=== PATIENT | male | born 1950 | race Caucasian/White ===

== ENCOUNTER 2020-08-16 08:40 | Outpatient (REF) | payer MEDICARE, SELFPAY ==
--- NOTE | 2020-08-16 | US_ITS ---
EXAMINATION: US ABDOMEN AORTA CLINICAL INFORMATION: Dilation of thoracic aorta. COMPARISON: None. TECHNIQUE: Routine retroperitoneal ultrasound with attention to the abdominal aorta was performed. FINDINGS: Proximal abdominal aorta measures 3.5 x 3.5 cm in AP and transverse dimension. Mid abdominal aorta measures 2.4 x 2.7 cm in AP and transverse dimension. Distal abdominal aorta measures 2.5 x 2.7 cm and AP and transverse dimension. Right common iliac artery measures 1.3 x 1.6 cm in AP and transverse dimension. Left common iliac artery measures 1.6 cm x 1.3 cm in AP and transverse dimension. US/US abdominal aortic aneurysm IMPRESSION: No evidence of abdominal aortic aneurysm.
== END 2020-08-16 08:41 | disposition home or self-care (01) ==
LOC: HO.HMGCX 08:40
PROVIDERS: PCP Nurse Practitioner Family; Visit Provider Nurse Practitioner Family
DX: I77.810 Thoracic aortic ectasia (principal)
CPT/HCPCS: 76706

== ENCOUNTER → 2020-09-27 08:18 | Outpatient (REF) | payer MEDICARE, SELFPAY ==
--- NOTE | 2020-09-27 08:20 | CA_ITS ---
Transthoracic Echocardiogram Patient (Last, First, Middle): Kobi Villagran W Gender: Male Date of : 1950 Age: 69 Procedure Date: 09/27/2020 Procedure Type: Transthoracic Echocardiogram Location: OP Height: 177.8 cm Weight: 117.94 kg BSA: 2.33 m2 Heart Rate: bpm BP: 140 / 74 mmHg Paralegal Instructor: FLORENCIA Referring MD: Thom Luna [facility] Symptoms: I71.2 - Thoracic aortic aneurysm, without rupture Study Quality: Good ECG Rhythm: Sinus Conclusions: - The left ventricular systolic function is normal. The visually estimated ejection fraction is between 60-65%. - There is suggestion of inferior septal /septal hypokinesis in some views. - No obvious valvular pathology seen on this study. Findings Left Ventricle Normal left ventricular cavity size. There is normal left ventricular wall thickness. The left ventricular systolic function is normal. The visually estimated ejection fraction is between 60-65%. There is evidence of regional wall motion abnormalities. Diastolic function is normal for age. There is suggestion of inferior septal /septal hypokinesis in some views. Right Ventricle Normal right ventricular cavity size and systolic function. Atria Both atria are normal in size. Aortic Valve There is a normal trileaflet aortic valve. There is no aortic valve stenosis. There is no aortic valve regurgitation. Mitral Valve The mitral valve appears normal. There is no mitral valve regurgitation. There is no mitral valve stenosis. Pulmonic Valve The pulmonic valve was not well visualized. Tricuspid Valve Normal tricuspid valve structure. There is trace tricuspid valve regurgitation. The pulmonary artery systolic pressure is normal. Great Vessels Top normal ascending aortic size. Venous The inferior vena cava is normal in size and collapses greater than 50% with inspiration. Pericardium/Pleural There is no evidence of pericardial effusion. Prior Study Comparison Changes noted compared to prior study dated: 10/10/2017. See comments on wall motion. On review of images, possibly present before but difficult to compare due to image quality. Recommendations, Care & Conclusions No obvious valvular pathology seen on this study. Measurements 2D Linear Measurements RVIDd: 3.09 RVIDd Index: 1.33 IVSd: 0.94 0.6-0.9/0.6-1.0 cm LVIDd: 5.00 3.9-5.3/4.2-5.9 cm LVIDd Index: 2.15 2.4-3.2/2.2-3.1 cm/m2 LVIDs: 3.57 2.0-3.6 cm LVPWd: 1.23 0.7-1.1 cm Ao Root: 3.20 2.1-3.5 cm LA Diam: 3.60 2.7-3.8/3.0-4.0 cm LAIDs Index: 1.55 1.5-2.3 cm/m2 LV Mass: 253.19 67-162/88-224 g LV Mass Index: 108.66 43-95/49-115 g/m2 LVOT Diam: 2.30 3.0+(-)1.3 cm 2D Systolic Function EF 4C: 42.30 >55% EF 2C: 65.60 >55% EF BiP: 54.50 >55% Mitral Valve MV Pk E: 0.59 MV PK A: 0.81 MV Decel Time: 249.00 E/A: 0.70 E'Lateral: 6.96 E'Medial: 5.66 E/E' Med: 10.50 E/E' Lat: 8.50 Aortic Valve AoV Pk Chago: 1.39 AoV Mn Chago: 1.10 AoV VTI: 0.26 AoV Pk Grad: 8.00 Aov Mn Grad: 5.00 RUSH Cont.VTI: 2.96 LVOT LVOT Pk Chago: 1.17 LVOT Mn Chago: 0.73 LVOT VTI: 0.19 LVOT Pk Grad: 5.00 LVOT Mn Grad: 2.00 LVOT Diam: 2.30 LVOT Area: 4.15 Diastolic Function MV Pk E: 0.59 MV Pk A: 0.81 E/A: 0.70 E'Medial: 5.66 E/E' Med: 10.50 E' Laterial: 6.96 E/E' Lat: 8.50 Tricuspid Valve RA Press: 3.00 Great Vessels Aorta Ao Root-2D: 3.20 2.0-3.7 cm Ao Asc: 3.70 2.1-3.4 cm Ao Arch: 3.50 Updated in Other Vendor System with Status of Final Sixto Gaines MD electronically signed on 09/27/2020 12:44:18 PM with status of Final
== END ==
LOC: HO.CARD 08:18
PROVIDERS: PCP Nurse Practitioner Family; Visit Provider Internal Medicine Cardiovascular Disease
DX: I71.2 Thoracic aortic aneurysm, without rupture (principal); I10 Essential (primary) hypertension
CPT/HCPCS: 93306

== ENCOUNTER → 2020-10-18 08:51 | Outpatient (BNVA) | payer MEDICARE, SELFPAY | PROVIDERS: PCP Nurse Practitioner Family; Visit Provider Internal Medicine Cardiovascular Disease | DX: I71.2 Thoracic aortic aneurysm, without rupture (principal); I10 Essential (primary) hypertension | CPT/HCPCS: 99212 ==

== ENCOUNTER → 2020-11-15 09:03 | Outpatient (BNVA) | payer MEDICARE, SELFPAY | PROVIDERS: PCP Nurse Practitioner Family; Visit Provider Internal Medicine Cardiovascular Disease ==

== ENCOUNTER → 2020-11-18 09:24 | Outpatient (BNVA) | payer MEDICARE, SELFPAY | PROVIDERS: PCP Nurse Practitioner Family; Visit Provider Urology | DX: N52.9 Male erectile dysfunction, unspecified (principal); R35.1 Nocturia; N40.1 Benign prostatic hyperplasia with lower urinary tract symptoms; N13.8 Other obstructive and reflux uropathy | CPT/HCPCS: 81002; 99212 ==

== ENCOUNTER 2021-10-11 10:24 | Outpatient (REF) | payer MEDICARE, SELFPAY ==
--- NOTE | ~2021-10-11 | XR_ITS ---
EXAMINATION: XR LUMBOSACRAL SPINE CLINICAL INFORMATION: Low back pain COMPARISON: None TECHNIQUE: Three views of the lumbosacral spine. FINDINGS: No acute fracture, spondylolisthesis, or spondylolysis is identified. There appears be osteopenia of visualized bones. There is degenerative disc disease seen at the L5-S1 level with facet arthropathy bilaterally. There is mild spurring anterior aspects of the third, fourth, and fifth vertebral bodies. There is a calcified nonaneurysmal abdominal aorta present. There appears to be partial lumbarization right side of S1. XR/XR lumbar spine 2-3V IMPRESSION: Lumbar spondylosis without evidence of acute fracture, spondylolisthesis, or spondylolysis.
== END 2021-10-11 10:25 | disposition home or self-care (01) ==
LOC: HO.HMGCX 10:24
PROVIDERS: PCP Nurse Practitioner Family; Visit Provider Nurse Practitioner Family
DX: M54.50 Low back pain, unspecified (principal)
CPT/HCPCS: 72100

== ENCOUNTER → 2021-10-16 07:49 | Outpatient (REF) | payer MEDICARE, SELFPAY ==
--- NOTE | 2021-10-16 07:51 | CA_ITS ---
Transthoracic Echocardiogram Patient (Last, First, Middle): Kobi Villagran W Gender: Male Date of : 1950 Age: 70 Procedure Date: 10/16/2021 Procedure Type: Transthoracic Echocardiogram Location: OP Height: 177.8 cm Weight: 117.94 kg BSA: 2.33 m2 Heart Rate: bpm BP: 136 / 84 mmHg Packaging Inspector: DANII Referring MD: Facundo Martinez MD Spool Sander: Facundo Martinez MD Symptoms: I71.2 - Thoracic aortic aneurysm, without rupture Study Quality: Fair ECG Rhythm: Sinus Conclusions: - 1. Normal LV systolic function with grade 1 diastolic dysfunction 2. Normal cardiac valvular Doppler 3. Mildly dilated ascending aorta at 4.2 cm 4. Normal RV systolic pressure 5. No pericardial effusion Findings Left Ventricle Normal left ventricular size, thickness, and systolic function. The visually estimated ejection fraction is between 60-65%. Spectral Doppler is indicative of an impaired relaxation filling pattern. E/E prime ratio is <8, consistent with normal filling pressures. Evidence suggests grade I (mild) diastolic dysfunction. Right Ventricle Normal right ventricular cavity size and systolic function. Atria The left atrium is normal in size. Interatrial shunt cannot be excluded. The right atrium is normal in size. Aortic Valve The aortic valve structure and function is likely normal. There is no aortic valve stenosis. There is no aortic valve regurgitation. Mitral Valve Normal mitral valve structure and function. There is trace mitral valve regurgitation. There is no mitral valve stenosis. Pulmonic Valve The pulmonic valve was not well visualized. Tricuspid Valve Likely normal tricuspid valve structure and function. There is mild tricuspid valve regurgitation. The right ventricular systolic pressure is normal. The right ventricular systolic pressure is 28 mmHg. Normal right atrial pressure. There is no evidence of pulmonary hypertension. Great Vessels The pulmonary artery was not well visualized. There is mild dilatation of the ascending aorta measuring 4.20 cm. Venous The inferior vena cava is normal in size and collapses greater than 50% with inspiration. Pericardium/Pleural There is no evidence of pericardial effusion. Prior Study Comparison Changes noted compared to prior study dated: 09/27/2020. ascending aorta is measured to be mildly enlarged at 4.2 cm. Measurements 2D Linear Measurements IVSd: 1.06 0.6-0.9/0.6-1.0 cm LVIDd: 4.79 3.9-5.3/4.2-5.9 cm LVIDd Index: 2.06 2.4-3.2/2.2-3.1 cm/m2 LVIDs: 3.55 2.0-3.6 cm LVPWd: 1.10 0.7-1.1 cm Ao Root: 3.30 2.1-3.5 cm LA Diam: 3.50 2.7-3.8/3.0-4.0 cm LAIDs Index: 1.50 1.5-2.3 cm/m2 LV Mass: 275.50 67-162/88-224 g LV Mass Index: 118.24 43-95/49-115 g/m2 LVOT Diam: 2.20 3.0+(-)1.3 cm 2D Systolic Function EF 4C: 59.80 >55% EF 2C: 59.50 >55% EF BiP: 61.70 >55% Mitral Valve MV Pk E: 0.61 MV PK A: 0.78 MV Decel Time: 289.00 E/A: 0.80 E'Lateral: 6.96 E'Medial: 6.31 E/E' Med: 9.60 E/E' Lat: 8.70 PHT: 85.00 MVA PHT: 2.59 Decel [place]: 2.09 Aortic Valve AoV Pk Chago: 1.22 AoV Mn Chago: 0.97 AoV VTI: 0.28 AoV Pk Grad: 6.00 Aov Mn Grad: 4.00 RUSH Cont.VTI: 2.83 LVOT LVOT Pk Chago: 1.06 LVOT Mn Chago: 0.68 LVOT VTI: 0.21 LVOT Pk Grad: 4.00 LVOT Mn Grad: 2.00 LVOT Diam: 2.20 LVOT Area: 3.80 Diastolic Function MV Pk E: 0.61 MV Pk A: 0.78 E/A: 0.80 E'Medial: 6.31 E/E' Med: 9.60 E' Laterial: 6.96 E/E' Lat: 8.70 Right Ventricle TAPSE (mm): 22.10 TVS' Chago: 12.00 Tricuspid Valve TR Pk Chago: 2.48 TR Pk Grad: 25.00 RA Press: 3.00 RVSP: 28.00 Great Vessels Aorta Ao Root-2D: 3.30 2.0-3.7 cm Ao Asc: 4.20 2.1-3.4 cm Ao Arch: 3.10 Updated in Other Vendor System with Status of Final Facundo Martinez MD electronically signed on 10/17/2021 11:45:07 AM with status of Final
== END ==
LOC: HO.CARD 07:49
PROVIDERS: PCP Nurse Practitioner Family; Visit Provider Internal Medicine Cardiovascular Disease
DX: I71.2 Thoracic aortic aneurysm, without rupture (principal); I10 Essential (primary) hypertension
CPT/HCPCS: 93306

== ENCOUNTER → 2021-10-30 10:30 | Outpatient (BNVA) | payer MEDICARE, SELFPAY | PROVIDERS: PCP Nurse Practitioner Family; Referring Provider Nurse Practitioner Family; Visit Provider Internal Medicine Cardiovascular Disease | DX: I71.2 Thoracic aortic aneurysm, without rupture (principal); I49.1 Atrial premature depolarization; I10 Essential (primary) hypertension | CPT/HCPCS: 93005; 99212 ==

== ENCOUNTER 2021-11-22 06:58 | Outpatient (REF) | payer MEDICARE, SELFPAY ==
[2021-11-22 11:15] LABS: Hemoglobin 14.3 g/dl (14.0-18.0); Mean Corpuscular HGB Conc 33.3 g/dl (31.0-36.0); Mean Corpuscular Hemoglobin 28.8 pg (27.0-33.0); Mean Corpuscular Volume 86.5 fL (80.0-98.0); Mean Platelet Volume 10.1 fL (9.4-12.4); Platelet Count 215 X10*3/uL (160-400); Red Blood Count 4.97 X10*6/uL (4.60-5.80); Red Cell Distribution Width 13.1 % (11.0-16.0); White Blood Count 5.8 X10*3/uL (4.8-10.8)
[2021-11-22 11:47] LABS: Anion Gap 11 (12-20); Blood Urea Nitrogen 17 mg/dL (9-16); Calcium 9.4 mg/dL (8.4-10.2); Carbon Dioxide 28 mmol/L (22-29); Chloride 104 mmol/L (96-108); Cholesterol 164 mg/dL; Estimated Glomerular Filt Rate > 60; Glucose Random 275 mg/dL (60-115); HDL Cholesterol 48 mg/dL; LDL Cholesterol Calculated 101 mg/dl; Potassium 4.2 mmol/L (3.3-5.1); Sodium 139 mmol/L (135-145); Triglycerides 75 mg/dL
== END 2021-11-22 06:59 | disposition home or self-care (01) ==
LOC: HO.HMGCLDS 06:58
PROVIDERS: Visit Provider Internal Medicine Cardiovascular Disease
DX: I25.10 Atherosclerotic heart disease of native coronary artery without angina pectoris (principal); I10 Essential (primary) hypertension
CPT/HCPCS: 36415; 80048; 80061; 85027

== ENCOUNTER → 2022-10-03 08:12 | Outpatient (REF) | payer MEDICARE, SELFPAY ==
--- NOTE | 2022-10-03 08:17 | CA_ITS ---
Transthoracic Echocardiogram Patient (Last, First, Middle): Kobi Villagran W Gender: Male Date of : 1950 Age: 71 Procedure Date: 10/03/2022 Procedure Type: Transthoracic Echocardiogram Location: OP Height: 177.8 cm Weight: 106.6 kg BSA: 2.24 m2 Heart Rate: 67 bpm BP: 130 / 80 mmHg Stage Technician: PASCUAL Referring MD: Facundo Martinez MD Wood Type Finisher: Facundo Martinez MD Symptoms: I71.2 - Thoracic aortic aneurysm, without rupture Study Quality: Apical views are limited ECG Rhythm: Sinus Conclusions: - 1. Technically limited study 2. Normal LV systolic function with grade 1 diastolic dysfunction 3. Normal cardiac valvular Doppler 4. Normal RV systolic pressure 5. No gross pericardial effusion Findings Left Ventricle Normal left ventricular size, thickness, and systolic function. The visually estimated ejection fraction is between 60-65%. Regional wall motion abnormalities can not be excluded due to suboptimal endocardial definition. Spectral Doppler is indicative of an impaired relaxation filling pattern. E/E prime ratio is <8, consistent with normal filling pressures. Evidence suggests grade I (mild) diastolic dysfunction. Right Ventricle The right ventricle was not well visualized. Atria The left atrium is normal in size. Interatrial shunt cannot be excluded. The right atrium is likely dilated. Aortic Valve Normal aortic valve structure and function. There is no aortic valve stenosis. There is no aortic valve regurgitation. Mitral Valve Normal mitral valve structure and function. There is trace mitral valve regurgitation. There is no mitral valve stenosis. Pulmonic Valve The pulmonic valve was not well visualized. Tricuspid Valve Likely normal tricuspid valve structure and function. There is trace tricuspid valve regurgitation. The right ventricular systolic pressure is normal. The right ventricular systolic pressure is 21 mmHg. Normal right atrial pressure. There is no evidence of pulmonary hypertension. Great Vessels The aorta was not well visualized. The pulmonary artery was not well visualized. Venous The inferior vena cava is normal in size and collapses greater than 50% with inspiration. Pericardium/Pleural There is no evidence of pericardial effusion. Prior Study Comparison ascending aorta was not well visualized on this study Recommendations, Care & Conclusions Recommend contrast in the future to improve endocardial definition. Measurements 2D Linear Measurements IVSd: 0.98 0.6-0.9/0.6-1.0 cm LVIDd: 4.33 3.9-5.3/4.2-5.9 cm LVIDd Index: 1.93 2.4-3.2/2.2-3.1 cm/m2 LVIDs: 2.46 2.0-3.6 cm LVPWd: 0.99 0.7-1.1 cm LA Diam: 3.00 2.7-3.8/3.0-4.0 cm LAIDs Index: 1.34 1.5-2.3 cm/m2 LV Mass: 175.25 67-162/88-224 g LV Mass Index: 78.24 43-95/49-115 g/m2 LVOT Diam: 2.00 3.0+(-)1.3 cm 2D Systolic Function EF 4C: 62.20 >55% EF 2C: 56.20 >55% Mitral Valve MV Pk E: 0.71 MV PK A: 0.86 MV Decel Time: 231.00 E/A: 0.80 E'Lateral: 7.94 E'Medial: 6.74 E/E' Med: 10.50 E/E' Lat: 8.90 PHT: 68.00 MVA PHT: 3.24 Decel [place]: 3.07 Aortic Valve AoV Pk Chago: 1.42 AoV Mn Chago: 0.96 AoV VTI: 0.29 AoV Pk Grad: 8.00 Aov Mn Grad: 4.00 RUSH Cont.VTI: 2.68 LVOT LVOT Pk Chago: 1.26 LVOT Mn Chago: 0.82 LVOT VTI: 0.24 LVOT Pk Grad: 6.00 LVOT Mn Grad: 3.00 LVOT Diam: 2.00 LVOT Area: 3.14 Diastolic Function MV Pk E: 0.71 MV Pk A: 0.86 E/A: 0.80 E'Medial: 6.74 E/E' Med: 10.50 E' Laterial: 7.94 E/E' Lat: 8.90 Right Ventricle TAPSE (mm): 21.40 TVS' Chago: 8.70 Tricuspid Valve TR Pk Chago: 2.10 TR Pk Grad: 18.00 RA Press: 3.00 RVSP: 21.00 Great Vessels Aorta Sinus of Valsalva: 3.60 2.0-3.5 cm Ao Asc: 3.60 2.1-3.4 cm Pulmonary Valve PV Pk Chago: 0.91 Peak PV Grad: 3.00 Updated in Other Vendor System with Status of Final Facundo Martinez MD electronically signed on 10/03/2022 2:54:17 PM with status of Final
== END ==
LOC: HO.CARD 08:12
PROVIDERS: Visit Provider Internal Medicine Cardiovascular Disease
DX: I71.20 Thoracic aortic aneurysm, without rupture, unspecified (principal)
CPT/HCPCS: 93306

== ENCOUNTER → 2022-10-25 08:05 | Outpatient (BNVA) | payer MEDICARE, SELFPAY | PROVIDERS: PCP Nurse Practitioner Family; Referring Provider Nurse Practitioner Family; Visit Provider Internal Medicine Cardiovascular Disease | DX: I71.20 Thoracic aortic aneurysm, without rupture, unspecified (principal); I45.10 Unspecified right bundle-branch block; I10 Essential (primary) hypertension | CPT/HCPCS: 93005; 99212 ==

== ENCOUNTER 2022-11-06 07:27 | Outpatient (REF) | payer MEDICARE, SELFPAY ==
--- NOTE | ~2022-11-06 | CT_ITS ---
EXAMINATION: CT ANGIOGRAM ABDOMEN CLINICAL INFORMATION: Aneurysm of ascending aorta without rupture. COMPARISON: None TECHNIQUE: Multiple axial images were obtained through the abdomen following the administration of 80 mL Omnipaque 350 intravenous contrast. Images were reviewed on a dedicated 3-D workstation. This CT examination was performed using dose optimization techniques as appropriate, variously including the following: *Automated exposure control *Adjustment of mA and/or kV according to patient size (this includes techniques or standardized protocols for targeted exams where dose is matched to indication/reason for exam; i.e. extremities or head) *Use of iterative reconstruction technique DLP: 236 mGy-cm FINDINGS: Distal thoracic aorta is normal in caliber. No evidence of dissection or other acute aortic syndrome. The abdominal aorta is normal in course and caliber. No aneurysm identified. No evidence of dissection or other acute aortic syndrome. There is moderate eccentric calcific disease without significant luminal narrowing. Iliac bifurcation is patent. While there is eccentric calcification of the common iliac arteries, there is no luminal narrowing. The celiac axis, superior mesenteric artery, inferior mesenteric arteries are patent and without significant stenosis. There are single renal artery to each kidney. There is no stenosis of the renal arteries. There is an unremarkable appearance of the venous structures for an arterial phase of contrast. There is a 5 x 4 mm right lower lobe opacity (image 60, series 10) There is a 6 x 4 mm lateral left lower lobe nodule (image 68, series 10) There is no pleural effusion. The liver is normal in size and overall attenuation. No hepatic lesions are seen. There is no intra or extrahepatic duct dilation. The gallbladder is unremarkable and there are no pericholecystic inflammatory changes. Spleen is unremarkable. Pancreas is unremarkable. Adrenal glands are unremarkable. Kidneys are normal in size and overall attenuation. At the anterior midpole of the left kidney there is a 6 mm nonobstructing calculus at the posterior aspect of the midpole the right kidney there is a 4 mm nonobstructing calculus. There are no ureteral calculi. There is no hydronephrosis or hydroureter. No free intra-abdominal fluid. The distal esophagus and stomach are unremarkable. The small and large bowel are normal in caliber. There is colonic diverticulosis. No bowel wall inflammatory changes. There is no abdominal adenopathy. There is no significant hernia of the abdominal wall. There is mild multilevel degenerative change of the thoracolumbar spine. Within the left posterior ilium there is a densely sclerotic 6 mm structure most likely a bone island. CT/CT angio abdomen IMPRESSION: 1. No evidence of abdominal aortic aneurysm. 2. There are bilateral lower lobe pulmonary nodules, the largest measures 6 x 4 mm on the left. According to the UPDATED 2017 Fleischner Society recommendations, the advised follow-up imaging for solid nodules < 6 mm is: LOW RISK PATIENT: No routine follow-up. HIGH RISK PATIENT: Optional CT at 12 months. 3. Nonobstructing bilateral renal calculi. Fleischner guidelines were followed.
[2022-11-06 10:22] LABS: Creatinine POC 0.8 mg/dL (0.5-1.4); GFR POC 60
== END 2022-11-06 07:28 | disposition home or self-care (01) ==
LOC: HO.CT 07:27
PROVIDERS: Visit Provider Internal Medicine Cardiovascular Disease
DX: I71.21 Aneurysm of the ascending aorta, without rupture (principal)
CPT/HCPCS: 74175; 82565

== ENCOUNTER 2023-03-12 10:22 | Outpatient (AMB) | payer OTHER, SELFPAY ==
--- NOTE | 2023-03-12 10:47 | A.OFFVIS_ITS ---
Intake Intake Visit Reasons: bph Intake Note: Patient presents today for a follow-up on BPH ? Meds: Finasteride ? Allergies to Antibiotic: None ? Blood Thinner: None ? PVR: 73ml Pressure Supervisor Required: No Accompanied by: Self / Same As Patient Allergies No Known Allergies Allergy (Verified 03/12/23 10:48) HPI HPI Comments History of Present Illness Details Kobi FIELDS is a very pleasant male. He is a patient of Dr. Chow. He is seen for the following urologic conditions. - lower urinary tract symptoms - erectile dysfunction - low testosterone Urination stable Finasteride Saturday, Saturday, Saturday Prior low testosterone Trial tadalafil 3 months Lab work 3 months Lower Urinary Tract Symptoms: PSA low Discussed changing finasteride to Saturday He brought up in interest in the UroLift procedure. My recommendation would be for a laser procedure. First step is bladder ultrasound measures prostate followed by cystoscopy to check for median lobe. Based on this assessment can determine suitability for procedure. - Abnormal imaging result. PET/CT performed for head and neck cancer April 2017. Result includes 9 mm focus of increased FDG uptake and posterior lateral right aspect of prostate. Prostate measures 4.5 x 6.5 x 5.5 cm. Enlarged.. Current treatment includes medication, alpha kamille, 5-AR. Prostate Symptom Score 08/09 Moderate (9-19), Bother 2. Symptoms include 08/09 , incomplete emptying, weak stream, nocturia (>2), and are progressing 05/11 , incomplete emptying, weak stream, nocturia (>2), and are improving. Prior Prostate Score moderate. PSA 05/09 2.6 per patient 02/07 PVR 50, PSA 1.1 05/10 T 358, Bioavailable 120 low 02/08 PSA 1.1 T 121 2 PSA 1.1 Total T 225 - 06/12 0.9 Prostate volume 30-50gm. Testing at next visit will include bladder scan. Treatment plan continue with current medications [facility] Medical History Ectopic atrial rhythm HTN (hypertension) Medial meniscus tear Osteoarthritis Surgical History History of elbow surgery History of hip surgery History of throat surgery Family History Father No problems noted. Mother Cancer Review of Systems Const Denies chills and Denies fever(s) Card Reports no additional complaints and Denies syncope Resp Denies cough GI Denies abdominal pain and Denies heartburn Reports as per HPI and Denies change in libido Neuro Denies syncope Psych Denies change in libido Endo Denies change in libido Physical Exam Const General: cooperative, healthy appearing, comfortable and no acute distress Orientation/consciousness: patient oriented x3 HEENT Face and sinus: Yes normal facial exam Mouth: moist mucous membranes Neck Neck: Yes normal visual inspection, Yes full ROM and Yes trachea midline Chest Chest palpation & inspection: normal inspection of the chest Resp Effort & Inspection: normal respiratory effort, able to speak in complete sentences and no respiratory distress GI Inspection: Yes normal to inspection Back/Spine/Pelvis Cervical Spine: normal cervical lordosis Thoracic/Lumbar Spine: thoracic and lumbar spine normal to inspection Skin General skin exam: no rashes or lesions noted Neuro General: patient oriented x3, gait normal, tone normal and moves all extremities Extrem General: Yes normal to inspection and Yes capillary refill normal Office Procedures Post Void Residual Post Residual Void Post Void Residual (PVR): 73 [id number] Void Residual by ultrasound Results AMB Urinalysis, Automated UA Leukoctes 0 Roxana/uL Last Edit by ANA Gray on 03/12/23 10:54 UA Nitrite Negative Last Edit by ANA Gray on 03/12/23 10:54 UA Urobilinogen 0.2 mg/dL Last Edit by ANA Gray on 03/12/23 10:5 4 UA Protein 0 mg/dL Last Edit by ANA Gray on 03/12/23 10:54 UA pH 6.0 Last Edit by ANA Gray on 03/12/23 10:54 UA Blood 0 Gaurav/uL Last Edit by ANA Gray on 03/12/23 10:54 UA Specific [place] 1.020 Last Edit by ANA Gray on 03/12/23 10: 54 UA Ketone Negative Last Edit by ANA Gray on 03/12/23 10:54 UA Bilirubin 0 mg/dL Last Edit by YUE GrayA on 03/12/23 10:54 UA Glucose 1000 mg/dL Last Edit by YUE GrayA on 03/12/23 10:54 3+ Cat Bentley 03/12/23 10:54 Results Reviewed Results Reviewed: Laboratory Last Values Urine pH (Auto) 6.0 03/12/23 10:41 Specific [place] (Auto) 1.020 03/12/23 10:41 Urine Protein (Auto) 0 mg/dL 03/12/23 10:41 Glucose (UA)(Auto) 1000 mg/dL 03/12/23 10:41 Urine Ketones (Auto) Negative 03/12/23 10:41 Urine Blood (Auto) 0 Gaurav/uL 03/12/23 10:41 Urine Nitrite (Auto) Negative 03/12/23 10:41 Urine Bilirubin (Auto) 0 mg/dL 03/12/23 10:41 Urine Urobilinogen (Auto) 0.2 mg/dL 03/12/23 10:41 Leukocyte Esterase (Auto) 0 Roxana/uL 03/12/23 10:41 Assessment & Plan Assessment & Plan (1) Low testosterone: Code(s): R79.89 - Other specified abnormal findings of blood chemistry Plan Trial tadalafil 5 mg daily Check testosterone in 3 months Orders: Orders AMB Urinalysis Automated 03/12/23 Z13.9 - Encounter for screening, unspecified Testosterone, Free/Total 3 Months R79.89 - Other specified abnormal findings of blood chemistry AMB Post Void Residual by ultrasound 03/12/23 N39.8 - Other specified disorders of urinary system Medications: New tadalafil 5 mg PO DAILY 90 tabs 0RF sexual activity 90 days R79.89 - Other specified abnormal findings of blood chemistry, N52.01 - Erectile dysfunction due to arterial insufficiency Patient Instructions: Imaging studies, laboratory and physical exam results were discussed and review ed in detail. No major barriers to patient understanding were identified. An opportunity to ask questions regarding the treatment plan was provided. All questions were answered. The patient expressed understanding and agreement with the above treatment plan. The patient is aware they should contact our office by phone for worsening of their current condition or the appearance of new urologic symptoms. Compliance is encouraged with any medications and followup testing that is ordered. It is a privilege to participate in the urologic care of your patient. If you have any questions or concerns regarding treatment for the above conditions, or other urologic issues, please do not hesitate to contact me. The office telephone contact is [phone]. This note is constructed using voice recognition software. While every effort has been made to ensure accuracy guest service aide errors may have been included. Yours sincerely, Dr Mayco Roper MD, [facility] - Urology Providers of Expert, Compassionate Care for the Genitourinary System Coding Level of Care Code Est Pt Level 4 (89937) Diagnoses Low testosterone R79.89 CPT Codes Post Residual Void - PVR CPT Code: 31620-Ofzs Void Residual by ultrasound ([id number])
== END 2023-03-12 11:50 | disposition home or self-care (01) ==
LOC: HO.HUSH 10:22
PROVIDERS: PCP Nurse Practitioner Family; Visit Provider Urology
DX: R79.89 Other specified abnormal findings of blood chemistry (principal); N52.9 Male erectile dysfunction, unspecified
CPT/HCPCS: 99214

== ENCOUNTER → 2023-03-12 10:22 | Outpatient (BNVA) | payer OTHER, SELFPAY | PROVIDERS: PCP Nurse Practitioner Family; Visit Provider Urology | DX: R79.89 Other specified abnormal findings of blood chemistry (principal) | CPT/HCPCS: 51798; 99212 ==

== ENCOUNTER 2023-08-06 07:21 | Outpatient (REF) | payer OTHER, SELFPAY ==
[2023-08-11 14:53] LABS: Testosterone, Total 265 ng/dL (250-1100)
== END 2023-08-06 07:22 | disposition home or self-care (01) ==
LOC: HO.HMGCLDS 07:21
PROVIDERS: PCP Nurse Practitioner Family; Visit Provider Urology
DX: R79.89 Other specified abnormal findings of blood chemistry (principal)
CPT/HCPCS: 36415; 84402; 84403

== ENCOUNTER 2023-10-22 14:57 | Outpatient (AMB) | payer OTHER, SELFPAY ==
--- NOTE | 2023-10-22 15:25 | MHC.OFFVIS ---
Intake Intake Visit Reasons: Testosterone/Med Review(set) Intake Note: Patient presents today for a follow-up on: Testo/ Medication Review Meds- Finasteride Allergies to Antibiotic- No Known Allergies Blood Thinner- None Patient Symptoms: Patient stated he is not taking Tadalafil. Prep Person Required: No Accompanied by: Self / Same As Patient Allergies No Known Allergies Allergy (Verified 10/22/23 15:31) HPI HPI Comments History of Present Illness Details Kobi FIELDS is a very pleasant male. He is a patient of Dr. Chow. He is seen for the following urologic conditions. - lower urinary tract symptoms - erectile dysfunction - low testosterone Urination stable Finasteride Saturday, Saturday, Saturday Trial of tadalafil for low T Unable to tolerate secondary to muscular pain Repeat testosterone showed free T 53 with low normal total 265 12 month follow-up labs Lower Urinary Tract Symptoms: PSA low Discussed changing finasteride to Saturday First step is bladder ultrasound measures prostate followed by cystoscopy to check for median lobe. Based on this assessment can determine suitability for procedure. - Abnormal imaging result. PET/CT performed for head and neck cancer April 2017. Result includes 9 mm focus of increased FDG uptake and posterior lateral right aspect of prostate. Prostate measures 4.5 x 6.5 x 5.5 cm. Enlarged.. Current treatment includes medication, alpha kamille, 5-AR. Prostate Symptom Score 08/09 Moderate (9-19), Bother 2. Symptoms include 08/09 , incomplete emptying, weak stream, nocturia (>2), and are progressing 05/11 , incomplete emptying, weak stream, nocturia (>2), and are improving. Prior Prostate Score moderate. PSA 05/09 2.6 per patient 02/07 PVR 50, PSA 1.1 05/10 T 358, Bioavailable 120 low 02/08 PSA 1.1 T 121 11/12 PSA 1.1 Total T 225, 06/12 0.9, 08/15 T 265 F 53 Prostate volume 30-50gm. Testing at next visit will include bladder scan. Treatment plan continue with current medications [facility] Medical History Ectopic atrial rhythm HTN (hypertension) Medial meniscus tear Osteoarthritis Surgical History History of throat surgery History of hip surgery History of elbow surgery Family History Father No problems noted. Mother Cancer Review of Systems Const Denies chills and Denies fever(s) Card Reports no additional complaints and Denies syncope Resp Denies cough GI Denies abdominal pain and Denies heartburn Reports as per HPI and Denies change in libido Neuro Denies syncope Psych Denies change in libido Endo Denies change in libido Physical Exam Const General: cooperative, healthy appearing, comfortable and no acute distress Orientation/consciousness: patient oriented x3 HEENT Face and sinus: Yes normal facial exam Mouth: moist mucous membranes Neck Neck: Yes normal visual inspection, Yes full ROM and Yes trachea midline Chest Chest palpation & inspection: normal inspection of the chest Resp Effort & Inspection: normal respiratory effort, able to speak in complete sentences and no respiratory distress GI Inspection: Yes normal to inspection Back/Spine/Pelvis Cervical Spine: normal cervical lordosis Thoracic/Lumbar Spine: thoracic and lumbar spine normal to inspection Skin General skin exam: no rashes or lesions noted Neuro General: patient oriented x3, gait normal, tone normal and moves all extremities Extrem General: Yes normal to inspection and Yes capillary refill normal Assessment & Plan Assessment & Plan (1) Erectile dysfunction: Code(s): N52.9 - Male erectile dysfunction, unspecified (2) BPH w urinary obs/LUTS: Code(s): N40.1 - Benign prostatic hyperplasia with lower urinary tract symptoms; N13.8 - Other obstructive and reflux uropathy Plan Twelve month follow-up PVR, PSA office Patient Instructions: Imaging studies, laboratory and physical exam results were discussed and reviewed in detail. No major barriers to patient understanding were identified. An opportunity to ask questions regarding the treatment plan was provided. All questions were answered. The patient expressed understanding and agreement with the above treatment plan. The patient is aware they should contact our office by phone for worsening of their current condition or the appearance of new urologic symptoms. Compliance is encouraged with any medications and followup testing that is ordered. It is a privilege to participate in the urologic care of your patient. If you have any questions or concerns regarding treatment for the above conditions, or other urologic issues, please do not hesitate to contact me. The office telephone contact is [phone]. This note is constructed using voice recognition software. While every effort has been made to ensure accuracy tank house operator helper errors may have been included. Yours sincerely, Dr Mayco Roper MD, [facility] - Urology Providers of Expert, Compassionate Care for the Genitourinary System Coding Level of Care Code Est Pt Level 3 (73535) Diagnoses Erectile dysfunction N52.9 BPH w urinary obs/LUTS N40.1; N13.8
== END 2023-10-22 15:41 | disposition home or self-care (01) ==
PROVIDERS: PCP Nurse Practitioner Family; Referring Provider Nurse Practitioner Family; Visit Provider Urology
DX: N52.9 Male erectile dysfunction, unspecified (principal); N40.1 Benign prostatic hyperplasia with lower urinary tract symptoms; N13.8 Other obstructive and reflux uropathy
CPT/HCPCS: 99213

== ENCOUNTER → 2023-10-22 14:57 | Outpatient (BNVA) | payer OTHER, SELFPAY | PROVIDERS: PCP Nurse Practitioner Family; Visit Provider Urology | DX: N52.9 Male erectile dysfunction, unspecified (principal); N40.1 Benign prostatic hyperplasia with lower urinary tract symptoms; N13.8 Other obstructive and reflux uropathy | CPT/HCPCS: 99212 ==

== ENCOUNTER 2023-10-28 08:27 | Outpatient (AMB) | payer MEDICARE, SELFPAY ==
[2023-10-28 08:29] VITALS: BP 130/72; PULSE 80; BMI 36.4
--- NOTE | 2023-10-28 08:29 | MHC.OFFVIS ---
Intake Vital Signs 10/28/23 08:29 Height 5 ft 10 in Weight 253 lb 8.505 oz BMI 36.4 BP 130/72 Blood Pressure Location Lt brachial Position Sitting Pulse 80 Intake Visit Reasons: 1 yr follow up Intake Note: 1 year follow-up with ekg feeling good Cane Weigher Required: No Allergies No Known Allergies Allergy (Verified 10/22/23 15:31) Medication List - Last Reconciled 10/28/23 by Facundo Martinez MD amlodipine (Norvasc) 10 mg PO ONCE atorvastatin 20 mg PO BEDTIME finasteride 5 mg PO DAILY fluticasone propionate 50 mcg/actuation (Children's Flonase Allergy Relief) 1 spray intranasal DAILY hydrochlorothiazide 25 mg PO DAILY lisinopril 10 mg PO DAILY metformin 500 mg PO DAILY metoprolol succinate ER 50 mg PO DAILY tadalafil 5 mg PO DAILY 90 days HPI HPI Comments History of Present Illness Details Kobi comes for follow-up. He has been doing very well from cardiac perspective. He said he continues to play golf and walks 18 holes. He denies any exertional chest pain or shortness of breath. Denies any orthopnea, PND, leg edema. No prolonged palpitation irregular heartbeat. Denies any lightheadedness, syncope. Takes all his medications and currently on once a day regimen. He said his blood pressures are well controlled. [facility] Medical History Ectopic atrial rhythm HTN (hypertension) Medial meniscus tear Osteoarthritis Surgical History History of throat surgery History of hip surgery History of elbow surgery Family History Father No problems noted. Mother Cancer Review of Systems Const Denies chills, Denies fatigue, Denies fever(s), Denies frequent falls, Denies weakness, Denies weight gain and Denies weight loss ENT Denies dizziness Card Denies chest pain, Denies leg edema, Denies lightheadedness, Denies palpitations, Denies dyspnea, Denies dyspnea on exertion, Denies orthopnea and Denies other (loss of consciousness) Resp Denies cough, Denies dyspnea and Denies dyspnea on exertion GI Denies hematochezia and Denies change in stool character Musc Denies abnormal gait, Denies muscle weakness, Denies numbness, Denies radiating pain into limb and Denies tingling Neuro Denies abnormal gait, Denies dizziness, Denies frequent falls, Denies numbness, Denies tingling and Denies weakness Endo Denies fatigue and Denies palpitations Physical Exam Vital Signs: Last Vital Signs Pulse 80 10/28/23 08:29 BP 130/72 10/28/23 08:29 BMI result Body Mass Index 36.4 Const General: cooperative, comfortable, no acute distress and alert Nutritional Appearance: obese Orientation/consciousness: patient oriented x3 Limitations: no limitations Neck Neck: Yes trachea midline, Yes supple and Yes no JVD Chest Chest palpation & inspection: normal inspection of the chest Resp Effort & Inspection: normal respiratory effort Auscultation: clear to auscultation bilaterally Cardio Jugular venous distension: no JVD Palpation: normal PMI Rate: regular rate Rhythm: regular rhythm Heart sounds: S1 normal heart sound present, S2 normal heart sound present and Other heart sounds present (S4 present) GI Inspection: Yes obesity Auscultation: normal bowel sounds Neuro General: patient oriented x3 and no focal motor deficits Extrem General: Yes no clubbing, cyanosis or edema Psych Appearance: grossly normal Office Procedures EKG Details: EKG shows normal sinus rhythm with right bundle-branch block with small Q-waves in inferior leads most likely pseudo infarct pattern [id number], Complete Assessment & Plan Assessment & Plan (1) Ascending aortic aneurysm: Code(s): I71.2 - Thoracic aortic aneurysm, without rupture Plan: Ascending aortic aneurysm which has remained stable. No symptoms related to it. No interventions required for the same. Management of ascending aortic aneurysm was discussed. Will follow with echocardiogram in the near future to assess any increase in size. No surgical intervention required till it is 5.5 cm. Advised to avoid sudden strenuous isometric exercise. (2) HTN (hypertension): Code(s): I10 - Essential (primary) hypertension Plan: Hypertension which is currently well optimized advised to continue current therapy. Well optimized on amlodipine, hydrochlorothiazide, metoprolol as well as lisinopril therapy. Advised to continue monitor blood pressure intermittently at home. Low-salt diet was discussed. Target goal blood pressure less than 130/84. Continue statin therapy with target goal LDL least less than 100 mg/dL. Advised to maintain heart healthy lifestyle. Persistent right bundle-branch block, no interventions required. Follow up in the clinic in 1 year's time, sooner p.r.n.. Thank you for allowing me to partake in his care Coding Level of Care Code Est Pt Level 4 (47481) Diagnoses Ascending aortic aneurysm I71.2 HTN (hypertension) I10 CPT Codes EKG - CPT: 31834-[id number], Complete ([id number])
== END 2023-10-28 09:01 | disposition home or self-care (01) ==
PROVIDERS: Visit Provider Internal Medicine Cardiovascular Disease
DX: I71.20 Thoracic aortic aneurysm, without rupture, unspecified (principal); I10 Essential (primary) hypertension
CPT/HCPCS: 93010; 99214

== ENCOUNTER → 2023-10-28 08:27 | Outpatient (BNVA) | payer MEDICARE, SELFPAY | PROVIDERS: Visit Provider Internal Medicine Cardiovascular Disease | DX: I71.20 Thoracic aortic aneurysm, without rupture, unspecified (principal); I10 Essential (primary) hypertension; Z79.899 Other long term (current) drug therapy | CPT/HCPCS: 93005; 99212 ==

== ENCOUNTER 2024-11-04 08:19 | Outpatient (AMB) | payer OTHER, SELFPAY ==
--- NOTE | 2024-11-04 08:25 | A.OFFVIS_ITS ---
Intake Visit Reasons: 1Y PVR/Labs(Pt will bring in results) Intake Note: Patient presents today for a follow-up on 1 year PVR/labs Meds- Finasteride Allergies to Antibiotic- No Known Allergies Blood Thinner- None PVR:13mL Barber Apprentice Required: No Accompanied by: Self / Same As Patient Allergies No Known Allergies Allergy (Verified 11/04/24 08:27) HPI Comments Details: Kobi FIELDS is a very pleasant male. He is a patient of Dr. Chow. He is seen for the following urologic conditions. - lower urinary tract symptoms - erectile dysfunction - low testosterone Urination stable Finasteride Saturday, Saturday, Saturday PSA 0.83 Has been on Jardiance 10 mg. Did want him that if he has urgency, frequency, nocturia he should switch to a different medication. Prior trial of tadalafil for low T - Unable to tolerate secondary to muscular pain Repeat testosterone 08/15 showed free T 53 with low normal total 265 Lower Urinary Tract Symptoms: PSA low Discussed changing finasteride to Saturday First step is bladder ultrasound measures prostate followed by cystoscopy to check for median lobe. Based on this assessment can determine suitability for procedure. - Abnormal imaging result. PET/CT performed for head and neck cancer April 2017. Result includes 9 mm focus of increased FDG uptake and posterior lateral right aspect of prostate. Prostate measures 4.5 x 6.5 x 5.5 cm. Enlarged.. Current treatment includes medication, alpha kamille, 5-AR. Prostate Symptom Score 08/09 Moderate (9-19), Bother 2. Symptoms include 08/09 , incomplete emptying, weak stream, nocturia (>2), and are progressing 05/11 , incomplete emptying, weak stream, nocturia (>2), and are improving. Prior Prostate Score moderate. PSA 05/09 2.6 per patient 02/07 PVR 50, PSA 1.1 05/10 T 358, Bioavailable 120 low 02/08 PSA 1.1 T 121 11/12 PSA 1.1 Total T 225, 06/12 0.9, 08/15 T 265 F 53, 10/16 0.83 Prostate volume 30-50gm. Testing at next visit will include bladder scan. Treatment plan continue with current medications [facility] Medical History Ectopic atrial rhythm HTN (hypertension) Medial meniscus tear Osteoarthritis Surgical History History of throat surgery History of hip surgery History of elbow surgery Family History Father No problems noted. Mother Cancer Review of Systems Const Denies chills and Denies fever(s) Card Reports no additional complaints and Denies syncope Resp Denies cough GI Denies abdominal pain and Denies heartburn Reports as per HPI and Denies change in libido Neuro Denies syncope Psych Denies change in libido Endo Denies change in libido Physical Exam Const General: cooperative, healthy appearing, comfortable and no acute distress Orientation/consciousness: patient oriented x3 HEENT Face and sinus: Yes normal facial exam Mouth: moist mucous membranes Neck Neck: Yes normal visual inspection, Yes full ROM and Yes trachea midline Chest Chest palpation & inspection: normal inspection of the chest Resp Effort & Inspection: normal respiratory effort, able to speak in complete sentences and no respiratory distress GI Inspection: Yes normal to inspection Back/Spine/Pelvis Cervical Spine: normal cervical lordosis Thoracic/Lumbar Spine: thoracic and lumbar spine normal to inspection Skin General skin exam: no rashes or lesions noted Neuro General: patient oriented x3, gait normal, tone normal and moves all extremities Extrem General: Yes normal to inspection and Yes capillary refill normal Office Procedures Post Void Residual Post Residual Void Post Void Residual (PVR): 13 [id number] Void Residual by ultrasound Assessment & Plan Assessment & Plan (1) BPH w urinary obs/LUTS: Code(s): N40.1 - Benign prostatic hyperplasia with lower urinary tract symptoms; N13.8 - Other obstructive and reflux uropathy Category: Medical (2) Nocturia more than twice per night: Code(s): R35.1 - Nocturia Category: Medical (3) Erectile dysfunction: Code(s): N52.9 - Male erectile dysfunction, unspecified Category: Medical Plan Twelve month follow-up Orders: Orders AMB Post Void Residual by ultrasound Today N13.8 - Other obstructive and reflux uropathy, N40.1 - Benign prostatic hyperplasia with lower urinary tract symptoms Patient Instructions: This note is constructed using voice recognition software. While every effort has been made to ensure accuracy retail special event associate errors may have been included. Imaging studies, laboratory and physical exam results were discussed and reviewed in detail. No major barriers to patient understanding were identified. An opportunity to ask questions regarding the treatment plan was provided. All questions were answered. The patient expressed understanding and agreement with the above treatment plan. The patient is aware they should contact our office by phone for worsening of their current condition or the appearance of new urologic symptoms. Compliance is encouraged with any medications and followup testing that is ordered. It is a privilege to participate in the urologic care of your patient. If you have any questions or concerns regarding treatment for the above conditions, or other urologic issues, please do not hesitate to contact me. The office telephone contact is [phone]. Sincerely, Dr Mayco Roper MD, [facility] - Urology Compassionate Specialist Care for the Genitourinary System Coding Level of Care Code Est Pt Level 4 (17919) Diagnoses BPH w urinary obs/LUTS N40.1; N13.8 Nocturia more than twice per night R35.1 Erectile dysfunction N52.9 CPT Codes Post Residual Void - PVR CPT Code: [id number] Void Residual by ultrasound ([id number])
--- OUTSIDE RECORDS SUMMARY | 2024-11-04 08:51 | XMS_ITS | Encounter Summary ---
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 This section includes the names of all active insurance providers for the patient. Insurance Provider Type of Coverage Plan Name Start of Policy Coverage End of Policy Coverage Group Number Member ID Insurance Provider's Telephone Number Policy Bright's Name Patient's Relationship to Policy Bright [employer] PLAN MEDICARE SUPPLEMEN SEN Jun 23, 2017 PLAN [id number] [phone] YOUSUF FIELDS PATIENT AARP MED SUPP MEDICARE SUPPLEMEN SEN Jun 23, 2017 PLAN [id number] YOUSUF FIELDS PATIENT AARP MED SUPP MEDICARE SUPPLEMEN SEN PLANM Y Jun 23, 2017 PLAN [id number] YOUSUF FIELDS PATIENT MEDICARE (WNR) MEDICARE (M) PART B Feb 22, 2016 PART B [id number] YOUSUF FIELDS PATIENT MEDICARE (WNR) MEDICARE (M) PART B Feb 22, 2016 PART B [id number] YOUSUF FIELDS PATIENT MEDICARE (WNR) MEDICARE (M) PART A Dec 22, 2013 PART A [id number] [phone] [id number] YOUSUF FIELDS PATIENT MEDICARE (WNR) MEDICARE (M) PART A Dec 22, 2013 PART A [id number] YOUSUF FIELDS PATIENT Selected Encounter This section includes the information on record at [place] for the Encounter. Date/Time Encounter Type Encounter Description Reason Provider Source Nov 27, 2023 07:30 AM COMPRE OPH EXAM EST PT 1/> OPTOMETRY ICD-10-CM E11.9 Type 2 diabetes mellitus without complications MERCHLOE,CHAYO B E Encounter Template Text not used by [place] Assessments - Encounter Diagnoses This section includes the primary and secondary diagnoses documented for the Encounter. Date/Time Primary/Secondary Diagnosis Diagnosis Name Provider Source Nov 27, 2023 08:11 AM PRIMARY Type 2 diabetes mellitus without complications MONICA,CHAYO B [facility] [place] [facility] Nov 27, 2023 08:11 AM SECONDARY Age-related nuclear cataract, bilateral MERHAR,CHAYO B [facility] [place] [facility] Nov 27, 2023 08:11 AM SECONDARY Benign neoplasm of right choroid [facility] [place] [facility] Nov 27, 2023 08:11 AM SECONDARY Hypermetropia, bilateral MERHAR,CHAYO B [facility] [place] [facility] Plan of Treatment: Future Appointments (+ 6 months) and Future Tests (+/- 45 days) The Plan of Treatment section includes future care activities for the patient from all [place] treatmentfacilities. This section includes future appointments and future orders which are active, pending or scheduled. Future Appointments This section includes appointments that were scheduled to occur 6 months from the date of the Encounter, up to a maximum of 20 appointments. The data comes from all [place] treatment facilities. Appointment Date/Time Appointment Type Appointme nt Facility Name Dec 10, 2023 03:00 PM AMBULATORY - NONE [facility] [place] [facility] Dec 18, 2023 01:30 PM AMBULATORY - MEDICINE [place] [facility] [place] [facility] Jan 01, 2024 03:00 PM AMBULATORY - MEDICINE [place] [facility] [place] [facility] Mar 31, 2024 08:30 AM AMBULATORY - MEDICINE [place] [facility] [place] [facility] Mar 31, 2024 09:30 AM AMBULATORY - MEDICINE [place] [facility] [place] [facility] May 28, 2024 09:00 AM [facility] Lab Results: +/- 30 days of the encounter This section includes the Chemistry and Hematology Lab Results on record with [place] for the patient. Radiology Reports and Pathology Reports are provided separately, in subsequent sections. Lab Results This section contains the Chemistry/Hematology Results that were resulted 30 days before or 30 daysafter the date of the Encounter. Date/Time Source Result Type Result - Unit Interpretation Reference Range Comment Nov 22, 2023 08:[address] [facility] LIPID PANEL FASTING Specimen Type: SERUM No comment entered. Ordering Provider: TIFFANY MADISON Report Released Date/Time: Nov 08, 2023 11:20 AM Reporting [facility] [address] [facility] [address] Performing Lab: [facility] [address] [facility] [address] CHOLESTEROL 150 mg/dL TRIGLYCERIDE 64 mg/dL 0-150 LDL calculated 92 mg/dL 0-129 CHOL/HDL 3.3 HDL CHOLESTEROL 45 mg/dL 40-60 Nov 22, 2023 08:[address] [facility] BASIC METABOLIC PANEL (fasting) Specimen Type: SERUM No comment entered. Ordering Provider: TIFFANY MADISON Report Released Date/Time: Nov 08, 2023 11:20 AM Reporting Lab[facility] [address] [facility] [address] Performing Lab: [facility] [address] [address] UREA NITROGEN 15 mg/dL 7-25 GLUCOSE 317 mg/dL H 65-100 SODIUM 139 mmol/L 135-145 POTASSIUM 3.9 mmol/L 3.5-5.0 CHLORIDE 106 mmol/L 100-110 CO2 23 meq/L 20-30 CREATININE, Serum 1.09 mg/dL 0.50-1.40 eGFR(CKD-EPI 2020) 71 mL/min >60 Nov 22, 2023 08:53 AM [facility] LIVER FUNCTION Specimen Type: SERUM No comment entered. Ordering Provider: TIFFANY MADISON Report Released Date/Time: Nov 08, 2023 11:20 AM Reporting Lab: [facility] [address] [facility] [address] Performing Lab: [address] [address] PROTEIN,TOTAL 7.1 g/dL 6.0-8.3 ALBUMIN 4.2 g/dL 3.5-5.0 ALKALINE PHOSPHATASE 86 U/L 40-150 AST 15 U/L 5-34 ALT 24 U/L BILIRUBIN, TOTAL 0.6 mg/dL 0.2-1.2 Nov 22, 2023 08:53 AM [facility] HEMOGLOBIN A1C PANEL Specimen Type: BLOOD Comment: Values obtained from A1C measurements can vary. For atypical A1C assays, a reported value of 7.0 could actually be between 6.72 and 7.28 if measured by a reference method. A reported value of 9.0 could actually be between 8.73 and 9.27. Ref: http://www.ng sp.org/CAPdat a.asp Ordering Provider: TIFFANY MADISON Report Released Date/Time: Nov 08, 2023 11:20 AM Reporting Lab: [address] [address] Performing Lab: [address] [address] HEMOGLOBIN A1C 10.4 H 4.0-5.6 Nov 22, 2023 08:53 AM [facility] HIV 1&2 Ag/Ab SCREEN Specimen Type: SERUM No comment entered. Ordering Provider: TIFFANY MADISON Report Released Date/Time: Nov 08, 2023 11:20 AM Reporting Lab: [address] [address] Performing Lab: [address] [address] HIV 1&2 Ag/Ab SCREEN NON-REACTIVE Nonreactive Vital Signs: All taken on the encounter date This section contains inpatient and outpatient Vital Signs collected on the date of the Encounter. Date/Time Temperature Pulse Blood Pressure Respiratory Rate SP02 Pain Height Weight Body Mass Index Source Nov 27, 2023 09:10 AM 98.8 84 133/74 16 94 [facility] [place] [facility] Nov 27, 2023 09:06 AM 0 70 250 36 [facility] [place] [facility] Social History: Smoking Status (Most current) and Tobacco Use (All prior to encounter date) This section includes the most current, and the historical, smoking and tobacco- related health factors from the [place] facility where the Encounter took place. Current Smoking Status This section includes the most current smoking, or tobacco-related health factor, from the [place] facility where the Encounter took place. Date/Time Current Smoking Status Comment Facil ity May 23, 2023 03:00 PM VA-TOBACCO NEVER USED [place] [facility] [place] [facility] Tobacco Use History This section includes a history of the smoking, or tobacco-related health factors, that were collected on or before the date of the Encounter. The data comes from the [place] facility where the Encounter took place. Date/Time Smoking Status/Tobacco Use Comment F acility Jun 14, 2022 09:00 AM VA-TOBACCO FORMER USER [facility] [place] [facility] Jun 14, 2022 09:00 AM VA-TOBACCO QUIT 15 YRS OR MORE [facility] [place] [facility] Jun 01, 2021 08:00 AM VA-TOBACCO NEVER USED [facility] [place] [facility] Jun 28, 2020 10:00 AM VA-TOBACCO NEVER USED [facility] [place] [facility] May 21, 2019 02:59 PM VA-TOBACCO NEVER USED [facility] [place] [facility] Mar 31, 2018 03:24 PM LIFETIME NON-TOBACCO USER [facility] [place] [facility] Apr 19, 2017 08:30 AM LIFETIME NON-TOBACCO USER [facility] [place] [facility] Apr 19, 2016 10:17 AM LIFETIME NON-TOBACCO USER . [facility] [place] [facility] February 12, 2013 02:40 PM LIFETIME NON-TOBACCO USER [facility] [place] [facility] Encounter Notes: All associated encounter notes This section contains the clinical notes associated to the Encounter. Date/Time Encounter Note(s) Provider Source Nov 27, 2023 07:17 AM OPTOMETRY NOTE: LOCAL TITLE: OPTOMETRY NOTE STANDARD TITLE: OPTOMETRY NOTE DATE OF NOTE: NOV 27, 2023@07:17 ENTRY DATE: NOV 27, 2023@07:17:12 AUTHOR: CHAYO ANDERSON EXP COSIGNER: URGENCY: STATUS: COMPLETED 72 WHITE MALE NOT OR Last eye exam: 11/26/22 Reason for Visit/CC: patient here for a comprehensive eye exam. Eyes feel more tired. 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 Benign essential hypertension ([facility] [id number]) N52.9 Erectile dysfunction ([facility] [id number]) R69. Bilateral hearing loss ([facility] [id number]) E66.8 Obesity ([facility] [id number]) Other: SYSTEMIC MEDICATIONS/OCULAR MEDICATIONS: Active and Recently Outpatient Medications (excluding Supplies): Active Outpatient Medications Status 1) AMLODIPINE BESYLATE 10MG TAB TAKE ONE TABLET BY MOUTH ACTIVE EVERY DAY FOR BLOOD PRESSURE/HEART, DO NOT TAKE WITH GRAPEFRUIT JUICE 2) FINASTERIDE 5MG TAB TAKE ONE TABLET BY MOUTH EVERY ACTIVE DAY FOR PROSTATE 3) HYDROCHLOROTHIAZIDE 25MG TAB TAKE ONE-HALF TABLET BY ACTIVE MOUTH EVERY DAY TO PREVENT FLUID/CONTROL BLOOD PRESSURE 4) LISINOPRIL 20MG TAB TAKE ONE TABLET BY MOUTH EVERY ACTIVE DAY TO CONTROL BLOOD PRESSURE 5) METFORMIN HCL 500MG 24HR SA TAB TAKE ONE TABLET BY ACTIVE MOUTH ONCE DAILY FOR TYPE 2 DIABETES MELLITUS 6) METOPROLOL SUCCINATE 50MG SA TAB TAKE ONE TABLET BY ACTIVE MOUTH EVERY DAY FOR BLOOD PRESSURE/HEART 7) PEG-3350/ELECTROLYTES PWDR W/FLAVOR PKT TAKE 1 BOTTLE ACTIVE BY MOUTH ONE TIME ACCORDING TO INSTRUCTIONS FROM PRESCRIBER - DISSOLVE CONTENTS BEFORE DRINKING 8) ROSUVASTATIN CA 20MG TAB TAKE ONE TABLET BY MOUTH ACTIVE ONCE DAILY FOR CHOLESTEROL ALLERGIES: Patient has answered NKA LAST BP: 125/84 (05/23/2023 15:14) PERTINENT LABS: HEMOGLOBIN A1C; BLOOD Xin. Date: 11/22/23 08:53 04/30/23 07:56 Test Name Result Units Range HEMOGLOBIN A1C 10.4 H 7.3 H % 4.0 - 5.6 Current Rx with last BCVA: OD +1.00 -0.50 X105 OS +1.50 -0.75 X90 Add:+2.50 DVA ( x )sc ( )cc OD 20/40 OS 20/20 Pupils: PERRL (-)APD EOM: Full all meridia OU, (-) pain/diplopia Confrontation Visual Crawford: Full all meridia OU Subjective: OD +0.75 -0.50 x 105 20/30 OS +1.25 -1.25 x 095 20/20 Add: +2.50 SLE: Lids/Lashes: mild dermatochalasis OU Conjunctiva: white and quiet OU Corneas: faint scarring OD, clear OS Iris: flat and clear OU (-)NVI OU Anterior Chamber: deep and quiet OU Angles: open OU Lens: 1+ NS OU TAP @ 7:34am Styles OD 13 mm Hg OS 12 mm Hg Dilating Drops: 1 gtt 1% Tropicamide OU, 2.5% phenylephrine OU (Pt. ed. on side effects) Vitreous: Syneresis OU C/D (Size and Rim Description) OD 0.35 pink & healthy OS 0.40 pink & healthy, corkscrew vessels nasal rim (-)NVD OU Macula OD flat and clear OS flat and clear (-)CSME OU A/V: normal caliber OU Posterior Pole: small choroidal nevus nasal to disc OD, clear OS Periphery: Flat and intact (-)NVE, holes, tears, detachments 360 OU 1DD choroidal nevus superior nasal OD mid-periphery Assessment/Plan: 1. Type II diabetes without retinopathy or macular edema OU. Last A1c 10.4. Pt ed on findings and importance of good blood glucose control. Monitor annually 2. Nuclear sclerosis cataracts OU, not visually significant. Monitor 3. choroidal nevi OD - stable to previous descriptions without concerning characteristics. Monitor 4. h/o herpes keratitis OD with faint scarring - stable. 5. hyperopia OU, regular astigmatism OU, presbyopia OU - order new bifocals and DVO sun RTC 1 year or earlier PRN Patient Education: Diabetes: Patient was educated regarding diabetes and related ocular complications including retinopathy and cataract formation as well as other related systemic complications. The importance of good blood sugar control, blood sugar testing as recommended by their PCP and the importance of timely follow up were all emphasized. patient offered and declined printed medication list Medication Reconciliation: Outpatient: Has the patient been taking medications as documented in the EMLR? YES: The patient has been taking medications as documented in the EMLR. Essential Medication List for Review used to complete this medication reconciliation. INCLUDED IN THIS LIST: Alphabetical list of active outpatient prescriptions dispensed from this [facility] (local) and dispensed from another VA or DoD facility (remote) as well as inpatient orders (local, pending and active), local clinic medications, locally documented non-VA medications, and local prescriptions that have or been discontinued in the past 90 days. - All changes in medications, including all non-VA/Herbal/OTC medications were entered into CPRS. - If there were any medications the patient should no longer take, they were discontinued. - The patient/caregiver was instructed to update this list, discard old lists, and take this list to the next appointment, whether with a VA or non-VA provider. Medication List: JLV Link Data on this list may not be complete. Please check JLV. Allergies/ADRs (Tool #5) FACILITY ALLERGY/ADR -------- No Remote Allergy/ADR Data available for this patient [facility] [place] [facility] No Known Allergies Med. Reconciliation (Tool #1) INCLUDED IN THIS LIST: Alphabetical list of active outpatient prescriptions dispensed from this [place] (local) and dispensed from another [place] or [facility] facility (remote) as well as inpatient orders (local pending and active), local clinic medications, locally documented non-VA medications, and local prescriptions that have or been discontinued in the past 90 days. Non-VA Meds Last Documented On: May 01, 2018 NOTE The display of VA prescriptions dispensed from another [place] or [facility]D facility (remote) is limited to active outpatient prescription entries matched to National Drug File at the originating site and may not include some items such as investigational drugs, compounds, etc. NOT INCLUDED IN THIS LIST: Medications self-entered by the patient into personal health records (i.e. [place]) are NOT included in this list. Non-VA medications documented outside this [place], remote inpatient orders (regardless of status) and remote clinic medications are NOT included in this list. The patient and provider must always discuss medications the patient is taking, regardless of where the medication was dispensed or obtained. OUTPT AMLODIPINE BESYLATE 10MG TAB (Status = Active) TAKE ONE TABLET BY MOUTH EVERY DAY FOR BLOOD PRESSURE/HEART, DO NOT TAKE WITH GRAPEFRUIT JUICE Rx# [id number] Last Released: 11/23/23 Qty/Days Supply: Rx Expiration Date: 08/05/24 Refills Remainin OUTPT FINASTERIDE 5MG TAB (Status = Active) TAKE ONE TABLET BY MOUTH EVERY DAY FOR PROSTATE Rx# [id number] Last Released: 08/08/23 Qty/Days Supply: Rx Expiration Date: 08/05/24 Refills Remainin OUTPT HYDROCHLOROTHIAZIDE 25MG TAB (Status = Active) TAKE ONE-HALF TABLET BY MOUTH EVERY DAY TO PREVENT FLUID/CONTROL BLOOD PRESSURE Rx# [id number] Last Released: 08/08/23 Qty/Days Supply: Rx Expiration Date: 08/05/24 Refills Remainin OUTPT LISINOPRIL 20MG TAB (Status = Active) TAKE ONE TABLET BY MOUTH EVERY DAY TO CONTROL BLOOD PRESSURE Rx# [id number] Last Released: 11/23/23 Qty/Days Supply: Rx Expiration Date: 08/05/24 Refills Remainin OUTPT METFORMIN HCL 500MG 24HR SA TAB (Status = Active) TAKE ONE TABLET BY MOUTH ONCE DAILY FOR TYPE 2 DIABETES MELLITUS Rx# [id number] Last Released: 08/01/23 Qty/Days Supply: Rx Expiration Date: 04/02/24 Refills Remainin Indication: FOR TYPE 2 DIABETES MELLITUS OUTPT METOPROLOL SUCCINATE 50MG SA TAB (Status = Active) TAKE ONE TABLET BY MOUTH EVERY DAY FOR BLOOD PRESSURE/HEART Rx# [id number] Last Released: 11/23/23 Qty/Days Supply: Rx Expiration Date: 08/05/24 Refills Remainin OUTPT PEG-3350/ELECTROLYTES PWDR W/FLAVOR PKT (Status = Active) TAKE 1 BOTTLE BY MOUTH ONE TIME ACCORDING TO INSTRUCTIONS FROM PRESCRIBER - DISSOLVE CONTENTS BEFORE DRINKING Rx# [id number] Last Released: 11/06/23 Qty/Days Supply: Rx Expiration Date: 02/02/24 Refills Remainin Indication: FOR EMPTYING OF THE BOWEL OUTPT ROSUVASTATIN CA 20MG TAB (Status = Active) TAKE ONE TABLET BY MOUTH ONCE DAILY FOR CHOLESTEROL Rx# [id number] Last Released: 11/23/23 Qty/Days Supply: Rx Expiration Date: 08/05/24 Refills Remainin SUPPLIES PHARMACY TERMS AND POSSIBLE PATIENT ACTIONS INPT = [place] inpatient order IV = NM intravenous medication OUTPT = [place] outpatient prescription PHARMACY POSSIBLE PATIENT TERMS EXPLANATION ACTIONS -------- -- ACTIVE A prescription that can be If you have refills, filled at the local [place] pharmacy. you may request a refill of this prescription from your [place] pharmacy. CLINIC A medication you received during If you have questions a visit to a [place] clinic or about this medication emergency department. contact your [place] healthcare team. DISCONTINUED A prescription your provider has Contact your VA stopped. It is no longer healthcare team if you available to be sent to you or need more of this picked up at the [place] pharmacy medication. window. A prescription which is too old Contact your VA to fill. This does not refer to healthcare team if you the expiration date of the need more of this medication in the container. medication. NON-VA A medication that came from If this medication someplace other than a VA information is pharmacy. This may be a incorrect or out of prescription from either the VA date, please tell your or non VA providers that was VA healthcare team. filled outside the VA. Or, it may be an dczq-scp-ycardge (OTC), herbal, dietary supplements or sample medication. ON HOLD An active prescription that will Contact your VA not be filled until pharmacy pharmacy when you need resolves the issue. more of this medication. PARKED An active prescription that will Contact your VA not be filled until the patient pharmacy when you need requests it. this medication. PENDING This prescription order has been If you have been sent to the pharmacy for review instructed to start and is not ready yet. this medication now, contact your VA pharmacy. SUSPENDED An active prescription that is Contact your VA not scheduled to be filled yet. pharmacy if you need You should receive it before this medication now. you run out. ====== /nasrin/ CHAYO ANDERSON OD Blood Bank Technologist Signed: 11/27/2023 08:11 CHAYO ANDERSON [facility]
--- OUTSIDE RECORDS SUMMARY | 2024-11-04 08:51 | XMS_ITS | Encounter Summary ---
Author Name [facility] [place] [facility] [place] Address [address] [place] [address] Care Team Providers Care Cleaner And Preparer Name Role Phone SHALOM ABRAMS Primary [...] MEDICARE SUPPLEMEN SEN Jun 23, 2017 PLAN [id number] [phone] YOUSUF FIELDS PATIENT AARP MED SUPP MEDICARE SUPPLEMEN SEN Jun 23, 2017 PLAN [id number] YOUSUF FIELDS PATIENT AARP MED SUPP MEDICARE SUPPLEMEN SEN PLANM Y Jun 23, 2017 PLAN [id number] [phone] YOUSUF FIELDS PATIENT MEDICARE (WNR) MEDICARE (M) PART B Feb 22, 2016 PART B [id number] YOUSUF FIELDS PATIENT MEDICARE (WNR) MEDICARE (M) PART B Feb 22, 2016 PART B [id number] YOUSUF FIELDS PATIENT MEDICARE (WNR) MEDICARE (M) PART A Dec 22, 2013 PART A [id number] YOUSUF FIELDS PATIENT MEDICARE (WNR) MEDICARE (M) PART A Dec 22, 2013 PART A [id number] [phone] YOUSUF FIELDS PATIENT Selected Encounter This section includes the information on record at [place] for the Encounter. Date/Time Encounter Type Encounter Description Reason Provider Source Dec 18, 2023 01:30 PM MTMS BY PHARM JAZLYN 15 MIN CLINICAL PHARMACY ICD-10-CM E11.9 Type 2 diabetes mellitus without complications MARK ANTHONY DALAL Patricio Encounter Template Text not used by [place] Assessments - Encounter Diagnoses This section includes the primary and secondary diagnoses documented for the Encounter. Date/Time Primary/Secondary Diagnosis Diagnosis Name Provider Source Dec 19, 2023 08:07 AM PRIMARY Type 2 diabetes mellitus without complications MARK ANTHONY DALAL [facility] Plan of Treatment: Future Appointments (+ 6 months) and Future Tests (+/- 45 days) The Plan of Treatment section includes future care activities for the patient from all [place] treatmentfacilities. This section includes future appointments and future orders which are active, pending or scheduled. Future Appointments This section includes appointments that were scheduled to occur 6 months from the date of the Encounter, up to a maximum of 20 appointments. The data comes from all [place] treatment facilities. Appointment Date/Time Appointment Type Appointme nt Facility Name Jan 01, 2024 03:00 PM [facility] Mar 31, 2024 08:30 AM [facility] [place] [facility] Mar 31, 2024 09:30 AM [facility] [place] [facility] May 28, 2024 09:00 AM [facility] Lab Results: +/- 30 days of the encounter This section includes the Chemistry and Hematology Lab Results on record with [place] for the patient. Radiology Reports and Pathology Reports are provided separately, in subsequent sections. Lab Results This section contains the Chemistry/Hematology Results that were resulted 30 days before or 30 daysafter the date of the Encounter. Date/Time Source Result Type Result - Unit Interpretation Reference Range Comment Nov 22, 2023 08:53 AM [facility] HEMOGLOBIN A1C PANEL Specimen Type: BLOOD Comment: [...] Nov 08, 2023 11:20 AM Reporting Lab: [address] [address] Performing Lab: [address] [address] HEMOGLOBIN A1C 10.4 H 4.0-5.6 Nov 22, 2023 08:53 AM [facility] LIPID PANEL FASTING Specimen Type: SERUM No comment entered. Ordering Provider: TIFFANY MADISON Report Released Date/Time: Nov 08, 2023 11:20 AM Reporting Lab: [address] [address] Performing Lab: [address] [address] CHOLESTEROL 150 mg/dL TRIGLYCERIDE 64 mg/dL 0-150 LDL calculated 92 mg/dL 0-129 CHOL/HDL 3.3 HDL CHOLESTEROL 45 mg/dL 40-60 Nov 22, 2023 08:53 AM [facility] BASIC METABOLIC PANEL (fasting) Specimen Type: SERUM No comment entered. Ordering Provider: TIFFANY MADISON Report Released Date/Time: Nov 08, 2023 11:20 AM Reporting Lab: [address] [address] Performing Lab: [address] [address] UREA NITROGEN 15 mg/dL 7-25 GLUCOSE 317 mg/dL H 65-100 SODIUM 139 mmol/L 135-145 POTASSIUM 3.9 mmol/L 3.5-5.0 CHLORIDE 106 mmol/L 100-110 CO2 23 meq/L 20-30 CREATININE, Serum 1.09 mg/dL 0.50-1.40 eGFR(CKD-EPI 2020) 71 mL/min >60 Nov 22, 2023 08:53 AM [facility] LIVER FUNCTION Specimen Type: SERUM No comment entered. Ordering Provider: TIFFANY MADISON Report Released Date/Time: Nov 08, 2023 11:20 AM Reporting Lab: [address] [address] Performing Lab: [address] [address] PROTEIN,TOTAL 7.1 g/dL 6.0-8.3 ALBUMIN 4.2 g/dL 3.5-5.0 ALKALINE PHOSPHATASE 86 U/L 40-150 AST 15 U/L 5-34 ALT 24 U/L BILIRUBIN, TOTAL 0.6 mg/dL 0.2-1.2 Nov 22, 2023 08:53 AM [facility] HIV 1&2 Ag/Ab SCREEN Specimen Type: SERUM No comment entered. Ordering Provider: TIFFANY MADISON Report Released Date/Time: Nov 08, 2023 11:20 AM Reporting Lab: [address] [address] Performing Lab: [address] [address] HIV 1&2 Ag/Ab SCREEN NON-REACTIVE Nonreactive Social History: Smoking Status (Most current) and Tobacco Use (All prior to encounter date) This section includes the most current, and the historical, smoking and tobacco- related health factors from the [place] facility where the Encounter took place. Current Smoking Status This section includes the most current smoking, or tobacco-related health factor, from the [place] facility where the Encounter took place. Date/Time Current Smoking Status Comment Facil [facility] May 23, 2023 03:00 PM VA-TOBACCO NEVER USED [facility] Tobacco Use History This section includes a history of the smoking, or tobacco-related health factors, that were collected on or before the date of the Encounter. The data comes from the [place] facility where the Encounter took place. Date/Time Smoking Status/Tobacco Use Comment F acility Jun 14, 2022 09:00 AM VA-TOBACCO FORMER USER [facility] [place] [facility] Jun 14, 2022 09:00 AM VA-TOBACCO QUIT 15 YRS OR MORE [facility] [place] [facility] Jun 01, 2021 08:00 AM VA-TOBACCO NEVER USED [facility] [place] [facility] Jun 28, 2020 10:00 AM VA-TOBACCO NEVER USED [facility] [place] [facility] May 21, 2019 02:59 PM VA-TOBACCO NEVER USED [facility] [place] [facility] Mar 31, 2018 03:24 PM LIFETIME NON-TOBACCO USER [facility] [place] [facility] Apr 19, 2017 08:30 AM LIFETIME NON-TOBACCO USER [facility] [place] [facility] Apr 19, 2016 10:17 AM LIFETIME NON-TOBACCO USER . [facility] [place] [facility] February 12, 2013 02:40 PM LIFETIME NON-TOBACCO USER [facility] [place] [facility] Encounter Notes: All associated encounter notes This section contains the clinical notes associated to the Encounter. Date/Time Encounter Note(s) Provider Source Dec 19, 2023 08:21 AM ADDENDUM: LOCAL TITLE: Addendum STANDARD TITLE: ADDENDUM DATE OF NOTE: DEC 19, 2023@08:21:58 ENTRY DATE: DEC 19, 2023@08:21:59 AUTHOR: MARK ANTHONY DALAL EXP COSIGNER: URGENCY: STATUS: COMPLETED Will ask AMSA to please schedule patient for: [X] CWM/NO/PHARM/PACT 3 RTC order placed. Appointment Length: _30__ minutes. :01/01/24 @1500 Thank you! /elvin DALAL PHARMD,[facility] PRACTITIONER Signed: 12/19/2023 08:22 Receipt Acknowledged By: 12/19/2023 08:48 /nasrin/ ELEAZAR MAS AMSA --- Original Document --- 12/18/23 CONSULT REPORT/PHARMACY: LIMA FIELDS, 72 yo WHITE MALE, presents for [id number] initial visit diabetes management. Today, pt reports prior to his A1c drawn earlier this month he was eating cakes, pies, and ice cream daily, sometimes more than once/ day. He notes he was also going to meeting that had cookies. He notes he had prediabetes for awhile, then diabetes. 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 He notes he had throat cancer so he is thirsty a lot anyway. He has never had hypoglycemia. He was taking metformin at some point? Recently stopped around the time he had a colonoscopy. He is trying to work on diet and exercise. Awhile ago he [facility] and was able to lose a good amount of weight he is trying to follow the same plan now. Pt does not currently check bg at home. Pt notes aprehension to taking metformin. He states everything he has read about metformin is bad and that it can cause harm to kidneys. Current diabetes medications: - prescribed metformin but hasnt taken in a few weeks Medication Adherence: - see above Diet Patterns: patient eats on avg. 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 Personal Goals:low- zero, not have dm SMBG: N/A SMBG assessment: HYPOGLYCEMIC Events: 0 in last 2 weeks - Hypoglycemia recognition & treatment reviewed: Yes Allergies/ADR: Patient has answered NKA Active and Recently Outpatient Medications (including Supplies): Active Outpatient Medications Status 1) AMLODIPINE BESYLATE 10MG TAB TAKE ONE TABLET BY MOUTH ACTIVE EVERY DAY FOR BLOOD PRESSURE/HEART, DO NOT TAKE WITH GRAPEFRUIT JUICE 2) FINASTERIDE 5MG TAB TAKE ONE TABLET BY MOUTH EVERY ACTIVE DAY FOR PROSTATE 3) HYDROCHLOROTHIAZIDE 25MG TAB TAKE ONE-HALF TABLET BY ACTIVE (S) MOUTH EVERY DAY TO PREVENT FLUID/CONTROL BLOOD PRESSURE 4) LISINOPRIL 20MG TAB TAKE ONE TABLET BY MOUTH EVERY ACTIVE DAY TO CONTROL BLOOD PRESSURE 5) METFORMIN HCL 500MG 24HR SA TAB TAKE TWO TABLETS BY ACTIVE MOUTH ONCE DAILY 6) METOPROLOL SUCCINATE 50MG SA TAB TAKE ONE TABLET BY ACTIVE MOUTH EVERY DAY FOR BLOOD PRESSURE/HEART 7) PEG-3350/ELECTROLYTES PWDR W/FLAVOR PKT TAKE 1 BOTTLE ACTIVE BY MOUTH ONE TIME ACCORDING TO INSTRUCTIONS FROM PRESCRIBER - DISSOLVE CONTENTS BEFORE DRINKING 8) ROSUVASTATIN CA 20MG TAB TAKE ONE TABLET BY MOUTH ACTIVE ONCE DAILY FOR CHOLESTEROL Inactive Outpatient Medications Status 1) METFORMIN HCL 500MG 24HR SA TAB TAKE ONE TABLET BY DISCONTINUED MOUTH ONCE DAILY FOR TYPE 2 DIABETES MELLITUS (EDIT) 9 Total Medications Labs: CHEM 7 TREND LAB CUMULATIVE SELECTED Collection DT Spec GLUCOSE BUN CREATIN Sodium K+/Pot CL CO2 11/22/2023 08:53 SERUM 317 H 15 1.09 139 3.9 106 23 04/30/2023 07:56 SERUM 187 H 15 1.13 141 4.4 102 29 10/11/2022 08:46 SERUM 161 H 18 1.03 142 4.7 106 29 05/22/2022 07:32 SERUM 194 H 15 1.00 139 4.5 104 26 06/05/2021 09:01 SERUM 155 H 15 0.96 140 4.0 103 26 LAB CUMULATIVE SELECTED 2 No selection items chosen for this component. CHEM 7 Results Collection DT Spec Sodium K+/Pot CL CO2 GLUCOSE BUN 11/22/2023 08:53 SERUM 139 3.9 106 23 317 H 15 04/30/2023 07:56 SERUM 141 4.4 102 29 187 H 15 10/11/2022 08:46 SERUM 142 4.7 106 29 161 H 18 05/22/2022 07:32 SERUM 139 4.5 104 26 194 H 15 06/05/2021 09:01 SERUM 140 4.0 103 26 155 H 15 10/30/2019 09:11 SERUM 142 4.3 104 32 H 139 H 21 04/15/2019 13:11 SERUM 141 4.3 103 31 H 89 18 04/11/2017 08:17 SERUM 142 4.2 105 30 119 H 17 03/11/2017 09:04 SERUM 139 4.2 104 29 168 H 21 04/19/2016 11:00 SERUM 140 4.1 106 27 97 20 07/14/2015 13:23 SERUM 143 4.2 105 31 H 97 13 04/29/2014 10:09 SERUM 141 4.2 104 30 115 H 17 eGFR CKD-EPI 202011/22/23 08:53 71 [facility] LIVER PANEL TREND Collection DT Spec AST ALT T BILI ALK ALBERTA T. PROT ALBUMIN 11/22/2023 08:53 SERUM 15 24 0.6 86 7.1 4.2 04/30/2023 07:56 SERUM 16 17 0.6 79 6.7 4.1 10/11/2022 08:46 SERUM 19 20 0.7 65 7.0 4.3 05/22/2022 07:32 SERUM 19 21 0.6 63 6.9 4.1 06/05/2021 09:01 SERUM 19 21 0.6 74 7.1 4.3 HEMOGLOBIN A1C TREND Collection DT Spec HGBA1c 11/22/2023 08:53 BLOOD 10.4 H 04/30/2023 07:56 BLOOD 7.3 H 10/11/2022 08:46 BLOOD 6.6 H 05/22/2022 07:32 BLOOD 7.9 H 06/05/2021 09:01 BLOOD 6.8 H LIPID PANEL TREND Collection DT Spec CHOL HDL CHO/HDL LDL-c TRIG 11/22/2023 08:53 SERUM 150 45 3.3 92 64 04/30/2023 07:56 SERUM 160 43 3.7 106 56 05/22/2022 07:32 SERUM 147 43 3.4 95 46 06/05/2021 09:01 SERUM 157 48 3.3 97 60 10/30/2019 09:11 SERUM 137 46 3.0 80 53 == Vitals: Ht: 70 in [177.8 cm] (11/27/2023 09:06) Wt: 250 lb [113.40 kg] (11/27/2023 09:06) BMI: BMI: 35.9 BP: 133/74 (11/27/2023 09:10) HR: 84 (11/27/2023 09:10) Assessment: DIABETES: Goal: A1c goal is <7% with a goal fasting BG average of 90-130mg/dL and a goal post-prandial BG average of <180mg/dL per ADA guideline. -A1c is above goal of <7% (10.4% 11/22/23) CARDIOVASCULAR: Goal BP = <130/80 mmHg -Current BP is133/74 (11/27/2023 09:10) -Lipids:ldl above goal 92 11/22/23 PREVENTIVE CARE: - Most recent visit to Podiatry: nurse primary care - Most recent visit to Optometry: Type II diabetes without retinopathy or macular edema OU 11/27/23 Plan: - Medication management - CONTINUE- Metformin 500 mg SA once daily - CPP explained the importance of good bg control and negative impact having high bg for long period of time could be. Pt agreed to restart 500 mg. - Jorge pro applied to further direct therapy - Reviewed how to use glucometer and when to test - Continue to SMBG x/day - Monitor for s/sx hypoglycemia and contact clinic if BG consistently <70mg/dL - Healthy dietary and lifestyle modifications encouraged - Repeat A1c:tbd based on therapy changes SENSOR APPLICATION: *area on back of patient's upper arm Area to be selected and cleansed with alcohol wipe/area allowed time to dry *sensor codes on sensor pack and sensor applicator match *sensor applicator prepared per manufacturing directions *sensor applied to skin per manufacturing directions START NEW SENSOR: *start sensor with reader and when prompted after two minutes reverify sensor is working by again holding the reader within 1.5 inces of the sensor WEAR TIME: *sensor is to be worn for 14 days/sensor will automatically stop collecting glucose readings after 14 days INSTRUCTIONS: *Patient to not inject insulin closer than 1 inch proximation to sensor *Patient may shower or swim for up to 30 minutes and up to a 3ft depth *sensor to be removed prior to exposure to any x-ray machine, including MRI and CT scan *taking ascorbic acid(vitamin C) may falsely raise sensor readings and salicylic acid(used in some pain relievers)may slighterly lower sensor readings *INSTRUCTED TO COMPLETE 14 DAY DAILY LOG SHEET log includes: day/date information for breakfast/lunch/dinner/bedtime before and or after meal blood sugars insulin doses injected food & activity EDUCATION -A shared decision-making approach was used in the development of this plan, involving the [place], clinician, and any caregivers present. The was provided the opportunity express questions or concerns, and the plan was adjusted as needed to address these concerns. -Reviewed with any new medications, changes to the medication list, education, and plan from today's visit. Patient (and/or caregiver) verbalized understanding of the plan, including possible known risks and benefits, and had no additional questions. RTC:01/01/24 @1500 Time Spent:45 mins PBM PharmD Pharmacotherapy Rem V12: PHARMACIST INTERVENTIONS: TYPE 2 DIABETES MELLITUS Medication monitoring, no dosage change required, continue to monitor and assess Medication reconciliation (changes to active VA and non-VA medication lists to reconcile differences) Changes to medication lists made Add or renew medication /nasrin/ MARK ANTHONY DALAL PHARMD,[facility] PRACTITIONER Signed: 12/19/2023 08:21 MARK ANTHONY DALAL [place] [facility] [place] [facility] Dec 18, 2023 01:09 PM PHARMACY CONSULT: LOCAL TITLE: CONSULT REPORT/PHARMACY STANDARD TITLE: PHARMACY CONSULT DATE OF NOTE: DEC 18, 2023@13:09 ENTRY DATE: DEC 18, 2023@13:09:43 AUTHOR: MARK ANTHONY DALAL EXP COSIGNER: URGENCY: STATUS: COMPLETED CONSULT REPORT/PHARMACY Has ADDENDA LIMA FIELDS, 72 yo WHITE MALE, presents for [id number] initial visit diabetes management. Today, pt reports prior to his A1c drawn earlier this month he was eating cakes, pies, and ice cream daily, sometimes more than once/ day. He notes he was also going to meeting that had cookies. He notes he had prediabetes for awhile, then diabetes. 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 He notes he had throat cancer so he is thirsty a lot anyway. He has never had hypoglycemia. He was taking metformin at some point? Recently stopped around the time he had a colonoscopy. He is trying to work on diet and exercise. Awhile ago he was given a diet plan from a previous and was able to lose a good amount of weight he is trying to follow the same plan now. Pt does not currently check bg at home. Pt notes aprehension to taking metformin. He states everything he has read about metformin is bad and that it can cause harm to kidneys. Current diabetes medications: - prescribed metformin but hasnt taken in a few weeks Medication Adherence: - see above Diet Patterns: patient eats on avg. 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 Personal Goals:low- zero, not have dm SMBG: N/A SMBG assessment: HYPOGLYCEMIC Events: 0 in last 2 weeks - Hypoglycemia recognition & treatment reviewed: Yes Allergies/ADR: Patient has answered NKA Active and Recently Outpatient Medications (including Supplies): Active Outpatient Medications Status 1) AMLODIPINE BESYLATE 10MG TAB TAKE ONE TABLET BY MOUTH ACTIVE EVERY DAY FOR BLOOD PRESSURE/HEART, DO NOT TAKE WITH GRAPEFRUIT JUICE 2) FINASTERIDE 5MG TAB TAKE ONE TABLET BY MOUTH EVERY ACTIVE DAY FOR PROSTATE 3) HYDROCHLOROTHIAZIDE 25MG TAB TAKE ONE-HALF TABLET BY ACTIVE (S) MOUTH EVERY DAY TO PREVENT FLUID/CONTROL BLOOD PRESSURE 4) LISINOPRIL 20MG TAB TAKE ONE TABLET BY MOUTH EVERY ACTIVE DAY TO CONTROL BLOOD PRESSURE 5) METFORMIN HCL 500MG 24HR SA TAB TAKE TWO TABLETS BY ACTIVE MOUTH ONCE DAILY 6) METOPROLOL SUCCINATE 50MG SA TAB TAKE ONE TABLET BY ACTIVE MOUTH EVERY DAY FOR BLOOD PRESSURE/HEART 7) PEG-3350/ELECTROLYTES PWDR W/FLAVOR PKT TAKE 1 BOTTLE ACTIVE BY MOUTH ONE TIME ACCORDING TO INSTRUCTIONS FROM PRESCRIBER - DISSOLVE CONTENTS BEFORE DRINKING 8) ROSUVASTATIN CA 20MG TAB TAKE ONE TABLET BY MOUTH ACTIVE ONCE DAILY FOR CHOLESTEROL Inactive Outpatient Medications Status 1) METFORMIN HCL 500MG 24HR SA TAB TAKE ONE TABLET BY DISCONTINUED MOUTH ONCE DAILY FOR TYPE 2 DIABETES MELLITUS (EDIT) 9 Total Medications Labs: CHEM 7 TREND LAB CUMULATIVE SELECTED Collection DT Spec GLUCOSE BUN CREATIN Sodium K+/Pot CL CO2 11/22/2023 08:53 SERUM 317 H 15 1.09 139 3.9 106 23 04/30/2023 07:56 SERUM 187 H 15 1.13 141 4.4 102 29 10/11/2022 08:46 SERUM 161 H 18 1.03 142 4.7 106 29 05/22/2022 07:32 SERUM 194 H 15 1.00 139 4.5 104 26 06/05/2021 09:01 SERUM 155 H 15 0.96 140 4.0 103 26 LAB CUMULATIVE SELECTED 2 No selection items chosen for this component. CHEM 7 Results Collection DT Spec Sodium K+/Pot CL CO2 GLUCOSE BUN 11/22/2023 08:53 SERUM 139 3.9 106 23 317 H 15 04/30/2023 07:56 SERUM 141 4.4 102 29 187 H 15 10/11/2022 08:46 SERUM 142 4.7 106 29 161 H 18 05/22/2022 07:32 SERUM 139 4.5 104 26 194 H 15 06/05/2021 09:01 SERUM 140 4.0 103 26 155 H 15 10/30/2019 09:11 SERUM 142 4.3 104 32 H 139 H 21 04/15/2019 13:11 SERUM 141 4.3 103 31 H 89 18 04/11/2017 08:17 SERUM 142 4.2 105 30 119 H 17 03/11/2017 09:04 SERUM 139 4.2 104 29 168 H 21 04/19/2016 11:00 SERUM 140 4.1 106 27 97 20 07/14/2015 13:23 SERUM 143 4.2 105 31 H 97 13 04/29/2014 10:09 SERUM 141 4.2 104 30 115 H 17 eGFR CKD-EPI 202011/22/23 08:53 71 [facility] LIVER PANEL TREND Collection DT Spec AST ALT T BILI ALK ALBERTA T. PROT ALBUMIN 11/22/2023 08:53 SERUM 15 24 0.6 86 7.1 4.2 04/30/2023 07:56 SERUM 16 17 0.6 79 6.7 4.1 10/11/2022 08:46 SERUM 19 20 0.7 65 7.0 4.3 05/22/2022 07:32 SERUM 19 21 0.6 63 6.9 4.1 06/05/2021 09:01 SERUM 19 21 0.6 74 7.1 4.3 HEMOGLOBIN A1C TREND Collection DT Spec HGBA1c 11/22/2023 08:53 BLOOD 10.4 H 04/30/2023 07:56 BLOOD 7.3 H 10/11/2022 08:46 BLOOD 6.6 H 05/22/2022 07:32 BLOOD 7.9 H 06/05/2021 09:01 BLOOD 6.8 H LIPID PANEL TREND Collection DT Spec CHOL HDL CHO/HDL LDL-c TRIG 11/22/2023 08:53 SERUM 150 45 3.3 92 64 04/30/2023 07:56 SERUM 160 43 3.7 106 56 05/22/2022 07:32 SERUM 147 43 3.4 95 46 06/05/2021 09:01 SERUM 157 48 3.3 97 60 10/30/2019 09:11 SERUM 137 46 3.0 80 53 == Vitals: Ht: 70 in [177.8 cm] (11/27/2023 09:06) Wt: 250 lb [113.40 kg] (11/27/2023 09:06) BMI: BMI: 35.9 BP: 133/74 (11/27/2023 09:10) HR: 84 (11/27/2023 09:10) Assessment: DIABETES: Goal: A1c goal is <7% with a goal fasting BG average of 90-130mg/dL and a goal post-prandial BG average of <180mg/dL per ADA guideline. -A1c is above goal of <7% (10.4% 11/22/23) CARDIOVASCULAR: Goal BP = <130/80 mmHg -Current BP is133/74 (11/27/2023 09:10) -Lipids:ldl above goal 92 11/22/23 PREVENTIVE CARE: - Most recent visit to Podiatry: nurse primary care - Most recent visit to Optometry: Type II diabetes without retinopathy or macular edema OU 11/27/23 Plan: - Medication management - CONTINUE- Metformin 500 mg SA once daily - CPP explained the importance of good bg control and negative impact having high bg for long period of time could be. Pt agreed to restart 500 mg. - Jorge pro applied to further direct therapy - Reviewed how to use glucometer and when to test - Continue to SMBG x/day - Monitor for s/sx hypoglycemia and contact clinic if BG consistently <70mg/dL - Healthy dietary and lifestyle modifications encouraged - Repeat A1c:tbd based on therapy changes SENSOR APPLICATION: *area on back of patient's upper arm Area to be selected and cleansed with alcohol wipe/area allowed time to dry *sensor codes on sensor pack and sensor applicator match *sensor applicator prepared per manufacturing directions *sensor applied to skin per manufacturing directions START NEW SENSOR: *start sensor with reader and when prompted after two minutes reverify sensor is working by again holding the reader within 1.5 inces of the sensor WEAR TIME: *sensor is to be worn for 14 days/sensor will automatically stop collecting glucose readings after 14 days INSTRUCTIONS: *Patient to not inject insulin closer than 1 inch proximation to sensor *Patient may shower or swim for up to 30 minutes and up to a 3ft depth *sensor to be removed prior to exposure to any x-ray machine, including MRI and CT scan *taking ascorbic acid(vitamin C) may falsely raise sensor readings and salicylic acid(used in some pain relievers)may slighterly lower sensor readings *INSTRUCTED TO COMPLETE 14 DAY DAILY LOG SHEET log includes: day/date information for breakfast/lunch/dinner/bedtime before and or after meal blood sugars insulin doses injected food & activity EDUCATION -A shared decision-making approach was used in the development of this plan, involving the [place], clinician, and any caregivers present. The was provided the opportunity express questions or concerns, and the plan was adjusted as needed to address these concerns. -Reviewed with any new medications, changes to the medication list, education, and plan from today's visit. Patient (and/or caregiver) verbalized understanding of the plan, including possible known risks and benefits, and had no additional questions. RTC:01/01/24 @1500 Time Spent:45 mins PBM PharmD Pharmacotherapy Rem V12: PHARMACIST INTERVENTIONS: TYPE 2 DIABETES MELLITUS Medication monitoring, no dosage change required, continue to monitor and assess Medication reconciliation (changes to active [facility] and non-VA medication lists to reconcile differences) Changes to medication lists made Add or renew medication /nasrin/ MARK ANTHONY DALAL PHARMD[facility] Signed: 12/19/2023 08:21 12/19/2023 ADDENDUM STATUS: COMPLETED Will ask [facility] to please schedule patient for: [X] CWM/NO/PHARM/PACT 3 RTC order placed. Appointment Length: _30__ minutes. :01/01/24 @1500 Thank you! /elvin DALAL PHARMD,[facility] PRACTITIONER Signed: 12/19/2023 08:22 Receipt Acknowledged By: * AWAITING SIGNATURE * ELEAZAR MAS JODI [facility]
--- OUTSIDE RECORDS SUMMARY | 2024-11-04 08:52 | XMS_ITS | Clinical Summary ---
Author Organization [facility] ity Address [address] [place] [address] Care Team Providers Care Coat Fitter Name Role Phone Unavailable Primary Care Provider Unavailabl e Social History Tobacco Use Types Packs/Day Years Used Date Smoking Tobacco: Never Assessed Sex and Gender Information Value Date Recorded Sex Assigned at Not on file Legal Sex Male 2:06 PM EST Gender Identity Not on file Sexual Orientation Not on file Plan of Treatment Health Maintenance Due Date Last Done Comments DTaP,Tdap,and Td Vaccines (1 - Tdap) 12/29/1967 Zoster Vaccines (1 of 2) 1998 Pneumococcal Vaccine: 50+ Ye ars (1 of 1 - PCV) 2013 Abdominal Aortic Aneurysm (A AA) Screen 08/22/2022 Cholesterol Screening (Lipid Panel) 08/22/2022 Colorectal Cancer Screening: Colonoscopy 08/22/2022 Depression Screening 08/22/2022 Falls Risk Assessment 08/22/2022 Hepatitis C Screening 08/22/2022 Social Influencers of Health Screening 08/22/2022 RSV Immunization Patients 60 + Years Old (1 - 1-dose 75+ series) 12/29/2023 COVID-19 Vaccine ( - 2023-2 5 season) 2024 Influenza Vaccine (#1) 2024 HIB Vaccines Aged Out No longer eligi ble based on patient's age to complete this topic HPV Vaccines Aged Out No longer eligi ble based on patient's age to complete this topic Hepatitis A Vaccines Aged Out No long er eligible based on patient's age to complete this topic Hepatitis B Vaccines Aged Out No long er eligible based on patient's age to complete this topic IPV Vaccines Aged Out No longer eligi ble based on patient's age to complete this topic MMR Vaccines Aged Out No longer eligi ble based on patient's age to complete this topic Meningococcal ACWY Vaccine Aged Out N o longer eligible based on patient's age to complete this topic RSV Immunization Patients Un jacque 20 months Aged Out No longer eligible b ased on patient's age to complete this topic Varicella Vaccines Aged Out No longer eligible based on patient's age to complete this topic
--- OUTSIDE RECORDS SUMMARY | 2024-11-04 08:52 | XMS_ITS | Encounter Summary ---
Author Name [facility] [place] Organization [facility] [place] Address [address] [place] [address] Care Team Providers Care Advanced Seal Delivery System Name Role Phone SHALOM ABRAMS Primary Care [...] MEDICARE SUPPLEMEN SEN Jun 23, 2017 PLAN [id number] [phone] YOUSUF VILLAGRAN PATIENT AARP MED SUPP MEDICARE SUPPLEMEN SEN Jun 23, 2017 PLAN [id number] YOUSUF VILLAGRAN PATIENT AARP MED SUPP MEDICARE SUPPLEMEN SEN PLANM Y Jun 23, 2017 PLAN [id number] YOUSUF VILLAGRAN PATIENT MEDICARE (WNR) MEDICARE (M) PART B Feb 22, 2016 PART B [id number] YOUSUF VILLAGRAN PATIENT MEDICARE (WNR) MEDICARE (M) PART B Feb 22, 2016 PART B [id number] YOUSUF VILLAGRAN PATIENT MEDICARE (WNR) MEDICARE (M) PART A Dec 22, 2013 PART A [id number] [phone] YOUSUF VILLAGRAN PATIENT MEDICARE (WNR) MEDICARE (M) PART A Dec 22, 2013 PART A [id number] [phone] YOUSUF VILLAGRAN PATIENT Selected Encounter This section includes the information on record at [place] for the Encounter. Date/Time Encounter Type Encounter Description Reason Provider Source Mar 31, 2024 08:30 AM MTMS BY PHARM EST 15 MIN CLINICAL PHARMACY ICD-10-CM E11.9 Type 2 diabetes mellitus without complications KANDICE BURGESS Patricio Encounter Template Text not used by [place] Assessments - Encounter Diagnoses This section includes the primary and secondary diagnoses documented for the Encounter. Date/Time Primary/Secondary Diagnosis Diagnosis Name Provider Source Mar 31, 2024 12:23 PM PRIMARY Type 2 diabetes mellitus without complications KANDICE BURGESS [facility] Plan of Treatment: Future Appointments (+ 6 months) and Future Tests (+/- 45 days) The Plan of Treatment section includes future care activities for the patient from all [place] treatmentfacilities. This section includes future appointments and future orders which are active, pending or scheduled. Future Appointments This section includes appointments that were scheduled to occur 6 months from the date of the Encounter, up to a maximum of 20 appointments. The data comes from all [place] treatment facilities. Appointment Date/Time Appointment Type Appointme nt Facility Name May 28, 2024 09:00 AM AMBULATORY - MEDICINE [facility] Aug 12, 2024 01:00 PM AMBULATORY MEDICINE [facility] Lab Results: +/- 30 days of the encounter This section includes the Chemistry and Hematology Lab Results on record with [place] for the patient. Radiology Reports and Pathology Reports are provided separately, in subsequent sections. Lab Results This section contains the Chemistry/Hematology Results that were resulted 30 days before or 30 daysafter the date of the Encounter. Date/Time Source Result Type Result - Unit Interpretation Reference Range Comment Mar 27, 2024 09:54 AM [facility] HEMOGLOBIN A1C PANEL Specimen Type: BLOOD Comment: Values obtained from A1C measurements can vary. For atypical A1C assays, a reported value of 7.0 could actually be between 6.72 and 7.28 if measured by a reference method. A reported value of 9.0 could actually be between 8.73 and 9.27. Ref: http://www.ngs p.org/CAPdata. asp Ordering Provider: SHALOM ABRAMS Report Released Date/Time: Mar 18, 2024 08:44 AM Reporting Lab: [address] [address] Performing Lab: [address] [address] HEMOGLOBIN A1C 6.4 H 4.0-5.6 Mar 27, 2024 09:54 AM [facility] BASIC METABOLIC PANEL (non-fasting) Specimen Type: SERUM No comment entered. Ordering Provider: SHALOM ABRAMS Report Released Date/Time: Mar 18, 2024 08:44 AM Reporting Lab: [address] [address] Performing Lab: [address] [address] UREA NITROGEN 13 mg/dL 7-25 GLUCOSE 148 mg/dL H 65-100 SODIUM 139 mmol/L 135-145 POTASSIUM 4.2 mmol/L 3.5-5.0 CHLORIDE 106 mmol/L 100-110 CO2 25 meq/L 20-30 CREATININE, Serum 0.96 mg/dL 0.50-1.40 eGFR(CKD-EPI 2020) 82 mL/min >60 Mar 27, 2024 09:54 AM [facility] LIPID PANEL, NON FASTING Specimen Type: SERUM No comment entered. Ordering Provider: SHALOM ABRAMS Report Released Date/Time: Mar 18, 2024 08:44 AM Reporting Lab: [address] [address] Performing Lab: [address] [address] CHOLESTEROL 133 mg/dL TRIGLYCERIDE 60 mg/dL 0-150 LDL calculated 75 mg/dL 0-129 CHOL/HDL 2.9 HDL CHOLESTEROL 46 mg/dL 40-60 Mar 27, 2024 09:54 AM [facility] [place] [facility] PSA Specimen Type: SERUM No comment entered. Ordering Provider: SHALOM ABRAMS Report Released Date/Time: Mar 20, 2024 11:35 AM Reporting Lab: [facility] [place] [facility] [address] [facility] [facility] [address] Performing Lab: [facility] [place] [facility] [address] [facility] [facility] [phone] PSA 1.47 ng/mL 0.00-4.00 Vital Signs: All taken on the encounter date This section contains inpatient and outpatient Vital Signs collected on the date of the Encounter. Date/Time Temperature Pulse Blood Pressure Respiratory Rate SP02 Pain Height Weight Body Mass Index Source Mar 31, 2024 09:30 AM 98 62 138/80 16 95 0 238 34 [place] [facility] [place] [facility] Social History: Smoking Status (Most current) and Tobacco Use (All prior to encounter date) This section includes the most current, and the historical, smoking and tobacco- related health factors from the [place] facility where the Encounter took place. Current Smoking Status This section includes the most current smoking, or tobacco-related health factor, from the [place] facility where the Encounter took place. Date/Time Current Smoking Status Comment Steven itgucci May 23, 2023 03:00 PM VA-TOBACCO NEVER USED [place] [facility] [place] [facility] Tobacco Use History This section includes a history of the smoking, or tobacco-related health factors, that were collected on or before the date of the Encounter. The data comes from the [place] facility where the Encounter took place. Date/Time Smoking Status/Tobacco Use Comment F acility Jun 14, 2022 09:00 AM VA-TOBACCO FORMER USER [facility] [place] [facility] Jun 14, 2022 09:00 AM VA-TOBACCO QUIT 15 YRS OR MORE [facility] [place] [facility] Jun 01, 2021 08:00 AM VA-TOBACCO NEVER USED [facility] [place] [facility] Jun 28, 2020 10:00 AM VA-TOBACCO NEVER USED [facility] [place] [facility] May 21, 2019 02:59 PM VA-TOBACCO NEVER USED [facility] [place] [facility] Mar 31, 2018 03:24 PM LIFETIME NON-TOBACCO USER [facility] [place] [facility] Apr 19, 2017 08:30 AM LIFETIME NON-TOBACCO USER [facility] [place] [facility] Apr 19, 2016 10:17 AM LIFETIME NON-TOBACCO USER . [facility] [place] [facility] February 12, 2013 02:40 PM LIFETIME NON-TOBACCO USER [facility] [place] [facility] Encounter Notes: All associated encounter notes This section contains the clinical notes associated to the Encounter. Date/Time Encounter Note(s) Provider Source Mar 31, 2024 12:23 PM ADDENDUM: LOCAL TITLE: Addendum STANDARD TITLE: ADDENDUM DATE OF NOTE: MAR 31, 2024@12:23:56 ENTRY DATE: MAR 31, 2024@12:23:57 AUTHOR: KANDICE BURGESS EXP COSIGNER: URGENCY: STATUS: COMPLETED AMSA, please schedule appointment for: - Cwm/No/Tele/Pharm/Pact 2 Please schedule for 05/28/24 @0900 (tele) Thank you! /nasrin/ KANDICE BURGESS PHARMD, BCPS CLINICAL PHARMACIST PRACTITIONER Signed: 03/31/2024 12:24 Receipt Acknowledged By: 03/31/2024 12:57 /es/ CONSTANTINE REDDY ADVANCED SEAFOOD MANAGER --- Original Document --- 03/31/24 PHARMACY CLINIC NOTE: LIMA VILLAGRAN, 73 yo WHITE MALE, presents for kacr-rw-roob follow-up for diabetes management. MAR 31, 2024 Known Allergies: Patient has answered NKA Subjective: Pt presents to clinic for T2DM follow-up. At time of last visit, metformin was continued. Today Pt reports he is doing well. Discussed latest A1C. Pt happy with progress. States he has made adjustments to his diet and limits cakes, cookies, and ice-cream. Pt was testing almost daily, but is out of test strips now. Declines s/sx of low blood sugar. Blood sugars range from 124- 164 in log book. Pt denies s/sx of hypoglycemia. States that sometimes when he is out in the sun playing golf, he sees floaters . Pt has followed up with optometry. Reports occasional dizziness when bending over. Has blood pressure machine at home but uses sparingly. Pt maintains adequate hydration and knows that HCTZ makes pt more sensitive in the sun. Target Goals: A1c% <7; FB-130 mg/dl Personal Goals: - Not have diabetes - Low A1c%) Objective: Current diabetes medications: - Metformin SA 500 mg once daily Adherence: Denies adherence issues Diet Patterns: patient eats on avg. 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 Other: - Denies personal or fhx thyroid cancer or MENS - Denies hx pancreatitis - Denies hx MH/depression/denies SI - Denies hx of UTI SMBG: FBG 02/03/24 161 02/05/24 140 02/06/24 153 02/07/24 149 02/08/24 153 02/09/24 149 02/10/24 139 02/11/24 151 02/13/24 152 02/15/24 131 02/17/24 156 02/18/24 153 02/21/24 155 02/25/24 124 02/27/24 149 03/12/24 124 AV Name: Lima Villagran Date of : 1950 Report Period: 12/18/2023 - 01/01/2024 (15 days) Generated: 01/01/2024 % Time CGM Active: 100% Glucose Statistics and Targets Average Glucose: 174 mg/dL Glucose Management Indicator (GMI): 7.5% Glucose Variability (%CV): 26.8% Target Range: 70 - 180 mg/dL Time in Ranges Very High: >250 mg/dL --- 7% High: 181 - 250 mg/dL --- 29% Target Range: 70 - 180 mg/dL --- 64% Low: 54 - 69 mg/dL --- 0% Very Low: <54 mg/dL --- 0% SMBG assessment: FPBG above goal; (>130 on days having grapes, potato salad, kielbasa, ice cream) HYPOGLYCEMIC Events: 0 in last 2 weeks - Hypoglycemia recognition & treatment reviewed: Yes Allergies/ADR: Patient has answered NKA Active and Recently Outpatient Medications (including Supplies): Active Outpatient Medications Status 1) ACCU-CHEK GUIDE (GLUCOSE) TEST STRIP USE 1 STRIP TO ACTIVE TEST BLOOD SUGARS TWICE A WEEK NEEDED 2) AMLODIPINE BESYLATE 10MG TAB TAKE ONE TABLET BY MOUTH ACTIVE EVERY DAY FOR BLOOD PRESSURE/HEART, DO NOT TAKE WITH GRAPEFRUIT JUICE 3) FINASTERIDE 5MG TAB TAKE ONE TABLET BY MOUTH EVERY ACTIVE DAY FOR PROSTATE 4) HYDROCHLOROTHIAZIDE 25MG TAB TAKE ONE-HALF TABLET BY ACTIVE MOUTH EVERY DAY TO PREVENT FLUID/CONTROL BLOOD PRESSURE 5) LISINOPRIL 20MG TAB TAKE ONE TABLET BY MOUTH EVERY ACTIVE DAY TO CONTROL BLOOD PRESSURE 6) METFORMIN HCL 500MG 24HR SA TAB TAKE ONE TABLET BY HOLD MOUTH ONCE DAILY FOR TYPE 2 DIABETES MELLITUS 7) METOPROLOL SUCCINATE 50MG SA TAB TAKE ONE TABLET BY ACTIVE MOUTH EVERY DAY FOR BLOOD PRESSURE/HEART 8) ROSUVASTATIN CA 20MG TAB TAKE ONE TABLET BY MOUTH ACTIVE ONCE DAILY FOR CHOLESTEROL Active Non-VA Medications Status 1) Non-VA FLUTICASONE PROP 50MCG 120D NASAL INHL 1 SPRAY ACTIVE INTO EACH NOSTRIL ONCE DAILY NEEDED Labs: CHEM 7 TREND LAB CUMULATIVE SELECTED Collection DT Spec GLUCOSE BUN CREATIN Sodium K+/Pot CL CO2 03/27/2024 09:54 SERUM 148 H 13 0.96 139 4.2 106 25 11/22/2023 08:53 SERUM 317 H 15 1.09 139 3.9 106 23 04/30/2023 07:56 SERUM 187 H 15 1.13 141 4.4 102 29 10/11/2022 08:46 SERUM 161 H 18 1.03 142 4.7 106 29 05/22/2022 07:32 SERUM 194 H 15 1.00 139 4.5 104 26 CHEM 7 Results Collection DT Spec Sodium K+/Pot CL CO2 GLUCOSE BUN 03/27/2024 09:54 SERUM 139 4.2 106 25 148 H 13 11/22/2023 08:53 SERUM 139 3.9 106 23 317 H 15 04/30/2023 07:56 SERUM 141 4.4 102 29 187 H 15 10/11/2022 08:46 SERUM 142 4.7 106 29 161 H 18 05/22/2022 07:32 SERUM 139 4.5 104 26 194 H 15 eGFR CKD-EPI 202003/27/24 09:54 82 SERUM LIVER PANEL TREND Collection DT Spec [...] HEMOGLOBIN A1C TREND Collection DT Spec HGBA1c 03/27/2024 09:54 BLOOD 6.4 H 11/22/2023 08:53 BLOOD 10.4 H 04/30/2023 07:56 BLOOD 7.3 H 10/11/2022 08:46 BLOOD 6.6 H 05/22/2022 07:32 BLOOD 7.9 H LIPID PANEL TREND Collection DT Spec CHOL HDL CHO/HDL LDL-c TRIG 03/27/2024 09:54 SERUM 133 46 2.9 75 60 11/22/2023 08:53 SERUM 150 45 3.3 92 64 04/30/2023 07:56 SERUM 160 43 3.7 106 56 05/22/2022 07:32 SERUM 147 43 3.4 95 46 06/05/2021 09:01 SERUM 157 48 3.3 97 60 Vitals: Ht: 70 in [177.8 cm] (11/27/2023 09:06) Wt: 250 lb [113.40 kg] (11/27/2023 09:06) BMI: BMI: 35.9 BP: 133/74 (11/27/2023 09:10) HR: 84 (11/27/2023 09:10) Assessment: DIABETES: Goal: A1c goal is <7% with a goal fasting BG average of 80-130mg/dL and a goal post-prandial BG average of <180mg/dL per ADA guideline. A1c% currently at goal (6.4% on 03/27/24). Pt congratulated on significant A1C% reduction. Discussed pharmacologic options with pt including increasing metformin or switching to another agent. Since A1C at goal, would consider change to SGLT-2 inhibitor for added renal/cardioprotection. Discussed MOA, potential ADRs (increased urinary frequency, risk of UTI/fungal infection, jock itch, dizziness) and to maintain proper hygiene. Will repeat renal indices in 6- 8 weeks after initiation. Will discontinue metformin at this time. Will consider decreasing dose of diuretic (HCTZ) during empagliflozin titration if necessary (pt close to goal bp). CARDIOVASCULAR: For patients 60 years and over with Diabetes, recommend a goal of <140/90, with added benefit of reducing SBP closer to 130. Goals, per [facility] clinical practice guidelines: For patients 60 years and over, recommend a goal of <150/90, with added benefit of reducing SBP closer to 130 HTN: Current BP is 138/80 (11/27/2023 09:10) ASCVD: On rosuvastatin; LDL reduced from previous. 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 Plan: Medication management: - DISCONTINUE metformin SA 500 mg once daily - INITIATE empagliflozin 10 mg once daily - Medications reconciled - Otherwise continue current medications Lifestyle modicfications: - Continue to SMBG 2x/week - Monitor for s/sx hypoglycemia and contact clinic if BG consistently <70mg/dL - Healthy dietary and lifestyle modifications encouraged - Repeat A1c: 07/2024 MISC: - Will schedule BMP for 05/18-05/22 - Will submit PA-F for additional test strips EDUCATION -A shared decision-making approach was used in the development of this plan, involving the [place], clinician, and any caregivers present. The [place] was provided the opportunity express questions or concerns, and the plan was adjusted as needed to address these concerns. -Reviewed with any new medications, changes to the medication list, education, and plan from today's visit. Patient (and/or caregiver) verbalized understanding of the plan, including possible known risks and benefits, and had no additional questions. RTC: 05/28/24 @0900 (tele) Time Spent: 20 minutes PBM PharmD Pharmacotherapy Rem V12: PHARMACIST INTERVENTIONS: TYPE 2 DIABETES MELLITUS Medication Intervention(s) Discontinue and/or change to different medication Discontinue and/or change to different medication due to other reason Initiate new medication Medication reconciliation (changes to active VA and non-VA medication lists to reconcile differences) No changes to medication lists made (medication review completed, no discrepancies identified) /nasrin/ KANDICE BURGESS PHARMD, BCPS CLINICAL PHARMACIST PRACTITIONER Signed: 03/31/2024 12:23 KANDICE BURGESS [facility] [place] [facility] Mar 31, 2024 07:58 AM PHARMACY OUTPATIENT NOTE: LOCAL TITLE: PHARMACY CLINIC NOTE STANDARD TITLE: PHARMACY OUTPATIENT NOTE DATE OF NOTE: MAR 31, 2024@07:58 ENTRY DATE: MAR 31, 2024@07:58:08 AUTHOR: KANDICE BURGESS EXP COSIGNER: URGENCY: STATUS: COMPLETED PHARMACY CLINIC NOTE Has ADDENDA LIMA VILLAGRAN, 73 yo WHITE MALE, presents for [id number]-sg-szdd follow-up for diabetes management. MAR 31, 2024 Known Allergies: Patient has answered NKA Subjective: Pt presents to clinic for T2DM follow-up. At time of last visit, metformin was continued. Today Pt reports he is doing well. Discussed latest A1C. Pt happy with progress. States he has made adjustments to his diet and limits cakes, cookies, and ice-cream. Pt was testing almost daily, but is out of test strips now. Declines s/sx of low blood sugar. Blood sugars range from 124- 164 in log book. Pt denies s/sx of hypoglycemia. States that sometimes when he is out in the sun playing golf, he sees floaters . Pt has followed up with optometry. Reports occasional dizziness when bending over. Has blood pressure machine at home but uses sparingly. Pt maintains adequate hydration and knows that HCTZ makes pt more sensitive in the sun. Target Goals: A1c% <7; FB-130 mg/dl Personal Goals: - Not have diabetes - Low A1c%) Objective: Current diabetes medications: - Metformin SA 500 mg once daily Adherence: Denies adherence issues Diet Patterns: patient eats on avg. 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 Other: - Denies personal or fhx thyroid cancer or MENS - Denies hx pancreatitis - Denies hx MH/depression/denies SI - Denies hx of UTI SMBG: FBG 02/03/24 161 02/05/24 140 02/06/24 153 02/07/24 149 02/08/24 153 02/09/24 149 02/10/24 139 02/11/24 151 02/13/24 152 02/15/24 131 02/17/24 156 02/18/24 153 02/21/24 155 02/25/24 124 02/27/24 149 03/12/24 124 AV Name: Lima Villagran Date of : 1950 Report Period: 12/18/2023 - 01/01/2024 (15 days) Generated: 01/01/2024 % Time CGM Active: 100% Glucose Statistics and Targets Average Glucose: 174 mg/dL Glucose Management Indicator (GMI): 7.5% Glucose Variability (%CV): 26.8% Target Range: 70 - 180 mg/dL Time in Ranges Very High: >250 mg/dL --- 7% High: 181 - 250 mg/dL --- 29% Target Range: 70 - 180 mg/dL --- 64% Low: 54 - 69 mg/dL --- 0% Very Low: <54 mg/dL --- 0% SMBG assessment: FPBG above goal; (>130 on days having grapes, potato salad, kielbasa, ice cream) HYPOGLYCEMIC Events: 0 in last 2 weeks - Hypoglycemia recognition & treatment reviewed: Yes Allergies/ADR: Patient has answered NKA Active and Recently Outpatient Medications (including Supplies): Active Outpatient Medications Status 1) ACCU-CHEK GUIDE (GLUCOSE) TEST STRIP USE 1 STRIP TO ACTIVE TEST BLOOD SUGARS TWICE A WEEK NEEDED 2) AMLODIPINE BESYLATE 10MG TAB TAKE ONE TABLET BY MOUTH ACTIVE EVERY DAY FOR BLOOD PRESSURE/HEART, DO NOT TAKE WITH GRAPEFRUIT JUICE 3) FINASTERIDE 5MG TAB TAKE ONE TABLET BY MOUTH EVERY ACTIVE DAY FOR PROSTATE 4) HYDROCHLOROTHIAZIDE 25MG TAB TAKE ONE-HALF TABLET BY ACTIVE MOUTH EVERY DAY TO PREVENT FLUID/CONTROL BLOOD PRESSURE 5) LISINOPRIL 20MG TAB TAKE ONE TABLET BY MOUTH EVERY ACTIVE DAY TO CONTROL BLOOD PRESSURE 6) METFORMIN HCL 500MG 24HR SA TAB TAKE ONE TABLET BY HOLD MOUTH ONCE DAILY FOR TYPE 2 DIABETES MELLITUS 7) METOPROLOL SUCCINATE 50MG SA TAB TAKE ONE TABLET BY ACTIVE MOUTH EVERY DAY FOR BLOOD PRESSURE/HEART 8) ROSUVASTATIN CA 20MG TAB TAKE ONE TABLET BY MOUTH ACTIVE ONCE DAILY FOR CHOLESTEROL Active Non-VA Medications Status 1) Non-VA FLUTICASONE PROP 50MCG 120D NASAL INHL 1 SPRAY ACTIVE INTO EACH NOSTRIL ONCE DAILY NEEDED Labs: CHEM 7 TREND LAB CUMULATIVE SELECTED Collection DT Spec GLUCOSE BUN CREATIN Sodium K+/Pot CL CO2 03/27/2024 09:54 SERUM 148 H 13 0.96 139 4.2 106 25 11/22/2023 08:53 SERUM 317 H 15 1.09 139 3.9 106 23 04/30/2023 07:56 SERUM 187 H 15 1.13 141 4.4 102 29 10/11/2022 08:46 SERUM 161 H 18 1.03 142 4.7 106 29 05/22/2022 07:32 SERUM 194 H 15 1.00 139 4.5 104 26 CHEM 7 Results Collection DT Spec Sodium K+/Pot CL CO2 GLUCOSE BUN 03/27/2024 09:54 SERUM 139 4.2 106 25 148 H 13 11/22/2023 08:53 SERUM 139 3.9 106 23 317 H 15 04/30/2023 07:56 SERUM 141 4.4 102 29 187 H 15 10/11/2022 08:46 SERUM 142 4.7 106 29 161 H 18 05/22/2022 07:32 SERUM 139 4.5 104 26 194 H 15 eGFR CKD-EPI 202003/27/24 09:54 82 SERUM LIVER PANEL TREND Collection DT Spec [...] HEMOGLOBIN A1C TREND Collection DT Spec HGBA1c 03/27/2024 09:54 BLOOD 6.4 H 11/22/2023 08:53 BLOOD 10.4 H 04/30/2023 07:56 BLOOD 7.3 H 10/11/2022 08:46 BLOOD 6.6 H 05/22/2022 07:32 BLOOD 7.9 H LIPID PANEL TREND Collection DT Spec CHOL HDL CHO/HDL LDL-c TRIG 03/27/2024 09:54 SERUM 133 46 2.9 75 60 11/22/2023 08:53 SERUM 150 45 3.3 92 64 04/30/2023 07:56 SERUM 160 43 3.7 106 56 05/22/2022 07:32 SERUM 147 43 3.4 95 46 06/05/2021 09:01 SERUM 157 48 3.3 97 60 Vitals: Ht: 70 in [177.8 cm] (11/27/2023 09:06) Wt: 250 lb [113.40 kg] (11/27/2023 09:06) BMI: BMI: 35.9 BP: 133/74 (11/27/2023 09:10) HR: 84 (11/27/2023 09:10) Assessment: DIABETES: Goal: A1c goal is <7% with a goal fasting BG average of 80-130mg/dL and a goal post-prandial BG average of <180mg/dL per ADA guideline. A1c% currently at goal (6.4% on 03/27/24). Pt congratulated on significant A1C% reduction. Discussed pharmacologic options with pt including increasing metformin or switching to another agent. Since A1C at goal, would consider change to SGLT-2 inhibitor for added renal/cardioprotection. Discussed MOA, potential ADRs (increased urinary frequency, risk of UTI/fungal infection, jock itch, dizziness) and to maintain proper hygiene. Will repeat renal indices in 6- 8 weeks after initiation. Will discontinue metformin at this time. Will consider decreasing dose of diuretic (HCTZ) during empagliflozin titration if necessary (pt close to goal bp). CARDIOVASCULAR: For patients 60 years and over with Diabetes, recommend a goal of <140/90, with added benefit of reducing SBP closer to 130. Goals, per [facility] clinical practice guidelines: For patients 60 years and over, recommend a goal of <150/90, with added benefit of reducing SBP closer to 130 HTN: Current BP is 138/80 (11/27/2023 09:10) ASCVD: On rosuvastatin; LDL reduced from previous. 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 Plan: Medication management: - DISCONTINUE metformin SA 500 mg once daily - INITIATE empagliflozin 10 mg once daily - Medications reconciled - Otherwise continue current medications Lifestyle modicfications: - Continue to SMBG 2x/week - Monitor for s/sx hypoglycemia and contact clinic if BG consistently <70mg/dL - Healthy dietary and lifestyle modifications encouraged - Repeat A1c: 07/2024 MISC: - Will schedule BMP for 05/18-05/22 - Will submit PA-F for additional test strips EDUCATION -A shared decision-making approach was used in the development of this plan, involving the , clinician, and any caregivers present. The was provided the opportunity express questions or concerns, and the plan was adjusted as needed to address these concerns. -Reviewed with any new medications, changes to the medication list, education, and plan from today's visit. Patient (and/or caregiver) verbalized understanding of the plan, including possible known risks and benefits, and had no additional questions. RTC: 05/28/24 @0900 (tele) Time Spent: 20 minutes PBM PharmD Pharmacotherapy Rem V12: PHARMACIST INTERVENTIONS: TYPE 2 DIABETES MELLITUS Medication Intervention(s) Discontinue and/or change to different medication Discontinue and/or change to different medication due to other reason Initiate new medication Medication reconciliation (changes to active VA and non-VA medication lists to reconcile differences) No changes to medication lists made (medication review completed, no discrepancies identified) /nasrin/ KANDICE BURGESS PHARMD, MIRELLA CLINICAL PHARMACIST PRACTITIONER Signed: 03/31/2024 12:23 03/31/2024 ADDENDUM STATUS: COMPLETED AMSA, please schedule appointment for: - Cwm/No/Tele/Pharm/Pact 2 Please schedule for 05/28/24 @0900 (tele) Thank you! /elvin BURGESS PHARMD, L[facility]LEES CLINICAL PHARMACIST PRACTITIONER Signed: 03/31/2024 12:24 Receipt Acknowledged By: * AWAITING SIGNATURE * [facility]STANT[facility] REDDY [facility]
--- OUTSIDE RECORDS SUMMARY | 2024-11-04 08:52 | XMS_ITS ---
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 Name Role Phone SHALOM ABRAMS Primary Care [...] MEDICARE SUPPLEMEN SEN Jun 23, 2017 PLAN [id number] YOUSUF FIELDS PATIENT AARP MED SUPP MEDICARE SUPPLEMEN SEN Jun 23, 2017 PLAN [id number] YOUSUF FIELDS PATIENT AARP MED SUPP MEDICARE SUPPLEMEN SEN PLANM Y Jun 23, 2017 PLAN [id number] [phone] YOUSUF FIELDS PATIENT MEDICARE (WNR) MEDICARE (M) PART B Feb 22, 2016 PART B [id number] [phone] YOUSUF FIELDS PATIENT MEDICARE (WNR) MEDICARE (M) PART B Feb 22, 2016 PART B [id number] YOUSUF FIELDS PATIENT MEDICARE (WNR) MEDICARE (M) PART A Dec 22, 2013 PART A [id number] YOUSUF FIELDS PATIENT MEDICARE (WNR) MEDICARE (M) PART A Dec 22, 2013 PART A [id number] YOUSUF FIELDS PATIENT Selected Encounter This section includes the information on record at [place] for the Encounter. Date/Time Encounter Type Encounter Description Reason Pro vider Source Oct 05, 2024 09:48 AM Outpatient Encounter OTOLARYNGOLOGY/ENT IHE Encounter Template Text not used by [place] Plan of Treatment: Future Appointments (+ 6 months) and Future Tests (+/- 45 days) The Plan of Treatment section includes future care activities for the patient from [facility] [place] [facility] This section includes future appointments and future orders which are active, pending or scheduled. Future Appointments This section includes appointments that were scheduled to occur 6 months from the date of the Encounter, up to a maximum of 20 appointments. The data comes from all [facility]. Appointment Date/Time Appointment Type Appointme nt Facility Name Oct 07, 2024 01:00 PM [place] [facility] Oct 21, 2024 08:30 AM [place] [facility] Nov 18, 2024 01:00 PM [place] [facility] Nov 24, 2024 11:00 AM [place] [facility] Dec 02, 2024 01:30 PM AMBULATORY MEDICINE [facility] Active, Pending, and Scheduled Orders This section includes a listing of several types of active, pending, and scheduled orders, including clinic medications orders, diagnostic test orders, procedure orders and consult orders; where the start date of the order is 45 days before the date of the Encounter or 45 days after the date of theEncounter. The data comes from all [facility]. Test Date/Time Test Type Test Details Facility Name Oct 02, 2024 08:28 AM Consult Order OTOLARYNGO LOGY/ENT ONE Cons Manager [employer] [place] [facility] Oct 02, 2024 08:30 AM Consult [facility] [employer] [facility] Lab Results: +/- 30 days of the encounter This section includes the Chemistry and Hematology Lab Results on record with [place] for the patient. Radiology Reports and Pathology Reports are provided separately, in subsequent sections. Lab Results This section contains the Chemistry/Hematology Results that were resulted 30 days before or 30 daysafter the date of the Encounter. Date/Time Source Result Type Result - Unit Interpretation Reference Range Comment Sep 25, 2024 09:17 AM [facility] HEMOGLOBIN A1C PANEL Specimen Type: BLOOD Comment: Values obtained from A1C measurements can vary. For atypical A1C assays, a reported value of 7.0 could actually be between 6.72 and 7.28 if measured by a reference method. A reported value of 9.0 could actually be between 8.73 and 9.27. Ref: http://www.ngs p.org/CAPdata. asp Ordering Provider: SHALOM ABRAMS Report Released Date/Time: Mar 31, 2024 10:10 AM Reporting [facility]: [facility] [address] [address] Performing Lab: [facility] [address] [address] HEMOGLOBIN A1C 6.4 H 4.0-5.6 Sep 25, 2024 09:17 AM [facility] MICROALBUMIN CREATININE RATIO PANEL Specimen Type: URINE No comment entered. Ordering Provider: SHALOM ABRAMS Report Released Date/Time: Mar 31, 2024 10:10 AM Reporting Lab: [facility] [address] [address] Performing Lab: [facility] [address] [address] MICROALBUMIN/C REATININE RATIO 18.2 mg/g 0-29.9 MICROALBUMIN,Q UANTITATIVE 1.6 mg/dL RR UNAVAIL CREATININE URINE 87.91 mg/dL Sep 25, 2024 09:17 AM [facility] LIPID PANEL FASTING Specimen Type: SERUM No comment entered. Ordering Provider: SHALOM ABRAMS Report Released Date/Time: Mar 31, 2024 10:10 AM Reporting Lab: [facility] [address] [address] Performing Lab: [facility] [address] [address] CHOLESTEROL 169 mg/dL TRIGLYCERIDE 55 mg/dL 0-150 LDL calculated 106 mg/dL 0-129 CHOL/HDL 3.3 HDL CHOLESTEROL 52 mg/dL 40-60 Sep 25, 2024 09:17 AM [facility] BASIC METABOLIC PANEL (fasting) Specimen Type: SERUM No comment entered. Ordering Provider: SHALOM ABRAMS Report Released Date/Time: Mar 31, 2024 10:10 AM Reporting Lab: [facility] [address] [address] Performing Lab: [address] [address] UREA NITROGEN 19 mg/dL 7-25 GLUCOSE 142 mg/dL H 65-100 SODIUM 141 mmol/L 135-145 POTASSIUM 4.5 mmol/L 3.5-5.0 CHLORIDE 106 mmol/L 100-110 CO2 27 meq/L 20-30 CREATININE, Serum 0.96 mg/dL 0.50-1.40 eGFR(CKD-EPI 2020) 82 mL/min >60 Sep 25, 2024 09:17 AM [facility] PSA Specimen Type: SERUM No comment entered. Ordering Provider: SHALOM ABRAMS Report Released Date/Time: Mar 31, 2024 10:10 AM Reporting Lab: [facility] [address] [address] Performing Lab: [address] [address] PSA 0.83 ng/mL 0.00-4.00 Social History: Smoking Status (Most current) and Tobacco Use (All prior to encounter date) This section includes the most current, and the historical, smoking and tobacco- related health factors from the [place] facility where the Encounter took place. Current Smoking Status This section includes the most current smoking, or tobacco-related health factor, from the [place] facility where the Encounter took place. Date/Time Current Smoking Status Comment Steven slaughter Oct 02, 2024 08:00 AM VA-TOBACCO NEVER U SED CIGARETTES [place] [facility] Tobacco Use History This section includes a history of the smoking, or tobacco-related health factors, that were collected on or before the date of the Encounter. The data comes from the [place] facility where the Encounter took place. Date/Time Smoking Status/Tobacco Use Comment Josiah snyder Oct 02, 2024 08:00 AM VA-TOBACCO NEVER U SED OTHER TYPE [facility] May 23, 2023 03:00 PM VA-TOBACCO NEVER USED [facility] Jun 14, 2022 09:00 AM VA-TOBACCO FORMER USER [facility] Jun 14, 2022 09:00 AM VA-TOBACCO QUIT 15 YRS OR MORE [facility] Jun 01, 2021 08:00 AM VA-TOBACCO NEVER USED [facility] Jun 28, 2020 10:00 AM VA-TOBACCO NEVER USED [facility] May 21, 2019 02:59 PM VA-TOBACCO NEVER USED [facility] Mar 31, 2018 03:24 PM LIFETIME NON-TOBACCO USER [facility] Apr 19, 2017 08:30 AM LIFETIME NON-TOBACCO USER [facility] Apr 19, 2016 10:17 AM LIFETIME NON-TOBACCO USER . [facility] February 12, 2013 02:40 PM LIFETIME NON-TOBACCO USER [facility] Encounter Notes: All associated encounter notes This section contains the clinical notes associated to the Encounter. Date/Time Encounter Note(s) Provider Source Oct 05, 2024 09:48 AM LETTERS: LOCAL TITLE: PATIENT LETTER (B) STANDARD TITLE: LETTERS DATE OF NOTE: OCT 05, 2024@09:48 ENTRY DATE: OCT 05, 2024@09:48:40 AUTHOR: NEDA JIMÉNEZ EXP COSIGNER: URGENCY: STATUS: COMPLETED OCT 05, 2024 LIMA FIELDS [address] [place] [phone] Dear LIMA FIELDS We would like to assist you in scheduling a OTOLARYNGOLOGY appointment at the [place]. We have been unable to reach you by phone. To schedule this appointment please call toll free Ext [phone]. Our booking appointment hours are Saturday through Saturday from 8:00 am to 4:00 pm. Please leave a message if you receive voicemail and let us know a good time and telephone number where we can reach you. If we dont hear back from you within 14 days from the date of this letter we will discontinue the request. If you have already scheduled this appointment, please disregard this letter. Your health is important to us. Sincerely, [facility] [address] [facility] [address] [place] [address] [place] [address] ext. [phone] [facility] [address] [facility] [address] [place] [address] [place] [address] [phone] [facility] [address] [address] [place] [address] ext. [phone] [facility] [address] [place] [address] ext. [phone] NEDA JIMÉNEZ [place] [facility]
--- OUTSIDE RECORDS SUMMARY | 2024-11-04 08:52 | XMS_ITS | Encounter Summary ---
Author Name [facility] [place] [facility] [place] [facility] [place] Address [address] [place] [address] Care Team Providers Care Percher Name Role Phone SHALOM ABRAMS Primary Care [...] MEDICARE SUPPLEMEN SEN Jun 23, 2017 PLAN [id number] [phone] YOUSUF FIELDS PATIENT AARP MED SUPP MEDICARE SUPPLEMEN SEN Jun 23, 2017 PLAN [id number] [phone] YOUSUF FIELDS PATIENT AARP MED SUPP MEDICARE SUPPLEMEN SEN PLANM Y Jun 23, 2017 PLAN [id number] [phone] YOUSUF FIELDS PATIENT MEDICARE (WNR) MEDICARE (M) PART B Feb 22, 2016 PART B [id number] YOUSUF FIELDS PATIENT MEDICARE (WNR) MEDICARE (M) PART B Feb 22, 2016 PART B [id number] YOUSUF FIELDS PATIENT MEDICARE (WNR) MEDICARE (M) PART A Dec 22, 2013 PART A [id number] [phone] YOUSUF FIELDS PATIENT MEDICARE (WNR) MEDICARE (M) PART A Dec 22, 2013 PART A [id number] YOUSUF FIELDS PATIENT Selected Encounter This section includes the information on record at [place] for the Encounter. Date/Time Encounter Type Encounter Description Reason Provider Source Mar 31, 2024 11:04 AM QNHP OL DIG ASSMT&MGMT 5-10 CLINICAL PHARMACY ICD-10-CM E11.9 Type 2 diabetes mellitus without complications KATIE DUNN Patricio Encounter Template Text not used by [place] Assessments - Encounter Diagnoses This section includes the primary and secondary diagnoses documented for the Encounter. Date/Time Primary/Secondary Diagnosis Diagnosis Name Provider Source Mar 31, 2024 11:12 AM PRIMARY Type 2 diabetes mellitus without complications KATIE DUNN LENGBY Plan of Treatment: Future Appointments (+ 6 months) and Future Tests (+/- 45 days) The Plan of Treatment section includes future care activities for the patient from all [place] treatmentfacilities. This section includes future appointments and future orders which are active, pending or scheduled. Future Appointments This section includes appointments that were scheduled to occur 6 months from the date of the Encounter, up to a maximum of 20 appointments. The data comes from all [place] treatment facilities. Appointment Date/Time Appointment Type Appointme nt Facility Name May 28, 2024 09:00 AM AMBULATORY - MEDICINE [facility] Aug 12, 2024 01:00 PM AMBULATORY MEDICINE [facility] Lab Results: +/- 30 days of the encounter This section includes the Chemistry and Hematology Lab Results on record with [place] for the patient. Radiology Reports and Pathology Reports are provided separately, in subsequent sections. Lab Results This section contains the Chemistry/Hematology Results that were resulted 30 days before or 30 daysafter the date of the Encounter. Date/Time Source Result Type Result - Unit Interpretation Reference Range Comment Mar 27, 2024 09:54 AM [facility] HEMOGLOBIN A1C PANEL Specimen Type: BLOOD Comment: Values obtained from A1C measurements can vary. For atypical A1C assays, a reported value of 7.0 could actually be between 6.72 and 7.28 if measured by a reference method. A reported value of 9.0 could actually be between 8.73 and 9.27. Ref: http://www.ngs p.org/CAPdata. asp Ordering Provider: HSALOM ABRAMS Report Released Date/Time: Mar 18, 2024 08:44 AM Reporting Lab: [address] [address] Performing Lab: [address] [address] HEMOGLOBIN A1C 6.4 H 4.0-5.6 Mar 27, 2024 09:54 AM [facility] BASIC METABOLIC PANEL (non-fasting) Specimen Type: SERUM No comment entered. Ordering Provider: SHALOM ABRAMS Report Released Date/Time: Mar 18, 2024 08:44 AM Reporting Lab: [address] [address] Performing Lab: [address] [address] UREA NITROGEN 13 mg/dL 7-25 GLUCOSE 148 mg/dL H 65-100 SODIUM 139 mmol/L 135-145 POTASSIUM 4.2 mmol/L 3.5-5.0 CHLORIDE 106 mmol/L 100-110 CO2 25 meq/L 20-30 CREATININE, Serum 0.96 mg/dL 0.50-1.40 eGFR(CKD-EPI 2020) 82 mL/min >60 Mar 27, 2024 09:54 AM [facility] LIPID PANEL, NON FASTING Specimen Type: SERUM No comment entered. Ordering Provider: SHALOM ABRAMS Report Released Date/Time: Mar 18, 2024 08:44 AM Reporting Lab: [address] [address] Performing Lab: [address] [address] CHOLESTEROL 133 mg/dL TRIGLYCERIDE 60 mg/dL 0-150 LDL calculated 75 mg/dL 0-129 CHOL/HDL 2.9 HDL CHOLESTEROL 46 mg/dL 40-60 Mar 27, 2024 09:54 AM [facility] PSA Specimen Type: SERUM No comment entered. Ordering Provider: SHALOM ABRAMS Report Released Date/Time: Mar 20, 2024 11:35 AM Reporting Lab: [facility] [address] [address] Performing Lab: [facility] [address] [facility] [address] PSA 1.47 ng/mL 0.00-4.00 Encounter Notes: All associated encounter notes This section contains the clinical notes associated to the Encounter. Date/Time Encounter Note(s) Provider Source Mar 31, 2024 11:05 AM PHARMACY CONSULT: LOCAL TITLE: CONSULT REPORT/PRIOR AUTH FACILITY PADR STANDARD TITLE: PHARMACY CONSULT DATE OF NOTE: MAR 31, 2024@11:05 ENTRY DATE: MAR 31, 2024@11:05:26 AUTHOR: KATIE DUNN EXP COSIGNER: URGENCY: STATUS: COMPLETED The medical record has been reviewed with regard to this restricted drug request. Medication requested: ACCU-CHEK GUIDE (GLUCOSE) TEST STRIP Medication indication: DM Medical history relevant to this request: Odin is a 73 yo male with T2DM who was started on metformin and has made lifestyle modifications resulting in significant drop in A1c. PACT CPP requesting a one-time supply of test strips as is out of test strips with plan for additional lifestyle modifications and initiation of SGLT2 inhibitor. The request is approved - No formulary-preferred alternative Time spent: 5 min /nasrin/ KATIE DUNN [facility] Clinical Pharmacist Practitioner Signed: 03/31/2024 11:12 KATIE DUNN LENGBY
--- OUTSIDE RECORDS SUMMARY | 2024-11-04 08:52 | XMS_ITS | Encounter Summary ---
Author Name [facility] [place] [facility] [place] [facility] [place] Address [address] [place] [address] Care Team Providers Care Credit Card Specialist Name Role Phone SHALOM ABRAMS Primary Care [...] MEDICARE SUPPLEMEN SEN Jun 23, 2017 PLAN [id number] [phone] YOUSUF VILLAGRAN PATIENT AARP MED SUPP MEDICARE SUPPLEMEN SEN Jun 23, 2017 PLAN [id number] YOUSUF VILLAGRAN PATIENT AARP MED SUPP MEDICARE SUPPLEMEN SEN PLANM Y Jun 23, 2017 PLAN [id number] [phone] YOUSUF VILLAGRAN PATIENT MEDICARE (WNR) MEDICARE (M) PART B Feb 22, 2016 PART B [id number] YOUSUF VILLAGRAN PATIENT MEDICARE (WNR) MEDICARE (M) PART B Feb 22, 2016 PART B [id number] YOUSUF VILLAGRAN PATIENT MEDICARE (WNR) MEDICARE (M) PART A Dec 22, 2013 PART A [id number] [phone] YOUSUF VILLAGRAN PATIENT MEDICARE (WNR) MEDICARE (M) PART A Dec 22, 2013 PART A [id number] [phone] YOUSUF VILLAGRAN PATIENT Selected Encounter This section includes the information on record at [place] for the Encounter. Date/Time Encounter Type Encounter Description Reason Provider Source Jan 01, 2024 03:00 PM [facility] ICD-10-CM E11.9 Type 2 diabetes mellitus without complications MARK ANTHONY DALAL E Encounter Template Text not used by [place] Assessments - Encounter Diagnoses This section includes the primary and secondary diagnoses documented for the Encounter. Date/Time Primary/Secondary Diagnosis Diagnosis Name Provider Source Jan 01, 2024 04:00 PM PRIMARY Type 2 diabetes mellitus without complications MARK ANTH[facility] Plan of Treatment: Future Appointments (+ 6 months) and Future Tests (+/- 45 days) The Plan of Treatment section includes future care activities for the patient from all [place] treatmentfacilities. This section includes future appointments and future orders which are active, pending or scheduled. Future Appointments This section includes appointments that were scheduled to occur 6 months from the date of the Encounter, up to a maximum of 20 appointments. The data comes from all [place] treatment facilities. Appointment Date/Time Appointment Type Appointme nt Facility Name Mar 31, 2024 08:30 AM AMBULATORY - MEDICINE [facility] Mar 31, 2024 09:30 AM [facility] May 28, 2024 09:00 AM [facility] [place] [facility] Social History: Smoking Status (Most current) and Tobacco Use (All prior to encounter date) This section includes the most current, and the historical, smoking and tobacco- related health factors from the [facility] facility where the Encounter took place. Current Smoking Status This section includes the most current smoking, or tobacco-related health factor, from the [place] facility where the Encounter took place. Date/Time Current Smoking Status Comment Steven slaughter May 23, 2023 03:00 PM VA-TOBACCO [facility] USED [facility] [place] [facility] Tobacco Use History This section includes a history of the smoking, or tobacco-related health factors, that were collected on or before the date of the Encounter. The data comes from the [place] facility where the Encounter took place. Date/Time Smoking Status/Tobacco Use Comment F acility Jun 14, 2022 09:00 AM VA-TOBACCO FORMER USER [place] [facility] [place] [facility] Jun 14, 2022 09:00 AM VA-TOBACCO QUIT 15 YRS OR MORE [place] [facility] [place] [facility] Jun 01, 2021 08:00 AM VA-TOBACCO NEVER USED [place] [facility] [place] [facility] Jun 28, 2020 10:00 AM VA-TOBACCO NEVER USED [place] [facility] [place] [facility] May 21, 2019 02:59 PM VA-TOBACCO NEVER USED [place] [facility] [place] [facility] Mar 31, 2018 03:24 PM LIFETIME NON-TOBACCO USER [place] [facility] [place] [facility] Apr 19, 2017 08:30 AM LIFETIME NON-TOBACCO USER [place] [facility] [place] [facility] Apr 19, 2016 10:17 AM LIFETIME NON-TOBACCO USER . [place] [facility] [place] [facility] February 12, 2013 02:40 PM LIFETIME NON-TOBACCO USER [place] [facility] [place] [facility] Encounter Notes: All associated encounter notes This section contains the clinical notes associated to the Encounter. Date/Time Encounter Note(s) Provider Source Jan 03, 2024 09:57 AM ADDENDUM: LOCAL TITLE: Addendum STANDARD TITLE: ADDENDUM DATE OF NOTE: JAN 03, 2024@09:57:08 ENTRY DATE: JAN 03, 2024@09:57:09 AUTHOR: KANDICE BURGESS EXP COSIGNER: URGENCY: STATUS: COMPLETED AMSA, please schedule appointment for: - Cwm/No/Pharm/Pact 2 Please schedule for 03/31/24 @ 0830 AM RTC order placed. Pt to get labwork prior to appointment Thank you! /elvin BURGESS PHARMD, BCPS CLINICAL PHARMACIST PRACTITIONER Signed: 01/03/2024 09:57 Receipt Acknowledged By: 01/03/2024 10:24 /nasrin/ ELEAZAR MAS AMSA --- Original Document --- 01/01/24 PHARMACY CLINIC NOTE: LIMA VILLAGRAN, 73 yo WHITE MALE, presents for rqmy-gt-wziq follow up visit diabetes management. Today, pt reports he is doing well. He just had his birthday- did not eat cake! But he had some kielbasa that had a sweet sauce on it- thinks it increased his fbg one day. He has been taking metformin daily, denies adrs. He notes his fbg to be in 170s range mostly. Has been playing golf MWF and has been very active doing yardwork etc. Current diabetes medications: - metformin 500 mg SA once daily Medication Adherence: - see above Diet Patterns: patient eats on avg. 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 HYPOGLYCEMIC Events: 0 in last 2 weeks [...] Metformin 500 mg SA once daily - Congratulated pt on his efforts in reducing his bg with diet, exercise - Recommended to reduce amount of cereal for bf and pair with protein. - Encouraged balanced meals of carbs and protein - Declines nutrition consult for now - Declines additional medication as he is confident he can continue working on LSMs to futher reduce a1c - Continue to SMBG 2x week - Monitor for s/sx hypoglycemia and contact clinic if BG consistently <70mg/dL - Healthy dietary and lifestyle modifications encouraged - Repeat A1c:tbd based on therapy changes EDUCATION -A shared decision-making approach was used in the development of this plan, involving the , clinician, and any caregivers present. The [place] was provided the opportunity express questions or concerns, and the plan was adjusted as needed to address these concerns. -Reviewed with [place] any new medications, changes to the medication list, education, and plan from today's visit. Patient (and/or caregiver) verbalized understanding of the plan, including possible known risks and benefits, and had no additional questions. RTC:03/2024 - with PCP visit if possible, please order labs (lipids and a1c) Time Spent:30 mins PBM PharmD Pharmacotherapy Rem V12: PHARMACIST INTERVENTIONS: TYPE 2 DIABETES MELLITUS Medication monitoring, no dosage change required, continue to monitor and assess /elvin DALAL PHARMD,BCPLeslie CLINICAL PHARMACY PRACTITIONER Signed: 01/01/2024 16:00 01/01/2024 ADDENDUM STATUS: COMPLETED CPP please make f/u in March if possible with PCP visit. Please order labs. /elvin DALAL PHARMD,BCPLeslie CLINICAL PHARMACY PRACTITIONER Signed: 01/01/2024 16:01 Receipt Acknowledged By: 01/03/2024 09:56 /elvin BURGESS PHARMD, BCPS CLINICAL PHARMACIST PRACTITIONER KANDICE BURGESS [place] [facility] [place] [facility] Jan 01, 2024 04:00 PM ADDENDUM: LOCAL TITLE: Addendum STANDARD TITLE: ADDENDUM DATE OF NOTE: JAN 01, 2024@16:00:31 ENTRY DATE: JAN 01, 2024@16:00:32 AUTHOR: MARK ANTHONY DALAL EXP COSIGNER: URGENCY: STATUS: COMPLETED CPP please make f/u in March if possible with PCP visit. Please order labs. /elvin DALAL PHARMD,BCPS CLINICAL PHARMACY PRACTITIONER Signed: 01/01/2024 16:01 Receipt Acknowledged By: 01/03/2024 09:56 /es/ KANDICE BURGESS PHARMD, BCPS CLINICAL PHARMACIST PRACTITIONER --- Original Document --- 01/01/24 PHARMACY CLINIC NOTE: LIMA VILLAGRAN, 73 yo WHITE MALE, presents for rzvk-mp-ogdu follow up visit diabetes management. Today, pt reports he is doing well. He just had his birthday- did not eat cake! But he had some kielbasa that had a sweet sauce on it- thinks it increased his fbg one day. He has been taking metformin daily, denies adrs. He notes his fbg to be in 170s range mostly. Has been playing golf MWF and has been very active doing yardwork etc. Current diabetes medications: - metformin 500 mg SA once daily Medication Adherence: - see above Diet Patterns: patient eats on avg. 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 HYPOGLYCEMIC Events: 0 in last 2 weeks [...] Metformin 500 mg SA once daily - Congratulated pt on his efforts in reducing his bg with diet, exercise - Recommended to reduce amount of cereal for bf and pair with protein. - Encouraged balanced meals of carbs and protein - Declines nutrition consult for now - Declines additional medication as he is confident he can continue working on LSMs to futher reduce a1c - Continue to SMBG 2x week - Monitor for s/sx hypoglycemia and contact clinic if BG consistently <70mg/dL - Healthy dietary and lifestyle modifications encouraged - Repeat A1c:tbd based on therapy changes EDUCATION -A shared decision-making approach was used in the development of this plan, involving the [place], clinician, and any caregivers present. The [place] was provided the opportunity express questions or concerns, and the plan was adjusted as needed to address these concerns. -Reviewed with any new medications, changes to the medication list, education, and plan from today's visit. Patient (and/or caregiver) verbalized understanding of the plan, including possible known risks and benefits, and had no additional questions. RTC:03/2024 - with PCP visit if possible, please order labs (lipids and a1c) Time Spent:30 mins PBM PharmD Pharmacotherapy Rem V12: PHARMACIST INTERVENTIONS: TYPE 2 DIABETES MELLITUS Medication monitoring, no dosage change required, continue to monitor and assess /nasrin/ MARK ANTHONY DALAL PHARMD,BCPS CLINICAL PHARMACY PRACTITIONER Signed: 01/01/2024 16:00 MARK ANTHONY DALAL [place] [facility] [place] [facility] Jan 01, 2024 02:45 PM PHARMACY OUTPATIENT NOTE: LOCAL TITLE: PHARMACY CLINIC NOTE STANDARD TITLE: PHARMACY OUTPATIENT NOTE DATE OF NOTE: JAN 01, 2024@14:45 ENTRY DATE: JAN 01, 2024@14:45:36 AUTHOR: MARK ANTHONY DALAL EXP COSIGNER: URGENCY: STATUS: COMPLETED PHARMACY CLINIC NOTE Has ADDENDA LIMA VILLAGRAN, 73 yo WHITE MALE, presents for xlli-qv-shsk follow up visit diabetes management. Today, pt reports he is doing well. He just had his birthday- did not eat cake! But he had some kielbasa that had a sweet sauce on it- thinks it increased his fbg one day. He has been taking metformin daily, denies adrs. He notes his fbg to be in 170s range mostly. Has been playing golf MWF and has been very active doing yardwork etc. Current diabetes medications: - metformin 500 mg SA once daily Medication Adherence: - see above Diet Patterns: patient eats on avg. 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 HYPOGLYCEMIC Events: 0 in last 2 weeks [...] Metformin 500 mg SA once daily - Congratulated pt on his efforts in reducing his bg with diet, exercise - Recommended to reduce amount of cereal for bf and pair with protein. - Encouraged balanced meals of carbs and protein - Declines nutrition consult for now - Declines additional medication as he is confident he can continue working on LSMs to futher reduce a1c - Continue to SMBG 2x week - Monitor for s/sx hypoglycemia and contact clinic if BG consistently <70mg/dL - Healthy dietary and lifestyle modifications encouraged - Repeat A1c:tbd based on therapy changes EDUCATION -A shared decision-making approach was used in the development of this plan, involving the , clinician, and any caregivers present. The was provided the opportunity express questions or concerns, and the plan was adjusted as needed to address these concerns. -Reviewed with [place] any new medications, changes to the medication list, education, and plan from today's visit. Patient (and/or caregiver) verbalized understanding of the plan, including possible known risks and benefits, and had no additional questions. RTC:03/2024 - with PCP visit if possible, please order labs (lipids and a1c) Time Spent:30 mins PBM PharmD Pharmacotherapy Rem V12: PHARMACIST INTERVENTIONS: TYPE 2 DIABETES MELLITUS Medication monitoring, no dosage change required, continue to monitor and assess /elvin DALAL PHARMD,MIRELLA CLINICAL PHARMACY PRACTITIONER Signed: 01/01/2024 16:00 01/01/2024 ADDENDUM STATUS: COMPLETED CPP please make f/u in March if possible with PCP visit. Please order labs. /elvin DALAL PHARMD,MIRELLA CLINICAL PHARMACY PRACTITIONER Signed: 01/01/2024 16:01 Receipt Acknowledged By: 01/03/2024 09:56 /elvin BURGESS PHARMD, MIRELLA CLINICAL PHARMACIST PRACTITIONER 01/03/2024 ADDENDUM STATUS: COMPLETED AMSA, please schedule appointment for: - Cwm/No/Pharm/Pact 2 Please schedule for 03/31/24 @ 0830 AM RTC order placed. Pt to get labwork prior to appointment Thank you! /elvin BURGESS PHARMD, BCPLeslie CLINICAL PHARMACIST PRACTITIONER Signed: 01/03/2024 09:57 Receipt Acknowledged By: 01/03/2024 10:24 /elvin NEGRETE 01/03/2024 ADDENDUM STATUS: COMPLETED Done. /elvin MAS AMSA Signed: 01/03/2024 10:25 MARK ANTHONY DALAL [facility]
--- OUTSIDE RECORDS SUMMARY | 2024-11-04 08:52 | XMS_ITS ---
Author Name [facility] [place] [place] [facility] [place] [facility] [place] Address [address] [place] [address] Care Team Providers Care Superintendent Car Construction Name Role Phone SHALOM ABRAMS Primary Care [...] MEDICARE SUPPLEMEN SEN Jun 23, 2017 PLAN [id number] [phone] YOUSUF FIELDS PATIENT AARP MED SUPP MEDICARE SUPPLEMEN SEN Jun 23, 2017 PLAN [id number] YOUSUF FIELDS PATIENT AARP MED SUPP MEDICARE SUPPLEMEN SEN PLANM Y Jun 23, 2017 PLAN [id number] YOUSUF FIELDS PATIENT MEDICARE (WNR) MEDICARE (M) PART B Feb 22, 2016 PART B [id number] YOUSUF FIELDS PATIENT MEDICARE (WNR) MEDICARE (M) PART B Feb 22, 2016 PART B [id number] YOUSUF FIELDS PATIENT MEDICARE (WNR) MEDICARE (M) PART A Dec 22, 2013 PART A [id number] YOUSUF FIELDS PATIENT MEDICARE (WNR) MEDICARE (M) PART A Dec 22, 2013 PART A [id number] YOUSUF FIELDS PATIENT Selected Encounter This section includes the information on record at [place] for the Encounter. Date/Time Encounter Type Encounter Description Reason Pro vider Source Dec 10, 2023 03:00 PM Outpatient Encounter CLINICAL PHARMACY IHE Encounter Template Text not used by [place] Plan of Treatment: Future Appointments (+ 6 months) and Future Tests (+/- 45 days) The Plan of Treatment section includes [facility] care [facility] [place] [facility] This section includes future appointments and future orders which are active, pending or scheduled. Future Appointments This section includes appointments that were scheduled to occur 6 months from the date of the Encounter, up to a maximum of 20 appointments. The data comes from all [place] treatment facilities. Appointment Date/Time Appointment Type Appointme nt Facility Name Dec 18, 2023 01:30 PM AM[place]ULATORY [place]ICINE [place] [facility] [place] [facility] Jan 01, 2024 03:00 PM AMBULATORY - MEDICINE [facility] [place] [facility] Mar 31, 2024 08:30 AM AMBULATORY - MEDICINE [facility] [place] [facility] Mar 31, 2024 09:30 AM AMBULATORY MEDICINE [facility] [place] [facility] May 28, 2024 09:00 AM [facility] - [facility] Lab Results: +/- 30 days of the encounter This section includes the Chemistry and Hematology Lab Results on record with [place] for the patient. Radiology Reports and Pathology Reports are provided separately, in subsequent sections. Lab Results This section contains the Chemistry/Hematology Results that were resulted 30 days before or 30 daysafter the date of the Encounter. Date/Time Source Result Type Result - Unit Interpretation Reference Range Comment Nov 22, 2023 08:53 [facility] HEMOGLOBIN A1C PANEL Specimen Type: BLOOD [...] Nov 08, 2023 11:20 AM Reporting Lab: [address] [id number] Performing Lab: [address] [address] HEMOGLOBIN A1C 10.4 H 4.0-5.6 Nov 22, 2023 08:53 AM [facility] LIPID PANEL FASTING Specimen Type: SERUM No comment entered. Ordering Provider: TIFFANY MADISON Report Released Date/Time: Nov 08, 2023 11:20 AM Reporting Lab: [address] [address] Performing Lab: [address] [address] CHOLESTEROL 150 mg/dL TRIGLYCERIDE 64 mg/dL 0-150 LDL calculated 92 mg/dL 0-129 CHOL/HDL 3.3 HDL CHOLESTEROL 45 mg/dL 40-60 Nov 22, 2023 08:53 AM [facility] BASIC METABOLIC PANEL (fasting) Specimen Type: SERUM No comment entered. Ordering Provider: TIFFANY MADISON Report Released Date/Time: Nov 08, 2023 11:20 AM Reporting Lab: [address] [address] Performing Lab: [address] [address] UREA NITROGEN 15 mg/dL 7-25 GLUCOSE 317 mg/dL H 65-100 SODIUM 139 mmol/L 135-145 POTASSIUM 3.9 mmol/L 3.5-5.0 CHLORIDE 106 mmol/L 100-110 CO2 23 meq/L 20-30 CREATININE, Serum 1.09 mg/dL 0.50-1.40 eGFR(CKD-EPI 2020) 71 mL/min >60 Nov 22, 2023 08:53 AM [facility] LIVER FUNCTION Specimen Type: SERUM No comment entered. Ordering Provider: TIFFANY MADISON Report Released Date/Time: Nov 08, 2023 11:20 AM Reporting Lab: [facility] [address] [facility] [address] Performing Lab: [address] [address] PROTEIN,TOTAL 7.1 g/dL 6.0-8.3 ALBUMIN 4.2 g/dL 3.5-5.0 ALKALINE PHOSPHATASE 86 U/L 40-150 AST 15 U/L 5-34 ALT 24 U/L BILIRUBIN, TOTAL 0.6 mg/dL 0.2-1.2 Nov 22, 2023 08:53 AM [facility] HIV 1&2 Ag/Ab SCREEN Specimen Type: SERUM No comment entered. Ordering Provider: TIFFANY MADISON Report Released Date/Time: Nov 08, 2023 11:20 AM Reporting Lab: [facility] [address] [facility] [address] Performing Lab: [address] [address] HIV 1&2 Ag/Ab SCREEN NON-REACTIVE Nonreactive Social History: Smoking Status (Most current) and Tobacco Use (All prior to encounter date) This section includes the most current, and the historical, smoking and tobacco- related health factors from the [place] facility where the Encounter took place. Current Smoking Status This section includes the most current smoking, or tobacco-related health factor, from the [place] facility where the Encounter took place. Date/Time Current Smoking Status Comment Steven slaughter May 23, 2023 03:00 PM VA-TOBACCO NEVER USED [facility] Tobacco Use History This section includes a history of the smoking, or tobacco-related health factors, that were collected on or before the date of the Encounter. The data comes from the [place] facility where the Encounter took place. Date/Time Smoking Status/Tobacco Use Comment F acility Jun 14, 2022 09:00 AM VA-TOBACCO FORMER USER [facility] Jun 14, 2022 09:00 AM VA-TOBACCO QUIT 15 YRS OR MORE [facility] [place] [facility] Jun 01, 2021 08:00 AM VA-TOBACCO NEVER USED [facility] [place] [facility] Jun 28, 2020 10:00 AM VA-TOBACCO NEVER USED [facility] [place] [facility] May 21, 2019 02:59 PM VA-TOBACCO NEVER USED [facility] [place] [facility] Mar 31, 2018 03:24 PM LIFETIME NON-TOBACCO USER [facility] [place] [facility] Apr 19, 2017 08:30 AM LIFETIME NON-TOBACCO USER [facility] [place] [facility] Apr 19, 2016 10:17 AM LIFETIME NON-TOBACCO USER . [facility] [place] [facility] February 12, 2013 02:40 PM LIFETIME NON-TOBACCO USER [place] [facility] [place] [facility] Encounter Notes: All associated encounter notes This section contains the clinical notes associated to the Encounter. Date/Time Encounter Note(s) Provider Source Dec 10, 2023 03:13 PM CLERICAL NOTE: LOCAL TITLE: APPOINTMENT NO SHOW STANDARD TITLE: CLERICAL NOTE DATE OF NOTE: DEC 10, 2023@15:13 ENTRY DATE: DEC 10, 2023@15:13:42 AUTHOR: MARK ANTHONY DALAL COSIGNER: URGENCY: STATUS: COMPLETED APPOINTMENT NO SHOW Has ADDENDA Patient Name: LIMA FIELDS Patient SSN: [id number] Date and time of Appointment No show : 12/10/23 15:00 PATIENT PHONE - [phone] PHONE NUMBER [CELLULAR] - Patient's medical record was reviewed. Follow-up actions were determined and initiated: Please check/complete as applies: [X]Telephoned Directly [ ]Re-scheduled for next available appt [ ]Sent a N0-show letter ( must call for appointment) [ ]Other (Emergent/Overbook, etc.): Additional Comments: Please no show visit CWM/NO/VVC/PHARM PACT 3 12/10/23 @1500 Please reschedule for CWM/NO/PHARM PACT 3 12/18/23 @1430 X 30 MINS Future Clinic Visits 03/31/2024 09:30 CWM/NO/PACT EIGHT 12/01/2024 08:00 CWM/NO/OPTOMETRY/MERHAR /nasrin/ MARK ANTHONY DALAL, PHARMD,BCPS CLINICAL PHARMACY PRACTITIONER Signed: 12/10/2023 15:14 Receipt Acknowledged By: 12/11/2023 11:38 /nasrin/ CONSTANTINE REDDY ADVANCED ALL AROUND GEAR MACHINE OPERATOR 12/11/2023 ADDENDUM STATUS: COMPLETED Patient Services Manager can not reschedule this appt, on the day requested, already booked. Please advise. /nasrin/ CONSTANTINE REDDY ADVANCED ALL AROUND GEAR MACHINE OPERATOR Signed: 12/11/2023 11:41 MARK ANTHONY DALAL [facility]
--- OUTSIDE RECORDS SUMMARY | 2024-11-04 08:52 | XMS_ITS ---
Author Name [facility] [place] [facility] [place] Address [address] [place] [address] Care Team Providers Care Entry Level Accountant Name Role Phone SHALOM ABRAMS Primary Care [...] MEDICARE SUPPLEMEN SEN Jun 23, 2017 PLAN [id number] [phone] YOUSUF VILLAGRAN PATIENT AARP MED SUPP MEDICARE SUPPLEMEN SEN Jun 23, 2017 PLAN [id number] YOUSUF VILLAGRAN PATIENT AARP MED SUPP MEDICARE SUPPLEMEN SEN PLANM Y Jun 23, 2017 PLAN [id number] [phone] YOUSUF VILLAGRAN PATIENT MEDICARE (WNR) MEDICARE (M) PART B Feb 22, 2016 PART B [id number] YOUSUF VILLAGRAN PATIENT MEDICARE (WNR) MEDICARE (M) PART B Feb 22, 2016 PART B [id number] YOUSUF VILLAGRAN PATIENT MEDICARE (WNR) MEDICARE (M) PART A Dec 22, 2013 PART A [id number] [phone] YOUSUF VILLAGRAN PATIENT MEDICARE (WNR) MEDICARE (M) PART A Dec 22, 2013 PART A [id number] YOUSUF VILLAGRAN PATIENT Selected Encounter This section includes the information on record at [place] for the Encounter. Date/Time Encounter Type Encounter Description Reason Provider Source Oct 07, 2024 01:00 PM MTMS BY PHARM EST 15 MIN TELEPHONE PRIMARY CARE ICD-10-CM E11.9 Type 2 diabetes mellitus without complications KANDICE BURGESS Patricio Encounter Template Text not used by [place] Assessments - Encounter Diagnoses This section includes the primary and secondary diagnoses documented for the Encounter. Date/Time Primary/Secondary Diagnosis Diagnosis Name Provider Source Oct 07, 2024 01:00 PM PRIMARY Type 2 diabetes mellitus without complications KANDICE BURGESS [facility] Plan of Treatment: Future Appointments (+ 6 months) and Future Tests (+/- 45 days) The Plan of Treatment section includes future care activities for the patient from [facility] [place] [facility] This section includes future appointments and future orders which are active, pending or scheduled. Future Appointments This section includes appointments that were scheduled to occur 6 months from the date of the Encounter, up to a maximum of 20 appointments. The data comes from all [facility]. Appointment Date/Time Appointment Type Appointme nt Facility Name Oct 21, 2024 08:30 AM [facility]BULATORY - MED[facility] Nov 18, 2024 01:00 PM AMBULATORY - MEDICINE [facility] Nov 24, 2024 11:00 AM AMBULATORY - MEDICINE [facility] N[facility]L TRN [facility] Dec 02, 2024 01:30 PM [facility] Active, Pending, and Scheduled Orders This section includes a listing of several types of active, pending, and scheduled orders, including clinic medications orders, diagnostic test orders, procedure orders and consult orders; where the start date of the order is 45 days before the date of the Encounter or 45 days after the date of theEncounter. The data comes from all [place] treatment facilities. Test Date/Time Test Type Test Details Facility Name Oct 02, 2024 08:28 AM Consult Order OTOLARYNGO LOGY/ENT ONE Cons Stave [facility] Oct 02, 2024 08:30 AM Consult Order [facility] Cons [facility]ave [facility] Lab Results: +/- 30 days of the encounter This section includes the Chemistry and Hematology Lab Results on record with [place] for the patient. Radiology Reports and Pathology Reports are provided separately, in subsequent sections. Lab Results This section contains the Chemistry/Hematology Results that were resulted 30 days before or 30 daysafter the date of the Encounter. Date/Time Source Result Type Result - Unit Interpretation Reference Range Comment Sep 25, 2024 09:17 AM [facility] HEMOGLOBIN A1C PANEL Specimen Type: BLOOD [...] Mar 31, 2024 10:10 AM Reporting Lab: [facility] [address] [facility] [address] Performing Lab: [facility] [address] [facility] [address] HEMOGLOBIN A1C 6.4 H 4.0-5.6 Sep 25, 2024 09:17 AM [facility] MICROALBUMIN CREATININE RATIO PANEL Specimen Type: URINE No comment entered. Ordering Provider: SHALOM ABRAMS Report Released Date/Time: Mar 31, 2024 10:10 AM Reporting Lab: [facility] [address] [facility] [address] Performing Lab: [facility] [address] [facility] [address] MICROALBUMIN/C REATININE RATIO 18.2 mg/g 0-29.9 MICROALBUMIN,Q UANTITATIVE 1.6 mg/dL RR UNAVAIL CREATININE URINE 87.91 mg/dL Sep 25, 2024 09:17 AM [facility] LIPID PANEL FASTING Specimen Type: SERUM No comment entered. Ordering Provider: SHALOM ABRAMS Report Released Date/Time: Mar 31, 2024 10:10 AM Reporting Lab: [facility] [address] [facility] [address] Performing Lab: [facility] [address] [facility] [address] CHOLESTEROL 169 mg/dL TRIGLYCERIDE 55 mg/dL 0-150 LDL calculated 106 mg/dL 0-129 CHOL/HDL 3.3 HDL CHOLESTEROL 52 mg/dL 40-60 Sep 25, 2024 09:17 AM [facility] BASIC METABOLIC PANEL (fasting) Specimen Type: SERUM No comment entered. Ordering Provider: SHALOM ABRAMS Report Released Date/Time: Mar 31, 2024 10:10 AM Reporting Lab: [facility] [address] [facility] [address] Performing Lab: [facility] [address] [facility] [address] UREA NITROGEN 19 mg/dL 7-25 GLUCOSE 142 mg/dL H 65-100 SODIUM 141 mmol/L 135-145 POTASSIUM 4.5 mmol/L 3.5-5.0 CHLORIDE 106 mmol/L 100-110 CO2 27 meq/L 20-30 CREATININE, Serum 0.96 mg/dL 0.50-1.40 eGFR(CKD-EPI 2020) 82 mL/min >60 Sep 25, 2024 09:17 AM [facility] PSA Specimen Type: SERUM No comment entered. Ordering Provider: SHALOM ABRAMS Report Released Date/Time: Mar 31, 2024 10:10 AM Reporting Lab: [facility] [address] [facility] [address] Performing Lab: [address] [address] PSA 0.83 ng/mL 0.00-4.00 Social History: Smoking Status (Most current) and Tobacco Use (All prior to encounter date) This section includes the most current, and the historical, smoking and tobacco- related health factors from the [place] facility where the Encounter took place. Current Smoking Status This section includes the most current smoking, or tobacco-related health factor, from the [place] facility where the Encounter took place. Date/Time Current Smoking Status Comment Steven slaughter Oct 02, 2024 08:00 AM VA-TOBACCO NEVER U SED OTHER TYPE [place] [facility] [place] [facility] Tobacco Use History This section includes a history of the smoking, or tobacco-related health factors, that were collected on or before the date of the Encounter. The data comes from the [place] facility where the Encounter took place. Date/Time Smoking Status/Tobacco Use Comment F acglendy Oct 02, 2024 08:00 AM VA-TOBACCO NEVER U SED OTHER TYPE [facility] [place] [facility] May 23, 2023 03:00 PM VA-TOBACCO NEVER USED [facility] [place] [facility] Jun 14, 2022 09:00 AM VA-TOBACCO FORMER USER [facility] [place] [facility] Jun 14, 2022 09:00 AM VA-TOBACCO QUIT 15 YRS OR MORE [facility] [place] [facility] Jun 01, 2021 08:00 AM VA-TOBACCO NEVER USED [facility] [place] [facility] Jun 28, 2020 10:00 AM VA-TOBACCO NEVER USED [facility] [place] [facility] May 21, 2019 02:59 PM VA-TOBACCO NEVER USED [facility] [place] [facility] Mar 31, 2018 03:24 PM LIFETIME NON-TOBACCO USER [facility] [place] [facility] Apr 19, 2017 08:30 AM LIFETIME NON-TOBACCO USER [facility] [place] [facility] Apr 19, 2016 10:17 AM LIFETIME NON-TOBACCO USER . [facility] [place] [facility] February 12, 2013 02:40 PM LIFETIME NON-TOBACCO USER [facility] [place] [facility] Encounter Notes: All associated encounter notes This section contains the clinical notes associated to the Encounter. Date/Time Encounter Note(s) Provider Source Oct 07, 2024 01:35 PM ADDENDUM: LOCAL TITLE: Addendum STANDARD TITLE: ADDENDUM DATE OF NOTE: OCT 07, 2024@13:35:46 ENTRY DATE: OCT 07, 2024@13:35:47 AUTHOR: KANDICE BURGESS EXP COSIGNER: URGENCY: STATUS: COMPLETED AMSA, please schedule appointment for: - [facility] PHONE PHARM PACT 2 Please schedule for 11/18/24 @1300 Thank you! /nasrin/ KANDICE BURGESS PHARMD, BCPS CLINICAL PHARMACIST PRACTITIONER Signed: 10/07/2024 13:36 Receipt Acknowledged By: 10/07/2024 14:23 /es/ ELEAZAR MAS AMSA --- Original Document --- 10/07/24 TELEPHONE NOTE/PHARMACY: LIMA VILLAGRAN, 73 yo WHITE MALE, presents for telephone follow-up for diabetes management. OCT 07, 2024 Known Allergies: Patient has answered NKA Subjective: Pt presents to clinic for T2DM follow-up. At time of last visit, empagliflozin was continued. Today pt reports he is doing well. Had bloodwork repeated recently and f/u with PCP last week. Pt offers no complaints. Denies dysuria, polyuria, jock itch, dizziness or dehydration symptoms for empagliflozin. Continues to be physically active playing golf. Pt endorses adequate hydration. SMBG ~twice weekly; reports blood glucose average is 122 mg/dl to 130 mg/dl. Target Goals: A1c% <7; FB-130 mg/dl Personal Goals: - Not have diabetes - Low A1c%) Objective: Current diabetes medications: - empagliflozin 10 mg once daily Previous diabetes medications: - Metformin SA 500 mg once daily Adherence: Denies adherence issues Diet Patterns: patient eats on avg. 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: - Denies personal or fhx thyroid cancer or MENS - Denies hx pancreatitis - Denies hx MH/depression/denies SI - Denies hx of UTI SMB10/07/24: 122-130 mg/dl fasting 08/12/24: NO NEW DATA 05/28/24: No new data FBG 02/03/24 161 02/05/24 140 02/06/24 153 [...] Low: <54 mg/dL --- 0% SMBG assessment: N/A; no new data; Per pt reports, blood glucose in range HYPOGLYCEMIC Events: 0 in last 2 weeks [...] GLUCOSE BUN CREATIN Sodium K+/Pot CL CO2 09/25/2024 09:17 SERUM 142 H 19 0.96 141 4.5 106 27 06/02/2024 08:06 SERUM 143 H 16 0.88 140 3.9 108 23 03/27/2024 09:54 SERUM 148 H 13 0.96 139 4.2 106 25 11/22/2023 08:53 SERUM 317 H 15 1.09 139 3.9 106 23 04/30/2023 07:56 SERUM 187 H 15 1.13 141 4.4 102 29 CHEM 7 Results Collection DT Spec Sodium K+/Pot CL CO2 GLUCOSE BUN 09/25/2024 09:17 SERUM 141 4.5 106 27 142 H 19 06/02/2024 08:06 SERUM 140 3.9 108 23 143 H 16 03/27/2024 09:54 SERUM 139 4.2 106 25 [...] 4.3 104 32 H 139 H 21 eGFR CKD-EPI 202009/25/24 09:17 82 SERUM LIVER PANEL TREND Collection DT [...] HEMOGLOBIN A1C TREND Collection DT Spec HGBA1c 09/25/2024 09:17 BLOOD 6.4 H 03/27/2024 09:54 BLOOD 6.4 H 11/22/2023 08:53 BLOOD 10.4 H 04/30/2023 07:56 BLOOD 7.3 H 10/11/2022 08:46 BLOOD 6.6 H LIPID PANEL TREND Collection DT Spec CHOL HDL CHO/HDL LDL-c TRIG 09/25/2024 09:17 SERUM 169 52 3.3 106 55 03/27/2024 09:54 SERUM 133 46 2.9 75 60 11/22/2023 08:53 SERUM 150 45 3.3 92 64 04/30/2023 07:56 SERUM 160 43 3.7 106 56 05/22/2022 07:32 SERUM 147 43 3.4 95 46 Vitals: Ht: 70 in [177.8 cm] (11/27/2023 09:06) Wt: 240 lb [108.86 kg] (10/02/2024 08:05) BMI: BMI: 34.5 BP: 134/74 (10/02/2024 08:05) HR: 71 (10/02/2024 08:05) Assessment: DIABETES: Goal: A1c goal is <7% with a goal fasting BG average of 80-130mg/dL and a goal post-prandial BG average of <180mg/dL per ADA guideline. A1c% currently at goal (6.4% on 09/25/24). Pt congratulated on results of repeat labs. Will continue with current therapy. Pt requesting refills on test strips and empagliflozin. CARDIOVASCULAR: For patients 60 years and over with Diabetes, recommend a goal of <140/90, with added benefit of reducing SBP closer to 130. Current BP is 134/74 ASCVD: On rosuvastatin; LDL reduced from previous. 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 -12/02/24 f/u Plan: Medication management: - CONTINUE empagliflozin 10 mg once daily - Medications reconciled - Otherwise continue current medications Lifestyle modicfications: - Continue to SMBG 2x/week - Monitor for s/sx hypoglycemia and contact clinic if BG consistently <70mg/dL - Healthy dietary and lifestyle modifications encouraged - Repeat A1c: 02/2025 MISC: EDUCATION -A shared decision-making approach was used in the development of this plan, involving the [facility], clinician, and any caregivers present. The was provided the opportunity express questions or concerns, and the plan was adjusted as needed to address these concerns. -Reviewed with any new medications, changes to the medication list, education, and plan from today's visit. Patient (and/or caregiver) verbalized understanding of the plan, including possible known risks and benefits, and had no additional questions. RTC: 11/18/24 @1300 Time Spent: 15 minutes PBM PharmD Pharmacotherapy Rem V12: PHARMACIST INTERVENTIONS: TYPE 2 DIABETES MELLITUS Medication monitoring, no dosage change required, continue to monitor and assess Medication reconciliation (changes to active [place] and non-[place] medication lists to reconcile differences) No changes to medication lists made (medication review completed, no discrepancies identified) /nasrin/ KANDICE BURGESS PHARMD, BCPS CLINICAL PHARMACIST PRACTITIONER Signed: 10/07/2024 13:35 KANDICE BURGESS [place] [facility] [place] [facility] Oct 07, 2024 01:23 PM PHARMACY TELEPHONE ENCOUNTER NOTE: LOCAL TITLE: TELEPHONE NOTE/PHARMACY STANDARD TITLE: PHARMACY TELEPHONE ENCOUNTER NOTE DATE OF NOTE: OCT 07, 2024@13:23 ENTRY DATE: OCT 07, 2024@13:23:34 AUTHOR: KANDICE BURGESS EXP COSIGNER: URGENCY: STATUS: COMPLETED TELEPHONE NOTE/PHARMACY Has ADDENDA LIMA VILLAGRAN, 73 yo WHITE MALE, presents for telephone follow-up for diabetes management. OCT 07, 2024 Known Allergies: Patient has answered NKA Subjective: Pt presents to clinic for T2DM follow-up. At time of last visit, empagliflozin was continued. Today pt reports he is doing well. Had bloodwork repeated recently and f/u with PCP last week. Pt offers no complaints. Denies dysuria, polyuria, jock itch, dizziness or dehydration symptoms for empagliflozin. Continues to be physically active playing golf. Pt endorses adequate hydration. SMBG ~twice weekly; reports blood glucose average is 122 mg/dl to 130 mg/dl. Target Goals: A1c% <7; FB-130 mg/dl Personal Goals: - Not have diabetes - Low A1c%) Objective: Current diabetes medications: - empagliflozin 10 mg once daily Previous diabetes medications: - Metformin SA 500 mg once daily Adherence: Denies adherence issues Diet Patterns: patient eats on avg. 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: - Denies personal or fhx thyroid cancer or MENS - Denies hx pancreatitis - Denies hx MH/depression/denies SI - Denies hx of UTI SMB10/07/24: 122-130 mg/dl fasting 08/12/24: NO NEW DATA 05/28/24: No new data FBG 02/03/24 161 02/05/24 140 02/06/24 153 [...] Low: <54 mg/dL --- 0% SMBG assessment: N/A; no new data; Per pt reports, blood glucose in range HYPOGLYCEMIC Events: 0 in last 2 weeks [...] GLUCOSE BUN CREATIN Sodium K+/Pot CL CO2 09/25/2024 09:17 SERUM 142 H 19 0.96 141 4.5 106 27 06/02/2024 08:06 SERUM 143 H 16 0.88 140 3.9 108 23 03/27/2024 09:54 SERUM 148 H 13 0.96 139 4.2 106 25 11/22/2023 08:53 SERUM 317 H 15 1.09 139 3.9 106 23 04/30/2023 07:56 SERUM 187 H 15 1.13 141 4.4 102 29 CHEM 7 Results Collection DT Spec Sodium K+/Pot CL CO2 GLUCOSE BUN 09/25/2024 09:17 SERUM 141 4.5 106 27 142 H 19 06/02/2024 08:06 SERUM 140 3.9 108 23 143 H 16 03/27/2024 09:54 SERUM 139 4.2 106 25 [...] 4.3 104 32 H 139 H 21 eGFR CKD-EPI 202009/25/24 09:17 82 SERUM LIVER PANEL TREND Collection DT [...] HEMOGLOBIN A1C TREND Collection DT Spec HGBA1c 09/25/2024 09:17 BLOOD 6.4 H 03/27/2024 09:54 BLOOD 6.4 H 11/22/2023 08:53 BLOOD 10.4 H 04/30/2023 07:56 BLOOD 7.3 H 10/11/2022 08:46 BLOOD 6.6 H LIPID PANEL TREND Collection DT Spec CHOL HDL CHO/HDL LDL-c TRIG 09/25/2024 09:17 SERUM 169 52 3.3 106 55 03/27/2024 09:54 SERUM 133 46 2.9 75 60 11/22/2023 08:53 SERUM 150 45 3.3 92 64 04/30/2023 07:56 SERUM 160 43 3.7 106 56 05/22/2022 07:32 SERUM 147 43 3.4 95 46 Vitals: Ht: 70 in [177.8 cm] (11/27/2023 09:06) Wt: 240 lb [108.86 kg] (10/02/2024 08:05) BMI: BMI: 34.5 BP: 134/74 (10/02/2024 08:05) HR: 71 (10/02/2024 08:05) Assessment: DIABETES: Goal: A1c goal is <7% with a goal fasting BG average of 80-130mg/dL and a goal post-prandial BG average of <180mg/dL per ADA guideline. A1c% currently at goal (6.4% on 09/25/24). Pt congratulated on results of repeat labs. Will continue with current therapy. Pt requesting refills on test strips and empagliflozin. CARDIOVASCULAR: For patients 60 years and over with Diabetes, recommend a goal of <140/90, with added benefit of reducing SBP closer to 130. Current BP is 134/74 ASCVD: On rosuvastatin; LDL reduced from previous. 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 -12/02/24 f/u Plan: Medication management: - CONTINUE empagliflozin 10 mg once daily - Medications reconciled - Otherwise continue current medications Lifestyle modicfications: - Continue to SMBG 2x/week - Monitor for s/sx hypoglycemia and contact clinic if BG consistently <70mg/dL - Healthy dietary and lifestyle modifications encouraged - Repeat A1c: 02/2025 MISC: EDUCATION -A shared decision-making approach was used in the development of this plan, involving the [facility], clinician, and any caregivers present. The was provided the opportunity express questions or concerns, and the plan was adjusted as needed to address these concerns. -Reviewed with [facility] any new medications, changes to the medication list, education, and plan from today's visit. Patient (and/or caregiver) verbalized understanding of the plan, including possible known risks and benefits, and had no additional questions. RTC: 11/18/24 @1300 Time Spent: 15 minutes PBM PharmD Pharmacotherapy Rem V12: PHARMACIST INTERVENTIONS: TYPE 2 DIABETES MELLITUS Medication monitoring, no dosage change required, continue to monitor and assess Medication reconciliation (changes to active VA and non-VA medication lists to reconcile differences) No changes to medication lists made (medication review completed, no discrepancies identified) /elvin BURGESS PHARMD, MIRELLA CLINICAL PHARMACIST PRACTITIONER Signed: 10/07/2024 13:35 10/07/2024 ADDENDUM STATUS: COMPLETED AMSA, please schedule appointment for: - [facility] PHONE PHARM PACT 2 Please schedule for 11/18/24 @1300 Thank you! /elvin BURGESS PHARMD, LESLEES CLINICAL PHARMACIST PRACTITIONER Signed: 10/07/2024 13:36 Receipt Acknowledged By: * AWAITING SIGNATURE * ELEAZAR MAS ADITIYA [facility]
--- OUTSIDE RECORDS SUMMARY | 2024-11-04 08:52 | XMS_ITS | Encounter Summary ---
Author Name [facility] [place] [facility] [place] [facility] [place] Address [address] [place] [address] Care Team Providers Care Dry Janitor Name Role Phone SHALOM ABRAMS Primary Care [...] MEDICARE SUPPLEMEN SEN Jun 23, 2017 PLAN [id number] YOUSUF FIELDS PATIENT AARP MED SUPP MEDICARE SUPPLEMEN SEN Jun 23, 2017 PLAN [id number] YOUSUF FIELDS PATIENT AARP MED SUPP MEDICARE SUPPLEMEN SEN PLANM Y Jun 23, 2017 PLAN [id number] YOUSUF FIELDS PATIENT MEDICARE (WNR) MEDICARE (M) PART B Feb 22, 2016 PART B [id number] [phone] YOUSUF FIELDS PATIENT MEDICARE (WNR) MEDICARE (M) PART B Feb 22, 2016 PART B [id number] YOUSUF FIELDS PATIENT MEDICARE (WNR) MEDICARE (M) PART A Dec 22, 2013 PART A [id number] YOUSUF FIELDS PATIENT MEDICARE (WNR) MEDICARE (M) PART A Dec 22, 2013 PART A [id number] YOUSUF FIELDS PATIENT Selected Encounter This section includes the information on record at [place] for the Encounter. Date/Time Encounter Type Encounter Description Reason Provider Source Oct 02, 2024 08:00 AM OFFICE O/P EST MOD 30 MIN PRIMARY CARE/MEDICINE ICD-10-CM N40.1 Benign prostatic hyperplasia with lower urinary tract symp FURCOLO,SHALOM IHE Encounter Template Text not used by [place] Assessments - Encounter Diagnoses This section includes the primary and secondary diagnoses documented for the Encounter. Date/Time Primary/Secondary Diagnosis Diagnosis Name Provider Source Oct 25, 2024 05:50 AM PRIMARY Benign prostatic hyperplasia with lower urinary tract symp FURCOLO,SHALOM [facility] [place] [facility] Oct 25, 2024 05:50 AM SECONDARY Basal cell carcinoma of skin of nose FURCOLO,SHALOM [facility] [place] [facility] Oct 25, 2024 05:50 AM SECONDARY Contact with and exposure to other hazardous substances FURCOLO,SHALOM [facility] [place] [facility] Oct 25, 2024 05:50 AM SECONDARY Essential (primary) hypertension FURCOLO,SHALOM [facility] [place] [facility] Oct 25, 2024 05:50 AM SECONDARY Malignant neoplasm of tonsil, unspecified FURCOLO,SHALOM [facility] [place] [facility] Oct 25, 2024 05:50 AM SECONDARY Other obstructive and reflux uropathy FURCOLO,SHALOM [facility] [place] [facility] Oct 25, 2024 05:50 AM SECONDARY Pure hypercholesterolem ia, unspecified FURCOLO,SHALOM [facility] [place] [facility] Oct 25, 2024 05:50 AM SECONDARY Sensorineural hearing loss, bilateral FURCOLO,SHALOM [facility] [place] [facility] Oct 25, 2024 05:50 AM SECONDARY Thoracic aortic aneurysm, without rupture, unspecified FURCOLO,SHALOM [facility] [place] [facility] Oct 25, 2024 05:50 AM SECONDARY Type 2 diabetes mellitus without complications SHALOM ABRAMS [facility] [place] [facility] Plan of Treatment: Future Appointments (+ 6 months) and Future Tests (+/- 45 days) The Plan of Treatment section includes future care activities for the patient from all [place] [facility]. This section includes future appointments and future orders which are active, pending or scheduled. Future Appointments This section includes appointments that were scheduled to occur 6 months from the date of the Encounter, up to a maximum of 20 appointments. The data comes from all [facility] facilities. Appointment Date/Time Appointment Type Appointme nt Facility Name Oct 07, 2024 01:00 PM AMBULATORY MEDICINE [place] [facility] [place] [facility] Oct 21, 2024 08:30 AM [facility] Nov 18, 2024 01:00 PM AMBULATORY MEDICINE [place] [facility] [place] [facility] Nov 24, 2024 11:00 AM AMBULATORY MEDICINE [place] [facility] [place] [facility] Dec 02, 2024 01:30 PM [facility]ORY MEDICINE [facility] Active, Pending, and Scheduled Orders This section includes a listing of several types of active, pending, and scheduled orders, including clinic medications orders, diagnostic test orders, procedure orders and consult orders; where the start date of the order is 45 days before the date of the Encounter or 45 days after the date of theEncounter. The data comes from all [facility]. Test Date/Time Test Type Test Details Facility Name Oct 02, 2024 08:28 AM Consult Order OTOLARYNGO LOGY/[facility] Oct 02, 2024 08:30 AM Consult Order COMM[facility]-UROLOGY [facility] Lab Results: +/- 30 days of the encounter This section includes the Chemistry and Hematology Lab Results on record with [place] for the patient. Radiology Reports and Pathology Reports are provided separately, in subsequent sections. Lab Results This section contains the Chemistry/Hematology Results that were resulted 30 days before or 30 daysafter the date of the Encounter. Date/Time Source Result Type Result - Unit Interpretation Reference Range Comment Sep 25, 2024 09:17 AM [facility] HEMOGLOBIN A1C PANEL Specimen Type: [...] Mar 31, 2024 10:10 AM Reporting Lab: [address] [address] Performing Lab: [address] [address] HEMOGLOBIN A1C 6.4 H 4.0-5.6 Sep 25, 2024 09:17 AM [facility] MICROALBUMIN CREATININE RATIO PANEL Specimen Type: URINE No comment entered. Ordering Provider: SHALOM ABRAMS Report Released Date/Time: Mar 31, 2024 10:10 AM Reporting Lab: [facility] [address] [facility] [address] Performing Lab: [address] [address] MICROALBUMIN/C REATININE RATIO 18.2 mg/g 0-29.9 MICROALBUMIN,Q UANTITATIVE 1.6 mg/dL RR UNAVAIL CREATININE URINE 87.91 mg/dL Sep 25, 2024 09:17 AM [facility] LIPID PANEL FASTING Specimen Type: SERUM No comment entered. Ordering Provider: SHALOM ABRAMS Report Released Date/Time: Mar 31, 2024 10:10 AM Reporting Lab: [facility] [address] [facility] [address] Performing Lab: [address] [address] CHOLESTEROL 169 mg/dL TRIGLYCERIDE 55 mg/dL 0-150 LDL calculated 106 mg/dL 0-129 CHOL/HDL 3.3 HDL CHOLESTEROL 52 mg/dL 40-60 Sep 25, 2024 09:17 AM [facility] PSA Specimen Type: SERUM No comment entered. Ordering Provider: SHALOM ABRAMS Report Released Date/Time: Mar 31, 2024 10:10 AM Reporting Lab: [address] [address] Performing Lab: [address] [address] PSA 0.83 ng/mL 0.00-4.00 Sep 25, 2024 09:17 AM [facility] BASIC METABOLIC PANEL (fasting) Specimen Type: SERUM No comment entered. Ordering Provider: SHALOM ABRAMS Report Released Date/Time: Mar 31, 2024 10:10 AM Reporting Lab: [address] [address] Performing Lab: [address] [address] UREA NITROGEN 19 mg/dL 7-25 GLUCOSE 142 mg/dL H 65-100 SODIUM 141 mmol/L 135-145 POTASSIUM 4.5 mmol/L 3.5-5.0 CHLORIDE 106 mmol/L 100-110 CO2 27 meq/L 20-30 CREATININE, Serum 0.96 mg/dL 0.50-1.40 eGFR(CKD-EPI 2020) 82 mL/min >60 Vital Signs: All taken on the encounter date This section contains inpatient and outpatient Vital Signs collected on the date of the Encounter. Date/Time Temperature Pulse Blood Pressure Respiratory Rate SP02 Pain Height Weight Body Mass Index Source Oct 02, 2024 08:05 AM 98.3 71 134/74 16 98 0 240 35 [facility] Social History: Smoking Status (Most current) and Tobacco Use (All prior to encounter date) This section includes the most current, and the historical, smoking and tobacco- related health factors from the [place] facility where the Encounter took place. Current Smoking Status This section includes the most current smoking, or tobacco-related health factor, from the [place] facility where the Encounter took place. Date/Time Current Smoking Status Comment Steven slaughter Oct 02, 2024 08:00 AM VA-TOBACCO NEVER U SED CIGARETTES [facility] [place] [facility] Tobacco Use History This section includes a history of the smoking, or tobacco-related health factors, that were collected on or before the date of the Encounter. The data comes from the [place] facility where the Encounter took place. Date/Time Smoking Status/Tobacco Use Comment F acglendy Oct 02, 2024 08:00 AM VA-TOBACCO NEVER U SED OTHER TYPE [facility] [place] [facility] May 23, 2023 03:00 PM VA-TOBACCO NEVER USED [facility] [place] [facility] Jun 14, 2022 09:00 AM VA-TOBACCO FORMER USER [facility] [place] [facility] Jun 14, 2022 09:00 AM VA-TOBACCO QUIT 15 YRS OR MORE [facility] [place] [facility] Jun 01, 2021 08:00 AM VA-TOBACCO NEVER USED [facility] [place] [facility] Jun 28, 2020 10:00 AM VA-TOBACCO NEVER USED [facility] [place] [facility] May 21, 2019 02:59 PM VA-TOBACCO NEVER USED [facility] [place] [facility] Mar 31, 2018 03:24 PM LIFETIME NON-TOBACCO USER [facility] [place] [facility] Apr 19, 2017 08:30 AM LIFETIME NON-TOBACCO USER [facility] [place] [facility] Apr 19, 2016 10:17 AM LIFETIME NON-TOBACCO USER . [facility] [place] [facility] February 12, 2013 02:40 PM LIFETIME NON-TOBACCO USER [facility] [place] [facility] Encounter Notes: All associated encounter notes This section contains the clinical notes associated to the Encounter. Date/Time Encounter Note(s) Provider Source Oct 02, 2024 08:01 AM PREVENTIVE MEDICINE NURSING NOTE: LOCAL TITLE: CLINICAL REMINDERS/NURSING STANDARD TITLE: PREVENTIVE MEDICINE NURSING NOTE DATE OF NOTE: OCT 02, 2024@08:01 ENTRY DATE: OCT 02, 2024@08:01:33 AUTHOR: TENZIN SERRANO EXP COSIGNER: URGENCY: STATUS: COMPLETED Advance Directive Screen MH AD: Patient has an up-to-date Advance Directive at an outside, non-va facility and was asked to forward a copy to his/her clinician. PTSD Screening: PC-PTSD-5 A PTSD screening test (PC-PTSD-5) was negative (score=0). IN THE PAST MONTH, have you ever had any experience that was so frightening, horrible or traumatic. For example: A serious accident or fire a physical or sexual assault or abuse An earthquake or flood A war Seeing someone be killed or seriously injured Having a loved one through homicide or suicide 1. Have you ever experienced this kind of event? NO 2. Had nightmares about the event(s) or thought about the event(s) when you did not want to? Response not required due to responses to other questions. 3. Tried hard not to think about the event(s) or went out of your way to avoid situations that reminded you of the event(s)? Response not required due to responses to other questions. 4. Been constantly on guard, watchful, or easily startled? Response not required due to responses to other questions. 5. [place] numb or detached from people, activities, or your surroundings? Response not required due to responses to other questions. 6. [place] guilty or unable to stop blaming yourself or others for the event(s) or any problems the event(s) may have caused? Response not required due to responses to other questions. Tobacco Use Screening: The patient has never smoked cigarettes. The patient has never used other types of tobacco. Influenza Immunization: Deferral / Refusal The patient declines to receive the recommended dose of seasonal influenza vaccine. Immunization: INFLUENZA, UNSPECIFIED FORMULATION Refusal Reason: PATIENT DECISION Patient refuses all immunization(s) in the FLU group Date Documented: 10/02/24 08:02 Alcohol Use Screen (AUDIT-C): Alcohol Screen: SCREEN FOR ALCOHOL (AUDIT-C) An alcohol screening test (AUDIT-C) was negative (score=0). 1. How often did you have a drink containing alcohol in the past year? Consider a drink to be a 12 ounce can or bottle of regular beer, 8 ounces of malt liquor, a 5 ounce glass of table wine, or a 1.5 ounce shot of liquor (like scotch, gin, or vodka). Never 2. How many drinks containing alcohol did you have on a typical day when you were drinking in the past year? Response not required due to responses to other questions. 3. How often did you have six or more drinks on one occasion in the past year? Response not required due to responses to other questions. COVID-19 Immunization: Refused Moderna Monovalent COVID-19 vaccine Immunization: COVID-19 (MODERNA), MRNA, LNP-S, PF, 50 MCG/0.5 ML (AGES 12+ YEARS) Refusal Reason: PATIENT DECISION Patient refuses all immunization(s) in the COVID-19 group Date Documented: 10/02/24 08:04 PAVE Foot Check: Patient declined limb care exam. The patient was advised the [place] mandates all patients with diabetes mellitus, end stage renal disease, peripheral vascular disease, or sensory neuropathy should have a complete foot check completed annually. This includes a visual exam of the skin, pedal pulses and a sensory exam. Patients with any abnormality noted during the foot check should be referred to a specialist. /nasrin/ TENZIN SERRANO LPN License Practical Nurse Signed: 10/02/2024 08:05 TENZIN SERRANO [facility] [place] [facility] Oct 02, 2024 08:01 AM PHYSICIAN NOTE: LOCAL TITLE: MD NOTE STANDARD TITLE: PHYSICIAN NOTE DATE OF NOTE: OCT 02, 2024@08:01 ENTRY DATE: OCT 02, 2024@08:01:52 AUTHOR: SHALOM ABRAMS COSIGNER: URGENCY: STATUS: COMPLETED LIMA IFELDS is a 73 year old WHITE MALE who is being seen today in primary care for routine follow up. CARE TEAM Community Primary Care Provider: DR. Thom Lee, part of [facility]: clinical pharmacist Community Specialists: [place] [facility] [place] surveillance urology- Dr. 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 had tonsillar ca back in 2016 RELEVANT PAST MEDICAL HISTORY Active problems - Computerized Problem List is the source for the followin. Benign Prostatic Hyperplasia with Outflow Obstruction (SCT [id number]) sees urology- Dr. Roper- on finasteride every other day 2. Basal cell carcinoma of nose 3. Basal cell carcinoma of arm 4. Exposure to potentially hazardous substance LEONIE Screening Snomed Code connected 05/23/23 5. Diabetes mellitus 6. 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 Thoracic aortic aneurysm without rupture being followed by Dr. Moore 8. Hypercholesterolemia 9. Benign essential hypertension 10. Erectile dysfunction (SNOMED CT 580175450) 11. Bilateral hearing loss 12. 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 Alcohol Use: sober for 37 years Tobacco Use: never smoked Exercise: golfs all year long ALLERGIES Patient has answered NKA MEDICATIONS Active and Recently Outpatient Medications (excluding Supplies): Active Outpatient Medications Status 1) AMLODIPINE BESYLATE 10MG TAB TAKE ONE TABLET BY MOUTH EVERY ACTIVE DAY FOR BLOOD PRESSURE/HEART, DO NOT TAKE WITH GRAPEFRUIT JUICE 2) EMPAGLIFLOZIN 10MG TAB TAKE ONE TABLET BY MOUTH ONCE DAILY HOLD Indication: FOR TYPE 2 DIABETES MELLITUS 3) FINASTERIDE 5MG TAB TAKE ONE TABLET BY MOUTH EVERY DAY FOR ACTIVE PROSTATE 4) LISINOPRIL 20MG TAB TAKE ONE TABLET BY MOUTH EVERY DAY TO ACTIVE CONTROL BLOOD PRESSURE 5) METFORMIN HCL 500MG 24HR SA TAB TAKE ONE TABLET BY MOUTH HOLD ONCE DAILY Indication: FOR TYPE 2 DIABETES MELLITUS 6) METOPROLOL SUCCINATE 50MG SA TAB TAKE ONE TABLET BY MOUTH ACTIVE (S) EVERY DAY FOR BLOOD PRESSURE/HEART 7) ROSUVASTATIN CA 20MG TAB TAKE ONE TABLET BY MOUTH ONCE DAILY ACTIVE FOR CHOLESTEROL Inactive Outpatient Medications Status 1) ACCU-CHEK GUIDE (GLUCOSE) TEST STRIP USE 1 STRIP TO TEST BLOOD SUGARS TWO TIMES A WEEK Indication: TYPE 2 DIABETES Active Non-VA Medications Status 1) Non-VA FLUTICASONE PROP 50MCG 120D NASAL INHL 1 SPRAY INTO ACTIVE EACH NOSTRIL ONCE DAILY NEEDED Indication: FOR NASAL IRRITATION/INFLAMMATION 9 Total Medications REVIEW OF SYMPTOMS NEGATIVE FOR: CONSTITUTION: no weight loss/gain, fatigue, fevers, night sweats HEENT: no vision problems, hearing loss,swallowing difficulties, sinus pain CV: no chest pain, palpitations, dyspnea on exertion, orthopnea RESP: no cough, shortness of breath, wheezing GI: no abdominal pain, N/V/D, constipation, blood in stool, normal appetite : no urinary frequency, nocturia, hematuria MUSC: no joint pain, joint swelling, muscle aches NEURO: no headaches, dizziness, memory loss, tremor, weakness PSYCH: no depression, anxiety, suicidal or homicidal thoughts SKIN: no rash, new skin lesions PHYSICAL EXAM Vitals: - - - - - - - B/P: 134/74 (10/02/2024 08:05) pulse: 71 (10/02/2024 08:05) resp: 16 (10/02/2024 08:05) temp: 98.3 F [36.8 C] (10/02/2024 08:05) Ht: 70 in [177.8 cm] (11/27/2023 09:06) Wgt: 240 lb [108.86 kg] (10/02/2024 08:05) BMI: BMI: 34.5 Exam: - - - - - - - RRR S1 S2, no murmur LCTA bilat no LE edema RECENT LABS Collection DT Specimen Test Name Result Units Ref Range 09/25/2024 09:17 SERUM PSA 0.83 ng/mL 0.00 - 4.00 09/25/2024 09:17 SERUM CREATININE, Serum 0.96 mg/dL 0.50 - 1.40 eGFR(CKD-EPI 2020 82 mL/min Ref: >=60 SODIUM 141 mmol/L 135 - 145 POTASSIUM 4.5 mmol/L 3.5 - 5.0 CHLORIDE 106 mmol/L 100 - 110 CO2 27 mEq/L 20 - 30 UREA NITROGEN 19 mg/dL 7 - 25 GLUCOSE 142 H mg/dL 65 - 100 CHOLESTEROL 169 mg/dL <7 - 199 TRIGLYCERIDE 55 mg/dL 0 - 150 LDL calculated 106 mg/dL 0 - 129 CHOL/HDL 3.3 HDL CHOLESTEROL 52 mg/dL 40 - 60 09/25/2024 09:17 URINE mALB/Cr 18.2 mg/G 0 - 29.9 MicroAl 1.6 mg/dL Ref: RR UNAVAIL CREATININE URINE 87.91 mg/dL 09/25/2024 09:17 BLOOD !! HEMOGLOBIN A1C 6.4 H % 4.0 - 5.6 ASSESSMENT AND PLAN Active problems - Computerized Problem List is the source for the followin. Benign Prostatic Hyperplasia with Outflow Obstruction (SCT [id number]) sees urology- Dr. Roper- on finasteride every other day 2. Basal cell carcinoma of nose 3. Basal cell carcinoma of arm 4. Exposure to potentially hazardous substance LEONIE Screening Snomed Code connected 05/23/23 5. Diabetes mellitus- no longer on metformin,. good control. on empagliflozin. seeing pharmacy 6. 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 Thoracic aortic aneurysm without rupture being followed by Dr. Moore 8. Hypercholesterolemia- good control 9. Benign essential hypertension- at goal as <140/90 10. Erectile dysfunction (SNOMED CT [id number]) 11. Bilateral hearing loss 12. Obesity (SNOMED CT [id number]) HEALTH MAINTENANCE Colonoscopy - had one in january- dr. abernathy- no need for any further Abdominal Aortic Aneurysm Screening (due at age 65 if smoker/prev smoker) - Prostate screening - Tetanus: due every 10 years Pneumonia Vacccine: Flu Vaccine: due yearly Covid Vaccine: due yearly FOLLOW UP f/u in 6 mo VISIT TYPE:a MODERATE complexity visit where 30 minutes was spent in direct patient care, review of records and documentation. /nasrin/ SHALOM ABRAMS D.O. PHYSICIAN Signed: 10/02/2024 08:32 SHALOM ABRAMS [facility]
--- OUTSIDE RECORDS SUMMARY | 2024-11-04 08:52 | XMS_ITS | Encounter Summary ---
Author Name [facility] [place] Organization [facility] [place] Address [address] [place] [address] Care Team Providers Care Radio Television Technical Director Name Role Phone SHALOM ABRAMS Primary Care [...] MEDICARE SUPPLEMEN SEN Jun 23, 2017 PLAN [id number] YOUSUF FIELDS PATIENT AARP MED SUPP MEDICARE SUPPLEMEN SNE Jun 23, 2017 PLAN [id number] [phone] YOUSUF FIELDS PATIENT AARP MED SUPP MEDICARE SUPPLEMEN SEN PLANM Y Jun 23, 2017 PLAN [id number] [phone] YOUSUF FIELDS PATIENT MEDICARE (WNR) MEDICARE (M) PART B Feb 22, 2016 PART B [id number] YOUSUF FIELDS PATIENT MEDICARE (WNR) MEDICARE (M) PART B Feb 22, 2016 PART B [id number] YOUSUF FIELDS PATIENT MEDICARE (WNR) MEDICARE (M) PART A Dec 22, 2013 PART A [id number] [phone] YOUSUF FIELDS PATIENT MEDICARE (WNR) MEDICARE (M) PART A Dec 22, 2013 PART A [id number] [phone] YOUSUF FIELDS PATIENT Selected Encounter This section includes the information on record at [place] for the Encounter. Date/Time Encounter Type Encounter Description Reason Provider Source Nov 27, 2023 09:30 AM OFFICE O/P EST MOD 30 MIN PRIMARY CARE/MEDICINE ICD-10-CM E11.9 Type 2 diabetes mellitus without complications TIFFANY MADISON [facility] Encounter Template Text not used by [place] Assessments - Encounter Diagnoses This section includes the primary and secondary diagnoses documented for the Encounter. Date/Time Primary/Secondary Diagnosis Diagnosis Name Provider Source Nov 27, 2023 09:52 AM PRIMARY Type 2 diabetes mellitus without complications TIFFANY MADISON [facility] [place] Nov 27, 2023 09:52 AM SECONDARY Elevated prostate specific antigen [PSA] [facility]ADISON [facility] [place] [facility] Nov 27, 2023 09:52 AM SECONDARY Essential (primary) hypertension TIFFANY MADISON [facility] [place] [facility] Nov 27, 2023 09:52 AM SECONDARY Other obesity TIFFANY MADISON [facility] [place] Nov 27, 2023 09:52 AM SECONDARY Pure hypercholesterolem ia, unspecified TIFFANY MADISON [facility] [place] [facility] Nov 27, 2023 09:52 AM SECONDARY Sensorineural hearing loss, bilateral TIFFANY MADISON [facility] [place] [facility] Plan of Treatment: Future Appointments (+ 6 months) and Future Tests (+/- 45 days) The Plan of Treatment section includes future care activities for the patient from all [place] treatmentfacilities. This section includes future appointments and future orders which are active, pending or scheduled. Future Appointments This section includes appointments that were scheduled to occur 6 months from the date of the Encounter, up to a maximum of 20 appointments. The data comes from all [place] treatment facilities. Appointment Date/Time Appointment Type Appointme nt Facility Name Dec 10, 2023 03:00 PM AMBULATORY - NONE [facility] [place] [facility] Dec 18, 2023 01:30 PM AMBULATORY - MEDICINE [facility] [place] [facility] Jan 01, 2024 03:00 PM AMBULATORY - MEDICINE [facility] [place] [facility] Mar 31, 2024 08:30 AM AMBULATORY - MEDICINE [facility] [place] Mar 31, 2024 09:30 AM AMBULATORY - MEDICINE [facility] [place] [facility] May 28, 2024 09:00 AM AMBULATORY - MEDICINE [facility] [place] [facility] Lab Results: +/- 30 days of the encounter This section includes the Chemistry and Hematology Lab Results on record with [place] for the patient. Radiology Reports and Pathology Reports are provided separately, in subsequent sections. Lab Results This section contains the Chemistry/Hematology Results that were resulted 30 days before or 30 daysafter the date of the Encounter. Date/Time Source Result Type Result - Unit Interpretation Reference Range Comment Nov 22, 2023 08:53 AM [facility] HEMOGLOBIN A1C PANEL Specimen Type: BLOOD Comment: [...] Nov 08, 2023 11:20 AM Reporting [facility] [place] [facility] [address] [address] Performing Lab: [facility] [address] [facility] [address] HEMOGLOBIN A1C 10.4 H 4.0-5.6 Nov 22, 2023 08:53 AM [facility] LIPID PANEL FASTING Specimen Type: SERUM No comment entered. Ordering Provider: TIFFANY MADISON Report Released Date/Time: Nov 08, 2023 11:20 AM Reporting Lab: [facility] [address] [address] Performing Lab: [address] [address] CHOLESTEROL 150 mg/dL TRIGLYCERIDE 64 mg/dL 0-150 LDL calculated 92 mg/dL 0-129 CHOL/HDL 3.3 HDL CHOLESTEROL 45 mg/dL 40-60 Nov 22, 2023 08:53 AM [facility] LIVER FUNCTION Specimen Type: SERUM No comment entered. Ordering Provider: TIFFANY MADISON Report Released Date/Time: Nov 08, 2023 11:20 AM Reporting Lab: [facility] [address] [address] Performing Lab: [address] [address] PROTEIN,TOTAL 7.1 g/dL 6.0-8.3 ALBUMIN 4.2 g/dL 3.5-5.0 ALKALINE PHOSPHATASE 86 U/L 40-150 AST 15 U/L 5-34 ALT 24 U/L BILIRUBIN, TOTAL 0.6 mg/dL 0.2-1.2 Nov 22, 2023 08:53 AM [facility] BASIC METABOLIC PANEL (fasting) Specimen Type: SERUM No comment entered. Ordering Provider: TIFFANY MADISON Report Released Date/Time: Nov 08, 2023 11:20 AM Reporting Lab: [facility] [address] [address] Performing Lab: [address] [address] UREA NITROGEN 15 mg/dL 7-25 GLUCOSE 317 mg/dL H 65-100 SODIUM 139 mmol/L 135-145 POTASSIUM 3.9 mmol/L 3.5-5.0 CHLORIDE 106 mmol/L 100-110 CO2 23 meq/L 20-30 CREATININE, Serum 1.09 mg/dL 0.50-1.40 eGFR(CKD-EPI 2020) 71 mL/min >60 Nov 22, 2023 08:53 AM [facility] HIV 1&2 Ag/Ab SCREEN Specimen Type: SERUM No comment entered. Ordering Provider: TIFFANY MADISON Report Released Date/Time: Nov 08, 2023 11:20 AM Reporting Lab: [facility] [place] [address] [address] Performing Lab: [facility] [address] [address] HIV 1&2 Ag/Ab SCREEN NON-REACTIVE Nonreactive Vital Signs: All taken on the encounter date This section contains inpatient and outpatient Vital Signs collected on the date of the Encounter. Date/Time Temperature Pulse Blood Pressure Respiratory Rate SP02 Pain Height Weight Body Mass Index Source Nov 27, 2023 09:10 AM 98.8 84 133/74 16 94 [facility] [place] [facility] Nov 27, 2023 09:06 AM 0 70 250 36 [facility] [place] [facility] Social History: Smoking Status (Most current) and Tobacco Use (All prior to encounter date) This section includes the most current, and the historical, smoking and tobacco- related health factors from the [place] facility where the Encounter took place. Current Smoking Status This section includes the most current smoking, or tobacco-related health factor, from the [place] facility where the Encounter took place. Date/Time Current Smoking Status Comment Steven slaughter May 23, 2023 03:00 PM VA-TOBACCO NEVER USED DE [facility] [place] [facility] Tobacco Use History This section includes a history of the smoking, or tobacco-related health factors, that were collected on or before the date of the Encounter. The data comes from the [place] facility where the Encounter took place. Date/Time Smoking Status/Tobacco Use Comment F acility Jun 14, 2022 09:00 AM VA-TOBACCO FORMER USER [facility] Jun 14, 2022 09:00 AM VA-TOBACCO QUIT 15 YRS OR MORE [facility] [place] Jun 01, 2021 08:00 AM VA-TOBACCO NEVER USED [facility] [place] Jun 28, 2020 10:00 AM VA-TOBACCO NEVER USED [facility] [place] [facility] May 21, 2019 02:59 PM VA-TOBACCO NEVER USED [facility] [place] [facility] Mar 31, 2018 03:24 PM LIFETIME NON-TOBACCO USER [facility] [place] Apr 19, 2017 08:30 AM LIFETIME NON-TOBACCO USER [facility] [place] Apr 19, 2016 10:17 AM LIFETIME NON-TOBACCO USER . [facility] [place] [facility] February 12, 2013 02:40 PM LIFETIME [facility]-TOBACCO [facility] Encounter Notes: All associated encounter notes This section contains the clinical notes associated to the Encounter. Date/Time Encounter Note(s) Provider Source Nov 27, 2023 09:47 AM PHYSICIAN NOTE: LOCAL TITLE: MD NOTE STANDARD TITLE: PHYSICIAN NOTE DATE OF NOTE: NOV 27, 2023@09:47 ENTRY DATE: NOV 27, 2023@09:47:46 AUTHOR: MIKAELA MADISON EXP COSIGNER: URGENCY: STATUS: COMPLETED Patient Name: LIMA FIELDS VITALS: Patient temperature: 98.8 F [37.1 C] (11/27/2023 09:10) Blood pressure: 133/74 (11/27/2023 09:10) Patient height: 70 in [177.8 cm] (11/27/2023 09:06) Patient weight: 250 lb [113.40 kg] (11/27/2023 09:06) Patient BMI: BMI: 35.9 Patient pulse: 84 (11/27/2023 09:10) Patient respiration: 16 (11/27/2023 09:10) Patient Pulse Oximetry: 94% (11/27/2023 09:10) Pain Ratin (11/27/2023 09:06) Active [facility] Medications: Active Outpatient Medications (including Supplies): Active Outpatient Medications [...] ACTIVE DAY TO CONTROL BLOOD PRESSURE 5) METOPROLOL SUCCINATE 50MG SA TAB TAKE ONE TABLET BY ACTIVE MOUTH EVERY DAY FOR BLOOD PRESSURE/HEART 6) PEG-3350/ELECTROLYTES PWDR W/FLAVOR PKT TAKE 1 BOTTLE ACTIVE BY MOUTH ONE TIME ACCORDING TO INSTRUCTIONS FROM PRESCRIBER - DISSOLVE CONTENTS BEFORE DRINKING 7) ROSUVASTATIN CA 20MG TAB TAKE ONE TABLET BY MOUTH ACTIVE ONCE DAILY FOR CHOLESTEROL Pending Outpatient Medications Status 1) METFORMIN HCL 500MG 24HR SA TAB TAKE TWO TABLETS BY PENDING MOUTH ONCE DAILY 8 Total Medications Remote Medications: No Active Remote Medications for this patient HPI: Poorly controlled type 2 diabetes patient admits that he was eating a lot of cakes and pastries and he is going to fix that. 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 BPH and elevated PSA has history of elevated PSA his urinary symptoms still bothersome Screening colonoscopy patient is a scheduled for colonoscopy on 05 December Thoracic aortic aneurysm without rupture being followed by Dr. Moore recently saw him Bilateral hearing loss patient has hearing aid On examination: patient is alert and oriented X3 vitals are stable, He is in no apparent distress. CVS: regular rate and rhythm Lungs: clear to auscultation ABD: Benign EXT: no edema. Reviewed lab work with the patient Lab work November 21 hemoglobin A1c 10.4 HIV negative Normal renal function Electrolytes within normal range Blood glucose 317 Normal LFTs Total cholesterol 150 LDL 92 HDL 45 A/P: Service-connected PTSD stable Invasive tonsillar cancer in remission Essential hypertension blood pressure under control Hypercholesterolemia cholesterol under control Type 2 diabetes--uncontrolled diabetes requested consultation with clinical pharmacist for close follow-up of diabetes was offered insulin patient is not interested BPH and elevated PSA we will repeat his PSA next visit Screening colonoscopy colonoscopy scheduled on Thoracic aortic aneurysm without rupture being followed by Dr. Moore recently saw him Bilateral hearing loss using hearing aid Follow-up in 4 months. Medication Reconciliation: Outpatient: Has the patient been [...] whether with a VA or non-VA provider. /nasrin/ MIKAELA MADISON MD STAFF PHYSICIAN Signed: 11/27/2023 09:52 MIKAELA MADISON [facility] Nov 27, 2023 09:12 AM PREVENTIVE MEDICINE NURSING NOTE: LOCAL TITLE: CLINICAL REMINDERS/NURSING STANDARD TITLE: PREVENTIVE MEDICINE NURSING NOTE DATE OF NOTE: NOV 27, 2023@09:12 ENTRY DATE: NOV 27, 2023@09:12:27 AUTHOR: TENZIN SERRANO EXP COSIGNER: URGENCY: STATUS: COMPLETED Advance Directive Screen MH AD: Patient has an up-to-date Advance Directive at an outside, non-va facility and was asked to forward a copy to his/her clinician. Suicide Screen: C-SSRS Screening [place] Suicide Severity Rating Scale (C-SSRS) screener 1. Over the past month, have you wished you were or wished you could go to sleep and not wake up? No 2. Over the past month, have you had any actual thoughts of killing yourself? No 3. Over the past month, have you been thinking about how you might do this? Response not required due to responses to other questions. 4. Over the past month, have you had these thoughts and had some intention of acting on them? Response not required due to responses to other questions. 5. Over the past month, have you started to work out or worked out the details of how to kill yourself? Response not required due to responses to other questions. 6. If yes, at any time in the past month did you intend to carry out this plan? Response not required due to responses to other questions. 7. In your lifetime, have you ever done anything, started to do anything, or prepared to do anything to end your life (for example, collected pills, obtained a gun, gave away valuables, went to the roof but didn't jump)? No 8. If YES, was this within the past 3 months? Response not required due to responses to other questions. Homelessness/Food Insecurity Screen: In the past 2 months, have you been living in stable housing that you own, rent, or stay in as part of a household? Yes - Living in stable housing. Are you worried or concerned that in the next 2 months you may NOT have stable housing that you own, rent, or stay in as part of a household? No - Not worried about housing near future [facility] reports the following: Within the past 12 months, you worried whether your food would run out before you got money to buy more. Never true Within the past 12 months, the food you bought just didn't last and you didn't have money to get more. Never true Depression Screening: Perform PHQ-2 A PHQ-2 screen was performed. The score was 0 which is a negative screen for depression. Over the past two weeks, how often have you been bothered by the following problems? 1. Little interest or pleasure in doing things Not at all 2. Feeling down, depressed, or hopeless Not at all Influenza Immunization: The patient declines to receive the recommended dose of seasonal influenza vaccine. Immunization: INFLUENZA, UNSPECIFIED FORMULATION Refusal Reason: PATIENT DECISION Patient refuses all immunization(s) in the FLU group Date Documented: 11/27/23 09:13 COVID-19 Immunization: Refused Moderna Monovalent COVID-19 vaccine Immunization: COVID-19 (MODERNA), MRNA, LNP-S, PF, 50 MCG/0.5 ML (AGES 12+ YEARS) Refusal Reason: PATIENT DECISION Patient refuses all immunization(s) in the COVID-19 group Date Documented: 11/27/23 09:13 Sexual Orientation: The patient thinks of their sexual orientation as: Straight or Heterosexual /es/ TENZIN SERRANO LPN License Practical Nurse Signed: 11/27/2023 09:14 TENZIN SERRANO [facility]
--- OUTSIDE RECORDS SUMMARY | 2024-11-04 08:52 | XMS_ITS | Encounter Summary ---
Author Name [facility] [place] [facility] [place] Address [address] [place] [address] Care Team Providers Care Animal Care Attendant Name Role Phone SHALOM ABRAMS Primary Care [...] MEDICARE SUPPLEMEN SEN Jun 23, 2017 PLAN [id number] YOUSUF FIELDS PATIENT AARP MED SUPP MEDICARE SUPPLEMEN SEN Jun 23, 2017 PLAN [id number] [phone] YOUSUF FIELDS PATIENT AARP MED SUPP MEDICARE SUPPLEMEN SEN PLANM Y Jun 23, 2017 PLAN [id number] YOUSUF FIELDS PATIENT MEDICARE (WNR) MEDICARE (M) PART B Feb 22, 2016 PART B [id number] [phone] YOUSUF FIELDS PATIENT MEDICARE (WNR) MEDICARE (M) PART B Feb 22, 2016 PART B [id number] YOUSUF FIELDS PATIENT MEDICARE (WNR) MEDICARE (M) PART A Dec 22, 2013 PART A [id number] YOUSUF FIELDS PATIENT MEDICARE (WNR) MEDICARE (M) PART A Dec 22, 2013 PART A [id number] YOUSUF FIELDS PATIENT Selected Encounter This section includes the information on record at [place] for the Encounter. Date/Time Encounter Type Encounter Description Reason Pro vider Source Oct 07, 2024 02:09 PM Outpatient Encounter ADMIN PAT ACTIVTIES (MASNONCT) IHE Encounter Template Text not used by [place] Plan of Treatment: Future Appointments (+ 6 months) and Future Tests (+/- 45 days) The Plan of Treatment section includes future care activities for the patient from all [place] [facility]. This section includes future appointments and future orders which are active, pending or scheduled. Future Appointments This section includes appointments that were scheduled to occur 6 months from the date of the Encounter, up to a maximum of 20 appointments. The data comes from all [place] treatment facilities. Appointment Date/Time Appointment Type Appointme nt Facility Name Oct 21, 2024 08:30 AM [place]ULATORY [place]ICINE [place] [facility] [place] [facility] Nov 18, 2024 01:00 PM [place] [facility] [place] [facility] Nov 24, 2024 11:00 AM [place] [facility] [place] [facility] Dec 02, 2024 01:30 PM AMBULATORY - MEDICINE [facility] [place] [facility] Active, Pending, and Scheduled Orders This section includes a listing of several types of active, pending, and scheduled orders, including clinic medications orders, diagnostic test orders, procedure orders and consult orders; where the start date of the order is 45 days before the date of the Encounter or 45 days after the date of theEncounter. The data comes from all [facility]. Test Date/Time Test Type Test Details Facility Name Oct 02, 2024 08:28 AM Consult Order OTOLARYNGO LOGY/ENT ONE Cons Speech Clinician's Choice [place] [facility] [place] [facility] Oct 02, 2024 08:30 AM Consult Order [facility] Lab Results: +/- 30 days of the encounter This section includes the Chemistry and Hematology Lab Results on record with [place] for the patient. Radiology Reports and Pathology Reports are provided separately, in subsequent sections. Lab Results This section contains the Chemistry/Hematology Results that were resulted 30 days before or 30 daysafter the date of the Encounter. Date/Time Source Result Type Result - Unit Interpretation Reference Range Comment Sep 25, 2024 09:17 AM [facility] HEMOGLOBIN A1C PANEL Specimen Type: BLOOD [...] Mar 31, 2024 10:10 AM Reporting Lab: [address] [address] Performing Lab: [address] [address] HEMOGLOBIN A1C 6.4 H 4.0-5.6 Sep 25, 2024 09:17 AM [facility] MICROALBUMIN CREATININE RATIO PANEL Specimen Type: URINE No comment entered. Ordering Provider: SHALOM ABRAMS Report Released Date/Time: Mar 31, 2024 10:10 AM Reporting Lab: [facility] [address] [address] Performing Lab: [address] [address] MICROALBUMIN/C REATININE RATIO 18.2 mg/g 0-29.9 MICROALBUMIN,Q UANTITATIVE 1.6 mg/dL RR UNAVAIL CREATININE URINE 87.91 mg/dL Sep 25, 2024 09:17 AM [facility] LIPID PANEL FASTING Specimen Type: SERUM No comment entered. Ordering Provider: SHALOM ABRAMS Report Released Date/Time: Mar 31, 2024 10:10 AM Reporting Lab: [facility] [address] [facility] [address] Performing Lab: [facility] [address] [facility] [address] CHOLESTEROL 169 mg/dL TRIGLYCERIDE 55 mg/dL 0-150 LDL calculated 106 mg/dL 0-129 CHOL/HDL 3.3 HDL CHOLESTEROL 52 mg/dL 40-60 Sep 25, 2024 09:17 AM [facility] BASIC METABOLIC PANEL (fasting) Specimen Type: SERUM No comment entered. Ordering Provider: SHALOM ABRAMS Report Released Date/Time: Mar 31, 2024 10:10 AM Reporting Lab: [facility] [address] [facility] [facility] [address] Performing Lab: [address] [address] UREA NITROGEN 19 mg/dL 7-25 GLUCOSE 142 mg/dL H 65-100 SODIUM 141 mmol/L 135-145 POTASSIUM 4.5 mmol/L 3.5-5.0 CHLORIDE 106 mmol/L 100-110 CO2 27 meq/L 20-30 CREATININE, Serum 0.96 mg/dL 0.50-1.40 eGFR(CKD-EPI 2020) 82 mL/min >60 Sep 25, 2024 09:17 AM [facility] PSA Specimen Type: SERUM No comment entered. Ordering Provider: SHALOM ABRAMS Report Released Date/Time: Mar 31, 2024 10:10 AM Reporting Lab: [address] [address] Performing Lab: [address] [address] PSA 0.83 ng/mL 0.00-4.00 Social History: Smoking Status (Most current) and Tobacco Use (All prior to encounter date) This section includes the most current, and the historical, smoking and tobacco- related health factors from the [place] facility where the Encounter took place. Current Smoking Status This section includes the most current smoking, or tobacco-related health factor, from the [place] facility where the Encounter took place. Date/Time Current Smoking Status Comment Steven slaughter Oct 02, 2024 08:00 AM VA-TOBACCO NEVER U SED CIGARETTES [place] [facility] [place] [facility] Tobacco Use History This section includes a history of the smoking, or tobacco-related health factors, that were collected on or before the date of the Encounter. The data comes from the [place] facility where the Encounter took place. Date/Time Smoking Status/Tobacco Use Comment Josiah snyder Oct 02, 2024 08:00 AM VA-TOBACCO NEVER U SED OTHER TYPE [facility] [place] [facility] May 23, 2023 03:00 PM VA-TOBACCO NEVER USED [facility] [place] [facility] Jun 14, 2022 09:00 AM VA-TOBACCO FORMER USER [facility] [place] [facility] Jun 14, 2022 09:00 AM VA-TOBACCO QUIT 15 YRS OR MORE [place] [facility] [place] [facility] Jun 01, 2021 08:00 AM VA-TOBACCO NEVER USED [place] [facility] [place] [facility] Jun 28, 2020 10:00 AM VA-TOBACCO NEVER USED [facility] [place] [facility] May 21, 2019 02:59 PM VA-TOBACCO NEVER USED [facility] [place] [facility] Mar 31, 2018 03:24 PM LIFETIME NON-TOBACCO USER [facility] [place] [facility] Apr 19, 2017 08:30 AM LIFETIME NON-TOBACCO USER [facility] [place] [facility] Apr 19, 2016 10:17 AM LIFETIME NON-TOBACCO USER . [place] [facility] [place] [facility] February 12, 2013 02:40 PM LIFETIME NON-TOBACCO USER [facility] [place] [facility] Encounter Notes: All associated encounter notes This section contains the clinical notes associated to the Encounter. Date/Time Encounter Note(s) Provider Source Oct 07, 2024 02:09 PM ADMINISTRATIVE NOT E: LOCAL TITLE: CCC: SCHEDULING ADMINISTRATION STANDARD TITLE: ADMINISTRATIVE NOTE DATE OF NOTE: OCT 07, 2024@14:09:47 ENTRY DATE: OCT 07, 2024@14:09:47 AUTHOR: KRISTIN RUFFIN COSIGNER: URGENCY: STATUS: COMPLETED CCC: SCHEDULING ADMINISTRATION Has ADDENDA Patient Demographics Patient Name: LIMA FIELDS Patient Primary Phone: [phone] Patient Primary Address[address] [address] [place] [id number] Patient : 1950 Patient Age: 73 Current Location: [facility] Call Back Number: [phone] Caller/Recipient Relation to Patient: Other If Other Describe Relation to Patient: Command And Control Officer Caller Name: Shirlene Administrative Administrative Note Reason: Other Administrative Note Comments: Shirlene, from [facility], called. Pt needs a consult to see a Urologist, Dr. Mayco Roper, at the [facility], for a diagnosis N52.9 (consult). Requesting 10 visits for elevated PSA and erectile dysfunction. He has an appointment scheduled for October 21. FAX referral to [phone]. Call Shirlene with any questions. Thank you. IMPORTANT: This note was created by [facility] Clinical Contact Center staff. Please do not alert the staff member by adding them as a signer for future communications. Alerts are not monitored by this user. /nasrin/ [facility] RUFFIN [facility] AMSA Signed: 10/07/2024 14:09 Receipt Acknowledged By: 10/08/2024 11:59 /es/ TENZIN SERRANO LPN License Practical Nurse 10/07/2024 14:20 /nasrin/ ALEXANDRE GARCIA MSN, RN, CNL PRIMARY CARE TEAM NURSE 10/07/2024 ADDENDUM STATUS: COMPLETED [employer]er [employer]sembler sent an email to [facility] Clinical Coordination for assistance. CC Urology consult was placed on 10/02/24. /nasrin/ ALEXANDRE GARCIA, MSN, RN, CNL PRIMARY CARE TEAM NURSE Signed: 10/07/2024 14:20 KRISTIN RUFFIN [facility]
--- OUTSIDE RECORDS SUMMARY | 2024-11-04 08:52 | XMS_ITS | Continuity of Care Document ---
Author Name [facility] Organization [facility] Care Team Providers Care Soap Grinder Name Role Phone [facility] Unavailable Unavailable Problems Combined list of problems from Department of Defense and Veterans Affairs facilities. It does not include entries that were removed or entered in error. Problem Status Onset Date Problem Type Date of Resolution Comments Source Basal cell carcinoma of arm Active Condition [facility] Basal cell carcinoma of nose Active Condition [facility] Benign essential hypertension Active Condition [facility] Benign Prostatic Hyperplasia with Outflow Obstruction (SCT [id number]) Active Condition Oct 02, 2024 Entered By: SHALOM ABRAMS Comment: sees urology- Dr. 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 Moore [facility] Hypogonadism Inactive Condition 11/30/2021Aug Entered By: TIFFANY MADISON Comment: urologist Mayco Roper prescribed testosterone [facility] Lymphadenopathy * (ICD-9-CM 785.6) Inactive Condition 05/01/2018 [facility] Diagnosis: ICD-10-CM E11.9 Type 2 diabetes mellitus without complications Active Diagnosis [facility] Diagnosis: ICD-10-CM N40.1 Benign prostatic hyperplasia with lower urinary tract symp Active Diagnosis [facility] Diagnosis: ICD-10-CM Z77.29 Contact with and exposure to other hazardous substances Active Diagnosis [facility] Diagnosis: ICD-10-CM Z46.0 Encounter for fit/adjst of spectacles and contact lenses Active Diagnosis [facility] Diagnosis: ICD-10-CM I10 Essential (primary) hypertension Active Diagnosis [facility] Medications Combined list of outpatient medications from Department of Defense and Veterans Affairs facilities.Medications provided include 1) outpatient medications from the last 15 months, and 2) patient-reported medications. Medication Details Route Status Patient Instructions Prescription Expires Prescription Number Last Dispense Date Ordering Provider Order Date Order Qty Source AMLODIPINE BESYLATE 10MG TAB TAKE ONE TABLET BY MOUTH EVERY DAY FOR BLOOD PRESSURE /HEART, DO NOT TAKE WITH GRAPEFRU IT JUICE ORAL ACTIVE 07/30/2025 [id number] Aleshia ABRAMS 2023 90 [facility] AMLODIPINE BESYLATE 10MG TAB TAKE ONE TABLET BY MOUTH EVERY DAY FOR BLOOD PRESSURE /HEART, DO NOT TAKE WITH GRAPEFRU IT JUICE ORAL DISCONT INUED 08/05/2024 [id number] LAUREN MADISON 2022 90 [facility] EMPAGLIFLOZ IN 10MG TAB TAKE ONE TABLET BY MOUTH ONCE DAILY ORAL ACTIVE 10/08/2025 [id number] FORTINO BURGESS 2024 90 [facility] EMPAGLIFLOZ IN 10MG TAB TAKE ONE TABLET BY MOUTH ONCE DAILY ORAL DISCONT INUED BY PROVIDE R 08/13/2025 [id number] FORTINO BURGESS 2023 90 [facility] EMPAGLIFLOZ IN 10MG TAB TAKE ONE TABLET BY MOUTH ONCE DAILY ORAL DISCONT INUED 04/01/2025 [id number] FORTINO BURGESS KOJO 2023 90 [facility] FINASTERIDE 5MG TAB TAKE ONE TABLET BY MOUTH EVERY OTHER DAY FOR PROSTATE ORAL SUSPEND ED 10/03/2025 [id number] FURCOLO,T SHANE 2024 45 [facility] FINASTERIDE 5MG TAB TAKE ONE TABLET BY MOUTH EVERY DAY FOR PROSTATE ORAL DISCONT INUED (EDIT) 07/30/2025 [id number] FURCOLO,T SHANE 2023 90 [facility] FINASTERIDE 5MG TAB TAKE ONE TABLET BY MOUTH EVERY DAY FOR PROSTATE ORAL DISCONT INUED 08/05/2024 [id number] LAUREN MADISON JAWED 2022 90 [facility] FLUTICASONE PROPIONATE 50MCG/SPRAY SOLN,NASAL, 16GM INSTILL 1 SPRAY INTO EACH NOSTRIL ONCE DAILY NEEDED NASAL ACTIVE JENELLE DALAL 2023 [facility] HYDROCHLORO THIAZIDE 25MG TAB TAKE ONE-HALF TABLET BY MOUTH EVERY DAY TO PREVENT FLUID/CO NTROL BLOOD PRESSURE ORAL DISCONT INUED BY PROVIDE R 08/05/2024 [id number] LAUREN MADISON JAWED 2022 45 [facility] LISINOPRIL 20MG TAB TAKE ONE TABLET BY MOUTH EVERY DAY TO CONTROL BLOOD PRESSURE ORAL ACTIVE 07/30/2025 [id number] FURCOLO,T SHANE 2023 90 [facility] [place] LISINOPRIL 20MG TAB TAKE ONE TABLET BY MOUTH EVERY DAY TO CONTROL BLOOD PRESSURE ORAL DISCONT INUED 08/05/[id number] [facility] JAWED 2022 90 [facility] METFORMIN HCL 500MG 24HR TAB,SA TAKE ONE TABLET BY MOUTH ONCE DAILY FOR TYPE 2 DIABETES MELLITUS ORAL DISCONT INUED BY EDEN R 12/19/2024 [id number] JENELLE DALAL 2023 90 [facility] METFORMIN HCL 500MG 24HR TAB,SA TAKE TWO TABLETS BY MOUTH ONCE DAILY ORAL DISCONT INUED (EDIT) 11/27/[id number] [facility] JAWED 2023 180 [facility] METOPROLOL SUCCINATE 50MG TAB,SA TAKE ONE TABLET BY MOUTH ONCE DAILY FOR BLOOD PRESSURE /HEART ORAL ACTIVE 10/03/2025 [id number] FURCOLO,T SHANE 2024 90 [facility] METOPROLOL SUCCINATE 50MG TAB,SA TAKE ONE TABLET BY MOUTH EVERY DAY FOR BLOOD PRESSURE /HEART ORAL DISCONT INUED (EDIT) 07/30/2025 [id number] 4 FURCOLO,T SHANE 2023 90 [facility] METOPROLOL SUCCINATE 50MG TAB,SA TAKE ONE TABLET BY MOUTH EVERY DAY FOR BLOOD PRESSURE /HEART ORAL DISCONT INUED 08/05/[id number] [facility] JAWED 2022 90 [facility] PEG-3350/EL ECTROLYTES PWDR W/FLAVOR PKT TAKE 1 BOTTLE BY MOUTH ONE TIME ACCORDIN G TO INSTRUCT IONS FROM PRESCRIB ER - DISSOLVE CONTENTS BEFORE DRINKING ORAL 02/02/2024 [id number] [facility] 2023 1 [facility] ROSUVASTATI N CA 20MG TAB TAKE ONE TABLET BY MOUTH ONCE DAILY FOR CHOLESTE ROL ORAL ACTIVE 07/30/2025 [id number] 4 FURCOLO,T SHANE 2023 90 [facility] ROSUVASTATI N CA 20MG TAB TAKE ONE TABLET BY MOUTH ONCE DAILY FOR CHOLESTE ROL ORAL DISCONT INUED 08/05/2024 [id number] AHMED,MOH AMMED JAWED 2022 90 [facility] Immunizations Combined list of available immunizations from the Department of Defense and Veterans Affairs facilities. Immunization Series Date Given Administered By Site Reaction Lot Number CVX Code Drug Outdoor Adventure Instructor Status Comments Source ZOSTER RECOMBINANT 2 2022 VERONICA ALAS RIGHT DELTO ID [id number] 187 complet ed [facility] PNEUMOCOCCAL CONJUGATE PCV20, POLYSACCHARID E [id number] CONJUGATE, ADJUVANT, PF 2021 216 complet ed [facility] ZOSTER RECOMBINANT 1 2021 187 complet ed [facility] INFLUENZA VACCINE, QUADRIVALENT, ADJUVANTED 2021 205 complet ed [facility] COVID-19 (MODERNA), MRNA, LNP-S, PF, 100 MCG OR 50 MCG DOSE 3 2021 207 complet ed MOD; [id number]; 2 [facility] INFLUENZA, INJECTABLE, QUADRIVALENT, PRESERVATIVE FREE 2020 150 complet ed [facility] COVID-19 (PFIZER), MRNA, LNP-S, PF, 30 MCG/0.3 ML DOSE 2 2020 208 complet ed PFR; [id number]; 1 [facility] COVID-19 (PFIZER), MRNA, LNP-S, PF, 30 MCG/0.3 ML DOSE 1 2020 208 complet ed PFR; [id number]; 1 [facility] INFLUENZA, HIGH-DOSE, QUADRIVALENT 2019 197 complet ed [facility] TD(ADULT) UNSPECIFIED FORMULATION 2019 139 complet ed Site: Left Deltoid [facility] INFLUENZA, INJECTABLE, QUADRIVALENT, PRESERVATIVE FREE 2018 150 complet ed Site: Left Deltoid [facility] PNEUMOCOCCAL POLYSACCHARID E PPV23 2016 33 complet ed [facility] FLU,3 YRS (HISTORICAL) 2015 88 complet ed had at outside clinic [facility] PNEUMOCOCCAL CONJUGATE PCV 13 2014 133 complet ed [facility] FLU,3 YRS (HISTORICAL) 2012 88 complet ed [facility] ZOSTER LIVE 2012 121 complet ed [facility] FLU,3 YRS (HISTORICAL) 2011 88 complet ed [facility] DTAP, UNSPECIFIED FORMULATION 2010 107 complet ed [facility] Results Combined list of recent chemistry, hematology and other laboratory results from Department of Defense and Veterans Affairs, ranging from 15 months to all on record, depending upon the facility. Order Name Results Value Reference Range Date Interpretation Specimen Comments Source HEMOGLOBI N A1C PANEL HEMOGLOBIN A1C/HEMOGLO BIN.TOTAL IN BLOOD BY HPLC 6.4 4.0 - 5.6 09/25 H Specimen Type: BLOOD Comment: Values obtained from A1C measurement s can vary. For atypical A1C assays, a reported value of 7.0 could actually be between 6.72 and 7.28 if measured by a reference method. A reported value of 9.0 could actually be between 8.73 and 9.27. Ref: http://[email or web address] ngsp.org/[place] Pdata.asp Ordering Provider: LISA ABRAMS Report Released Date/Time: Mar 31, 2024 10:10 AM Reporting Lab: [address] [address] Performing Lab: [address] [address] [facility] MICROALBU MIN CREATININ E RATIO PANEL MICROALBUMI N/CREATININ E [MASS RATIO] IN URINE 18.2 mg/g 0 - 29.9 09/25 Specimen Type: URINE No comment entered. Ordering Provider: LISA ABRAMS Report Released Date/Time: Mar 31, 2024 10:10 AM Reporting Lab: [facility] [facility] [address] [address] Performing Lab: [facility] [facility] [address] [address] [facility] MICROALBU MIN CREATININ E RATIO PANEL MICROALBUMI N [MASS/VOLUM E] IN URINE 1.6 mg/dL 09/25 Specimen Type: URINE No comment entered. Ordering Provider: LSIA ABRAMS Report Released Date/Time: Mar 31, 2024 10:10 AM Reporting Lab: [facility] [facility] [address] [address] Performing Lab: [facility] [facility] [address] [address] [facility] MICROALBU MIN CREATININ E RATIO PANEL CREATININE [MASS/VOLUM E] IN URINE 87.91 mg/dL 09/25 Specimen Type: URINE No comment entered. Ordering Provider: LISA ABRAMS Report Released Date/Time: Mar 31, 2024 10:10 AM Reporting Lab: [facility] [facility] [address] [address] Performing Lab: [facility] [place] [address] [address] [facility] LIPID PANEL FASTING CHOLESTEROL [MASS/VOLUM E] IN SERUM OR PLASMA 169 mg/dL 09/25 Specimen Type: SERUM No comment entered. Ordering Provider: LISA ABRAMS Report Released Date/Time: Mar 31, 2024 10:10 AM Reporting Lab: [facility] [address] [address] Performing Lab: [facility] [facility] [address] [address] [facility] [place] [facility] LIPID PANEL FASTING TRIGLYCERID E [MASS/VOLUM E] IN SERUM OR PLASMA 55 mg/dL 0 - 150 09/25 Specimen Type: SERUM No comment entered. Ordering Provider: LISA ABRAMS Report Released Date/Time: Mar 31, 2024 10:10 AM Reporting Lab: [facility] [place] [facility] [address] [address] Performing Lab: [facility] [place] [facility] [address] [address] [facility] [place] [facility] LIPID PANEL FASTING CHOLESTEROL IN LDL [MASS/VOLUM E] IN SERUM OR PLASMA BY CALCULATION 106 mg/dL 0 - 129 09/25 Specimen Type: SERUM No comment entered. Ordering Provider: LISA ABRAMS Report Released Date/Time: Mar 31, 2024 10:10 AM Reporting Lab: [facility] [place] [facility] [address] [address] Performing Lab: [facility] [place] [facility] [address] [address] [facility] [place] [facility] LIPID PANEL FASTING CHOLESTEROL .TOTAL/CHOL ESTEROL IN HDL [MASS RATIO] IN SERUM OR PLASMA 3.3 09/25 Specimen Type: SERUM No comment entered. Ordering Provider: LISA ABRAMS Report Released Date/Time: Mar 31, 2024 10:10 AM Reporting Lab: [facility] [place] [facility] [address] [address] Performing Lab: [facility] [place] [facility] [address] [address] [facility] [place] [facility] LIPID PANEL FASTING CHOLESTEROL IN HDL [MASS/VOLUM E] IN SERUM OR PLASMA 52 mg/dL 40 - 60 09/25 Specimen Type: SERUM No comment entered. Ordering Provider: LISA ABRAMS Report Released Date/Time: Mar 31, 2024 10:10 AM Reporting Lab: [facility] [place] [facility] [address] [address] Performing Lab: [facility]ITALRNOL[facility] TUSCALOOSATRN [facility]USUSE[facility] [address] [address] [facility]ITALRHALE INFIRMARYN [facility] C[facility]USUSE [facility] BASIC METABOLIC PANEL (fasting) UREA NITROGEN [MASS/VOLUM E] IN SERUM OR PLASMA 19 mg/dL 7 - 25 09/25 Specimen Type: SERUM No comment entered. Ordering Provider: LISA ABRAMS Report Released Date/Time: Mar 31, 2024 10:10 AM Reporting Lab: [facility] TRN [facility] [address] [address] Performing Lab: [facility]PITALRNOLAND HOSPITAL TUSCALOOSATRN [address] [address] [facility] BASIC METABOLIC PANEL (fasting) GLUCOSE [MASS/VOLUM E] IN SERUM OR PLASMA 142 mg/dL 65 - 100 09/25 H Specimen Type: SERUM No comment entered. Ordering Provider: LISA ABRAMS Report Released Date/Time: Mar 31, 2024 10:10 AM Reporting Lab: [facility] TRN [facility] [address] [address] Performing Lab: [facility] TRN [facility] CAMPUSUSE[address] [address] [facility] BASIC METABOLIC PANEL (fasting) SODIUM [MOLES/VOLU ME] IN SERUM OR PLASMA 141 mmol/L 135 - 145 09/25 Specimen Type: SERUM No comment entered. Ordering Provider: LISA ABRAMS Report Released Date/Time: Mar 31, 2024 10:10 AM Reporting Lab: [facility]N [facility] [address] [address] Performing Lab: [facility]ITALRNOL[facility] TUSCALOOSATRN [facility] CAMPUSUSE[address] [address] [facility]ITALRHALE INFIRMARYN [facility] BASIC METABOLIC PANEL (fasting) POTASSIUM [MOLES/VOLU ME] IN SERUM OR PLASMA 4.5 mmol/L 3.5 - 5.0 09/25 Specimen Type: SERUM No comment entered. Ordering Provider: LISA ABRAMS Report Released Date/Time: Mar 31, 2024 10:10 AM Reporting Lab: [facility] [place] [facility] [address] [address] Performing Lab: [facility] [place] [facility] [address] [address] [facility] [facility] BASIC METABOLIC PANEL (fasting) CHLORIDE [MOLES/VOLU ME] IN SERUM OR PLASMA 106 mmol/L 100 - 110 09/25 Specimen Type: SERUM No comment entered. Ordering Provider: LISA ABRAMS Report Released Date/Time: Mar 31, 2024 10:10 AM Reporting Lab: [facility] [place] [facility] [address] [address] Performing Lab: [facility] [place] [facility] [address] [address] [facility] W[facility]N [facility] CAMPUSUSE [facility] BASIC METABOLIC PANEL (fasting) CARBON DIOXIDE, TOTAL [MOLES/VOLU ME] IN SERUM OR PLASMA 27 meq/L 20 - 30 09/25 Specimen Type: SERUM No comment entered. Ordering Provider: LISA ABRAMS Report Released Date/Time: Mar 31, 2024 10:10 AM Reporting Lab: [facility] [place] [facility] [address] [address] Performing Lab: [facility] [place] [facility] [address] [address] [facility] CAMPUSUSE [facility] BASIC METABOLIC PANEL (fasting) CREATININE [MASS/VOLUM E] IN SERUM OR PLASMA 0.96 mg/dL 0.50 - 1.40 09/25 Specimen Type: SERUM No comment entered. Ordering Provider: LISA ABRAMS Report Released Date/Time: Mar 31, 2024 10:10 AM Reporting Lab: [facility] [place] [facility] [address] [address] Performing Lab: [facility] [place] [facility] [address] [address] [facility] [place] [facility] BASIC METABOLIC PANEL (fasting) GLOMERULAR FILTRATION RATE/1.73 SQ M.PREDICTED [VOLUME RATE/AREA] IN SERUM, PLASMA OR BLOOD BY CREATININE- BASED FORMULA (CKD-EPI 2020) 82 mL/min 60 09/25 Specimen Type: SERUM No comment entered. Ordering Provider: LISA ABRAMS Report Released Date/Time: Mar 31, 2024 10:10 AM Reporting Lab: [facility] [place] [facility] [address] [address] Performing Lab: [facility] [place] [facility] [address] [address] [facility] [place] [facility] PSA PROSTATE SPECIFIC AG [MASS/VOLUM E] IN SERUM OR PLASMA 0.83 ng/mL 0.00 - 4.00 09/25 Specimen Type: SERUM No comment entered. Ordering Provider: LISA ABRAMS Report Released Date/Time: Mar 31, 2024 10:10 AM Reporting Lab: [facility] [address] [address] Performing Lab: [facility] [address] [address] [facility] [place] [facility] BASIC METABOLIC PANEL (fasting) UREA NITROGEN [MASS/VOLUM E] IN SERUM OR PLASMA 16 mg/dL 7 - 25 06/02 Specimen Type: SERUM No comment entered. Ordering Provider: JUDY BURGESS Report Released Date/Time: Mar 31, 2024 12:24 PM Reporting Lab: [facility] [place] [address] [address] Performing Lab: [facility] [place] [facility] [address] [address] [facility] [place] [facility] BASIC METABOLIC PANEL (fasting) GLUCOSE [MASS/VOLUM E] IN SERUM OR PLASMA 143 mg/dL 65 - 100 06/02 H Specimen Type: SERUM No comment entered. Ordering Provider: JUDY BURGESS Report Released Date/Time: Mar 31, 2024 12:24 PM Reporting Lab: [facility] [place] [facility] [address] [address] Performing Lab: [facility] [place] [address] [address] [facility] BASIC METABOLIC PANEL (fasting) SODIUM [MOLES/VOLU ME] IN SERUM OR PLASMA 140 mmol/L 135 - 145 06/02 Specimen Type: SERUM No comment entered. Ordering Provider: JUDY BURGESS Report Released Date/Time: Mar 31, 2024 12:24 PM Reporting Lab: [facility] [place] [address] [address] Performing Lab: [facility] [place] [address] [address] [facility] BASIC METABOLIC PANEL (fasting) POTASSIUM [MOLES/VOLU ME] IN SERUM OR PLASMA 3.9 mmol/L 3.5 - 5.0 06/02 Specimen Type: SERUM No comment entered. Ordering Provider: JUDY BURGESS Report Released Date/Time: Mar 31, 2024 12:24 PM Reporting Lab: [facility] [place] [address] [address] Performing Lab: [facility] [place] [address] [address] [facility]USUSE [facility] BASIC METABOLIC PANEL (fasting) CHLORIDE [MOLES/VOLU ME] IN SERUM OR PLASMA 108 mmol/L 100 - 110 06/02 Specimen Type: SERUM No comment entered. Ordering Provider: JUDY BURGESS Report Released Date/Time: Mar 31, 2024 12:24 PM Reporting Lab: [facility] [place] [address] [address] Performing Lab: [facility] [place] [address] [address] [facility]US[facility] BASIC METABOLIC PANEL (fasting) CARBON DIOXIDE, TOTAL [MOLES/VOLU ME] IN SERUM OR PLASMA 23 meq/L 20 - 30 06/02 Specimen Type: SERUM No comment entered. Ordering Provider: JUDY BURGESS Report Released Date/Time: Mar 31, 2024 12:24 PM Reporting Lab: [facility] [place] [address] [address] Performing Lab: [facility] [place] [facility] [address] [address] [facility] BASIC METABOLIC PANEL (fasting) CREATININE [MASS/VOLUM E] IN SERUM OR PLASMA 0.88 mg/dL 0.50 - 1.40 06/02 Specimen Type: SERUM No comment entered. Ordering Provider: JUDY BURGESS Report Released Date/Time: Mar 31, 2024 12:24 PM Reporting Lab: [facility] [address] [address] Performing Lab: [address] [address] [facility] BASIC METABOLIC PANEL (fasting) GLOMERULAR FILTRATION RATE/1.73 SQ M.PREDICTED [VOLUME RATE/AREA] IN SERUM, PLASMA OR BLOOD BY CREATININE- BASED FORMULA (CKD-EPI 2020) 90 mL/min 60 06/02 Specimen Type: SERUM No comment entered. Ordering Provider: JUDY BURGESS Report Released Date/Time: Mar 31, 2024 12:24 PM Reporting Lab: [address] [address] Performing Lab: [address] [address] [facility] HEMOGLOBI N A1C PANEL HEMOGLOBIN A1C/HEMOGLO BIN.TOTAL IN BLOOD BY HPLC 6.4 4.0 - 5.6 03/27 H Specimen Type: BLOOD Comment: Values obtained from A1C measurement s can vary. For atypical A1C assays, a reported value of 7.0 could actually be between 6.72 and 7.28 if measured by a reference method. A reported value of 9.0 could actually be between 8.73 and 9.27. Ref: [email or web address] Ordering Provider: LISA ABRAMS Report Released Date/Time: Mar 18, 2024 08:44 AM Reporting Lab: [address] [address] Performing Lab: [address] [address] [facility] [place] [facility] LIPID PANEL, NON FASTING CHOLESTEROL [MASS/VOLUM E] IN SERUM OR PLASMA 133 mg/dL 03/27 Specimen Type: SERUM No comment entered. Ordering Provider: LISA ABRAMS Report Released Date/Time: Mar 18, 2024 08:44 AM Reporting Lab: [facility] [place] [address] [address] Performing Lab: [facility] [place] [address] [address] [facility] [place] [facility] LIPID PANEL, NON FASTING TRIGLYCERID E [MASS/VOLUM E] IN SERUM OR PLASMA 60 mg/dL 0 - 150 03/27 Specimen Type: SERUM No comment entered. Ordering Provider: LISA ABRAMS Report Released Date/Time: Mar 18, 2024 08:44 AM Reporting Lab: [facility] [place] [address] [phone] Performing Lab: [facility] [place] [address] [address] [facility]N [place] [facility] LIPID PANEL, NON FASTING CHOLESTEROL IN LDL [MASS/VOLUM E] IN SERUM OR PLASMA BY CALCULATION 75 mg/dL 0 - 129 03/27 Specimen Type: SERUM No comment entered. Ordering Provider: LISA ABRAMS Report Released Date/Time: Mar 18, 2024 08:44 AM Reporting Lab: [facility] [place] [address] [address] Performing Lab: [facility] [place] [address] [address] [facility] [place] [facility] LIPID PANEL, NON FASTING CHOLESTEROL .TOTAL/CHOL ESTEROL IN HDL [MASS RATIO] IN SERUM OR PLASMA 2.9 03/27 Specimen Type: SERUM No comment entered. Ordering Provider: LISA ABRAMS Report Released Date/Time: Mar 18, 2024 08:44 AM Reporting Lab: [facility] [place] [address] [address] Performing Lab: [facility] [place] [facility] [address] [address] [facility]USUSE [facility] LIPID PANEL, NON FASTING CHOLESTEROL IN HDL [MASS/VOLUM E] IN SERUM OR PLASMA 46 mg/dL 40 - 60 03/27 Specimen Type: SERUM No comment entered. Ordering Provider: LISA ABRAMS Report Released Date/Time: Mar 18, 2024 08:44 AM Reporting Lab: [facility]ITALRHALE INFIRMARYN [facility]USUSE[facility] [address] [address] Performing Lab: [facility] TRN [facility]USUSEBER[facility] [address] [address] [facility] CAMPUSUSE [facility] BASIC METABOLIC PANEL (non-fast ing) UREA NITROGEN [MASS/VOLUM E] IN SERUM OR PLASMA 13 mg/dL 7 - 25 03/27 Specimen Type: SERUM No comment entered. Ordering Provider: LISA ABRAMS Report Released Date/Time: Mar 18, 2024 08:44 AM Reporting Lab: [facility]ITALRNOLAND [facility]ITAL TUSCALOOSATRN [facility] C[facility]USUSETS [facility] [address] [address] Performing Lab: [facility]ITALRNOL[facility] TUSCALOOSATRN [facility]USUSEBER[facility] [address] [address] [facility] CAMPUSUSE [facility] BASIC METABOLIC PANEL (non-fast ing) GLUCOSE [MASS/VOLUM E] IN SERUM OR PLASMA 148 mg/dL 65 - 100 03/27 H Specimen Type: SERUM No comment entered. Ordering Provider: LISA ABRAMS Report Released Date/Time: Mar 18, 2024 08:44 AM Reporting Lab: [facility]ITALRNOL[facility] TUSCALOOSATRN [place] [facility] [address] [address] Performing Lab: [facility]ITALRNOL[facility] TUSCALOOSATRN [facility] CAMPUSUSE[address] [address] [facility]ITALRHALE INFIRMARYN [facility] CAMPUSUSE [facility] BASIC METABOLIC PANEL (non-fast ing) SODIUM [MOLES/VOLU ME] IN SERUM OR PLASMA 139 mmol/L 135 - 145 03/27 Specimen Type: SERUM No comment entered. Ordering Provider: LISA ABRAMS Report Released Date/Time: Mar 18, 2024 08:44 AM Reporting Lab: [facility]TR[facility] [address] [address] Performing Lab: [facility] WSTRN [facility] CAMPUSUSE[address] [address] [facility] WSTRN [facility] CAMPUSUSE [facility] BASIC METABOLIC PANEL (non-fast ing) POTASSIUM [MOLES/VOLU ME] IN SERUM OR PLASMA 4.2 mmol/L 3.5 - 5.0 03/27 Specimen Type: SERUM No comment entered. Ordering Provider: LISA ABRAMS Report Released Date/Time: Mar 18, 2024 08:44 AM Reporting Lab: [facility]ITALRNOLAND [facility]OSPITAL TUSCALOOSATRN [address] [address] Performing Lab: [facility]ITALRNOL[facility] TUSCALOOSATRN [address] [address] [facility] BASIC METABOLIC PANEL (non-fast ing) CHLORIDE [MOLES/VOLU ME] IN SERUM OR PLASMA 106 mmol/L 100 - 110 03/27 Specimen Type: SERUM No comment entered. Ordering Provider: LISA ABRAMS Report Released Date/Time: Mar 18, 2024 08:44 AM Reporting Lab: [facility]ITALRHALE INFIRMARYN [address] [address] Performing Lab: [facility] TRN [facility] CAMPUSUSE[address] [address] [facility]ITALRHALE INFIRMARYN [facility] BASIC METABOLIC PANEL (non-fast ing) CARBON DIOXIDE, TOTAL [MOLES/VOLU ME] IN SERUM OR PLASMA 25 meq/L 20 - 30 03/27 Specimen Type: SERUM No comment entered. Ordering Provider: LISA ABRAMS Report Released Date/Time: Mar 18, 2024 08:44 AM Reporting Lab: [facility]PITALRNOLAND [facility]OSP[facility] TUSCALOOSATRN [facility] CAMPUSUSE[address] [address] Performing Lab: [facility] TRN [facility] CAMPUSUSE[address] [address] [facility]ITALRHALE INFIRMARYN [facility] BASIC METABOLIC PANEL (non-fast ing) CREATININE [MASS/VOLUM E] IN SERUM OR PLASMA 0.96 mg/dL 0.50 - 1.40 03/27 Specimen Type: SERUM No comment entered. Ordering Provider: LISA ABRAMS Report Released Date/Time: Mar 18, 2024 08:44 AM Reporting Lab: [facility] [place] [facility] [address] [address] Performing Lab: [facility] [place] [facility] [address] [address] [facility] [place] [facility] BASIC METABOLIC PANEL (non-fast ing) GLOMERULAR FILTRATION RATE/1.73 SQ M.PREDICTED [VOLUME RATE/AREA] IN SERUM, PLASMA OR BLOOD BY CREATININE- BASED FORMULA (CKD-EPI 2020) 82 mL/min 60 03/27 Specimen Type: SERUM No comment entered. Ordering Provider: LISA ABRAMS Report Released Date/Time: Mar 18, 2024 08:44 AM Reporting Lab: [facility]ITALRNOLAND [facility]OSP[facility] T[facility]CALOOSATRN [place] [address] [address] Performing Lab: [facility] [place] [facility] [address] [address] [facility] [place] [place] [facility] PSA PROSTATE SPECIFIC AG [MASS/VOLUM E] IN SERUM OR PLASMA 1.47 ng/mL 0.00 - 4.00 03/27 Specimen Type: SERUM No comment entered. Ordering Provider: LISA ABRAMS Report Released Date/Time: Mar 20, 2024 11:35 AM Reporting Lab: [facility]ITALRNOLAND [facility]OSPITAL TUSCALOOSATRN [place] [address] [address] Performing Lab: [facility] [place] [place] [address] [address] [facility]ITALRHALE INFIRMARYN [place] [facility] Vital Signs Combined list of inpatient and outpatient Vital Signs from Department of Defense and Veterans Affairs, ranging from 12 months to all on record, depending upon the facility. Vital Sign Value Date Comments Source SYSTOLIC BLOOD PRESSURE 134 10/02/19 25 08:05:31 [facility] [place] [place] [facility] DIASTOLIC BLOOD PRESSURE 74 025 08:05:31 [facility] [place] [facility] PULSE OXIMETRY 98 10/02/2024 08:05:31 [facility] [place] [facility] WEIGHT 240 10/02/2024 08:05:31 [facility] [place] [facility] BMI 35 kg/m2 10/02/2024 08:05:31 [facility] [place] [facility] PAIN 0 10/02/2024 08:05:31 [facility] [place] [facility] TEMPERATURE 98.3 10/02/2024 08:05:31 [facility] [place] [facility] PULSE 71 10/02/2024 08:05:31 [facility] [place] [facility] RESPIRATION 16 10/02/2024 08:05:31 [facility] [place] [facility] SYSTOLIC BLOOD PRESSURE 138 03/31/20 24 09:30:14 [facility] [place] [facility] DIASTOLIC BLOOD PRESSURE 80 024 09:30:14 [facility] [place] [facility] PULSE OXIMETRY 95 03/31/2024 09:30:14 [facility] [place] [facility] WEIGHT 238 03/31/2024 09:30:14 [facility] [place] [facility] BMI 34 kg/m2 03/31/2024 09:30:14 [facility] [place] [facility] PAIN 0 03/31/2024 09:30:14 [facility] [place] [facility] TEMPERATURE 98 03/31/2024 09:30:14 [facility] [place] [facility] PULSE 62 03/31/2024 09:30:14 [facility] [place] [facility] RESPIRATION 16 03/31/2024 09:30:14 [facility] [place] [facility] WEIGHT 250 11/27/2023 09:06:02 [facility] [place] [facility] BMI 36 kg/m2 11/27/2023 09:06:02 [facility] [place] [facility] PAIN 0 11/27/2023 09:06:02 [facility] [place] [facility] HEIGHT 70 11/27/2023 09:06:02 [facility] [place] [facility] Encounters Combined list of: 1) Encounters from Department of Veterans Affairs facilities going backup to the last 18 months, not all VA inpatient encounters are included; 2) Encounters from the Department of Defense facilities going backup to 280 months. Location Location Details Encounter Type Encounter Number Reason For Visit Attending Provider ADM Date DC Date Status Disposition Source [facility] En[facility] [id number] 05/23 [facility] [place] OFF[facility] O/P EST MOD 30-39 MIN [id number] Diagnos is: ICD-10- CM I10 Essenti al (primar y) hyperte nsion JOHNSON MADISON MMED JAWED 05/23 [facility] En[facility] [id number] 07/02 [facility] En[facility] [id number] 07/16 [facility] En[facility] [id number] 08/05 [facility] En[facility] [id number] 10/17 [facility] En[facility] [id number] 10/22 [facility] En[facility] [id number] 11/01 [facility] En[facility] [id number] 11/18 [facility] COMPRE OPH EXAM EST PT 1/> [id number] Diagnos is: ICD-10- CM E11.9 Type 2 diabete s mellitu s without complic ations KORY ANDERSON H B 11/26 [facility] OFF[facility] O/P EST MOD 30 MIN [id number] Diagnos is: ICD-10- CM E11.9 Type 2 diabete s mellitu s without complic ations JOHNSON MADISON MMED JAWED 11/26 [facility] FIT SPECTACLES BIFOCAL [id number] Diagnos is: ICD-10- CM Z46.0 Encount er for fit/adj st of spectac les and contact lenses KORY ANDERSON H B 11/27 [facility] En[facility] [id number] 12/01 [facility] En[facility] [id number] 12/09 [facility] MTMS BY PHARM ADDL 15 MIN [id number] Diagnos is: ICD-10- CM E11.9 Type 2 diabete s mellitu s without complic ations MARK ANTHONY DALAL A 12/17 [facility] CONT GLUC MNTR ANALYSIS I&R [id number] Diagnos is: ICD-10- CM E11.9 Type 2 diabete s mellitu s without complic ations MARK ANTHONY DALAL A 12/31 [facility] En[facility] [id number] 01/24 [facility] En[facility] [id number] 03/17 [facility] En[facility] [id number] 03/31 [facility] MTMS BY PHARM EST 15 MIN [id number] Diagnos is: ICD-10- CM E11.9 Type 2 diabete s mellitu s without complic ations RENETTA BURGESS 03/31 [facility] OFFICE O/P EST MOD 30 MIN [id number] Diagnos is: ICD-10- CM Z77.29 Contact with and exposur e to other hazardo us substan derian JOSE ALBERTO,TI NA 03/31 [facility] [place] D[facility] ASSMT&MGMT 5-10 [id number] Diagnos is: ICD-10- CM E11.9 Type 2 diabete s mellitu s without complic ations KATIE DUNN 03/31 [place] [facility] MTMS BY PHARM EST 15 MIN [id number] Diagnos is: ICD-10- CM E11.9 Type 2 diabete s mellitu s without complic ations RENETTA BURGESS 05/28 [facility] En[facility] [id number] 07/29 [facility] MTMS BY PHARM EST 15 MIN [id number] Diagnos is: ICD-10- CM E11.9 Type 2 diabete s mellitu s without complic ations RENETTA BURGESS 08/12 [facility] En[facility] [id number] 09/21 [facility] [place] [place] OFFICE O/P EST MOD 30 MIN [id number] Diagnos is: ICD-10- CM 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 FURCOLO,TI NA 10/02 [facility] En[facility] [id number] 10/05 [facility] MTMS BY PHARM EST 15 MIN [id number] Diagnos is: ICD-10- CM E11.9 Type 2 diabete s mellitu s without complic ations RENETTA BURGESS 10/07 [facility] En[facility] [id number] 10/07 [facility] Social History Combined list of available smoking, tobacco, and other social history from Department of Defense and Veterans Affairs facilities. Social History Type Response Date Comment Sourc e Tobacco smoking status PRIS VA-TOBACCO NEVER USED CIGARETTES 10/02/2024 [facility] [place] History of tobacco use VA-TOBACCO NEVER USED OTHER TYPE 10/02/2024 [facility] [place] History of tobacco use VA-TOBACCO NEVER USED 05/23/2023 [facility] [place] [facility] History of tobacco use VA-TOBACCO FORMER USER 06/14/2022 [facility] [place] [facility] History of tobacco use KS-TOBACCO NEVER USED 06/01/2021 [facility] [place] [facility] History of tobacco use KS-TOBACCO NEVER USED 06/28/2020 [facility] [place] [facility] History of tobacco use KS-TOBACCO NEVER USED 05/21/2019 [facility] [place] [facility] History of tobacco use LIFETIME NON-TOBACCO USER 03/31/2018 [facility] [place] [place] [facility] History of tobacco use LIFETIME NON-TOBACCO USER 04/19/2017 [facility] [place] [facility] History of tobacco use LIFETIME NON-TOBACCO USER 04/19/2016 . [facility] [place] [facility] History of tobacco use LIFETIME NON-TOBACCO USER 02/12/2013 [facility] [place] [facility] Plan of Care List of future care activities from Department of Veterans Affairs facilities. Additional future care activities may be listed in the Assessment and Plan section. Date/Time Care Activity Care Activity Detail Facili ty 11/18/2024 AMBULATORY - MEDICINE AMBULATORY [facility]IC[facility] [place] [facility] [place] [facility] 11/24/2024 AMBULATORY - MEDICINE AMBULATORY - [facility]ICI [place] [facility] [place] [facility] 12/02/2024 AMBULATORY - MEDICINE AMBULATORY - MEDICI [place] [facility] [place] [facility] 04/08/2025 AMBULATORY - MEDICINE AMBULATORY - MEDICI [place] [facility] [place] [facility] 10/02/2024 Consult Order OTOLARYNGOLOGY/E NT ONE Cons Merchandising Execution Manager's Choice [facility] [place] [facility] 10/02/2024 Consult Order COMMUNITY CARE-U ROLOGY Cons Merchandising Execution Manager's Choice [facility] [place] [facility]
--- OUTSIDE RECORDS SUMMARY | 2024-11-04 08:52 | XMS_ITS | Encounter Summary ---
Author Name [facility] Organization [facility] Address [address] [place] [address] Care Team Providers Care Supervisor Inspection And Testing Name Role Phone SHALOM ABRAMS Primary Care [...] MEDICARE SUPPLEMEN SEN Jun 23, 2017 PLAN [phone] YOUSUF FIELDS PATIENT AARP MED SUPP MEDICARE SUPPLEMEN SEN Jun 23, 2017 PLAN [id number] YOUSUF FIELDS PATIENT AARP MED SUPP MEDICARE SUPPLEMEN SEN PLANM Y Jun 23, 2017 PLAN [id number] YOUSUF FIELDS PATIENT MEDICARE (WNR) MEDICARE (M) PART B Feb 22, 2016 PART B [id number] [phone] YOUSUF FIELDS PATIENT MEDICARE (WNR) MEDICARE (M) PART B Feb 22, 2016 PART B [id number] YOUSUF FIELDS PATIENT MEDICARE (WNR) MEDICARE (M) PART A Dec 22, 2013 PART A [id number] YOUSUF FIELDS PATIENT MEDICARE (WNR) MEDICARE (M) PART A Dec 22, 2013 PART A [id number] [phone] YOUSUF FIELDS PATIENT Selected Encounter This section includes the information on record at [place] for the Encounter. Date/Time Encounter Type Encounter Description Reason Provider Source Mar 31, 2024 09:30 AM OFFICE O/P EST MOD 30 MIN PRIMARY CARE/MEDICINE ICD-10-CM Z77.29 Contact with and exposure to other hazardous substances FURNICLOLISAA E Encounter Template Text not used by ME Assessments - Encounter Diagnoses This section includes the primary and secondary diagnoses documented for the Encounter. Date/Time Primary/Secondary Diagnosis Diagnosis Name Provider Source Mar 31, 2024 01:03 PM PRIMARY Contact with and exposure to other hazardous substances FURCOLO,SHALOM [facility] [place] [facility] Mar 31, 2024 01:03 PM SECONDARY Elevated prostate specific antigen [PSA] FURCOLO,SHALOM [facility] [place] [facility] Mar 31, 2024 01:03 PM SECONDARY Essential (primary) hypertension FURCOLO,SHALOM [facility] [place] [facility] Mar 31, 2024 01:03 PM SECONDARY Malignant neoplasm of tonsil, unspecified FURCOLO,SHALOM [facility] [place] [facility] Mar 31, 2024 01:03 PM SECONDARY Other obesity FURCOLO,SHALOM [facility] [place] [facility] Mar 31, 2024 01:03 PM SECONDARY Pure hypercholesterolem ia, unspecified FURCOLO,SHALOM [facility] [place] [facility] Mar 31, 2024 01:03 PM SECONDARY Type 2 diabetes mellitus without complications FURCOLO,SHALOM [facility] [place] [facility] Plan of Treatment: Future Appointments (+ 6 months) and Future Tests (+/- 45 days) The Plan of Treatment section includes future care activities for the patient from all [place] treatmentfacilities. This section includes future appointments and future orders which are active, pending or scheduled. Future Appointments This section includes appointments that were scheduled to occur 6 months from the date of the Encounter, up to a maximum of 20 appointments. The data comes from all [place] treatment facilities. Appointment Date/Time Appointment Type Appointme nt Facility Name May 28, 2024 09:00 AM AMBULATORY - MEDICINE [facility] Aug 12, 2024 01:00 PM AMBULATORY - MEDICINE [facility] Lab Results: +/- 30 days of the encounter This section includes the Chemistry and Hematology Lab Results on record with [place] for the patient. Radiology Reports and Pathology Reports are provided separately, in subsequent sections. Lab Results This section contains the Chemistry/Hematology Results that were resulted 30 days before or 30 daysafter the date of the Encounter. Date/Time Source Result Type Result - Unit Interpretation Reference Range Comment Mar 27, 2024 09:54 AM [facility] HEMOGLOBIN A1C PANEL [...] Mar 18, 2024 08:44 AM Reporting Lab: [facility] [address] [facility] [address] Performing Lab: [address] [address] HEMOGLOBIN A1C 6.4 H 4.0-5.6 Mar 27, 2024 09:54 AM [facility] LIPID PANEL, NON FASTING Specimen Type: SERUM No comment entered. Ordering Provider: SHALOM ABRAMS Report Released Date/Time: Mar 18, 2024 08:44 AM Reporting Lab: [facility] [address] [facility] [address] Performing Lab: [address] [address] CHOLESTEROL 133 mg/dL TRIGLYCERIDE 60 mg/dL 0-150 LDL calculated 75 mg/dL 0-129 CHOL/HDL 2.9 HDL CHOLESTEROL 46 mg/dL 40-60 Mar 27, 2024 09:54 AM [facility] BASIC METABOLIC PANEL (non-fasting) Specimen Type: SERUM No comment entered. Ordering Provider: SHALOM ABRAMS Report Released Date/Time: Mar 18, 2024 08:44 AM Reporting Lab: [facility] [address] [facility] [address] Performing Lab: [address] [address] UREA NITROGEN 13 mg/dL 7-25 GLUCOSE 148 mg/dL H 65-100 SODIUM 139 mmol/L 135-145 POTASSIUM 4.2 mmol/L 3.5-5.0 CHLORIDE 106 mmol/L 100-110 CO2 25 meq/L 20-30 CREATININE, Serum 0.96 mg/dL 0.50-1.40 eGFR(CKD-EPI 2020) 82 mL/min >60 Mar 27, 2024 09:54 AM [facility] PSA Specimen Type: SERUM No comment entered. Ordering Provider: SHALOM ABRAMS Report Released Date/Time: Mar 20, 2024 11:35 AM Reporting Lab: [address] [address] Performing Lab: [address] [address] PSA 1.47 ng/mL 0.00-4.00 Vital Signs: All taken on the encounter date This section contains inpatient and outpatient Vital Signs collected on the date of the Encounter. Date/Time Temperature Pulse Blood Pressure Respiratory Rate SP02 Pain Height Weight Body Mass Index Source Mar 31, 2024 09:30 AM 98 62 138/80 16 95 0 238 34 [facility] Social History: Smoking Status (Most current) and Tobacco Use (All prior to encounter date) This section includes the most current, and the historical, smoking and tobacco- related health factors from the [place] facility where the Encounter took place. Current Smoking Status This section includes the most current smoking, or tobacco-related health factor, from the [place] facility where the Encounter took place. Date/Time Current Smoking Status Comment Facil [facility] May 23, 2023 03:00 PM VA-TOBACCO NEVER USED [facility] [place] [facility] Tobacco Use History This section includes a history of the smoking, or tobacco-related health factors, that were collected on or before the date of the Encounter. The data comes from the [place] facility where the Encounter took place. Date/Time Smoking Status/Tobacco Use Comment F acility Jun 14, 2022 09:00 AM VA-TOBACCO FORMER USER [facility] [place] [facility] Jun 14, 2022 09:00 AM VA-TOBACCO QUIT 15 YRS OR MORE [facility] [place] [facility] Jun 01, 2021 08:00 AM VA-TOBACCO NEVER USED [facility] [place] [facility] Jun 28, 2020 10:00 AM VA-TOBACCO NEVER USED [facility] [place] [facility] May 21, 2019 02:59 PM VA-TOBACCO NEVER USED [facility] [place] [facility] Mar 31, 2018 03:24 PM LIFETIME NON-TOBACCO USER [facility] [place] [facility] Apr 19, 2017 08:30 AM LIFETIME NON-TOBACCO USER [facility] [place] [facility] Apr 19, 2016 10:17 AM LIFETIME NON-TOBACCO USER . [facility] [place] [facility] February 12, 2013 02:40 PM LIFETIME NON-TOBACCO USER [facility] [place] [facility] Encounter Notes: All associated encounter notes This section contains the clinical notes associated to the Encounter. Date/Time Encounter Note(s) Provider Source May 23, 2024 11:28 AM ADDENDUM: LOCAL TITLE: Addendum STANDARD TITLE: ADDENDUM DATE OF NOTE: MAY 23, 2024@11:28:15 ENTRY DATE: MAY 23, 2024@11:28:16 AUTHOR: LAVERNE GARCIA COSIGNER: URGENCY: STATUS: COMPLETED Please request most recent Urology office visit notes. [facility]-----[address] [address] [phone] [phone] TAX ID #[phone] Thank you!! /nasrin/ LAVERNE GARCIA NP NURSE PRACTITIONER Signed: 05/23/2024 11:28 Receipt Acknowledged By: 05/26/2024 09:53 /es/ ELEAZAR NEGRETE --- Original Document --- 03/31/24 NOTE: LIMA FIELDS is a 73 year old WHITE MALE who is being seen today in primary care for routine follow up. = CARE TEAM = Community Primary Care Provider: DR. Thom Lee, part of [facility] Specialists: clinical pharmacist Community Specialists: ENT- [facility]- for tonsillar CA surveillance urology- Dr. Mayco [facility] cardiology- Dr. Moore [place] for enlarged aorta = HISTORY = PERIOD OF SERVICE - ERA SERVICE CONNECTED % - 58 = HISTORY OF PRESENT ILLNESS = Patient presents today for routine f/u - clinical pharmacist = RELEVANT PAST MEDICAL HISTORY = Active problems - Computerized Problem List is the source for the followin. Exposure to potentially hazardous substance LEONIE Screening Snomed Code connected 05/23/23 2. Diabetes mellitus 3. 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 Thoracic aortic aneurysm without rupture being followed by Dr. Moore 5. Elevated PSA possible prostate cancer being followed by urology 6. Hypercholesterolemia 7. Benign essential hypertension 8. Erectile dysfunction (SNOMED CT 828534628) 9. Bilateral hearing loss 10. 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 Active and Recently Outpatient Medications (excluding Supplies): Active Outpatient Medications Status 1) ACCU-CHEK [...] Inactive Outpatient Medications Status 1) ACCU-CHEK GUIDE ME (GLUCOSE) METER USE METER TO TEST BLOOD SUGARS TWICE A WEEK NEEDED Active Non-VA Medications Status 1) Non-VA FLUTICASONE PROP 50MCG 120D NASAL INHL 1 SPRAY ACTIVE INTO EACH NOSTRIL ONCE DAILY NEEDED 10 Total Medications = REVIEW OF SYMPTOMS = NEGATIVE FOR: CONSTITUTION: no weight loss/gain, fatigue, [...] thoughts SKIN: no rash, new skin lesions = PHYSICAL EXAM = Vitals: - - - - - - - B/P: 138/80 (03/31/2024 09:30) pulse: 62 (03/31/2024 09:30) resp: 16 (03/31/2024 09:) temp: 98 F [36.7 C] (03/31/2024 09:30) Ht: 70 in [177.8 cm] (11/27/2023 09:06) Wgt: 238 lb [107.95 kg] (03/31/2024 09:30) BMI: BMI: 34.2 Exam: - - - - - - - General: A&O x 3, no acute distress, normal affect and mood Neck: normal thyroid, normal carotids- no bruits CV: RRR S1S2, no murmur Resp: LCTA bilat, no wheezing, rales or rhonchi Neuro: grossly intact, no visible tremor, normal memory and speech Extremities: normal movement of extremities, normal gait, normal strength no LE edema skin: small SK on chest = RECENT LABS = BMP (FASTING) Collection DT Specimen Test Name Result Units Ref Range 03/27/2024 09:54 SERUM UREA NITROGEN 13 mg/dL 7 - 25 03/27/2024 09:54 SERUM GLUCOSE 148 H mg/dL 65 - 100 03/27/2024 09:54 SERUM SODIUM 139 mmol/L 135 - 145 03/27/2024 09:54 SERUM POTASSIUM 4.2 mmol/L 3.5 - 5.0 03/27/2024 09:54 SERUM CHLORIDE 106 mmol/L 100 - 110 03/27/2024 09:54 SERUM CO2 25 mEq/L 20 - 30 03/27/2024 09:54 SERUM CREATININE, Serum 0.96 mg/dL 0.50 - 1.40 06/05/2021 09:01 SERUM eGFR (IDMS) >60 Ref: >=60 LIVER PANEL TREND Collection DT Spec AST ALT T BILI ALK ALBERTA T. PROT ALBUMIN 11/22/2023 08:53 SERUM 15 24 0.6 86 7.1 4.2 04/30/2023 07:56 SERUM 16 17 0.6 79 6.7 4.1 10/11/2022 08:46 SERUM 19 20 0.7 65 7.0 4.3 05/22/2022 07:32 SERUM 19 21 0.6 63 6.9 4.1 06/05/2021 09:01 SERUM 19 21 0.6 74 7.1 4.3 LIPID PANEL TREND Collection DT Spec CHOL HDL CHO/HDL LDL-c TRIG 03/27/2024 09:54 SERUM 133 46 2.9 75 60 11/22/2023 08:53 SERUM 150 45 3.3 92 64 04/30/2023 07:56 SERUM 160 43 3.7 106 56 05/22/2022 07:32 SERUM 147 43 3.4 95 46 06/05/2021 09:01 SERUM 157 48 3.3 97 60 CBC TREND Collection DT Spec WBC RBC HGB HCT MCV MCH PLT 04/30/2023 07:56 BLOOD 4.24 L 4.90 14.3 43.2 88.2 29.2 181 05/22/2022 07:32 BLOOD 5.07 5.10 14.7 44.6 87.5 28.8 212 06/05/2021 09:01 BLOOD 4.33 L 4.87 14.4 42.8 87.9 29.6 194 10/30/2019 09:11 BLOOD 4.86 5.00 14.7 44.4 88.8 29.4 207 04/15/2019 13:11 BLOOD 5.80 4.99 14.3 43.9 88.0 28.7 197 PSA TREND Collection DT Spec PSA SR- 03/27/2024 09:54 SERUM 1.47 10/30/2019 09:11 SERUM 1.08 04/15/2019 13:11 SERUM 1.46 03/11/2017 09:04 SERUM 2.24 10/06/2015 14:41 SERUM 2.17 HEMOGLOBIN A1C TREND Collection DT Spec HGBA1c 03/27/2024 09:54 BLOOD 6.4 H 11/22/2023 08:53 BLOOD 10.4 H 04/30/2023 07:56 BLOOD 7.3 H 10/11/2022 08:46 BLOOD 6.6 H 05/22/2022 07:32 BLOOD 7.9 H = ASSESSMENT AND PLAN = Active problems - Computerized Problem List is the source for the followin. Exposure to potentially hazardous substance LEONIE Screening Snomed Code connected 05/23/23 2. Diabetes mellitus- good control, stay on metformin- i don;t think we need to add empagliflozin 3. 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 Thoracic aortic aneurysm without rupture being followed by Dr. Moore 5. Elevated PSA possible prostate cancer being followed by urology 6. Hypercholesterolemia 7. Benign essential hypertension- recommend d/c HCTZ as having issues with urination as well as dry mouth 8. Erectile dysfunction (SNOMED CT 288620883) 9. Bilateral hearing loss 10. Obesity (SNOMED CT 625710535) = HEALTH MAINTENANCE = Colonoscopy (due at age 43) - had one in january- dr. abernathy- no need for any further Abdominal Aortic Aneurysm Screening (due at age 63 if smoker/prev smoker) - Prostate screening - Tetanus: due every 10 years Pneumonia Vacccine: Flu Vaccine: due yearly Covid Vaccine: due yearly = FOLLOW UP = f/u in 6 mo VISIT TYPE:a MODERATE complexity visit where 30 minutes was spent in direct patient care, review of records and documentation. Upcoming Appointments: 12/01/2024 08:00 CWM/NO/OPTOMETRY/MERHAR Follow Up Colonoscopy: Colonoscopy is due based on information available to this reminder. Prior/outside Colonoscopy results: Date: January 25, 2024 Due to patient's age, risk level, and/or co-morbid conditions, discontinuation of asymptomatic colorectal cancer screening/surveillance is recommended. This recommendation has been discussed with the patient and/or guardian /nasrin/ SHALOM ABRAMS D.O. PHYSICIAN Signed: 03/31/2024 13:03 05/23/2024 ADDENDUM STATUS: COMPLETED Please request most recent office visit notes. [facility]-----[address] [facility] [address] [phone] TAX ID #[phone] Thank you!! /nasrin/ LAVERNE GARCIA NP NURSE PRACTITIONER Signed: 05/23/2024 11:27 Receipt Acknowledged By: * AWAITING SIGNATURE * ELEAZAR MAS RAIMONDA KATHRYN [facility] May 23, 2024 11:27 AM ADDENDUM: LOCAL TITLE: Addendum STANDARD TITLE: ADDENDUM DATE OF NOTE: MAY 23, 2024@11:27:36 ENTRY DATE: MAY 23, 2024@11:27:38 AUTHOR: LAVERNE GARCIA COSIGNER: URGENCY: STATUS: COMPLETED Please request most recent office visit notes. [facility]-----[address] [facility] [address] [phone] TAX ID #[phone] Thank you!! /elvin GARCIA NP NURSE PRACTITIONER Signed: 05/23/2024 11:27 Receipt Acknowledged By: 05/26/2024 10:13 /nasrin/ ELEAZAR MAS AMSA --- Original Document --- 03/31/24 NOTE: LIMA FIELDS is a 73 year old WHITE MALE who is being seen today in primary care for routine follow up. = CARE TEAM = Community Primary Care Provider: DR. Thom Lee, part of [facility] Specialists: clinical pharmacist Community Specialists: ENT- [facility]- for tonsillar CA surveillance urology- Dr. Mayco [facility] cardiology- Dr. Moore [place] for enlarged aorta = HISTORY = PERIOD OF SERVICE - ERA SERVICE CONNECTED % - 58 = HISTORY OF PRESENT ILLNESS = Patient presents today for routine f/u - clinical pharmacist = RELEVANT PAST MEDICAL HISTORY = Active problems - Computerized Problem List is the source for the followin. Exposure to potentially hazardous substance LEONIE Screening Snomed Code connected 05/23/23 2. Diabetes mellitus 3. 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 Thoracic aortic aneurysm without rupture being followed by Dr. Moore 5. Elevated PSA possible prostate cancer being followed by urology 6. Hypercholesterolemia 7. Benign essential hypertension 8. Erectile dysfunction (SNOMED CT 084835114) 9. Bilateral hearing loss 10. 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 Active and Recently Outpatient Medications (excluding Supplies): Active Outpatient Medications Status 1) ACCU-CHEK [...] Inactive Outpatient Medications Status 1) ACCU-CHEK GUIDE ME (GLUCOSE) METER USE METER TO TEST BLOOD SUGARS TWICE A WEEK NEEDED Active Non-VA Medications Status 1) Non-VA FLUTICASONE PROP 50MCG 120D NASAL INHL 1 SPRAY ACTIVE INTO EACH NOSTRIL ONCE DAILY NEEDED 10 Total Medications = REVIEW OF SYMPTOMS = NEGATIVE FOR: CONSTITUTION: no weight loss/gain, fatigue, [...] thoughts SKIN: no rash, new skin lesions = PHYSICAL EXAM = Vitals: - - - - - - - B/P: 138/80 (03/31/2024 09:30) pulse: 62 (03/31/2024 09:30) resp: 16 (03/31/2024 09:30) temp: 98 F [36.7 C] (03/31/2024 09:30) Ht: 70 in [177.8 cm] (11/27/2023 09:06) Wgt: 238 lb [107.95 kg] (03/31/2024 09:30) BMI: BMI: 34.2 Exam: - - - - - - - General: A&O x 3, no acute distress, normal affect and mood Neck: normal thyroid, normal carotids- no bruits CV: RRR S1S2, no murmur Resp: LCTA bilat, no wheezing, rales or rhonchi Neuro: grossly intact, no visible tremor, normal memory and speech Extremities: normal movement of extremities, normal gait, normal strength no LE edema skin: small SK on chest = RECENT LABS = BMP (FASTING) Collection DT Specimen Test Name Result Units Ref Range 03/27/2024 09:54 SERUM UREA NITROGEN 13 mg/dL 7 - 25 03/27/2024 09:54 SERUM GLUCOSE 148 H mg/dL 65 - 100 03/27/2024 09:54 SERUM SODIUM 139 mmol/L 135 - 145 03/27/2024 09:54 SERUM POTASSIUM 4.2 mmol/L 3.5 - 5.0 03/27/2024 09:54 SERUM CHLORIDE 106 mmol/L 100 - 110 03/27/2024 09:54 SERUM CO2 25 mEq/L 20 - 30 03/27/2024 09:54 SERUM CREATININE, Serum 0.96 mg/dL 0.50 - 1.40 06/05/2021 09:01 SERUM eGFR (IDMS) >60 Ref: >=60 LIVER PANEL TREND Collection DT Spec AST ALT T BILI ALK ALBERTA T. PROT ALBUMIN 11/22/2023 08:53 SERUM 15 24 0.6 86 7.1 4.2 04/30/2023 07:56 SERUM 16 17 0.6 79 6.7 4.1 10/11/2022 08:46 SERUM 19 20 0.7 65 7.0 4.3 05/22/2022 07:32 SERUM 19 21 0.6 63 6.9 4.1 06/05/2021 09:01 SERUM 19 21 0.6 74 7.1 4.3 LIPID PANEL TREND Collection DT Spec CHOL HDL CHO/HDL LDL-c TRIG 03/27/2024 09:54 SERUM 133 46 2.9 75 60 11/22/2023 08:53 SERUM 150 45 3.3 92 64 04/30/2023 07:56 SERUM 160 43 3.7 106 56 05/22/2022 07:32 SERUM 147 43 3.4 95 46 06/05/2021 09:01 SERUM 157 48 3.3 97 60 CBC TREND Collection DT Spec WBC RBC HGB HCT MCV MCH PLT 04/30/2023 07:56 BLOOD 4.24 L 4.90 14.3 43.2 88.2 29.2 181 05/22/2022 07:32 BLOOD 5.07 5.10 14.7 44.6 87.5 28.8 212 06/05/2021 09:01 BLOOD 4.33 L 4.87 14.4 42.8 87.9 29.6 194 10/30/2019 09:11 BLOOD 4.86 5.00 14.7 44.4 88.8 29.4 207 04/15/2019 13:11 BLOOD 5.80 4.99 14.3 43.9 88.0 28.7 197 PSA TREND Collection DT Spec PSA SR- 03/27/2024 09:54 SERUM 1.47 10/30/2019 09:11 SERUM 1.08 04/15/2019 13:11 SERUM 1.46 03/11/2017 09:04 SERUM 2.24 10/06/2015 14:41 SERUM 2.17 HEMOGLOBIN A1C TREND Collection DT Spec HGBA1c 03/27/2024 09:54 BLOOD 6.4 H 11/22/2023 08:53 BLOOD 10.4 H 04/30/2023 07:56 BLOOD 7.3 H 10/11/2022 08:46 BLOOD 6.6 H 05/22/2022 07:32 BLOOD 7.9 H = ASSESSMENT AND PLAN = Active problems - Computerized Problem List is the source for the followin. Exposure to potentially hazardous substance LEONIE Screening Snomed Code connected 05/23/23 2. Diabetes mellitus- good control, stay on metformin- i don;t think we need to add empagliflozin 3. 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 Thoracic aortic aneurysm without rupture being followed by Dr. Moore 5. Elevated PSA possible prostate cancer being followed by urology 6. Hypercholesterolemia 7. Benign essential hypertension- recommend d/c HCTZ as having issues with urination as well as dry mouth 8. Erectile dysfunction (SNOMED CT 529772219) 9. Bilateral hearing loss 10. Obesity (SNOMED CT 858406828) = HEALTH MAINTENANCE = Colonoscopy (due at age 43) - had one in january- dr. abernathy- no need for any further Abdominal Aortic Aneurysm Screening (due at age 63 if smoker/prev smoker) - Prostate screening - Tetanus: due every 10 years Pneumonia Vacccine: Flu Vaccine: due yearly Covid Vaccine: due yearly = FOLLOW UP = f/u in 6 mo VISIT TYPE:a MODERATE complexity visit where 30 minutes was spent in direct patient care, review of records and documentation. Upcoming Appointments: 12/01/2024 08:00 CWM/NO/OPTOMETRY/MERHAR Follow Up Colonoscopy: Colonoscopy is due based on information available to this reminder. Prior/outside Colonoscopy results: Date: January 25, 2024 Due to patient's age, risk level, and/or co-morbid conditions, discontinuation of asymptomatic colorectal cancer screening/surveillance is recommended. This recommendation has been discussed with the patient and/or guardian /nasrin/ SHALOM ABRAMS D.O. PHYSICIAN Signed: 03/31/2024 13:03 05/23/2024 ADDENDUM STATUS: COMPLETED Please request most recent Urology office visit notes. [facility]-----[address] [address] [phone] TAX ID #[phone] Thank you!! /nasrin/ LAVERNE GARCIA NP NURSE PRACTITIONER Signed: 05/23/2024 11:28 Receipt Acknowledged By: 05/26/2024 09:53 /nasrin/ ELEAZAR NEGRETE 05/26/2024 ADDENDUM STATUS: COMPLETED PENELOPE SPOKE WITH THE UROLOGY OFFICE AT [facility] AND A RECENT URO FAX OF IS BEING SENT. /elvin NEGRETE Signed: 05/26/2024 10:01 LAVERNE GARCIA [facility] [place] [facility] Mar 31, 2024 09:45 AM PHYSICIAN NOTE: LOCAL TITLE: NOTE STANDARD TITLE: PHYSICIAN NOTE DATE OF NOTE: MAR 31, 2024@09:45 ENTRY DATE: MAR 31, 2024@09:45:16 AUTHOR: SHALOM ABRAMS EXP COSIGNER: URGENCY: STATUS: COMPLETED NOTE Has ADDENDA LIMA FIELDS is a 73 year old WHITE MALE who is being seen today in primary care for routine follow up. = CARE TEAM = Community Primary Care Provider: DR. Thom Lee, part of [facility] Specialists: clinical pharmacist Community Specialists: ENT- [facility]- for tonsillar CA surveillance urology- Dr. Mayco [facility] cardiology- Dr. Moore, [place] for enlarged aorta = HISTORY = PERIOD OF SERVICE - [place] ERA SERVICE CONNECTED % - 58 = HISTORY OF PRESENT ILLNESS = Patient presents today for routine f/u - clinical pharmacist = RELEVANT PAST MEDICAL HISTORY = Active problems - Computerized Problem List is the source for the followin. Exposure to potentially hazardous substance LEONIE Screening Snomed Code connected 05/23/23 2. Diabetes mellitus 3. 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 Thoracic aortic aneurysm without rupture being followed by Dr. Moore 5. Elevated PSA possible prostate cancer being followed by urology 6. Hypercholesterolemia 7. Benign essential hypertension 8. Erectile dysfunction (SNOMED CT 583827749) 9. Bilateral hearing loss 10. 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 Active and Recently Outpatient Medications (excluding Supplies): Active Outpatient Medications Status 1) ACCU-CHEK [...] Inactive Outpatient Medications Status 1) ACCU-CHEK GUIDE ME (GLUCOSE) METER USE METER TO TEST BLOOD SUGARS TWICE A WEEK NEEDED Active Non-VA Medications Status 1) Non-VA FLUTICASONE PROP 50MCG 120D NASAL INHL 1 SPRAY ACTIVE INTO EACH NOSTRIL ONCE DAILY NEEDED 10 Total Medications = REVIEW OF SYMPTOMS = NEGATIVE FOR: CONSTITUTION: no weight loss/gain, fatigue, [...] thoughts SKIN: no rash, new skin lesions = PHYSICAL EXAM = Vitals: - - - - - - - B/P: 138/80 (03/31/2024 09:30) pulse: 62 (03/31/2024 09:30) resp: 16 (03/31/2024 09:30) temp: 98 F [36.7 C] (03/31/2024 09:30) Ht: 70 in [177.8 cm] (11/27/2023 09:06) Wgt: 238 lb [107.95 kg] (03/31/2024 09:30) BMI: BMI: 34.2 Exam: - - - - - - - General: A&O x 3, no acute distress, normal affect and mood Neck: normal thyroid, normal carotids- no bruits CV: RRR S1S2, no murmur Resp: LCTA bilat, no wheezing, rales or rhonchi Neuro: grossly intact, no visible tremor, normal memory and speech Extremities: normal movement of extremities, normal gait, normal strength no LE edema skin: small SK on chest = RECENT LABS = BMP (FASTING) Collection DT Specimen Test Name Result Units Ref Range 03/27/2024 09:54 SERUM UREA NITROGEN 13 mg/dL 7 - 25 03/27/2024 09:54 SERUM GLUCOSE 148 H mg/dL 65 - 100 03/27/2024 09:54 SERUM SODIUM 139 mmol/L 135 - 145 03/27/2024 09:54 SERUM POTASSIUM 4.2 mmol/L 3.5 - 5.0 03/27/2024 09:54 SERUM CHLORIDE 106 mmol/L 100 - 110 03/27/2024 09:54 SERUM CO2 25 mEq/L 20 - 30 03/27/2024 09:54 SERUM CREATININE, Serum 0.96 mg/dL 0.50 - 1.40 06/05/2021 09:01 SERUM eGFR (IDMS) >60 Ref: >=60 LIVER PANEL TREND Collection DT Spec AST ALT T BILI ALK ALBERTA T. PROT ALBUMIN 11/22/2023 08:53 SERUM 15 24 0.6 86 7.1 4.2 04/30/2023 07:56 SERUM 16 17 0.6 79 6.7 4.1 10/11/2022 08:46 SERUM 19 20 0.7 65 7.0 4.3 05/22/2022 07:32 SERUM 19 21 0.6 63 6.9 4.1 06/05/2021 09:01 SERUM 19 21 0.6 74 7.1 4.3 LIPID PANEL TREND Collection DT Spec CHOL HDL CHO/HDL LDL-c TRIG 03/27/2024 09:54 SERUM 133 46 2.9 75 60 11/22/2023 08:53 SERUM 150 45 3.3 92 64 04/30/2023 07:56 SERUM 160 43 3.7 106 56 05/22/2022 07:32 SERUM 147 43 3.4 95 46 06/05/2021 09:01 SERUM 157 48 3.3 97 60 CBC TREND Collection DT Spec WBC RBC HGB HCT MCV MCH PLT 04/30/2023 07:56 BLOOD 4.24 L 4.90 14.3 43.2 88.2 29.2 181 05/22/2022 07:32 BLOOD 5.07 5.10 14.7 44.6 87.5 28.8 212 06/05/2021 09:01 BLOOD 4.33 L 4.87 14.4 42.8 87.9 29.6 194 10/30/2019 09:11 BLOOD 4.86 5.00 14.7 44.4 88.8 29.4 207 04/15/2019 13:11 BLOOD 5.80 4.99 14.3 43.9 88.0 28.7 197 PSA TREND Collection DT Spec PSA SR- 03/27/2024 09:54 SERUM 1.47 10/30/2019 09:11 SERUM 1.08 04/15/2019 13:11 SERUM 1.46 03/11/2017 09:04 SERUM 2.24 10/06/2015 14:41 SERUM 2.17 HEMOGLOBIN A1C TREND Collection DT Spec HGBA1c 03/27/2024 09:54 BLOOD 6.4 H 11/22/2023 08:53 BLOOD 10.4 H 04/30/2023 07:56 BLOOD 7.3 H 10/11/2022 08:46 BLOOD 6.6 H 05/22/2022 07:32 BLOOD 7.9 H = ASSESSMENT AND PLAN = Active problems - Computerized Problem List is the source for the followin. Exposure to potentially hazardous substance LEONIE Screening Snomed Code connected 05/23/23 2. Diabetes mellitus- good control, stay on metformin- i don;t think we need to add empagliflozin 3. 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 Thoracic aortic aneurysm without rupture being followed by Dr. Moore 5. Elevated PSA possible prostate cancer being followed by urology 6. Hypercholesterolemia 7. Benign essential hypertension- recommend d/c HCTZ as having issues with urination as well as dry mouth 8. Erectile dysfunction (SNOMED CT 699540407) 9. Bilateral hearing loss 10. Obesity (SNOMED CT 939416788) = HEALTH MAINTENANCE = Colonoscopy (due at age 43) - had one in january- dr. abernathy- no need for any further Abdominal Aortic Aneurysm Screening (due at age 63 if smoker/prev smoker) - Prostate screening - Tetanus: due every 10 years Pneumonia Vacccine: Flu Vaccine: due yearly Covid Vaccine: due yearly = FOLLOW UP = f/u in 6 mo VISIT TYPE:a MODERATE complexity visit where 30 minutes was spent in direct patient care, review of records and documentation. Upcoming Appointments: 12/01/2024 08:00 CWM/NO/OPTOMETRY/MERHAR Follow Up Colonoscopy: Colonoscopy is due based on information available to this reminder. Prior/outside Colonoscopy results: Date: January 25, 2024 Due to patient's age, risk level, and/or co-morbid conditions, discontinuation of asymptomatic colorectal cancer screening/surveillance is recommended. This recommendation has been discussed with the patient and/or guardian /nasrin/ SHALOM ABRAMS D.O. PHYSICIAN Signed: 03/31/2024 13:03 05/23/2024 ADDENDUM STATUS: COMPLETED Please request most recent office visit notes. [facility]-----[facility] [address] [phone] TAX ID #[id number] Thank you!! /elvin GARCIA NP NURSE PRACTITIONER Signed: 05/23/2024 11:27 Receipt Acknowledged By: * AWAITING SIGNATURE * ELEAZAR MAS 05/23/2024 ADDENDUM STATUS: COMPLETED Please request most recent Urology office visit notes. [facility]-----[address] [facility] [address] [phone] TAX ID #[id number] Thank you!! /elvin GARCIA NP NURSE PRACTITIONER Signed: 05/23/2024 11:28 Receipt Acknowledged By: 05/26/2024 09:53 /elvin NEGRETE 05/26/2024 ADDENDUM STATUS: COMPLETED PENELOPE SPOKE WITH THE UROLOGY OFFICE AT [facility] AND A RECENT URO FAX OF IS BEING SENT. /elvin MAS AMSDee Dee Signed: 05/26/2024 10:01 SHALOM ABRAMS [facility] Mar 31, 2024 09:33 AM PREVENTIVE MEDICINE NURSING NOTE: LOCAL TITLE: CLINICAL REMINDERS/NURSING STANDARD TITLE: PREVENTIVE MEDICINE NURSING NOTE DATE OF NOTE: MAR 31, 2024@09:33 ENTRY DATE: MAR 31, 2024@09:33:10 AUTHOR: TENZIN SERRANO EXP COSIGNER: URGENCY: STATUS: COMPLETED CLINICAL REMINDERS/NURSING Has ADDENDA Falls & Incontinence Screen: Falls Screen: During the past 12 months, did the patient report any falls? 4. No falls within the past year. Incontinence Screen: During the past 12 months, has the patient has any characteristics of incontinence (ability, voiding, leakage, etc.)? No incontinence. PAVE Foot Check: Patient declined limb care exam. Comment: refused, states he has no existing issues with his feet. The patient was advised the [place] mandates all patients with diabetes mellitus, end stage renal disease, peripheral vascular disease, or sensory neuropathy should have a complete foot check completed annually. This includes a visual exam of the skin, pedal pulses and a sensory exam. Patients with any abnormality noted during the foot check should be referred to a specialist. /nasrin/ TENZIN SERRANO LPN License Practical Nurse Signed: 03/31/2024 09:34 03/31/2024 ADDENDUM STATUS: COMPLETED Follow Up Colonoscopy: Colonoscopy is due based on information available to this reminder. A colonoscopy has been completed elsewhere and we are waiting for results. per colonoscopy done this past May [facility]. obtaining records. /nasrin/ TENZIN SERRANO LPN License Practical Nurse Signed: 03/31/2024 11:27 TENZIN SERRANO [facility]
== END 2024-11-04 08:57 | disposition home or self-care (01) ==
PROVIDERS: PCP Nurse Practitioner Family; Visit Provider Urology
DX: N40.1 Benign prostatic hyperplasia with lower urinary tract symptoms (principal); N13.8 Other obstructive and reflux uropathy; R35.1 Nocturia; N52.9 Male erectile dysfunction, unspecified
CPT/HCPCS: 99214

== ENCOUNTER → 2024-11-04 08:19 | Outpatient (BNVA) | payer OTHER, SELFPAY | PROVIDERS: PCP Nurse Practitioner Family; Visit Provider Urology | DX: N40.1 Benign prostatic hyperplasia with lower urinary tract symptoms (principal); N13.8 Other obstructive and reflux uropathy; R35.1 Nocturia; N52.9 Male erectile dysfunction, unspecified | CPT/HCPCS: 51798; 99212 ==

== ENCOUNTER 2024-12-07 13:19 | Outpatient (AMB) | payer OTHER, SELFPAY ==
[2024-12-07 13:30] VITALS: BP 120/74; PULSE 72; BMI 35.7
--- NOTE | 2024-12-07 13:30 | A.OFFVIS_ITS ---
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 He has been doing very well from cardiac perspective. Denies any exertional chest pain or shortness of breath. Says exercises regularly without any issues. Walks the golf course while playing golf. Denies any lightheadedness, syncope. Takes all his medications. Says blood pressure usually at home are very well controlled. Takes all his medications. [facility] Medical History Ectopic atrial rhythm HTN (hypertension) Medial meniscus tear Osteoarthritis Surgical History History of throat surgery History of hip surgery History of elbow surgery Family History Father No problems noted. Mother Cancer Review of Systems Const Denies chills, Denies fatigue, Denies fever(s), Denies frequent falls, Denies weakness, Denies weight gain and Denies weight loss ENT Denies dizziness Card Denies chest pain, Denies leg edema, Denies lightheadedness, Denies palpitations, Denies dyspnea, Denies dyspnea on exertion, Denies orthopnea and Denies other (loss of consciousness) Resp Denies cough, Denies dyspnea and Denies dyspnea on exertion GI Denies hematochezia and Denies change in stool character Musc Denies abnormal gait, Denies muscle weakness, Denies numbness, Denies radiating pain into limb and Denies tingling Neuro Denies abnormal gait, Denies dizziness, Denies frequent falls, Denies numbness, Denies tingling and Denies weakness Endo Denies fatigue and Denies palpitations Physical Exam Vital Signs: Last Vital Signs Pulse 72 12/07/24 13:30 BP 120/74 12/07/24 13:30 BMI result Body Mass Index 35.7 Const General: cooperative, comfortable, no acute distress and alert Nutritional Appearance: obese Orientation/consciousness: patient oriented x3 Limitations: no limitations Neck Neck: Yes trachea midline, Yes supple and Yes no JVD Chest Chest palpation & inspection: normal inspection of the chest Resp Effort & Inspection: normal respiratory effort Auscultation: clear to auscultation bilaterally Cardio Jugular venous distension: no JVD Palpation: normal PMI Rate: regular rate Rhythm: regular rhythm Heart sounds: S1 normal heart sound present, S2 normal heart sound present and Other heart sounds present (S4 present) GI Inspection: Yes obesity Auscultation: normal bowel sounds Neuro General: patient oriented x3 and no focal motor deficits Extrem General: Yes no clubbing, cyanosis or edema Psych Appearance: grossly normal Office Procedures EKG Details: EKG shows normal sinus rhythm with right bundle-branch block with small Q-waves in lead 3 and AVF most likely due to body habitus 87795-[id number], Complete Assessment & Plan Assessment & Plan (1) Ascending aortic aneurysm: Code(s): I71.2 - Thoracic aortic aneurysm, without rupture Category: Medical Plan: Ascending aortic aneurysm which was mild by prior exam. Echocardiogram has been suboptimal and therefore will suggest a chest CTA arteriogram to assess size. If it has remained stable continue pursue it on by annual cycle. Continue aggressive blood pressure control and importance of this was discussed advised to avoid sudden strenuous isometric exercise. Continue statin therapy with target goal LDL less than 100 mg/dL. (2) HTN (hypertension): Code(s): I10 - Essential (primary) hypertension Category: Medical Plan: Hypertension which is currently well optimized on current therapy with amlodipine as well as lisinopril and metoprolol therapy. Continue the same. Target goal blood pressure less than 130/84. Low-salt diet was discussed. Advised to continue to monitor blood pressure at home maintain a log. Goal blood pressure less than 130/84. Advised to call me with any new symptoms. Continue aggressive diabetes management with goal hemoglobin A1c less than 7%. (3) Right bundle branch block (RBBB) determined by electrocardiography: Code(s): I45.10 - Unspecified right bundle-branch block Category: Medical Plan: Right bundle-branch block on EKG which is stable. No interventions required per se for the same. Annual EKGs will be pursued. Will follow up in the clinic in 1 year's time, sooner p.r.n.. Thank you for allowing me to partake in his care Orders: Orders Basic Metabolic Panel Today I71.2 - Thoracic aortic aneurysm, without rupture CT angio chest aorta Today I71.2 - Thoracic aortic aneurysm, without rupture Coding Level of Care Code Est Pt Level 4 (79120) Complex EM visit Add On G2211 Diagnoses Ascending aortic aneurysm I71.2 HTN (hypertension) I10 Right bundle branch block (RBBB) determined by electrocardiography I45.10 CPT Codes EKG - CPT: 33998-Gvopwbvyetopjxhni, Complete ([id number])
--- OUTSIDE RECORDS SUMMARY | 2024-12-07 15:28 | XMS_ITS | Encounter Summary ---
Author Name [facility] [facility] Address [address] [place] [address] Care Team Providers Care Laborer Tanbark Name Role Phone SHALOM ABRAMS Primary Care [...] MEDICARE SUPPLEMEN SEN Jun 23, 2017 PLAN [id number] YOUSUF FIELDS PATIENT AARP MED SUPP MEDICARE SUPPLEMEN SEN Jun 23, 2017 PLAN [id number] YOUSUF FIELDS PATIENT AARP MED SUPP MEDICARE SUPPLEMEN SEN PLANM Y Jun 23, 2017 PLAN [id number] YOUSUF FIELDS PATIENT MEDICARE (WNR) MEDICARE (M) PART B Feb 22, 2016 PART B [id number] [phone] YOUSUF FIELDS PATIENT MEDICARE (WNR) MEDICARE (M) PART B Feb 22, 2016 PART B [id number] [phone] YOUSUF FIELDS PATIENT MEDICARE (WNR) MEDICARE (M) PART A Dec 22, 2013 PART A [id number] YOUSUF FIELDS PATIENT MEDICARE (WNR) MEDICARE (M) PART A Dec 22, 2013 PART A [id number] YOUSUF FIELDS PATIENT Selected Encounter This section includes the information on record at [place] for the Encounter. Date/Time Encounter Type Encounter Description Reason Pro vider Source Nov 23, 2024 03:28 PM Outpatient Encounter ADMIN PAT ACTIVTIES (MASNONCT) IHE Encounter Template Text not used by [place] Plan of Treatment: Future Appointments (+ 6 months) and Future Tests (+/- 45 days) The Plan of Treatment section includes future care activities for the patient from all [place] treatment[facility]. This section includes future appointments and future orders which are active, pending or scheduled. Future Appointments This section includes appointments that were scheduled to occur 6 months from the date of the Encounter, up to a maximum of 20 appointments. The data comes from all [place] treatment facilities. Appointment Date/Time Appointment Type Appointme nt Facility Name Nov 24, 2024 11:00 AM AMBULATORY - MEDICINE [facility] Apr 08, 2025 08:30 AM AMBULATORY MEDICINE [facility] Social History: Smoking Status (Most current) [...] Date/Time Current Smoking Status Comment Facil ity Oct 02, 2024 08:00 AM [place]-TOBACCO NEVER U SED CIGARETTES [facility] Tobacco Use History This section includes a history of the smoking, or tobacco-related health factors, that were collected on or before the date of the Encounter. The data comes from the [place] facility where the Encounter took place. Date/Time Smoking Status/Tobacco Use Comment F acility Oct 02, 2024 08:00 AM [place]-TOBACCO NEVER U SED OTHER [facility] May 23, 2023 03:00 PM VA-TOBACCO NEVER USED [facility] Jun 14, 2022 09:00 AM VA-TOBACCO FORMER USER [facility] Jun 14, 2022 09:00 AM VA-TOBACCO QUIT 15 YRS OR MORE [facility] Jun 01, 2021 08:00 AM VA-TOBACCO NEVER USED [facility] Jun 28, 2020 10:00 AM VA-TOBACCO NEVER USED [facility] May 21, 2019 02:59 PM VA-TOBACCO NEVER USED [facility] Mar 31, 2018 03:24 PM LIFETIME NON-TOBACCO USER [facility] Apr 19, 2017 08:30 AM LIFETIME NON-TOBACCO USER [facility] Apr 19, 2016 10:17 AM LIFETIME NON-TOBACCO USER . [facility] February 12, 2013 02:40 PM LIFETIME NON-TOBACCO USER [facility] Encounter Notes: All associated encounter notes This section contains the clinical notes associated to the Encounter. Date/Time Encounter Note(s) Provider Source Nov 24, 2024 12:56 PM ADDENDUM: LOCAL TITLE: Addendum STANDARD TITLE: ADDENDUM DATE OF NOTE: NOV 24, 2024@12:56:08 ENTRY DATE: NOV 24, 2024@12:56:09 AUTHOR: JOSE BRANCH EXP COSIGNER: URGENCY: STATUS: COMPLETED I attempted to contact the . He has been following with Dr. Moore for years via his [employer] insurance. We can offer Cardiology within drive and wait time at [facility]. I LVM requesting call back. /nasrin/ JOSE BRANCH RN Referral Coordination Initiative Nurse Signed: 11/24/2024 12:57 Receipt Acknowledged By: 11/24/2024 13:56 /nasrin/ JOEY SAMSON Registered Nurse --- Original Document --- 11/23/24 CCC: SCHEDULING ADMINISTRATION: Patient Demographics Patient Name: LIMA FIELDS Patient Primary Phone: [phone] Patient Primary [address]: [address] [place] [id number] Patient : 1950 Patient Age: 73 Caller/Recipient Relation to Patient: Self Caller Name: LIMA FIELDS Administrative Administrative Note Reason: Other Administrative Note Comments: REQUESTING A REFERRAL TO BE SEEN IN CARDIOLOGY. DR. HUNTLEY [facility] REQUESTED FOR HIM TO BE SEEN IN CARDIOLOGY. HAS UPCOMING APPT WITH HIM DECEMBER 07. WOULD LIKE TO HAVE THIS REFERRAL IN PLACE. NO SYMPTOMS. IMPORTANT: This note was created by [facility] Contact Center staff. Please do not alert the staff member by adding them as a signer for future communications. Alerts are not monitored by this user. /nasrin/ SUKHDEV NARVAEZ [facility] Signed: 11/23/2024 15:28 Receipt Acknowledged By: 11/24/2024 11:55 /es/ TENZIN SERRANO LPN License Practical Nurse 11/24/2024 10:47 /es/ JOEY SAMSON Registered Nurse 11/24/2024 ADDENDUM STATUS: COMPLETED Consult generated, held for PCP sig. /nasrin/ JOEY SAMSON Registered Nurse Signed: 11/24/2024 10:47 JOSE BRANCH [place] [facility] Nov 23, 2024 03:28 PM ADMINISTRATIVE NOT E: LOCAL TITLE: CCC: SCHEDULING ADMINISTRATION STANDARD TITLE: ADMINISTRATIVE NOTE DATE OF NOTE: NOV 23, 2024@15:28:16 ENTRY DATE: NOV 23, 2024@15:28:16 AUTHOR: SUKHDEV SOSA EXP COSIGNER: URGENCY: STATUS: COMPLETED CCC: SCHEDULING ADMINISTRATION Has ADDENDA Patient Demographics Patient Name: LIMA FIELDS Patient Primary Phone: [phone] Patient Primary [address]: [address] [place] [address] Patient : 1950 Patient Age: 73 Caller/Recipient Relation to Patient: Self Caller Name: LIMA FIELDS Administrative Administrative Note Reason: Other Administrative Note Comments: REQUESTING A REFERRAL TO BE SEEN IN CARDIOLOGY. DR. HUNTLEY [facility] REQUESTED FOR HIM TO BE SEEN IN CARDIOLOGY. HAS UPCOMING APPT WITH HIM DECEMBER 07. WOULD LIKE TO HAVE THIS REFERRAL IN PLACE. NO SYMPTOMS. IMPORTANT: This note was created by [facility] Contact [facility] staff. Please do not alert the staff member by adding them as a signer for future communications. Alerts are not monitored by this user. /es/ SUKHDEV SOSA VISN [facility] Signed: 11/23/2024 15:28 Receipt Acknowledged By: 11/24/2024 11:55 /es/ TENZIN SERRANO LPN License Practical Nurse 11/24/2024 10:47 /es/ JOEY SAMSON Registered Nurse 11/24/2024 ADDENDUM STATUS: COMPLETED Consult generated, held for PCP sig. /nasrin/ JOEY SAMSON Registered Nurse Signed: 11/24/2024 10:47 11/24/2024 ADDENDUM STATUS: COMPLETED I attempted to contact the . He has been following with Dr. Moore for years via his provate insurance. We can offer Cardiology within drive and wait time at [facility]. I LVM requesting call back. /nasrin/ JOSE BRANCH RN Referral Coordination Initiative Nurse Signed: 11/24/2024 12:57 Receipt Acknowledged By: * AWAITING SIGNATURE * JOEY SAMSONSUKHDEV [place] [facility]
--- OUTSIDE RECORDS SUMMARY | 2024-12-07 15:28 | XMS_ITS | Encounter Summary ---
Author Name [place] Address [address] [place] [address] Care Team Providers Care Agricultural Economics Professor Name Role Phone SHALOM ABRAMS Primary Care [...] MEDICARE SUPPLEMEN SEN Jun 23, 2017 PLAN [id number] YOUSUF FIELDS PATIENT AARP MED SUPP MEDICARE SUPPLEMEN SEN Jun 23, 2017 PLAN [id number] [phone] YOUSUF FIELDS PATIENT AARP MED SUPP MEDICARE SUPPLEMEN SEN PLANM Y Jun 23, 2017 PLAN [id number] YOUSUF FIELDS PATIENT MEDICARE (WNR) MEDICARE (M) PART B Feb 22, 2016 PART B [id number] YOUSUF FIELDS PATIENT MEDICARE (WNR) MEDICARE (M) PART B Feb 22, 2016 PART B [id number] YOUSUF FIELDS PATIENT MEDICARE (WNR) MEDICARE (M) PART A Dec 22, 2013 PART A [id number] YOUSUF FIELDS PATIENT MEDICARE (WNR) MEDICARE (M) PART A Dec 22, 2013 PART A [id number] [phone] YOUSUF FIELDS PATIENT Selected Encounter This section includes the information on record at [place] for the Encounter. Date/Time Encounter Type Encounter Description Reason Provider Source Dec 18, 2023 01:30 PM MTMS BY PHARM JAZLYN 15 MIN CLINICAL PHARMACY ICD-10-CM E11.9 Type 2 diabetes mellitus without complications MARK ANTHONY DALAL Patricio Encounter Template Text not used by [place] Assessments - Encounter Diagnoses This section includes the primary and secondary diagnoses documented for the Encounter. Date/Time Primary/Secondary Diagnosis Diagnosis Name Provider Source Dec 19, 2023 08:07 AM PRIMARY Type 2 diabetes mellitus without complications MARK ANTHONY DALAL [facility] Plan of Treatment: Future Appointments (+ 6 months) and Future Tests (+/- 45 days) The Plan of Treatment section includes future care activities for the patient from all [place] treatmentfacilities. This section includes future appointments and future orders which are active, pending or scheduled. Future Appointments This section includes appointments that were scheduled to occur 6 months from the date of the Encounter, up to a maximum of 20 appointments. The data comes from all [place] treatment facilities. Appointment Date/Time Appointment Type Appointme nt Facility Name Jan 01, 2024 03:00 PM AMBULATORY - MEDICINE [facility] Mar 31, 2024 08:30 AM AMBULATORY MEDICINE [facility] [place] [facility] Mar 31, 2024 09:30 AM AMBULATORY [facility]ICINE [facility] [place] [facility] May 28, 2024 09:00 AM AMBULATORY MEDICINE [facility] Lab Results: +/- 30 days of the encounter This section includes the Chemistry and Hematology Lab Results on record with [place] for the patient. Radiology Reports and Pathology Reports are provided separately, in subsequent sections. Lab Results This section contains the Chemistry/Hematology Results that were resulted 30 days before or 30 daysafter the date of the Encounter. Date/Time Source Result Type Result - Unit Interpretation Reference Range Comment Nov 22, 2023 08:53 AM [facility] LIPID PANEL FASTING Specimen Type: SERUM No comment entered. Ordering Provider: TIFFANY MADISON Report Released Date/Time: Nov 08, 2023 11:20 AM Reporting Lab: [facility] [address] [phone] Performing Lab: [facility] [address] [id number] CHOLESTEROL 150 mg/dL TRIGLYCERIDE 64 mg/dL 0-150 LDL calculated 92 mg/dL 0-129 CHOL/HDL 3.3 HDL CHOLESTEROL 45 mg/dL 40-60 Nov 22, 2023 08:53 AM [facility] Reporting Lab: [facility] [address] [address] Performing Lab: [address] [address] HEMOGLOBIN A1C 10.4 H 4.0-5.6 Nov 22, 2023 08:53 AM [facility] LIVER FUNCTION Specimen Type: SERUM No comment entered. Ordering Provider: TIFFANY MADISON Report Released Date/Time: Nov 08, 2023 11:20 AM Reporting Lab: [facility] [address] [address] Performing Lab: [address] [address] PROTEIN,TOTAL 7.1 g/dL 6.0-8.3 ALBUMIN 4.2 g/dL 3.5-5.0 ALKALINE PHOSPHATASE 86 U/L 40-150 AST 15 U/L 5-34 ALT 24 U/L BILIRUBIN, TOTAL 0.6 mg/dL 0.2-1.2 Nov 22, 2023 08:53 AM [facility] BASIC METABOLIC PANEL (fasting) Specimen Type: SERUM No comment entered. Ordering Provider: TIFFANY MADISON Report Released Date/Time: Nov 08, 2023 11:20 AM Reporting Lab: [address] [address] Performing Lab: [address] [address] UREA NITROGEN 15 mg/dL 7-25 GLUCOSE 317 [...] Nov 08, 2023 11:20 AM Reporting Lab: [address] [address] Performing Lab: [address] [address] HIV 1&2 Ag/Ab SCREEN NON-REACTIVE Nonreactive Social History: Smoking Status (Most current) and Tobacco Use (All prior to encounter date) This section includes the most current, and the historical, smoking and tobacco- related health factors from the [place] facility where the Encounter took place. Current Smoking Status This section includes the most current smoking, or tobacco-related health factor, from the [place] facility where the Encounter took place. Date/Time Current Smoking Status Comment Facil itgucci May 23, 2023 03:00 PM VA-TOBACCO NEVER USED [facility] Tobacco Use History This section includes a history of the smoking, or tobacco-related health factors, that were collected on or before the date of the Encounter. The data comes from the [place] facility where the Encounter took place. Date/Time Smoking Status/Tobacco Use Comment F acility Jun 14, 2022 09:00 AM VA-TOBACCO FORMER USER [facility] [place] [place] [facility] Jun 14, 2022 09:00 AM VA-TOBACCO QUIT 15 YRS OR MORE [facility] [place] [place] [facility] Jun 01, 2021 08:00 AM VA-TOBACCO NEVER USED [place] [facility] [place] [facility] Jun 28, 2020 10:00 AM VA-TOBACCO NEVER USED [facility] [place] [facility] May 21, 2019 02:59 PM VA-TOBACCO NEVER USED [place] [facility] [place] [facility] Mar 31, 2018 03:24 PM LIFETIME NON-TOBACCO USER [facility] [place] [place] [facility] Apr 19, 2017 08:30 AM LIFETIME NON-TOBACCO USER [place] [facility] [place] [facility] Apr 19, 2016 10:17 AM LIFETIME NON-TOBACCO USER . [facility] [place] [facility] February 12, 2013 02:40 PM LIFETIME NON-TOBACCO USER [place] [facility] [place] [facility] Encounter Notes: All associated encounter notes This [...] FIELDS, 72 yo WHITE MALE, presents for sqiw-sn-qchu initial visit diabetes management. Today, pt reports prior to his A1c drawn earlier this month he was eating cakes, pies, and ice cream daily, sometimes more than once/ day. He notes he was also going to meeting that had cookies. He notes he had prediabetes for awhile, then diabetes. 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 The [place] was provided the opportunity express questions or concerns, and the plan was adjusted as needed to address these concerns. -Reviewed with [place] any new medications, changes to the medication [...] or renew medication /nasrin/ MARK ANTHONY DALAL PHARMD,[facility] PRACTITIONER Signed: 12/19/2023 08:21 MARK ANTHONY DALAL [place] [facility] [facility] Dec 18, 2023 01:09 PM PHARMACY CONSULT: LOCAL TITLE: CONSULT REPORT/PHARMACY STANDARD TITLE: PHARMACY CONSULT DATE OF NOTE: DEC 18, 2023@13:09 ENTRY DATE: DEC 18, 2023@13:09:43 AUTHOR: MARK ANTHONY DALAL EXP COSIGNER: URGENCY: STATUS: COMPLETED CONSULT REPORT/PHARMACY Has ADDENDA LIMA FIELDS, 72 yo WHITE MALE, presents for vuum-lq-vzjy initial visit diabetes management. Today, pt reports prior to his A1c drawn earlier this month he was eating cakes, pies, and ice cream daily, sometimes more than once/ day. He notes he was also going to meeting that had cookies. He notes he had prediabetes for awhile, then diabetes. 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 The [place] was provided the opportunity express questions or [...] AWAITING SIGNATURE * ELEAZAR MAS JODI A [facility]
--- OUTSIDE RECORDS SUMMARY | 2024-12-07 15:28 | XMS_ITS | Encounter Summary ---
Author Name [facility] [place] Address [address] [place] [address] Care Team Providers Care Helicopter Pilot Instructor Name Role Phone SHALOM ABRAMS Primary Care [...] MEDICARE SUPPLEMEN SEN Jun 23, 2017 PLAN [id number] YOUSUF VILLAGRAN PATIENT AARP MED SUPP MEDICARE SUPPLEMEN SEN Jun 23, 2017 PLAN [id number] YOUSUF VILLAGRAN PATIENT AARP MED SUPP MEDICARE SUPPLEMEN SEN PLANM Y Jun 23, 2017 PLAN [id number] YOUSUF VILLAGRAN PATIENT MEDICARE (WNR) MEDICARE (M) PART B Feb 22, 2016 PART B [id number] YOUSUF VILLAGRAN PATIENT MEDICARE (WNR) MEDICARE (M) PART B Feb 22, 2016 PART B [id number] YOUSUF VILLAGRAN PATIENT MEDICARE (WNR) MEDICARE (M) PART A Dec 22, 2013 PART A [id number] YOUSUF VILLAGRAN PATIENT MEDICARE (WNR) MEDICARE (M) PART A Dec 22, 2013 PART A [id number] [phone] YOUSUF VILLAGRAN PATIENT Selected Encounter This section includes the [place] for the Encounter. Date/Time Encounter Type Encounter Description Reason Provider Source Jan 01, 2024 03:00 PM CONT [facility] ANALYSIS [facility] CLINICAL PHARMACY ICD-10-CM E11.9 Type 2 diabetes mellitus without complications MARK ANTHONY DALAL E Encounter Template Text not used by [place] Assessments - Encounter Diagnoses This section includes the primary and secondary diagnoses documented for the Encounter. Date/Time Primary/Secondary Diagnosis Diagnosis Name Provider Source Jan 01, 2024 04:00 PM PRIMARY Type 2 diabetes mellitus without complications [facility] Plan of Treatment: Future Appointments (+ 6 months) and Future Tests (+/- 45 days) The Plan of Treatment section includes future care activities for the patient from all [place] treatmentfacilities. This section includes future appointments and future orders which are active, pending or scheduled. Future Appointments This section includes appointments that were scheduled to occur 6 months from the date of the Encounter, up to a maximum of 20 appointments. The data comes from all [place] treatment facilities. Appointment Date/Time Appointment Type Appointme nt Facility Name Mar 31, 2024 08:30 AM AMBULATORY - MEDICINE [facility] Mar 31, 2024 09:30 AM [facility]ULAT[facility] - [facility] May 28, 2024 09:00 AM [facility]ULAT[facility] - [facility] [place] [facility] Social History: Smoking Status (Most current) and Tobacco Use (All prior to encounter date) This section includes the most current, and the historical, smoking and tobacco- related health factors from the [place] facility where the Encounter took place. Current Smoking Status This section includes the most current smoking, or tobacco-related health factor, from the [place] facility where the Encounter took place. Date/Time Current Smoking Status Comment Steven slaughter May 23, 2023 03:00 PM [facility]TOBACCO [facility] USED [facility] [place] [facility] Tobacco Use History This section includes a history of the smoking, or tobacco-related health factors, that were collected on or before the date of the Encounter. The data comes from the [place] facility where the Encounter took place. Date/Time Smoking Status/Tobacco Use Comment F acility Jun 14, 2022 09:00 AM VA-TOBACCO FORMER USER [place] [facility] Jun 14, 2022 09:00 AM VA-TOBACCO QUIT 15 YRS OR MORE [place] [facility] Jun 01, 2021 08:00 AM VA-TOBACCO NEVER USED [place] [facility] Jun 28, 2020 10:00 AM VA-TOBACCO NEVER USED [place] [facility] May 21, 2019 02:59 PM VA-TOBACCO NEVER USED [place] [facility] Mar 31, 2018 03:24 PM LIFETIME NON-TOBACCO USER [place] [facility] Apr 19, 2017 08:30 AM LIF[place] NON[place]TOBACCO USER [place] [facility] Apr 19, 2016 10:17 AM LIFETIME NON-TOBACCO USER . [place] [facility] February 12, 2013 02:40 PM LIFETIME NON[place]TOBACCO USER [place] [facility] Encounter Notes: All associated encounter notes [...] VILLAGRAN, 73 yo WHITE MALE, presents for rvzs-ia-ttqq follow up visit diabetes management. 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 The [place] was provided the opportunity express questions or concerns, and the plan was adjusted as needed to address these concerns. -Reviewed with [place] any new medications, changes to the medication [...] PHARMD, BCPS CLINICAL PHARMACIST PRACTITIONER KANDICE BURGESS [place] [facility] Jan 01, 2024 04:00 PM ADDENDUM: LOCAL [...] VILLAGRAN, 73 yo WHITE MALE, presents for hrpl-ju-hnbu follow up visit diabetes management. 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 The was [...] PRACTITIONER Signed: 01/01/2024 16:00 MARK ANTHONY DALAL [place] [facility] Jan 01, 2024 02:45 PM PHARMACY OUTPATIENT NOTE: LOCAL TITLE: PHARMACY CLINIC NOTE STANDARD TITLE: PHARMACY OUTPATIENT NOTE DATE OF NOTE: JAN 01, 2024@14:45 ENTRY DATE: JAN 01, 2024@14:45:36 AUTHOR: MARK ANTHONY DALAL EXP COSIGNER: URGENCY: STATUS: COMPLETED PHARMACY CLINIC NOTE Has ADDENDA LIMA VILLAGRAN, 73 yo WHITE MALE, presents for vcmm-dt-fmqr follow up visit diabetes management. 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 -Reviewed with [place] any new medications, changes to the medication [...] AMSA Signed: 01/03/2024 10:25 MARK ANTHONY DALAL [facility]
--- OUTSIDE RECORDS SUMMARY | 2024-12-07 15:28 | XMS_ITS ---
Author Name [place] Address [address] [place] [address] Care Team Providers Care Account Technician Name Role Phone SHALOM ABRAMS Primary Care [...] MEDICARE SUPPLEMEN SEN Jun 23, 2017 PLAN [id number] YOUSUF VILLAGRAN PATIENT AARP MED SUPP MEDICARE SUPPLEMEN SEN Jun 23, 2017 PLAN [id number] YOUSUF VILLAGRAN PATIENT AARP MED SUPP MEDICARE SUPPLEMEN SEN PLANM Y Jun 23, 2017 PLAN [id number] YOUSUF VILLAGRAN PATIENT MEDICARE (WNR) MEDICARE (M) PART B Feb 22, 2016 PART B [id number] [phone] YOUSUF VILLAGRAN PATIENT MEDICARE (WNR) MEDICARE (M) PART B Feb 22, 2016 PART B [id number] [phone] YOUSUF VILLAGRAN PATIENT MEDICARE (WNR) MEDICARE (M) PART A Dec 22, 2013 PART A [id number] YOUSUF VILLAGRAN PATIENT MEDICARE (WNR) MEDICARE (M) PART A Dec 22, 2013 PART A [id number] YOUSUF VILLAGRAN PATIENT Selected Encounter This section includes the information on record at [place] for the Encounter. Date/Time Encounter Type Encounter Description Reason Provider Source Nov 18, 2024 01:00 PM MTMS BY PHARM EST 15 MIN TELEPHONE PRIMARY CARE ICD-10-CM E11.9 Type 2 diabetes mellitus without complications KANDICE BURGESS Patricio Encounter Template Text not used by [place] Assessments - Encounter Diagnoses This section includes the primary and secondary diagnoses documented for the Encounter. Date/Time Primary/Secondary Diagnosis Diagnosis Name Provider Source Nov 18, 2024 01:00 PM PRIMARY Type 2 diabetes mellitus without complications KANDICE BURGESS [facility] Plan of Treatment: Future Appointments (+ 6 [...] 24, 2024 11:00 AM AMBULATORY - MEDICINE [facility] Apr 08, 2025 08:30 AM AMBULATORY MEDICINE [facility] Social History: Smoking Status (Most current) [...] 08:00 AM VA-TOBACCO NEVER U SED CIGARETTES [facility] Tobacco Use History This section includes a history of the smoking, or tobacco-related health factors, that were collected on or before the date of the Encounter. The data comes from the [place] facility where the Encounter took place. Date/Time Smoking Status/Tobacco Use Comment F acility Oct 02, 2024 08:00 AM VA-TOBACCO NEVER U SED OTHER TYPE [facility] [place] [place] [facility] May 23, 2023 03:00 PM VA-TOBACCO NEVER USED [place] [facility] [place] [facility] Jun 14, 2022 09:00 AM VA-TOBACCO FORMER USER [facility] [place] [facility] Jun 14, 2022 09:00 AM VA-TOBACCO QUIT 15 YRS OR MORE [facility] [place] [place] [facility] Jun 01, 2021 08:00 AM VA-TOBACCO NEVER USED [facility] [place] [facility] Jun 28, 2020 10:00 AM VA-TOBACCO NEVER USED [facility] [place] [facility] May 21, 2019 02:59 PM VA-TOBACCO NEVER USED [facility] [place] [facility] Mar 31, 2018 03:24 PM LIFETIME NON-TOBACCO USER [facility] [place] [facility] Apr 19, 2017 08:30 AM LIFETIME NON-TOBACCO USER [facility] [place] [facility] Apr 19, 2016 10:17 AM LIFETIME NON-TOBACCO USER . [facility] [place] [facility] February 12, 2013 02:40 PM LIFETIME NON-TOBACCO USER [facility] [place] [facility] Encounter Notes: All associated encounter notes This section contains the clinical notes associated to the Encounter. Date/Time Encounter Note(s) Provider Source Nov 18, 2024 01:15 PM PHARMACY TELEPHONE ENCOUNTER NOTE: LOCAL TITLE: TELEPHONE NOTE/PHARMACY STANDARD TITLE: PHARMACY TELEPHONE ENCOUNTER NOTE DATE OF NOTE: NOV 18, 2024@13:15 ENTRY DATE: NOV 18, 2024@13:15:24 AUTHOR: KANDICE BURGESS COSIGNER: URGENCY: STATUS: COMPLETED LIM[place] VILLAGRAN, 73 yo WHITE MALE, presents for telephone follow-up for diabetes management. NOV 18, 2024 Known Allergies: Patient has answered NKA Subjective: Pt presents to clinic for T2DM follow-up. At time of last visit, empagliflozin was continued. Today pt reports he is doing well. Pt offers no complaints. Denies dysuria, polyuria, jock itch, dizziness or dehydration symptoms for empagliflozin. Continues to be physically active playing golf. Reports he had a discussion with urology and was advised to never increase dose to 25 mg/day . 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 Pt congratulated on efforts. Note pt is now at goal on one medication. Will discharge from CPP clinic at this time. May make referral; in future. CARDIOVASCULAR: For patients 60 years and over with Diabetes, recommend a goal of <140/90, with added benefit of reducing SBP closer to 130. Current BP is 134/74 ASCVD: On rosuvastatin; LDL reduced from previous. History of Preventive Care: Most recent visit to internet site designer: denies issues; usually gets checked at pcp appointment Most recent visit to fertilizer loader/opthalmologist: 11/27/23 Type II diabetes without retinopathy or [...] the development of this plan, involving the [place], clinician, and any caregivers present. The [place] was provided the opportunity express questions or concerns, and the plan was adjusted as needed to address these concerns. -Reviewed with any new medications, changes to the medication list, education, and plan from today's visit. Patient (and/or caregiver) verbalized understanding of the plan, including possible known risks and benefits, and had no additional questions. RTC: N/A; discharged from [facility] clinic Time Spent: 15 minutes PBM PharmD Pharmacotherapy Rem V12: PHARMACIST INTERVENTIONS: TYPE 2 DIABETES MELLITUS Medication monitoring, no dosage change required, continue to monitor and assess Medication reconciliation (changes to active VA and non-VA medication lists to reconcile differences) No changes to medication lists made (medication review completed, no discrepancies identified) Refer or transition back to provider from Clinical Pharmacist Practitioner clinic Suicide Screen: C-SSRS Screening [place]-Suicide Severity Rating Scale (C-SSRS Screener) 1. Over the past month, have you [...] required due to responses to other questions. /nasrin/ KANDICE BURGESS PHARMD, BCPS CLINICAL PHARMACIST PRACTITIONER Signed: 11/18/2024 13:49 Receipt Acknowledged By: 11/19/2024 10:35 /es/ SHALOM ABRAMS D.O. PHYSICIAN KANDICE BURGESS [facility]
--- OUTSIDE RECORDS SUMMARY | 2024-12-07 15:28 | XMS_ITS | Continuity of Care Document ---
Author Name [facility] Organization [facility]-ID Care Team Providers Care Habitat Biologist Name Role Phone [facility] Unavailable Unavailable Problems Combined list of problems [...] Benign Prostatic Hyperplasia with Outflow Obstruction (SCT [id number]) Active Condition Oct 02, 2024 Entered By: SHALOM ABRAMS Comment: sees urology- Dr. 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, HPV related [facility] Hypercholesterolemia Active Condition [facility] Obesity (SNOMED CT [id number]) Active Condition [facility] [...] [facility] Diagnosis: ICD-10-CM C09.9 Malignant neoplasm of tonsil, unspecified Active Diagnosis [facility] [...] WITH GRAPEFRU IT JUICE ORAL ACTIVE 07/30/2025 [id number] Aleshia ABRAMS SHANE 2023 90 [facility] AMLODIPINE BESYLATE 10MG TAB TAKE ONE TABLET BY MOUTH EVERY DAY FOR BLOOD PRESSURE /HEART, DO NOT TAKE WITH GRAPEFRU IT JUICE ORAL DISCONT INUED 08/05/2024 [id number] 4 LAUREN MADISON 2022 90 [facility] EMPAGLIFLOZ IN 10MG TAB TAKE ONE TABLET BY MOUTH ONCE DAILY ORAL ACTIVE 10/08/2025 [id number] FORTINO BURGESS 2024 90 [facility] EMPAGLIFLOZ IN 10MG TAB TAKE ONE TABLET BY MOUTH ONCE DAILY ORAL DISCONT INUED BY PROVIDE R 08/13/2025 [id number] FORTINO BURGESS 2023 90 [facility] EMPAGLIFLOZ IN 10MG TAB TAKE ONE TABLET BY MOUTH ONCE DAILY ORAL DISCONT INUED 04/01/2025 [id number] FORTINO BURGESS 2023 90 [facility] FINASTERIDE 5MG TAB TAKE ONE TABLET BY MOUTH EVERY OTHER DAY FOR PROSTATE ORAL ACTIVE 10/03/2025 [id number] FURCOLO,T SHANE 2024 45 [facility] FINASTERIDE 5MG TAB TAKE ONE TABLET BY MOUTH EVERY DAY FOR PROSTATE ORAL DISCONT INUED (EDIT) 07/30/2025 [id number] FURFAY,T SHANE 2023 90 [facility] FINASTERIDE 5MG TAB TAKE ONE TABLET BY MOUTH EVERY DAY FOR PROSTATE ORAL DISCONT INUED 08/05/2024 [id number] LAUREN MADISON JAWED 2022 90 [facility] FLUTICASONE PROPIONATE 50MCG/SPRAY SOLN,NASAL, 16GM INSTILL 1 SPRAY INTO EACH NOSTRIL ONCE DAILY NEEDED NASAL ACTIVE JENELLE DALAL 2023 [facility] HYDROCHLORO THIAZIDE 25MG TAB TAKE ONE-HALF TABLET BY MOUTH EVERY DAY TO PREVENT FLUID/CO NTROL BLOOD PRESSURE ORAL DISCONT INUED BY PROVIDE R 08/05/2024 [id number] LAUREN MADISON AMMED JAWED 2022 45 [facility] IPRATROPIUM BR 0.03% SOLN,SPRAY, NASAL INSTILL 2 SPRAYS INTO EACH NOSTRIL 1-3 TIMES/DA RONDA FOR NASAL IRRITATI ON/CONGE STION NASAL ACTIVE 11/25/2025 [id number] KARLI SINCLAIR R 2024 90 [facility] LISINOPRIL 20MG TAB TAKE ONE TABLET BY MOUTH EVERY DAY TO CONTROL BLOOD PRESSURE ORAL ACTIVE 07/30/2025 [id number] FURCOLO,T SHANE 2023 90 [facility] LISINOPRIL 20MG TAB TAKE ONE TABLET BY MOUTH EVERY DAY TO CONTROL BLOOD PRESSURE ORAL DISCONT INUED 08/05/2024 [id number] [facility] AMMED JAWED 2022 90 [facility] METFORMIN HCL 500MG 24HR TAB,SA TAKE ONE TABLET BY MOUTH ONCE DAILY FOR TYPE 2 DIABETES MELLITUS ORAL DISCONT INUED BY PROVIDE R 12/19/2024 [id number] JENELLE DALAL 2023 90 [facility] METFORMIN HCL 500MG 24HR TAB,SA TAKE TWO TABLETS BY MOUTH ONCE DAILY ORAL DISCONT INUED (EDIT) 11/27/2024 [id number] 4 [facility] AMMED JAWED 2023 180 [facility] METOPROLOL SUCCINATE 50MG TAB,SA TAKE ONE TABLET BY MOUTH ONCE DAILY FOR BLOOD PRESSURE /HEART ORAL ACTIVE 10/03/2025 [id number] FURCOLO,T SHANE 2024 90 [facility] METOPROLOL SUCCINATE 50MG TAB,SA TAKE ONE TABLET BY MOUTH EVERY DAY FOR BLOOD PRESSURE /HEART ORAL DISCONT INUED (EDIT) 07/30/2025 [id number] FURCOLO,T SHANE 2023 90 [facility] METOPROLOL SUCCINATE 50MG TAB,SA TAKE ONE TABLET BY MOUTH EVERY DAY FOR BLOOD PRESSURE /HEART ORAL DISCONT INUED 08/05/2024 [id number] 4 [facility] AMMED JAWED 2022 90 [facility] PEG-3350/EL ECTROLYTES PWDR W/FLAVOR PKT TAKE 1 BOTTLE BY MOUTH ONE TIME ACCORDIN G TO INSTRUCT IONS FROM PRESCRIB ER - DISSOLVE CONTENTS BEFORE DRINKING ORAL 02/02/2024 [id number] LAUREN MADISON JAWED 2023 1 [facility] ROSUVASTATI N CA 20MG TAB TAKE ONE TABLET BY MOUTH ONCE DAILY FOR CHOLESTE ROL ORAL ACTIVE 07/30/2025 [id number] 5 FURCOLO,T SHANE 2023 90 [facility] ROSUVASTATI N CA 20MG TAB TAKE ONE TABLET BY MOUTH ONCE DAILY FOR CHOLESTE ROL ORAL DISCONT INUED 08/05/2024 [id number] LAUREN MADISON JAWED 2022 90 [facility] Immunizations Combined list of available immunizations from the Department of Defense and Veterans Affairs facilities. Immunization Series Date Given Administered By Site Reaction Lot Number CVX Code Drug Minibus Driver Status Comments Source ZOSTER RECOMBINANT 2 2022 VERONICA ALAS RIGHT DELTO ID [id number] 187 complet ed [facility] PNEUMOCOCCAL CONJUGATE PCV20, POLYSACCHARID E [id number] CONJUGATE, ADJUVANT, PF 2021 216 complet ed [facility] ZOSTER RECOMBINANT 1 2021 187 complet ed [facility] [place] [facility] INFLUENZA VACCINE, QUADRIVALENT, ADJUVANTED 2021 205 complet ed [facility] COVID-19 (MODERNA), MRNA, LNP-S, PF, 100 MCG OR 50 MCG DOSE 3 2021 207 complet ed MOD; [id number]; 2 [facility] INFLUENZA, INJECTABLE, QUADRIVALENT, PRESERVATIVE FREE 2020 150 complet ed [facility] COVID-19 (PFIZER), MRNA, LNP-S, PF, 30 MCG/0.3 ML DOSE 2 2020 208 complet ed PFR; [id number]; 1 [facility] COVID-19 (PFIZER), MRNA, LNP-S, PF, 30 MCG/0.3 ML DOSE 1 2020 208 complet ed PFR; [id number]; 1 [facility] INFLUENZA, HIGH-DOSE, QUADRIVALENT 2019 197 complet ed [facility] [place] TD(ADULT) UNSPECIFIED FORMULATION 2019 139 complet ed Site: Left Deltoid [facility] [place] [facility] [facility] INFLUENZA, INJECTABLE, QUADRIVALENT, PRESERVATIVE FREE 2018 150 complet ed Site: Left Deltoid [facility] [place] [facility] PNEUMOCOCCAL POLYSACCHARID E PPV23 2016 33 complet ed [facility] [place] [facility] FLU,3 YRS (HISTORICAL) 2015 88 complet ed had at outside clinic [facility] [place] [facility] PNEUMOCOCCAL CONJUGATE PCV 13 2014 133 complet ed [facility] FLU,3 YRS (HISTORICAL) 2012 88 complet ed [facility] ZOSTER LIVE 2012 121 complet ed [facility] FLU,3 YRS (HISTORICAL) 2011 88 complet ed [facility] DTAP, UNSPECIFIED FORMULATION 2010 107 complet ed [facility] [place] [facility] Results Combined list of recent chemistry, hematology [...] be between 8.73 and 9.27. Ref: [email or web address] Ordering Provider: LISA ABRAMS Report Released Date/Time: Mar 31, 2024 10:10 AM Reporting Lab: [facility] [place] [facility] [address] [facility] [address] Performing Lab: [facility] [place] [facility] [address] [facility] [address] [facility] [facility] MICROALBU MIN CREATININ E RATIO PANEL MICROALBUMI N/CREATININ E [MASS RATIO] IN URINE 18.2 mg/g 0 - 29.9 09/25 Specimen Type: URINE No comment entered. Ordering Provider: LISA ABRAMS Report Released Date/Time: Mar 31, 2024 10:10 AM Reporting Lab: [facility] [place] [facility] [address] [facility] [address] Performing Lab: [facility] [place] [facility] [address] [facility] [address] [facility] [facility] MICROALBU MIN CREATININ E RATIO PANEL MICROALBUMI N [MASS/VOLUM E] IN URINE 1.6 mg/dL 09/25 Specimen Type: URINE No comment entered. Ordering Provider: LISA ABRAMS Report Released Date/Time: Mar 31, 2024 10:10 AM Reporting Lab: [facility] [place] [facility] [address] [facility] [address] Performing Lab: [facility] [place] [facility] [address] [facility] [address] [facility] [place] [facility] MICROALBU MIN CREATININ E RATIO PANEL CREATININE [MASS/VOLUM E] IN URINE 87.91 mg/dL 09/25 Specimen Type: URINE No comment entered. Ordering Provider: LISA ABRAMS Report Released Date/Time: Mar 31, 2024 10:10 AM Reporting Lab: [facility] [place] [facility] [address] [facility] [address] Performing Lab: [facility] [place] [address] [address] [facility] [facility] LIPID PANEL FASTING CHOLESTEROL [MASS/VOLUM E] IN SERUM OR PLASMA 169 mg/dL 09/25 Specimen Type: SERUM No comment entered. Ordering Provider: LISA ABRAMS Report Released Date/Time: Mar 31, 2024 10:10 AM Reporting Lab: [facility]TRN [facility] [address] [facility] [address] Performing Lab: [facility]ITALR WSTRN [facility] [address] [facility] [address] [facility]N [facility] LIPID PANEL FASTING TRIGLYCERID E [MASS/VOLUM E] IN SERUM OR PLASMA 55 mg/dL 0 - 150 09/25 Specimen Type: SERUM No comment entered. Ordering Provider: LISA ABRAMS Report Released Date/Time: Mar 31, 2024 10:10 AM Reporting Lab: [facility]ITALRRED [facility] HOSPITALN [facility]AREUSE[address] [address] Performing Lab: [facility]ITALRR[facility] HOSPITALN [facility]USE[address] [address] [facility]ITALRR[facility]ITALN [facility] LIPID PANEL FASTING CHOLESTEROL IN LDL [MASS/VOLUM E] IN SERUM OR PLASMA BY CALCULATION 106 mg/dL 0 - 129 09/25 Specimen Type: SERUM No comment entered. Ordering Provider: LISA ABRAMS Report Released Date/Time: Mar 31, 2024 10:10 AM Reporting Lab: [facility]ITALRR[facility]ITALN [facility]USE[address] [address] Performing Lab: [facility]ITALRNORTH [facility]ENTERTRN [facility]USE[address] [address] [facility]ITALRR[facility]N [facility]USE [facility] LIPID PANEL FASTING CHOLESTEROL .TOTAL/CHOL ESTEROL IN HDL [MASS RATIO] IN SERUM OR PLASMA 3.3 09/25 Specimen Type: SERUM No comment entered. Ordering Provider: LISA ABRAMS Report Released Date/Time: Mar 31, 2024 10:10 AM Reporting Lab: [facility]ITALRNOR[facility]ENTERTRN [facility]AREUSE[address] [address] Performing Lab: [facility]ITALRRED [facility] HOSPITALN [facility]USE[address] [address] [facility]ITALRL WSTRN [place] [facility] LIPID PANEL FASTING CHOLESTEROL IN HDL [MASS/VOLUM E] IN SERUM OR PLASMA 52 mg/dL 40 - 60 09/25 Specimen Type: SERUM No comment entered. Ordering Provider: LISA ABRAMS Report Released Date/Time: Mar 31, 2024 10:10 AM Reporting Lab: [facility]ITALRNOR[facility]ENTERTRN [facility]USEV[facility] [address] [facility] [address] Performing Lab: [facility]ITALRL WSTRN [facility] [address] [facility] [address] [facility]ITALRL W[facility]N [facility]AREUSE [facility] BASIC METABOLIC PANEL (fasting) UREA NITROGEN [MASS/VOLUM E] IN SERUM OR PLASMA 19 mg/dL 7 - 25 09/25 Specimen Type: SERUM No comment entered. Ordering Provider: LISA ABRAMS Report Released Date/Time: Mar 31, 2024 10:10 AM Reporting Lab: [facility]ITALRNOR[facility] CENTERTRN MASSUSE[address] [address] Performing Lab: [facility]ITALRL W[facility]N [place] [address] [address] [facility]ITALRNOR[facility]ENTERTRN [facility]AREUSE [facility] BASIC METABOLIC PANEL (fasting) GLUCOSE [MASS/VOLUM E] IN SERUM OR PLASMA 142 mg/dL 65 - 100 09/25 H Specimen Type: SERUM No comment entered. Ordering Provider: LISA ABRAMS Report Released Date/Time: Mar 31, 2024 10:10 AM Reporting Lab: [facility]ITALRNOR[facility] CENTERTRN [place] [address] [address] Performing Lab: [facility]ITALRL [facility]N [place] [address] [address] [facility]N [place] [facility] BASIC METABOLIC PANEL (fasting) SODIUM [MOLES/VOLU ME] IN SERUM OR PLASMA 141 mmol/L 135 - 145 09/25 Specimen Type: SERUM No comment entered. Ordering Provider: LISA ABRAMS Report Released Date/Time: Mar 31, 2024 10:10 AM Reporting Lab: [facility]ITALR W[facility]N [place] [address] Performing Lab: [facility] [place] [facility] [address] [facility] [address] [facility]ITALRL [facility]N [facility]AREUSE [facility] BASIC METABOLIC PANEL (fasting) POTASSIUM [MOLES/VOLU ME] IN SERUM OR PLASMA 4.5 mmol/L 3.5 - 5.0 09/25 Specimen Type: SERUM No comment entered. Ordering Provider: LISA ABRAMS Report Released Date/Time: Mar 31, 2024 10:10 AM Reporting Lab: [facility] [place] [facility] [address] [facility] [address] Performing Lab: [facility] [place] [address] [address] [facility]ITALRL [facility]N [facility]USE [facility] BASIC METABOLIC PANEL (fasting) CHLORIDE [MOLES/VOLU ME] IN SERUM OR PLASMA 106 mmol/L 100 - 110 09/25 Specimen Type: SERUM No comment entered. Ordering Provider: LISA ABRAMS Report Released Date/Time: Mar 31, 2024 10:10 AM Reporting Lab: [facility]ITAL[facility] [place] [address] [address] Performing Lab: [facility] [place] [address] [address] [facility]ITALRL W[facility]N [place] [facility] BASIC METABOLIC PANEL (fasting) CARBON DIOXIDE, TOTAL [MOLES/VOLU ME] IN SERUM OR PLASMA 27 meq/L 20 - 30 09/25 Specimen Type: SERUM No comment entered. Ordering Provider: LISA ABRAMS Report Released Date/Time: Mar 31, 2024 10:10 AM Reporting Lab: [facility] [place] [address] [address] Performing Lab: [facility] [place] [address] [address] [facility]N [place] [facility] BASIC METABOLIC PANEL (fasting) CREATININE [MASS/VOLUM E] IN SERUM OR PLASMA 0.96 mg/dL 0.50 - 1.40 09/25 Specimen Type: SERUM No comment entered. Ordering Provider: LISA ABRAMS Report Released Date/Time: Mar 31, 2024 10:10 AM Reporting Lab: [facility] [place] [facility] [address] [facility] [address] Performing Lab: [facility]AREUSETS [facility] [address] [facility] [address] [facility]RL [facility]N [place] [facility] BASIC METABOLIC PANEL (fasting) GLOMERULAR FILTRATION RATE/1.73 SQ M.PREDICTED [VOLUME RATE/AREA] IN SERUM, PLASMA OR BLOOD BY CREATININE- BASED FORMULA (CKD-EPI 2020) 82 mL/min 60 09/25 Specimen Type: SERUM No comment entered. Ordering Provider: LISA ABRAMS Report Released Date/Time: Mar 31, 2024 10:10 AM Reporting Lab: [facility]PITALRL TRN [address] [address] Performing Lab: [facility]ITALRL W[facility]N [facility]AREUSE[address] [address] [facility]ITALRR[facility]ITALN [facility] PSA PROSTATE SPECIFIC AG [MASS/VOLUM E] IN SERUM OR PLASMA 0.83 ng/mL 0.00 - 4.00 09/25 Specimen Type: SERUM No comment entered. Ordering Provider: LISA ABRAMS Report Released Date/Time: Mar 31, 2024 10:10 AM Reporting Lab: [facility]ITALRL TRN [facility]AREUSE[address] [address] Performing Lab: [facility]ITALRL W[facility]N [facility]AREUSE[address] [address] [facility]ITALRR[facility]PITALN [facility] BASIC METABOLIC PANEL (fasting) UREA NITROGEN [MASS/VOLUM E] IN SERUM OR PLASMA 16 mg/dL 7 - 25 06/02 Specimen Type: SERUM No comment entered. Ordering Provider: JUDY BURGESS Report Released Date/Time: Mar 31, 2024 12:24 PM Reporting Lab: [facility]ITALRL [facility]AREUSE[address] [address] Performing Lab: [facility]RL [facility]AREUSE[address] [address] [facility]ITALRL TRN [facility] BASIC METABOLIC PANEL (fasting) GLUCOSE [MASS/VOLUM E] IN SERUM OR PLASMA 143 mg/dL 65 - 100 06/02 H Specimen Type: SERUM No comment entered. Ordering Provider: JUDY BURGESS Report Released Date/Time: Mar 31, 2024 12:24 PM Reporting Lab: [facility] [place] [facility] [address] [facility] [address] Performing Lab: [facility] [place] [facility] [address] [facility] [address] [facility] [place] [facility] BASIC METABOLIC PANEL (fasting) SODIUM [MOLES/VOLU ME] IN SERUM OR PLASMA 140 mmol/L 135 - 145 06/02 Specimen Type: SERUM No comment entered. Ordering Provider: JUDY BURGESS Report Released Date/Time: Mar 31, 2024 12:24 PM Reporting Lab: [facility] [place] [address] [address] Performing Lab: [facility] [place] [address] [address] [facility] [place] [facility] BASIC METABOLIC PANEL (fasting) POTASSIUM [MOLES/VOLU ME] IN SERUM OR PLASMA 3.9 mmol/L 3.5 - 5.0 06/02 Specimen Type: SERUM No comment entered. Ordering Provider: JUDY BURGESS Report Released Date/Time: Mar 31, 2024 12:24 PM Reporting Lab: [facility] [place] [address] [address] Performing Lab: [facility] [place] [facility] [address] [facility] [address] [facility] [place] [facility] BASIC METABOLIC PANEL (fasting) CHLORIDE [MOLES/VOLU ME] IN SERUM OR PLASMA 108 mmol/L 100 - 110 06/02 Specimen Type: SERUM No comment entered. Ordering Provider: JUDY BURGESS Report Released Date/Time: Mar 31, 2024 12:24 PM Reporting Lab: [facility] [place] [facility] [address] [facility] [address] Performing Lab: [facility] [place] [address] [address] [facility] [place] [facility] BASIC METABOLIC PANEL (fasting) CARBON DIOXIDE, TOTAL [MOLES/VOLU ME] IN SERUM OR PLASMA 23 meq/L 20 - 30 06/02 Specimen Type: SERUM No comment entered. Ordering Provider: JUDY BURGESS Report Released Date/Time: Mar 31, 2024 12:24 PM Reporting Lab: [address] [address] Performing Lab: [address] [address] [facility] BASIC METABOLIC PANEL (fasting) CREATININE [MASS/VOLUM E] IN SERUM OR PLASMA 0.88 mg/dL 0.50 - 1.40 06/02 Specimen Type: SERUM No comment entered. Ordering Provider: JUDY BURGESS Report Released Date/Time: Mar 31, 2024 12:24 PM Reporting Lab: [address] [address] Performing Lab: [address] [address] [facility] BASIC METABOLIC PANEL (fasting) GLOMERULAR FILTRATION RATE/1.73 SQ M.PREDICTED [VOLUME RATE/AREA] IN SERUM, PLASMA OR BLOOD BY CREATININE- BASED FORMULA (CKD-EPI 2020) 90 mL/min 60 06/02 Specimen Type: SERUM No comment entered. Ordering Provider: JUDY BURGESS Report Released Date/Time: Mar 31, 2024 12:24 PM Reporting Lab: [address] [address] Performing Lab: [address] [address] [facility] HEMOGLOBI N A1C PANEL HEMOGLOBIN A1C/HEMOGLO BIN.TOTAL [...] Mar 18, 2024 08:44 AM Reporting Lab: [facility]RL [facility]ARE[facility]ETS [facility] [address] [facility] [address] Performing Lab: [facility]ITALRL WSTRN [address] [address] [facility]RL W[facility]N [facility]USE [facility] BASIC METABOLIC PANEL (non-fast ing) UREA NITROGEN [MASS/VOLUM E] IN SERUM OR PLASMA 13 mg/dL 7 - 25 03/27 Specimen Type: SERUM No comment entered. Ordering Provider: LISA ABRAMS Report Released Date/Time: Mar 18, 2024 08:44 AM Reporting Lab: [facility] [address] Performing Lab: [facility] [address] [facility]TRN [facility] BASIC METABOLIC PANEL (non-fast ing) GLUCOSE [MASS/VOLUM E] IN SERUM OR PLASMA 148 mg/dL 65 - 100 03/27 H Specimen Type: SERUM No comment entered. Ordering Provider: LISA ABRAMS Report Released Date/Time: Mar 18, 2024 08:44 AM Reporting Lab: [facility] [address] Performing Lab: [facility] [address] [facility] TRN [facility] BASIC METABOLIC PANEL (non-fast ing) SODIUM [MOLES/VOLU ME] IN SERUM OR PLASMA 139 mmol/L 135 - 145 03/27 Specimen Type: SERUM No comment entered. Ordering Provider: LISA ABRAMS Report Released Date/Time: Mar 18, 2024 08:44 AM Reporting Lab: [facility] [address] Performing Lab: [facility] [address] [facility] BASIC METABOLIC PANEL (non-fast ing) POTASSIUM [MOLES/VOLU ME] IN SERUM OR PLASMA 4.2 mmol/L 3.5 - 5.0 03/27 Specimen Type: SERUM No comment entered. Ordering Provider: LISA ABRAMS Report Released Date/Time: Mar 18, 2024 08:44 AM Reporting Lab: [facility] [address] [address] Performing Lab: [facility] [facility] [address] [address] [facility] BASIC METABOLIC PANEL (non-fast ing) CHLORIDE [MOLES/VOLU ME] IN SERUM OR PLASMA 106 mmol/L 100 - 110 03/27 Specimen Type: SERUM No comment entered. Ordering Provider: LISA ABRAMS Report Released Date/Time: Mar 18, 2024 08:44 AM Reporting Lab: [address] [address] Performing Lab: [address] [address] [facility] BASIC METABOLIC PANEL (non-fast ing) CARBON DIOXIDE, TOTAL [MOLES/VOLU ME] IN SERUM OR PLASMA 25 meq/L 20 - 30 03/27 Specimen Type: SERUM No comment entered. Ordering Provider: LISA ABRAMS Report Released Date/Time: Mar 18, 2024 08:44 AM Reporting Lab: [address] [address] Performing Lab: [address] [address] [facility] BASIC METABOLIC PANEL (non-fast ing) CREATININE [MASS/VOLUM E] IN SERUM OR PLASMA 0.96 mg/dL 0.50 - 1.40 03/27 Specimen Type: SERUM No comment entered. Ordering Provider: LISA ABRAMS Report Released Date/Time: Mar 18, 2024 08:44 AM Reporting Lab: [address] [place] [address] Performing Lab: [facility] [address] [facility] [address] [facility]TRN [facility]USE [facility] BASIC METABOLIC PANEL (non-fast ing) GLOMERULAR FILTRATION RATE/1.73 SQ M.PREDICTED [VOLUME RATE/AREA] IN SERUM, PLASMA OR BLOOD BY CREATININE- BASED FORMULA (CKD-EPI 2020) 82 mL/min 60 03/27 Specimen Type: SERUM No comment entered. Ordering Provider: LISA ABRAMS Report Released Date/Time: Mar 18, 2024 08:44 AM Reporting Lab: [facility] [address] [address] Performing [facility]: [facility] [address] [address] [facility] LIPID PANEL, NON FASTING CHOLESTEROL [MASS/VOLUM E] IN SERUM OR PLASMA 133 mg/dL 03/27 Specimen Type: SERUM No comment entered. Ordering Provider: LISA ABRAMS Report Released Date/Time: Mar 18, 2024 08:44 AM Reporting Lab: [facility] [address] [address] Performing Lab: [facility]ENTERTRN [address] [address] [facility] LIPID PANEL, NON FASTING TRIGLYCERID E [MASS/VOLUM E] IN SERUM OR PLASMA 60 mg/dL 0 - 150 03/27 Specimen Type: SERUM No comment entered. Ordering Provider: LISA ABRAMS Report Released Date/Time: Mar 18, 2024 08:44 AM Reporting Lab: [facility]AREUSE[address] [address] Performing Lab: [facility] [address] [address] [facility] LIPID PANEL, NON FASTING CHOLESTEROL IN LDL [MASS/VOLUM E] IN SERUM OR PLASMA BY CALCULATION 75 mg/dL 0 - 129 03/27 Specimen Type: SERUM No comment entered. Ordering Provider: LISA ABRAMS Report Released Date/Time: Mar 18, 2024 08:44 AM Reporting Lab: [facility] [place] [facility] [address] [facility] [address] Performing Lab: [facility] [place] [facility] [address] [facility] [address] [facility] [place] [facility] LIPID PANEL, NON FASTING CHOLESTEROL .TOTAL/CHOL ESTEROL IN HDL [MASS RATIO] IN SERUM OR PLASMA 2.9 03/27 Specimen Type: SERUM No comment entered. Ordering Provider: LISA ABRAMS Report Released Date/Time: Mar 18, 2024 08:44 AM Reporting Lab: [facility] [place] [facility] [address] [facility] [address] Performing Lab: [facility] [place] [address] [address] [facility] [place] [facility] LIPID PANEL, NON FASTING CHOLESTEROL IN HDL [MASS/VOLUM E] IN SERUM OR PLASMA 46 mg/dL 40 - 60 03/27 Specimen Type: SERUM No comment entered. Ordering Provider: LISA ABARMS Report Released Date/Time: Mar 18, 2024 08:44 AM Reporting Lab: [facility] [place] [address] [address] Performing Lab: [facility] [place] [address] [address] [facility] [place] [facility] PSA PROSTATE SPECIFIC AG [MASS/VOLUM E] IN SERUM OR PLASMA 1.47 ng/mL 0.00 - 4.00 03/27 Specimen Type: SERUM No comment entered. Ordering Provider: LISA ABRAMS Report Released Date/Time: Mar 20, 2024 11:35 AM Reporting Lab: [facility] [place] [address] [address] Performing Lab: [facility] [place] [address] [address] [facility] [place] [facility] Vital Signs Combined list of inpatient and outpatient Vital Signs from Department of Defense and Veterans Affairs, ranging from 12 months to all on record, depending upon the facility. Vital Sign Value Date Comments Source SYSTOLIC BLOOD PRESSURE 164 11/25/19 25 10:42:01 [facility] [place] [facility] DIASTOLIC BLOOD PRESSURE 88 025 10:42:01 [facility] [place] PULSE OXIMETRY 99 11/24/2024 10:42:01 [facility] WEIGHT 248.4 11/24/2024 10:42:01 [facility] BMI 36 kg/m2 11/24/2024 10:42:01 [facility] PAIN 0 11/24/2024 10:42:01 [facility] TEMPERATURE 97.4 11/24/2024 10:42:01 [facility] PULSE 76 11/24/2024 10:42:01 [facility] RESPIRATION 16 11/24/2024 10:42:01 [facility] [place] SYSTOLIC BLOOD PRESSURE 134 10/02/19 25 08:05:31 [facility] [place] [facility] DIASTOLIC BLOOD PRESSURE 74 025 08:05:31 [facility] [place] [facility] PULSE OXIMETRY 98 10/02/2024 08:05:31 [facility] [place] [facility] SYSTOLIC BLOOD PRESSURE 138 03/31/20 09:30:14 [facility] [place] DIASTOLIC [...] 03/31/2024 09:30:14 [facility] [place] [facility] Encounters Combined [...] [facility] [id number] 07/02 [facility] En[facility] [id number] 07/16 [facility] Encounter [id number] 08/05 [facility] Encounter [id number] 10/17 [facility] En[facility] [id number] 10/22 [facility] En[facility] [id number] 11/01 [facility] En[facility] [id number] 11/18 [facility] COMPRE OPH EXAM EST PT 1/> [id number] Diagnos is: ICD-10- CM E11.9 Type 2 diabete s mellitu s without complic ations KORY ANDERSON H Baldomero 11/26 [facility] OFFICE O/P EST MOD 30 MIN [id number] Diagnos is: ICD-10- CM E11.9 Type 2 diabete s mellitu s without complic ations JOHNSON MADISON MMED JAWED 11/26 [facility] FIT SPECTACLES BIFOCAL [id number] Diagnos is: ICD-10- CM Z46.0 Encount er for fit/adj st of spectac les and contact lenses KORY ANDERSON H Baldomero 11/27 [facility] En[facility] [id number] 12/01 [facility] Encounter [id number] 12/09 [facility] MTMS BY PHARM ADDL 15 MIN [id number] Diagnos is: ICD-10- CM E11.9 Type 2 diabete s mellitu s without complic ations MARK ANTHONY DALAL 12/17 [facility] CONT GLUC MNTR ANALYSIS I&R [id number] Diagnos is: ICD-10- CM E11.9 Type 2 diabete s mellitu s without complic ations MARK ANTHONY DALAL A 12/31 [facility] Out[facility] En[facility] [id number] 01/24 [facility] Encounter [id number] 03/17 [facility] Encounter [id number] 03/31 [facility] MTMS BY PHARM EST 15 MIN [id number] Diagnos is: ICD-10- CM E11.9 Type 2 diabete s mellitu s without complic ations RENETTA BURGESS 03/31 [facility] OFFICE O/P EST MOD 30 MIN [id number] Diagnos is: ICD-10- CM Z77.29 Contact with and exposur e to other hazardo us substan derian FURCOLO,TI NA 03/31 [facility] [place] QNHP OL DIG ASSMT&MGMT 5-10 [id number] Diagnos is: ICD-10- CM E11.9 Type 2 diabete s mellitu s without complic ations KATIE DUNN 03/31 [place] [facility] MTMS BY PHARM EST 15 MIN [id number] Diagnos is: ICD-10- CM E11.9 Type 2 diabete s mellitu s without complic ations RENETTA BURGESS 05/28 [facility] Out[facility] En[facility] [id number] 07/29 [facility] MTMS BY PHARM EST 15 MIN [id number] Diagnos is: ICD-10- CM E11.9 Type 2 diabete s mellitu s without complic ations RENETTA BURGESS 08/12 [facility] Out[facility] En[facility] [id number] 09/21 [facility] OFFICE O/P EST MOD 30 MIN [id number] Diagnos is: ICD-10- CM 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 FURCOLO,TI NA 10/02 [facility] En[facility] [id number] 10/05 [facility] MTMS BY PHARM EST 15 MIN [id number] Diagnos is: ICD-10- CM E11.9 Type 2 diabete s mellitu s without complic ations RENETTA BURGESS JOSELO 10/07 [facility] En[facility] [id number] 10/07 [facility] MTMS BY PHARM EST 15 MIN [id number] Diagnos is: ICD-10- CM E11.9 Type 2 diabete s mellitu s without complic ations RENETTA BURGESS 11/18 [facility] [place] [facility] [place] Outpatient Encounter [id number] 11/23 [facility] OFF/OP CONSLTJ NEW/[place] HI 55 [id number] Diagnos is: ICD-10- CM 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 Social History Type Response Date Comment Sour e Tobacco smoking status GAIS VA-TOBACCO NEVER USED CIGARETTES 10/02/2024 [facility] [place] [facility] History of tobacco use VA-TOBACCO NEVER USED OTHER TYPE 10/02/2024 [facility] History of tobacco use VA-TOBACCO NEVER USED 05/23/2023 [facility] [place] [facility] History of tobacco use VA-TOBACCO FORMER USER 06/14/2022 [facility] [place] [facility] History of tobacco use VA-TOBACCO NEVER USED 06/01/2021 [facility] [place] [facility] History of tobacco use VA-TOBACCO NEVER USED 06/28/2020 [facility] History of tobacco use VA-TOBACCO NEVER USED 05/21/2019 [facility] [place] History of tobacco use LIFETIME NON-TOBACCO USER 03/31/2018 [facility] [place] [facility] History of tobacco use LIFETIME NON-TOBACCO USER 04/19/2017 [facility] [place] [facility] History of tobacco use LIFETIME NON-TOBACCO USER 04/19/2016 . [facility] History of tobacco use LIFETIME NON-TOBACCO USER 02/12/2013 [facility] [place] [facility] Plan of Care List of future care activities from Department of [facility] Affairs facilities. Additional future care activities may be listed in the Assessment and Plan section. Date/Time Care Activity Care Activity Detail Facili ty 04/08/2025 AMBULATORY - MEDICINE AMBULATORY - MEDICI [facility]
--- OUTSIDE RECORDS SUMMARY | 2024-12-07 15:28 | XMS_ITS ---
Author Name [facility] [place] Address [address] [place] [address] Care Team Providers Care Licensed Loan Officer Name Role Phone SHALOM ABRAMS Primary Care [...] MEDICARE SUPPLEMEN SEN Jun 23, 2017 PLAN [id number] [phone] YOUSUF VILLAGRAN PATIENT AARP MED SUPP MEDICARE SUPPLEMEN SEN Jun 23, 2017 PLAN [id number] YOUSUF VILLAGRAN PATIENT AARP MED SUPP MEDICARE SUPPLEMEN SEN PLANM Y Jun 23, 2017 PLAN [id number] YOUSUF VILLAGRAN PATIENT MEDICARE (WNR) MEDICARE (M) PART B Feb 22, 2016 PART B [id number] YOUSUF VILLAGRAN PATIENT MEDICARE (WNR) MEDICARE (M) PART B Feb 22, 2016 PART B [id number] YOUSUF VILLAGRAN PATIENT MEDICARE (WNR) MEDICARE (M) PART A Dec 22, 2013 PART A [id number] [phone] YOUSUF VILLAGRAN PATIENT MEDICARE (WNR) MEDICARE (M) PART A Dec 22, 2013 PART A [id number] YOUSUF VILLAGRAN PATIENT Selected Encounter This [...] 2 diabetes mellitus without complications KANDICE BURGESS [facility] Plan of Treatment: Future Appointments (+ [...] 28, 2024 09:00 AM AMBULATORY - MEDICINE [facility] Aug 12, 2024 01:00 PM AMBULATORY MEDICINE [facility] Lab Results: +/- 30 days of [...] Range Comment Mar 27, 2024 09:54 AM [facility] HEMOGLOBIN A1C PANEL Specimen Type: BLOOD [...] Mar 18, 2024 08:44 AM Reporting Lab: [facility] [address] [facility] [address] Performing Lab: [facility] [address] [facility] [address] HEMOGLOBIN A1C 6.4 H 4.0-5.6 Mar 27, 2024 09:54 AM [facility] LIPID PANEL, NON FASTING Specimen Type: SERUM No comment entered. Ordering Provider: SHALOM ABRAMS Report Released Date/Time: Mar 18, 2024 08:44 AM Reporting Lab: [facility] [address] [facility] [address] Performing Lab: [facility] [address] [facility] [address] CHOLESTEROL 133 mg/dL TRIGLYCERIDE 60 mg/dL 0-150 LDL calculated 75 mg/dL 0-129 CHOL/HDL 2.9 HDL CHOLESTEROL 46 mg/dL 40-60 Mar 27, 2024 09:54 AM [facility] BASIC METABOLIC PANEL (non-fasting) Specimen Type: SERUM No comment entered. Ordering Provider: SHALOM ABRAMS Report Released Date/Time: Mar 18, 2024 08:44 AM Reporting Lab: [facility] [address] [facility] [address] Performing Lab: [address] [address] UREA NITROGEN 13 mg/dL 7-25 GLUCOSE 148 mg/dL H 65-100 SODIUM 139 mmol/L 135-145 POTASSIUM 4.2 mmol/L 3.5-5.0 CHLORIDE 106 mmol/L 100-110 CO2 25 meq/L 20-30 CREATININE, Serum 0.96 mg/dL 0.50-1.40 eGFR(CKD-EPI 2020) 82 mL/min >60 Mar 27, 2024 09:54 AM [facility] [place] [facility] PSA Specimen Type: SERUM No comment entered. Ordering Provider: SHALOM ABRAMS Report Released Date/Time: Mar 20, 2024 11:35 AM Reporting Lab: [facility] [place] [facility] [address] [facility] [address] Performing Lab: [facility] [place] [facility] [address] [facility] [address] PSA 1.47 ng/mL 0.00-4.00 Vital Signs: All taken on the encounter date This section contains inpatient and outpatient Vital Signs collected on the date of the Encounter. Date/Time Temperature Pulse Blood Pressure Respiratory Rate SP02 Pain Height Weight Body Mass Index Source Mar 31, 2024 09:30 AM 98 62 138/80 16 95 0 238 34 [facility] [place] [facility] Social History: Smoking Status (Most current) and [...] VA-TOBACCO NEVER USED [facility] [place] [facility] Tobacco Use History This section includes a history of the smoking, or tobacco-related health factors, that were collected on or before the date of the Encounter. The data comes from the [place] facility where the Encounter took place. Date/Time Smoking Status/Tobacco Use Comment F acility Jun 14, 2022 09:00 AM VA-TOBACCO FORMER USER [facility] [place] [facility] Jun 14, 2022 09:00 AM VA-TOBACCO QUIT 15 YRS OR MORE [facility] [place] [facility] Jun 01, 2021 08:00 AM VA-TOBACCO NEVER USED [facility] [place] [facility] Jun 28, 2020 10:00 AM VA-TOBACCO NEVER USED [facility] [place] [facility] May 21, 2019 02:59 PM VA-TOBACCO NEVER USED [facility] [place] [facility] Mar 31, 2018 03:24 PM LIFETIME NON-TOBACCO USER [facility] [place] [facility] Apr 19, 2017 08:30 AM LIFETIME NON-TOBACCO USER [facility] [place] [facility] Apr 19, 2016 10:17 AM LIFETIME NON-TOBACCO USER . [facility] [place] [facility] February 12, 2013 02:40 PM LIFETIME NON-TOBACCO USER [facility] [place] [facility] Encounter Notes: All associated encounter [...] By: 03/31/2024 12:57 /es/ CONSTANTINE REDDY ADVANCED GUTTER MOUTH CUTTER --- Original Document --- 03/31/24 PHARMACY CLINIC NOTE: LIMA VILLAGRAN, 73 yo WHITE MALE, presents for [id number] follow-up for diabetes management. 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 Goals, per [facility] clinical practice guidelines: For patients 60 years and over, recommend a goal of <150/90, with added benefit of reducing SBP closer to 130 HTN: Current BP is 138/80 (11/27/2023 09:10) ASCVD: On rosuvastatin; LDL reduced from previous. History of Preventive Care: Most recent visit to optometry teacher: denies issues; usually gets checked at pcp appointment Most recent visit to remote sensing program manager/opthalmologist: 11/27/23 Type II diabetes without retinopathy or [...] , clinician, and any caregivers present. The [place] was provided the opportunity express questions or concerns, and the plan was adjusted as needed to address these concerns. -Reviewed with [place] any new medications, changes to the medication [...] 12:23 KANDICE BURGESS [facility] [place] [facility] Mar 31, 2024 07:58 AM PHARMACY OUTPATIENT NOTE: LOCAL TITLE: PHARMACY CLINIC NOTE STANDARD TITLE: PHARMACY OUTPATIENT NOTE DATE OF NOTE: MAR 31, 2024@07:58 ENTRY DATE: MAR 31, 2024@07:58:08 AUTHOR: KANDICE BURGESS EXP COSIGNER: URGENCY: STATUS: COMPLETED PHARMACY CLINIC NOTE Has ADDENDA LIMA VILLAGRAN, 73 yo WHITE MALE, presents for [id number] follow-up for diabetes management. 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 Goals, per [facility] clinical practice guidelines: For patients 60 years and over, recommend a goal of <150/90, with added benefit of reducing SBP closer to 130 HTN: Current BP is 138/80 (11/27/2023 09:10) ASCVD: On rosuvastatin; LDL reduced from previous. History of Preventive Care: Most recent visit to optometry teacher: denies issues; usually gets checked at pcp appointment Most recent visit to remote sensing program manager/opthalmologist: 11/27/23 Type II diabetes without retinopathy or [...] , clinician, and any caregivers present. The [place] was provided the opportunity express questions or [...] AWAITING SIGNATURE * CONSTANTINE REDDY ADITIYA [facility]
--- OUTSIDE RECORDS SUMMARY | 2024-12-07 15:28 | XMS_ITS | Encounter Summary ---
Author Name [facility] [place] Organization [facility] [place] [place] Address [address] [place] [address] Care Team Providers Care Certified Medication Aide Name Role Phone SHALOM ABRAMS Primary Care [...] MEDICARE SUPPLEMEN SEN Jun 23, 2017 PLAN [id number] YOUSUF FIELDS PATIENT AARP MED SUPP MEDICARE SUPPLEMEN SEN Jun 23, 2017 PLAN [id number] YOUSUF FIELDS PATIENT AARP MED SUPP MEDICARE SUPPLEMEN SEN PLANM Y Jun 23, 2017 PLAN [id number] YOUSUF FIELDS PATIENT MEDICARE (WNR) MEDICARE (M) PART B Feb 22, 2016 PART B [id number] YOUSUF FIELDS PATIENT MEDICARE (WNR) MEDICARE (M) PART B Feb 22, 2016 PART B [id number] YOUSUF FIELDS PATIENT MEDICARE (WNR) MEDICARE (M) PART A Dec 22, 2013 PART A [id number] [phone] YOUSUF FIELDS PATIENT MEDICARE (WNR) MEDICARE (M) PART A Dec 22, 2013 PART A [id number] YOUSUF FIELDS PATIENT Selected Encounter This section includes the information on record at [place] for the Encounter. Date/Time Encounter Type Encounter Description Reason Provider Source Oct 02, 2024 08:00 AM OFFICE O/P EST MOD 30 MIN PRIMARY CARE/MEDICINE ICD-10-CM N40.1 Benign prostatic hyperplasia with lower urinary tract symp FURCOLO,SHALOM IHE Encounter Template Text not used by ME Assessments - Encounter Diagnoses This section includes the primary and secondary diagnoses documented for the Encounter. Date/Time Primary/Secondary Diagnosis Diagnosis Name Provider Source Oct 25, 2024 05:50 AM PRIMARY Benign prostatic hyperplasia with lower urinary tract symp FURCOLO,SHALOM [facility] Oct 25, 2024 05:50 AM SECONDARY Basal cell carcinoma of skin of nose FURCOLO,SHALOM [facility] Oct 25, 2024 05:50 AM SECONDARY Contact with and exposure to other hazardous substances FURCOLO,SHALOM [facility] Oct 25, 2024 05:50 AM SECONDARY Essential (primary) hypertension FURCOLO,SHALOM [facility] Oct 25, 2024 05:50 AM SECONDARY Malignant neoplasm of tonsil, unspecified FURCOLO,SHALOM [facility] Oct 25, 2024 05:50 AM SECONDARY Other obstructive and reflux uropathy FURCOLO,SHALOM [facility] Oct 25, 2024 05:50 AM SECONDARY Pure hypercholesterolem ia, unspecified FURCOLO,SHALOM [facility] Oct 25, 2024 05:50 AM SECONDARY Sensorineural hearing loss, bilateral FURCOLO,SHALOM [facility] [place] Oct 25, 2024 05:50 AM SECONDARY Thoracic aortic aneurysm, without rupture, unspecified FURCOLO,SHALOM [facility] Oct 25, 2024 05:50 AM SECONDARY Type 2 diabetes mellitus without complications SHALOM ABRAMS [facility] Plan of Treatment: Future Appointments (+ 6 months) and Future Tests (+/- 45 days) The Plan of Treatment section includes future care activities for the patient [facility] This section includes [...] Oct 07, 2024 01:00 PM AMBULATORY MEDICINE [facility] Oct 21, 2024 08:30 AM AMBULATORY MEDICINE [facility] Nov 18, 2024 01:00 PM AMBULATORY MEDICINE [facility] Nov 24, 2024 11:00 AM AMBULATORY MEDICINE [facility] Active, Pending, and Scheduled Orders This section includes a listing of several types of active, pending, and scheduled orders, including clinic medications orders, diagnostic test orders, procedure orders and consult orders; where the start date of the order is 45 days before the date of the Encounter or 45 days after the date of theEncounter. The data comes from all [facility]. Test Date/Time Test Type Test Details Facility Name Oct 02, 2024 08:30 AM Consult Order COMMUNITY CARE-UROLOGY Cons Heel [facility] Choice [facility] Lab Results: +/- 30 days [...] Range Comment Sep 25, 2024 09:17 AM [facility] HEMOGLOBIN A1C PANEL Specimen Type: BLOOD [...] Mar 31, 2024 10:10 AM Reporting Lab: [facility] [address] [address] Performing Lab: [facility] [address] [address] HEMOGLOBIN A1C 6.4 H 4.0-5.6 Sep 25, 2024 09:17 AM [facility] MICROALBUMIN CREATININE RATIO PANEL Specimen Type: URINE No comment entered. Ordering Provider: SHALOM ABRAMS Report Released Date/Time: Mar 31, 2024 10:10 AM Reporting Lab: [facility] [address] [address] Performing Lab: [facility] [address] [address] MICROALBUMIN/C REATININE RATIO 18.2 mg/g 0-29.9 MICROALBUMIN,Q UANTITATIVE 1.6 mg/dL RR UNAVAIL CREATININE URINE 87.91 mg/dL Sep 25, 2024 09:17 AM [facility] LIPID PANEL FASTING Specimen Type: SERUM No comment entered. Ordering Provider: SHALOM ABRAMS Report Released Date/Time: Mar 31, 2024 10:10 AM Reporting Lab: [facility] [address] [address] Performing Lab: [facility] [address] [address] CHOLESTEROL 169 mg/dL TRIGLYCERIDE 55 mg/dL 0-150 LDL calculated 106 mg/dL 0-129 CHOL/HDL 3.3 HDL CHOLESTEROL 52 mg/dL 40-60 Sep 25, 2024 09:17 AM [facility] BASIC METABOLIC PANEL (fasting) Specimen Type: SERUM No comment entered. Ordering Provider: SHALOM ABRAMS Report Released Date/Time: Mar 31, 2024 10:10 AM Reporting Lab: [address] [address] Performing Lab: [address] [address] UREA NITROGEN 19 mg/dL 7-25 GLUCOSE 142 mg/dL H 65-100 SODIUM 141 mmol/L 135-145 POTASSIUM 4.5 mmol/L 3.5-5.0 CHLORIDE 106 mmol/L 100-110 CO2 27 meq/L 20-30 CREATININE, Serum 0.96 mg/dL 0.50-1.40 eGFR(CKD-EPI 2020) 82 mL/min >60 Sep 25, 2024 09:17 AM [facility] PSA Specimen Type: SERUM No comment entered. Ordering Provider: SHALOM ABRAMS Report Released Date/Time: Mar 31, 2024 10:10 AM Reporting Lab: [address] [address] Performing Lab: [address] [address] PSA 0.83 ng/mL 0.00-4.00 Vital Signs: All taken on the encounter date This section contains inpatient and outpatient Vital Signs collected on the date of the Encounter. Date/Time Temperature Pulse Blood Pressure Respiratory Rate SP02 Pain Height Weight Body Mass Index Source Oct 02, 2024 08:05 AM 98.3 71 134/74 16 98 0 240 35 [facility] Social History: Smoking Status (Most current) [...] Steven slaughter Oct 02, 2024 08:00 AM ME-TOBACCO NEVER U SED CIGARETTES [facility] Tobacco Use History This section includes a history of the smoking, or tobacco-related health factors, that were collected on or before the date of the Encounter. The data comes from the [place] facility where the Encounter took place. Date/Time Smoking Status/Tobacco Use Comment F acility Oct 02, 2024 08:00 AM VA-TOBACCO NEVER U SED OTHER TYPE [facility] [place] [facility] May 23, 2023 03:00 PM VA-TOBACCO NEVER USED [facility] [place] [facility] Jun 14, 2022 09:00 AM VA-TOBACCO FORMER USER [facility] [place] [facility] Jun 14, 2022 09:00 AM VA-TOBACCO QUIT 15 YRS OR MORE [facility] [place] [facility] Jun 01, 2021 08:00 AM VA-TOBACCO NEVER USED [facility] [place] [facility] Jun 28, 2020 10:00 AM VA-TOBACCO NEVER USED [facility] [place] [facility] May 21, 2019 02:59 PM VA-TOBACCO NEVER USED [facility] [place] [facility] Mar 31, 2018 03:24 PM LIFETIME NON-TOBACCO USER [facility] [place] [facility] Apr 19, 2017 08:30 AM LIFETIME NON-TOBACCO USER [facility] [place] [facility] Apr 19, 2016 10:17 AM LIFETIME NON-TOBACCO USER . [facility] [place] [facility] February 12, 2013 02:40 PM LIFETIME NON-TOBACCO USER [facility] [place] [facility] Encounter Notes: All associated encounter notes [...] due to responses to other questions. 5. Quinton numb or detached from people, activities, or your surroundings? Response not required due to responses to other questions. 6. Quinton guilty or unable to stop blaming yourself [...] care exam. The patient was advised the [place] mandates all patients with diabetes mellitus, end stage renal disease, peripheral vascular disease, or sensory neuropathy should have a complete foot check completed annually. This includes a visual exam of the skin, pedal pulses and a sensory exam. Patients with any abnormality noted during the foot check should be referred to a specialist. /nasrin/ TENZIN SRERANO LPN License Practical Nurse Signed: 10/02/2024 08:05 TENZIN SERRANO [facility] [place] [facility] Oct 02, 2024 08:01 AM PHYSICIAN NOTE: LOCAL TITLE: MD NOTE STANDARD TITLE: PHYSICIAN NOTE DATE OF NOTE: OCT 02, 2024@08:01 ENTRY DATE: OCT 02, 2024@08:01:52 AUTHOR: SHALOM ABRAMS EXP COSIGNER: URGENCY: STATUS: COMPLETED LIMA FIELDS is a 73 year old WHITE MALE who is being seen today in primary care for routine follow up. CARE TEAM Community Primary Care Provider: DR. Thom Lee, part of [facility] Specialists: clinical pharmacist Community Specialists: ENT- [facility]- for tonsillar CA surveillance urology- Dr. 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 had tonsillar ca back in 2017 RELEVANT PAST MEDICAL HISTORY Active problems - Computerized Problem List is the source for the followin. Benign Prostatic Hyperplasia with Outflow Obstruction (SCT 526480435) sees urology- Dr. Roper- on finasteride every [...] essential hypertension 10. Erectile dysfunction (SNOMED CT 461480831) 11. Bilateral hearing loss 12. 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 Thoracic aortic aneurysm without rupture being followed by Dr. Moore 8. Hypercholesterolemia- good control 9. Benign essential hypertension- at goal as <140/90 10. Erectile dysfunction (SNOMED CT 934752835) 11. Bilateral hearing loss 12. Obesity (SNOMED CT 043563255) HEALTH MAINTENANCE Colonoscopy - had one in [...] D.O. PHYSICIAN Signed: 10/02/2024 08:32 SHALOM ABRAMS [facility]
--- OUTSIDE RECORDS SUMMARY | 2024-12-07 15:28 | XMS_ITS | Clinical Summary ---
Author Organization [facility] ity Address [address] [place] [address] Care Team Providers Care Manual Control Auger Press Operator Name Role Phone Unavailable Primary Care Provider [...] DTaP,Tdap,and Td Vaccines (1 - Tdap) 12/29/1967 Pneumococcal Vaccine: 50+ Ye ars (1 of 1 - PCV) 1998 Zoster Vaccines (1 of 2) 1998 Abdominal Aortic Aneurysm (A AA) Screen 08/22/2022 Cholesterol Screening (Lipid Panel) 08/22/2022 Colorectal Cancer Screening: Colonoscopy 08/22/2022 Depression Screening 08/22/2022 Falls Risk Assessment 08/22/2022 Hepatitis C Screening 08/22/2022 Social Influencers of Health Screening 08/22/2022 RSV Immunization Patients 60 + Years Old (1 - 1-dose 75+ series) 12/29/2023 COVID-19 Vaccine (2023-2 5 season) 2024 Influenza Vaccine (#1) 2024 [...] patient's age to complete this topic Meningococcal B Vacine Aged Out No lo nger eligible based on patient's age to complete this topic RSV Immunization Patients Un jacque 20 months Aged Out No longer eligible b ased on patient's age to complete this topic Varicella Vaccines Aged Out No longer eligible based on patient's age to complete this topic
--- OUTSIDE RECORDS SUMMARY | 2024-12-07 15:28 | XMS_ITS | Encounter Summary ---
Author Name [facility] [place] [facility] [place] [facility] [place] Address [address] [place] [address] Care Team Providers Care [employer] Specialist Name Role Phone SHALOM ABRAMS Primary [...] MEDICARE SUPPLEMEN SEN Jun 23, 2017 PLAN [id number] YOUSUF FIELDS PATIENT AARP MED SUPP MEDICARE SUPPLEMEN SEN Jun 23, 2017 PLAN [id number] [phone] YOUSUF FIELDS PATIENT AARP MED SUPP MEDICARE SUPPLEMEN SEN PLANM Y Jun 23, 2017 PLAN [id number] YOUSUF FIELDS PATIENT MEDICARE (WNR) MEDICARE (M) PART B Feb 22, 2016 PART B [id number] YOUSUF FILEDS PATIENT MEDICARE (WNR) MEDICARE (M) PART B Feb 22, 2016 PART B [id number] [phone] YOUSUF FIELDS PATIENT MEDICARE (WNR) MEDICARE (M) PART A Dec 22, 2013 PART A [id number] [phone] YOUSUF FIELDS PATIENT MEDICARE (WNR) MEDICARE (M) PART A Dec 22, 2013 PART A [id number] YOUSUF FIELDS PATIENT Selected Encounter This section includes the information on record at [place] for the Encounter. Date/Time Encounter Type Encounter Description Reason Provider Source Mar 31, 2024 11:04 AM QNHP OL DIG ASSMT&MGMT 5-10 CLINICAL PHARMACY ICD-10-CM E11.9 Type 2 diabetes mellitus without complications KATIE DUNN Patricio Encounter Template Text not used by [place] Assessments - Encounter Diagnoses This section includes the primary and secondary diagnoses documented for the Encounter. Date/Time Primary/Secondary Diagnosis Diagnosis Name Provider Source Mar 31, 2024 11:12 AM PRIMARY Type 2 diabetes mellitus without complications KATIE DUNN [place] Plan of Treatment: Future Appointments (+ 6 months) and Future Tests (+/- 45 days) The Plan of Treatment section includes future care activities for the patient from all [place] treatmentfacilities. This section includes future appointments and future orders which are active, pending or scheduled. Future Appointments This section includes appointments that were scheduled to occur 6 months from the date of the Encounter, up to a maximum of 20 appointments. The data comes from all [place] treatment facilities. Appointment Date/Time Appointment Type Appointme nt Facility Name May 28, 2024 09:00 AM AMBULATORY - MEDICINE [facility] Aug 12, 2024 01:00 PM AMBULATORY MEDICINE [facility] Lab Results: +/- 30 days of the encounter This section includes the Chemistry and Hematology Lab Results on record with [place] for the patient. Radiology Reports and Pathology Reports are provided separately, in subsequent sections. Lab Results This section contains the Chemistry/Hematology Results that were resulted 30 days before or 30 daysafter the date of the Encounter. Date/Time Source Result Type Result - Unit Interpretation Reference Range Comment Mar 27, 2024 09:54 AM [facility] HEMOGLOBIN A1C PANEL Specimen Type: [...] Mar 18, 2024 08:44 AM Reporting Lab: [address] [address] Performing Lab: [address] [address] HEMOGLOBIN A1C 6.4 H 4.0-5.6 Mar 27, 2024 09:54 AM [facility] BASIC METABOLIC PANEL (non-fasting) Specimen Type: SERUM No comment entered. Ordering Provider: SHALOM ABRAMS Report Released Date/Time: Mar 18, 2024 08:44 AM Reporting Lab: [address] [address] Performing Lab: [address] [address] UREA NITROGEN 13 mg/dL 7-25 GLUCOSE 148 mg/dL H 65-100 SODIUM 139 mmol/L 135-145 POTASSIUM 4.2 mmol/L 3.5-5.0 CHLORIDE 106 mmol/L 100-110 CO2 25 meq/L 20-30 CREATININE, Serum 0.96 mg/dL 0.50-1.40 eGFR(CKD-EPI 2020) 82 mL/min >60 Mar 27, 2024 09:54 AM [facility] LIPID PANEL, NON FASTING Specimen Type: SERUM No comment entered. Ordering Provider: SHALOM ABRAMS Report Released Date/Time: Mar 18, 2024 08:44 AM Reporting Lab: [address] [address] Performing Lab: [address] [address] CHOLESTEROL 133 mg/dL TRIGLYCERIDE 60 mg/dL 0-150 LDL calculated 75 mg/dL 0-129 CHOL/HDL 2.9 HDL CHOLESTEROL 46 mg/dL 40-60 Mar 27, 2024 09:54 AM [facility] PSA Specimen Type: SERUM No comment entered. Ordering Provider: SHALOM ABRAMS Report Released Date/Time: Mar 20, 2024 11:35 AM [facility] [address] [facility] [address] Performing Lab: [facility] [address] [address] PSA 1.47 ng/mL 0.00-4.00 Encounter Notes: All [...] DM Medical history relevant to this request: is a 73 yo male with T2DM [...] Time spent: 5 min /nasrin/ KATIE DUNN [facility] Clinical Pharmacist Practitioner Signed: 03/31/2024 11:12 KATIE DUNN [place]
--- OUTSIDE RECORDS SUMMARY | 2024-12-07 15:28 | XMS_ITS | Encounter Summary ---
Author Name [facility] [facility] [place] [facility] [place] Address [address] [place] [address] Care Team Providers Care Customer Operations Specialist Name Role Phone SHALOM ABRAMS Primary [...] MEDICARE SUPPLEMEN SEN Jun 23, 2017 PLAN [id number] YOUSUF FIELDS PATIENT AARP MED SUPP MEDICARE SUPPLEMEN SEN Jun 23, 2017 PLAN [id number] YOUSUF FIELDS PATIENT AARP MED SUPP MEDICARE SUPPLEMEN SEN PLANM Y Jun 23, 2017 PLAN [id number] [phone] YOUSUF FIELDS PATIENT MEDICARE (WNR) MEDICARE (M) PART B Feb 22, 2016 PART B [id number] YOUSUF FIELDS PATIENT MEDICARE (WNR) MEDICARE (M) PART B Feb 22, 2016 PART B [id number] [phone] YOUSUF FIELDS PATIENT MEDICARE (WNR) MEDICARE (M) PART A Dec 22, 2013 PART A [id number] [phone] YOUSUF FIELDS PATIENT MEDICARE (WNR) MEDICARE (M) PART A Dec 22, 2013 PART A [id number] [phone] YOUSUF FIELDS PATIENT Selected Encounter This section includes the information on [place] at [place] for [place]counter. Date/Time Encounter Type Encounter Description Reason Provider Source Nov 24, 2024 11:00 AM OFF/OP CONSLTJ NEW/EST HI 55 OTOLARYNGOLOGY/EN T ICD-10-CM C09.9 Malignant neoplasm of tonsil, unspecified EDY SLOAN [facility] Encounter Template Text not used by [place] Assessments - Encounter Diagnoses This section includes the primary and secondary diagnoses documented for the Encounter. Date/Time Primary/Secondary Diagnosis Diagnosis Name Provider Source Nov 24, 2024 04:55 PM PRIMARY Malignant neoplasm of tonsil, unspecified [facility] [place] [facility] Nov 24, 2024 04:55 PM SECONDARY Dysphagia, oropharyngeal phase [facility] [place] [facility] Plan of Treatment: Future Appointments (+ [...] Date/Time Appointment Type Appointme nt Facility Name Apr 08, 2025 08:30 AM AMBULATORY - MEDICINE [facility] [place] [facility] Vital Signs: All taken on the encounter date This section contains inpatient and outpatient Vital Signs collected on the date of the Encounter. Date/Time Temperature Pulse Blood Pressure Respiratory Rate SP02 Pain Height Weight Body Mass Index Source Nov 24, 2024 10:42 AM 97.4 76 164/88 16 99 0 248.4 36 [place] [facility] [place] [facility] Social History: Smoking Status (Most current) and Tobacco Use (All prior to encounter date) This section includes the most current, and the historical, smoking and tobacco- related health factors from the [place] facility where the Encounter took place. Current Smoking Status This section includes the most current smoking, or tobacco-related health factor, from the [place] facility where the Encounter took place. Date/Time Current Smoking Status Comment Steven ity Oct 02, 2024 08:00 AM VA-TOBACCO NEVER U SED CIGARETTES [place] [facility] Tobacco Use History This section includes a history of the smoking, or tobacco-related health factors, that were collected on or before the date of the Encounter. The data comes from the [place] facility where the Encounter took place. Date/Time Smoking Status/Tobacco Use Comment F acglendy Oct 02, 2024 08:00 AM VA-TOBACCO NEVER U SED OTHER TYPE [place] [facility] [facility] May 23, 2023 03:00 PM VA-TOBACCO NEVER USED [place] [facility] [place] [facility] Jun 14, 2022 09:00 AM VA-TOBACCO FORMER USER [facility] [place] [facility] Jun 14, 2022 09:00 AM VA-TOBACCO QUIT 15 YRS OR MORE [place] [facility] [facility] Jun 01, 2021 08:00 AM VA-TOBACCO NEVER USED [place] [facility] [place] [facility] Jun 28, 2020 10:00 AM VA-TOBACCO NEVER USED [place] [facility] [place] [facility] May 21, 2019 02:59 PM VA-TOBACCO NEVER USED [facility] [place] [facility] Mar 31, 2018 03:24 PM LIFETIME NON-TOBACCO USER [facility] [place] [facility] Apr 19, 2017 08:30 AM LIFETIME NON-TOBACCO USER [place] [facility] [place] [facility] Apr 19, 2016 10:17 AM LIFETIME NON-TOBACCO US[place] . [place] [facility] February 12, 2013 02:40 PM LIFETIME NON[place]TOBACCO US[place] [facility] [place] [facility] Encounter Notes: All associated encounter notes This section contains the clinical notes associated to the Encounter. 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 Patient underwent transoral robotic right radical tonsillectomy and right modified radical neck dissection levels 2A, 2B and [address] Koffi Maldonado and Dr. Reid Mooney on 06-26-2017 at [facility] he then underwent adjuvant radiation therapy that went from 08-23-2017 through 10-11-2017 at [facility]. He had 33 fractions with a dose of 6600 cGy. The pathology at the time showed right tonsil invasive squamous cell carcinoma, 0.6 cm. No lymphovascular and perineural invasion identified. The largest metastatic tumor focus measured 5.0 cm with no extranodal extension. Patient never required G-tube placement. Overall the patient states that he is doing well. He has not followed up with ENT or radiation oncology for several years. He has a constant dry mouth. Drinks water all the time. States that his taste buds are generally good. Does not require thyroid replacement. Patient denies hoarseness, dysphagia, unintended weight loss, or ear pain. Overall he states that his voice is normal except he cannot yell easily. Unrelated, patient states that he has a chronic drippy nose. He has no symptoms of allergy but states that his nose runs all day particularly in the morning, when he eats, and in the cold. PMHx: Active problems - Computerized Problem List is the source for the followin. Benign Prostatic Hyperplasia with Outflow Obstruction ([facility] [id number]) 2. Basal cell carcinoma of nose 3. Basal cell carcinoma of arm 4. Exposure to potentially hazardous substance 5. Diabetes mellitus 6. History of malignant neoplasm of tonsil 7. Thoracic aortic aneurysm without rupture 8. Hypercholesterolemia 9. Benign essential hypertension 10. Erectile dysfunction (SNOMED CT 625089022) 11. Bilateral hearing loss 12. Obesity (SNOMED CT [id number]) Service Connected Disabilities with % Eligibility: SERVICE CONNECTED 50% to 100% VERIFIED Total S/C %: 60 IMPAIRED HEARING 0% S/C DIABETES MELLITUS 20% S/C HYPERTENSIVE VASCULAR DISEASE 0% S/C POST-TRAUMATIC STRESS DISORDER 50% S/C TINNITUS 10% S/C MEDS: Active Outpatient Medications (including Supplies): ACCU-CHEK GUIDE (GLUCOSE) TEST STRIP USE 1 STRIP TO TEST ACTIVE BLOOD SUGARS TWO TIMES A WEEK AMLODIPINE BESYLATE 10MG TAB TAKE ONE TABLET BY MOUTH ACTIVE EVERY DAY FOR BLOOD PRESSURE/HEART, DO NOT TAKE WITH GRAPEFRUIT JUICE EMPAGLIFLOZIN 10MG TAB TAKE ONE TABLET BY MOUTH ONCE DAILY ACTIVE Indication: FOR TYPE 2 DIABETES MELLITUS FINASTERIDE 5MG TAB TAKE ONE TABLET BY MOUTH EVERY OTHER ACTIVE DAY FOR PROSTATE Indication: FOR ENLARGED PROSTATE LISINOPRIL 20MG TAB TAKE ONE TABLET BY MOUTH EVERY DAY TO ACTIVE CONTROL BLOOD PRESSURE METOPROLOL SUCCINATE 50MG SA TAB TAKE ONE TABLET BY MOUTH ACTIVE ONCE DAILY FOR BLOOD PRESSURE/HEART Indication: TO PREVENT ANGINAL CHEST PAIN ROSUVASTATIN CA 20MG TAB TAKE ONE TABLET BY MOUTH ONCE ACTIVE DAILY FOR CHOLESTEROL Non-VA FLUTICASONE PROP 50MCG 120D NASAL INHL 1 SPRAY INTO ACTIVE EACH NOSTRIL ONCE DAILY NEEDED Indication: FOR NASAL IRRITATION/INFLAMMATION ALL: Patient has answered NKA Fam Hx: Non - contributory Soc Hx: NON-SMOKER ROS: Denies any other relavent ROS Vitals Enter at: Nov 24, 2024@10:42:01 BP: 164/88 P: 76 R: 16 T: 97.4 248.4 lb [112.67 kg] (11/24/2024 10:42) BMI: 35.7 CONSTITUTION: GENERAL APPEARANCE:Well developed, well nourished and groomed. No apparent acute or chronic distress. HEAD, FACE, SALIVARY GLANDS AND TMJ: Palpation of Parotid and Submandibular glands: Normal. Facial Mobility: Normal. EAR, NOSE, MOUTH AND THROAT: Pinnas - normal. Otoscopic exam: RIGHT EAR: External auditory canal normal, tympanic membrane mobile LEFT EAR: External auditory canal normal, tympanic membrane mobile Nasal Interior: Turbinates and middle meatus - Inferior turbinates normal. CLEAR RHINITS Normal mucosa with no swelling, polyps, active bleeding or evidence of bleeding. Lips, Teeth and Gums: Lips normal. Oral Cavity and Oropharynx: Oral mucosa with normal color and moisture. Anterior 2/3rds of tongue normal. Breath quality normal. Hard palate normal. Normal floor of mouth, Posterior pharynx normal. WIDELY ABSENT TONSILS, DRY MUCOUS MEMBRANES NECK AND THYROID: Neck: no adenopathy; no neck masses. WELL HEALED OBLIQUE SCARS RESPIRATORY: Respiratory effort normal. LYMPH NODES: Neck nodes: normal. NEUROLOGIC: Higher integrative functions: Normal orientation, memory, attention span and concentration, language, and fund of knowledge. Cranial nerves: Cranial nerves II-XII grossly intact and symmetrical. PSYCHIATRIC: Mood and affect: normal and appropriate to the situation. [id number] Laryngoscopy; flexible fiberoptic; diagnostic Informed consent was obtained. Risks, benefits, and alternatives were discussed. PROCEDURE NOTE After anesthesia was established, the lubricated scope was introduced through the nose into the larynx. All structures were examined as noted below. 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 Patient underwent transoral robotic right radical tonsillectomy and right modified radical neck dissection levels 2A, 2B and [address] Koffi Maldonado and Dr. Reid Mooney on 06-26-2017 at [facility] he then underwent adjuvant radiation therapy that went from 08-23-2017 through 10-11-2017 at [facility]. He had 33 fractions with a dose of 6600 cGy. Physical exam shows clear rhinitis bilaterally. Patient has had a radical right tonsillectomy with no trismus. Neck exam shows well-healed oblique scar with no lymphadenopathy. Fiberoptic exam shows well-healed resection of lingual tonsil vocal cords are symmetrically mobile. 1. 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 Given that the patient is a lifelong non-smoker and this was p16 positive patient is considered cured of his cancer and no follow-up is necessary at this time. I have recommended that he continue to follow-up with his PCP regarding annual checks on his thyroid function due to the radiation. Patient also mentions that he may require tooth extractions. I stressed the importance of doing this in coordination with an oral surgeon who is familiar with radiation. Depending on the structure and tooth that requires extraction he may require hyperbaric treatment preextraction. He assures me that his dentist and oral surgeon are aware of his radiation. 2. VASOMOTOR RHINITIS -I have started the patient on ipratropium bromide instruct him on its proper usage. He will follow-up as needed. All questions answered. Complete encounter includes: Review of past medical records Time spent with patient including obtaining history, physical exam, shared decision making, procedures, counseling and answering questions. Post visit documentation to include but not limited to medication and lab ordering. Total time = Minimum 45 min MEDICATION RECONCILIATION Outpatient: Has the patient been taking medications [...] whether with a VA or non-VA provider. JLV Link Data on this list may not be complete. Please check [email or web address]. Allergies/ADRs (Tool #5) FACILITY ALLERGY/ADR -------- No Remote Allergy/ADR Data available for this patient [place] [facility] [place] [facility] No Known Allergies [facility] [place] (Tool #1[place] INCLUDED IN THIS LIST: Alphabetical list of active outpatient prescriptions dispensed from this VA (local) and dispensed from another VA or DoD facility (remote) as well as inpatient orders (local pending and active), local clinic medications, locally documented non-VA medications, and local prescriptions that have or been discontinued in the past 90 days. Non-VA Meds Last Documented On: Dec 18, 2023 NOTE The display of VA prescriptions dispensed from another VA or DoD facility (remote) is limited to active outpatient prescription entries matched to National Drug File at the originating site and may not include some items such as investigational drugs, compounds, etc. NOT INCLUDED IN THIS LIST: Medications self-entered by the patient into personal health records (i.e. WireImage) are NOT included in this list. Non-VA medications documented outside this [place], remote inpatient orders (regardless of status) and remote clinic medications are NOT included in this list. The patient and provider must always discuss medications the patient is taking, regardless of where the medication was dispensed or obtained. OUTPT AMLODIPINE BESYLATE 10MG TAB (Status = Active) TAKE ONE TABLET BY MOUTH EVERY DAY FOR BLOOD PRESSURE/HEART, DO NOT TAKE WITH GRAPEFRUIT JUICE Rx# [id number] Last Released: 07/31/24 Qty/Days Supply: Rx Expiration Date: 07/30/25 Refills Remainin OUTPT EMPAGLIFLOZIN 10MG TAB (Status = Discontinued) TAKE ONE TABLET BY MOUTH ONCE DAILY Rx# [id number] Last Released: QtyDays Supply: Rx Expiration Date: 08/13/25 Refills Remainin Indication: FOR TYPE 2 DIABETES MELLITUS OUTPT EMPAGLIFLOZIN 10MG TAB (Status = Active) TAKE ONE TABLET BY MOUTH ONCE DAILY Rx# [id number] Last Released: 10/08/24 Qty/Days Supply: Rx Expiration Date: 10/08/25 Refills Remainin Indication: FOR TYPE 2 DIABETES MELLITUS OUTPT FINASTERIDE 5MG TAB (Status = Discontinued) TAKE ONE TABLET BY MOUTH EVERY DAY FOR PROSTATE Rx# [id number] Last Released: 07/31/24 Qty/Days Supply: Rx Expiration Date: 07/30/25 Refills Remainin OUTPT FINASTERIDE 5MG TAB (Status = Active) TAKE ONE TABLET BY MOUTH EVERY OTHER DAY FOR PROSTATE Rx# [id number] Last Released: 11/13/24 Qty/Days Supply: Rx Expiration Date: 10/03/25 Refills Remainin Indication: FOR ENLARGED PROSTATE Non-VA FLUTICASONE PROP 50MCG 120D NASAL INHL INSTILL 1 SPRAY INTO EACH NOSTRIL ONCE DAILY NEEDED Patient wants to buy from Non-VA pharmacy. Indication: FOR NASAL IRRITATION/INFLAMMATION OUTPT LISINOPRIL 20MG TAB (Status = Active) TAKE ONE TABLET BY MOUTH EVERY DAY TO CONTROL BLOOD PRESSURE Rx# [id number] Last Released: 08/28/24 Qty/Days Supply: Rx Expiration Date: 07/30/25 Refills Remainin OUTPT METFORMIN HCL 500MG 24HR SA TAB (Status = Discontinued) TAKE ONE TABLET BY MOUTH ONCE DAILY FOR TYPE 2 DIABETES MELLITUS Rx# [id number] Last Released: Supply: Rx Expiration Date: 12/19/24 Refills Remainin Indication: FOR TYPE 2 DIABETES MELLITUS OUTPT METOPROLOL SUCCINATE 50MG SA TAB (Status = Discontinued) TAKE ONE TABLET BY MOUTH EVERY DAY FOR BLOOD PRESSURE/HEART Rx# [id number] Last Released: 07/31/24 Qty/Days Supply: Rx Expiration Date: 07/30/25 Refills Remainin OUTPT METOPROLOL SUCCINATE 50MG SA TAB (Status = Active) TAKE ONE TABLET BY MOUTH ONCE DAILY FOR BLOOD PRESSURE/HEART Rx# [id number] Last Released: 10/02/24 Qty/Days Supply: Rx Expiration Date: 10/03/25 Refills Remainin Indication: TO PREVENT ANGINAL CHEST PAIN OUTPT ROSUVASTATIN CA 20MG TAB (Status = Active) TAKE ONE TABLET BY MOUTH ONCE DAILY FOR CHOLESTEROL Rx# [id number] Last Released: 11/19/24 Qty/Days Supply: Rx Expiration Date: 07/30/25 Refills Remainin SUPPLIES OUTPT ACCU-CHEK GUIDE (GLUCOSE) TEST STRIP (Status = ) USE 1 STRIP TO TEST BLOOD SUGARS TWO TIMES A WEEK Rx# [id number] Last Released: 05/29/24 Qty/Days Supply: 50/180 Rx Expiration Date: 09/27/24 Refills Remainin Indication: TYPE 2 DIABETES OUTPT ACCU-CHEK GUIDE (GLUCOSE) TEST STRIP (Status = Active) USE 1 STRIP TO TEST BLOOD SUGARS TWO TIMES A WEEK Rx# [id number] Last Released: 11/19/24 Qty/Days Supply: 50/180 Rx Expiration Date: 10/08/25 Refills Remainin/ Edy Sloan MD Otolaryngology Signed: 11/24/2024 17:05 EDY SLOAN [facility]
--- OUTSIDE RECORDS SUMMARY | 2024-12-07 15:28 | XMS_ITS ---
Author Name [facility] [place] Organization [place] Address [address] [place] [address] Care Team Providers Care Professional Application Designer Name Role Phone SHALOM ABRAMS Primary Care [...] MEDICARE SUPPLEMEN SEN Jun 23, 2017 PLAN [id number] YOUSUF FIELDS PATIENT AARP MED SUPP MEDICARE SUPPLEMEN SEN Jun 23, 2017 PLAN [id number] [phone] YOUSUF FIELDS PATIENT AARP MED SUPP MEDICARE SUPPLEMEN SEN PLANM Y Jun 23, 2017 PLAN [id number] YOUSUF FIELDS PATIENT MEDICARE (WNR) MEDICARE (M) PART B Feb 22, 2016 PART B [id number] [id number] YOUSUF FIELDS PATIENT MEDICARE (WNR) MEDICARE (M) PART B Feb 22, 2016 PART B [id number] YOUSUF FIELDS PATIENT MEDICARE (WNR) MEDICARE (M) PART A Dec 22, 2013 PART A [id number] [id number] YOUSUF FIELDS PATIENT MEDICARE (WNR) MEDICARE (M) PART A Dec 22, 2013 PART A [id number] YOUSUF FIELDS PATIENT Selected Encounter This section includes the information on record at [place] for the Encounter. Date/Time Encounter Type Encounter Description Reason Pro vider Source Dec 10, 2023 03:00 PM Outpatient Encounter CLINICAL PHARMACY IHE Encounter Template Text not used by [place] Plan of Treatment: Future Appointments (+ 6 months) and Future Tests (+/- 45 days) The Plan of Treatment section includes future care activities for the [facility] [place] [facility] This section includes future appointments and future orders which are active, pending or scheduled. Future Appointments This section includes appointments that were scheduled to occur 6 months from the date of the Encounter, up to a maximum of 20 appointments. The data comes from all [place] treatment facilities. Appointment Date/Time Appointment Type Appointme nt Facility Name Dec 18, 2023 01:30 PM AMBULATORY - MEDICINE [place] [facility] [place] [facility] Jan 01, 2024 03:00 PM AMBULATORY - MEDICINE [place] [facility] [place] [facility] Mar 31, 2024 08:30 AM AMBULATORY - MEDICINE [place] [facility] [place] [facility] Mar 31, 2024 09:30 AM AMBULATORY MEDICINE [place] [facility] [place] [facility] May 28, 2024 09:00 AM AMBULATORY - MEDICINE [facility] Lab Results: +/- 30 days of the encounter This section includes the Chemistry and Hematology Lab Results on record with [place] for the patient. Radiology Reports and Pathology Reports are provided separately, in subsequent sections. Lab Results This section contains the Chemistry/Hematology Results that were resulted 30 days before or 30 daysafter the date of the Encounter. Date/Time Source Result Type Result - Unit Interpretation Reference Range Comment Nov 22, 2023 08:[address] [facility] LIPID PANEL FASTING Specimen Type: SERUM No comment entered. Ordering Provider: TIFFANY MADISON Report Released Date/Time: Nov 08, 2023 11:20 AM Reporting Lab: [facility] [address] [facility] [address] Performing Lab: [facility] [address] [facility] [address] CHOLESTEROL 150 mg/dL TRIGLYCERIDE 64 mg/dL 0-150 LDL calculated 92 mg/dL 0-129 CHOL/HDL 3.3 HDL CHOLESTEROL 45 mg/dL 40-60 Nov 22, 2023 08:53 AM [facility] HEMOGLOBIN A1C PANEL Specimen Type: BLOOD [...] Nov 08, 2023 11:20 AM Reporting Lab: [address] [address] Performing Lab: [address] [address] HEMOGLOBIN A1C 10.4 H 4.0-5.6 Nov 22, 2023 08:53 AM [facility] LIVER FUNCTION Specimen Type: SERUM No comment entered. Ordering Provider: TIFFANY MADISON Report Released Date/Time: Nov 08, 2023 11:20 AM Reporting Lab: [facility] [address] [facility] [address] Performing Lab: [address] [address] PROTEIN,TOTAL 7.1 g/dL 6.0-8.3 ALBUMIN 4.2 g/dL 3.5-5.0 ALKALINE PHOSPHATASE 86 U/L 40-150 AST 15 U/L 5-34 ALT 24 U/L BILIRUBIN, TOTAL 0.6 mg/dL 0.2-1.2 Nov 22, 2023 08:53 AM [facility] BASIC METABOLIC PANEL (fasting) Specimen Type: SERUM No comment entered. Ordering Provider: TIFFANY MADISON Report Released Date/Time: Nov 08, 2023 11:20 AM Reporting Lab: [facility] [address] [facility] [address] Performing Lab: [address] [address] UREA NITROGEN 15 mg/dL 7-25 GLUCOSE 317 mg/dL H 65-100 SODIUM 139 mmol/L 135-145 POTASSIUM 3.9 mmol/L 3.5-5.0 CHLORIDE 106 mmol/L 100-110 CO2 23 meq/L 20-30 CREATININE, Serum 1.09 mg/dL 0.50-1.40 eGFR(CKD-EPI 2020) 71 mL/min >60 Nov 22, 2023 08:53 AM [facility] HIV 1&2 Ag/Ab SCREEN Specimen Type: SERUM No comment entered. Ordering Provider: TIFFANY MADISON Report Released Date/Time: Nov 08, 2023 11:20 AM Reporting Lab: [address] [address] Performing Lab: [address] [address] HIV 1&2 Ag/Ab SCREEN NON-REACTIVE Nonreactive Social History: Smoking Status (Most current) and Tobacco Use (All prior to encounter date) This section includes the most current, and the historical, smoking and tobacco- related health factors from the [place] facility where the Encounter took place. Current Smoking Status This section includes the most current smoking, or tobacco-related health factor, from the [place] facility where the Encounter took place. Date/Time Current Smoking Status Comment Steven slaughter May 23, 2023 03:00 PM VA-TOBACCO NEVER USED [facility] Tobacco Use History This section includes a history of the smoking, or tobacco-related health factors, that were collected on or before the date of the Encounter. The data comes from the [place] facility where the Encounter took place. Date/Time Smoking Status/Tobacco Use Comment F acility Jun 14, 2022 09:00 AM VA-TOBACCO FORMER USER [facility] Jun 14, 2022 09:00 AM VA-TOBACCO QUIT 15 YRS OR MORE [facility] [place] [facility] Jun 01, 2021 08:00 AM VA-TOBACCO NEVER USED [facility] [place] [facility] Jun 28, 2020 10:00 AM VA-TOBACCO NEVER USED [facility] [place] [facility] May 21, 2019 02:59 PM VA-TOBACCO NEVER USED [facility] [place] [facility] Mar 31, 2018 03:24 PM LIFETIME NON-TOBACCO USER [facility] [place] [facility] Apr 19, 2017 08:30 AM LIFETIME NON-TOBACCO USER [facility] [place] [facility] Apr 19, 2016 10:17 AM LIFETIME NON-TOBACCO USER . 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 Please advise. /nasrin/ CONSTANTINE REDDY ADVANCED BODY STYLIST Signed: 12/11/2023 11:41 MARK ANTHONY DALAL [facility]
--- OUTSIDE RECORDS SUMMARY | 2024-12-07 15:28 | XMS_ITS | Encounter Summary ---
Author Name [facility] [place] Address [address] [place] [address] Care Team Providers Care Karate Teacher Name Role Phone SHALOM ABRAMS Primary Care [...] MEDICARE SUPPLEMEN SEN Jun 23, 2017 PLAN [id number] YOUSUF FIELDS PATIENT AARP MED SUPP MEDICARE SUPPLEMEN SEN Jun 23, 2017 PLAN [id number] [phone] YOUSUF FIELDS PATIENT AARP MED SUPP MEDICARE SUPPLEMEN SEN PLANM Y Jun 23, 2017 PLAN [id number] [phone] YOUSUF FIELDS PATIENT MEDICARE (WNR) MEDICARE (M) PART B Feb 22, 2016 PART B [id number] YOUSUF FIELDS PATIENT MEDICARE (WNR) MEDICARE (M) PART B Feb 22, 2016 PART B [id number] [phone] YOUSUF FIELDS PATIENT MEDICARE (WNR) MEDICARE (M) PART A Dec 22, 2013 PART A [id number] YOUSUF FIELDS PATIENT MEDICARE (WNR) MEDICARE (M) PART A Dec 22, 2013 PART A [id number] [phone] YOUSUF FIELDS PATIENT Selected Encounter This section includes the information on record at [place] for the Encounter. Date/Time Encounter Type Encounter Description Reason Provider Source Mar 31, 2024 09:30 AM OFFICE O/P EST MOD 30 MIN PRIMARY CARE/MEDICINE ICD-10-CM Z77.29 Contact with and exposure to other hazardous substances FURNICLOLISAA E Encounter Template Text not used by [place] Assessments - Encounter Diagnoses This section includes the primary and secondary diagnoses documented for the Encounter. Date/Time Primary/Secondary Diagnosis Diagnosis Name Provider Source Mar 31, 2024 01:03 PM PRIMARY Contact with and exposure to other hazardous substances FURCOLO,SHALOM [facility] [place] [facility] Mar 31, 2024 01:03 PM SECONDARY Elevated prostate specific antigen [PSA] FURCOLO,SHALOM [facility] [place] [facility] Mar 31, 2024 01:03 PM SECONDARY Essential (primary) hypertension FURCOLO,SHALOM [facility] [place] [facility] Mar 31, 2024 01:03 PM SECONDARY Malignant neoplasm of tonsil, unspecified FURCOLO,SHALOM [facility] [place] [facility] Mar 31, 2024 01:03 PM SECONDARY Other obesity FURCOLO,SHALOM [facility] [place] [facility] Mar 31, 2024 01:03 PM SECONDARY Pure hypercholesterolem ia, unspecified FURCOLO,SHALOM [facility] [place] [facility] Mar 31, 2024 01:03 PM SECONDARY Type 2 diabetes mellitus without complications FURCOLO,SHALOM [facility] [place] [facility] Plan of Treatment: Future Appointments (+ 6 months) and Future Tests (+/- 45 days) The Plan of Treatment section includes future care activities for the patient from all [place] treatmentfacilities. This section includes future appointments and future orders which are active, pending or scheduled. Future Appointments This section includes appointments that were scheduled to occur 6 months from the date of the Encounter, up to a maximum of 20 appointments. The data comes from all [place] treatment facilities. Appointment Date/Time Appointment Type Appointme nt Facility Name May 28, 2024 09:00 AM AMBULATORY - MEDICINE [facility] Aug 12, 2024 01:00 PM AMBULATORY - MEDICINE [facility] Lab Results: +/- 30 days of the encounter This section includes the Chemistry and Hematology Lab Results on record with [place] for the patient. Radiology Reports and Pathology Reports are provided separately, in subsequent sections. Lab Results This section contains the Chemistry/Hematology Results that were resulted 30 days before or 30 daysafter the date of the Encounter. Date/Time Source Result Type Result - Unit Interpretation Reference Range Comment Mar 27, 2024 09:54 AM [facility] HEMOGLOBIN A1C PANEL Specimen Type: BLOOD [...] Mar 18, 2024 08:44 AM Reporting Lab: [facility] [address] [address] Performing Lab: [address] [address] HEMOGLOBIN A1C 6.4 H 4.0-5.6 Mar 27, 2024 09:54 AM [facility] LIPID PANEL, NON FASTING Specimen Type: SERUM No comment entered. Ordering Provider: SHALOM ABRAMS Report Released Date/Time: Mar 18, 2024 08:44 AM Reporting Lab: [facility] [address] [facility] [address] Performing Lab: [address] [address] CHOLESTEROL 133 mg/dL TRIGLYCERIDE 60 mg/dL 0-150 LDL calculated 75 mg/dL 0-129 CHOL/HDL 2.9 HDL CHOLESTEROL 46 mg/dL 40-60 Mar 27, 2024 09:54 AM [facility] BASIC METABOLIC PANEL (non-fasting) Specimen Type: SERUM No comment entered. Ordering Provider: SHALOM ABRAMS Report Released Date/Time: Mar 18, 2024 08:44 AM Reporting Lab: [facility] [address] [facility] [address] Performing Lab: [address] [address] UREA NITROGEN 13 mg/dL 7-25 GLUCOSE 148 mg/dL H 65-100 SODIUM 139 mmol/L 135-145 POTASSIUM 4.2 mmol/L 3.5-5.0 CHLORIDE 106 mmol/L 100-110 CO2 25 meq/L 20-30 CREATININE, Serum 0.96 mg/dL 0.50-1.40 eGFR(CKD-EPI 2020) 82 mL/min >60 Mar 27, 2024 09:54 AM [facility] PSA Specimen Type: SERUM No comment entered. Ordering Provider: SHALOM ABRAMS Report Released Date/Time: Mar 20, 2024 11:35 AM Reporting Lab: [address] [address] Performing Lab: [address] [address] PSA 1.47 ng/mL 0.00-4.00 Vital Signs: All taken on the encounter date This section contains inpatient and outpatient Vital Signs collected on the date of the Encounter. Date/Time Temperature Pulse Blood Pressure Respiratory Rate SP02 Pain Height Weight Body Mass Index Source Mar 31, 2024 09:30 AM 98 62 138/80 16 95 0 238 34 [facility] Social History: Smoking Status (Most current) and Tobacco Use (All prior to encounter date) This section includes the most current, and the historical, smoking and tobacco- related health factors from the [place] facility where the Encounter took place. Current Smoking Status This section includes the most current smoking, or tobacco-related health factor, from the [place] facility where the Encounter took place. Date/Time Current Smoking Status Comment Facil [facility] May 23, 2023 03:00 PM VA-TOBACCO NEVER USED [place] [facility] [place] [facility] Tobacco Use History This section includes a history of the smoking, or tobacco-related health factors, that were collected on or before the date of the Encounter. The data comes from the [place] facility where the Encounter took place. Date/Time Smoking Status/Tobacco Use Comment F acility Jun 14, 2022 09:00 AM VA-TOBACCO FORMER USER [place] [facility] [place] [facility] Jun 14, 2022 09:00 AM VA-TOBACCO QUIT 15 YRS OR MORE [facility] [place] [facility] Jun 01, 2021 08:00 AM VA-TOBACCO NEVER USED [facility] [place] [facility] Jun 28, 2020 10:00 AM VA-TOBACCO NEVER USED [place] [facility] [place] [facility] May 21, 2019 02:59 PM VA-TOBACCO NEVER USED [place] [facility] [place] [facility] Mar 31, 2018 03:24 PM LIFETIME NON-TOBACCO USER [place] [facility] [place] [facility] Apr 19, 2017 08:30 AM LIFETIME NON-TOBACCO USER [facility] [place] [facility] Apr 19, 2016 10:17 AM LIFETIME NON-TOBACCO USER . [place] [facility] [place] [facility] February 12, 2013 02:40 PM LIFETIME NON-TOBACCO USER [place] [facility] [place] [facility] Encounter Notes: All associated encounter notes This section contains the clinical notes associated to the Encounter. Date/Time Encounter Note(s) Provider Source May 23, 2024 11:28 AM ADDENDUM: LOCAL TITLE: Addendum STANDARD TITLE: ADDENDUM DATE OF NOTE: MAY 23, 2024@11:28:15 ENTRY DATE: MAY 23, 2024@11:28:16 AUTHOR: LAVERNE GARCIA COSIGNER: URGENCY: STATUS: COMPLETED Please request most recent Urology office visit notes. [facility]-----[address] [address] [phone] [phone] TAX ID #[id number] Thank you!! /nasrin/ LAVERNE GARCIA NP NURSE PRACTITIONER Signed: 05/23/2024 11:28 Receipt Acknowledged By: 05/26/2024 09:53 /es/ ELEAZAR NEGRETE --- Original Document --- 03/31/24 NOTE: LIMA FIELDS is a 73 year old WHITE MALE who is being seen today in primary care for routine follow up. = CARE TEAM = Community Primary Care Provider: DR. Thom Lee, part of [facility] Specialists: clinical pharmacist Community Specialists: ENT- [facility]- for tonsillar CA surveillance urology- Dr. Mayco Roper cardiology- Dr. Moore [place] for enlarged aorta = HISTORY = PERIOD [...] essential hypertension 8. Erectile dysfunction (SNOMED CT 250216529) 9. Bilateral hearing loss 10. 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 Thoracic aortic aneurysm without rupture being followed by Dr. Moore 5. Elevated PSA possible prostate cancer being followed by urology 6. Hypercholesterolemia 7. Benign essential hypertension- recommend d/c HCTZ as having issues with urination as well as dry mouth 8. Erectile dysfunction (SNOMED CT 733401448) 9. Bilateral hearing loss 10. Obesity (SNOMED CT 672613671) = HEALTH MAINTENANCE = Colonoscopy (due at [...] Please request most recent office visit notes. [facility]-----[address] [facility] [address] [phone] TAX ID #[id number] Thank you!! /nasrin/ LAVERNE GARCIA NP NURSE PRACTITIONER Signed: 05/23/2024 11:27 Receipt Acknowledged By: * AWAITING SIGNATURE * ELEAZAR MAS RAIMONDA KATHRYN [facility] May 23, 2024 11:27 AM ADDENDUM: LOCAL TITLE: Addendum STANDARD TITLE: ADDENDUM DATE OF NOTE: MAY 23, 2024@11:27:36 ENTRY DATE: MAY 23, 2024@11:27:38 AUTHOR: LAVERNE GARCIA COSIGNER: URGENCY: STATUS: COMPLETED Please request most recent office visit notes. [facility]-----[address] [facility] [address] [phone] [phone] TAX ID #[id number] Thank you!! /elvin GARCIA NP NURSE PRACTITIONER Signed: 05/23/2024 11:27 Receipt Acknowledged By: 05/26/2024 10:13 /nasrin/ ELEAZAR MAS AMSA --- Original Document --- 03/31/24 NOTE: LIMA FIELDS is a 73 year old WHITE MALE who is being seen today in primary care for routine follow up. = CARE TEAM = Community Primary Care Provider: DR. Thom Lee, part of [facility] Specialists: clinical pharmacist Community Specialists: ENT- [facility]- for tonsillar CA surveillance urology- Dr. Mayco Roper cardiology- Dr. Moore [place] for enlarged aorta = HISTORY = PERIOD [...] essential hypertension 8. Erectile dysfunction (SNOMED CT 919062783) 9. Bilateral hearing loss 10. 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 Thoracic aortic aneurysm without rupture being followed by Dr. Moore 5. Elevated PSA possible prostate cancer being followed by urology 6. Hypercholesterolemia 7. Benign essential hypertension- recommend d/c HCTZ as having issues with urination as well as dry mouth 8. Erectile dysfunction (SNOMED CT 514542688) 9. Bilateral hearing loss 10. Obesity (SNOMED CT 275814801) = HEALTH MAINTENANCE = Colonoscopy (due at [...] request most recent Urology office visit notes. [facility]-----[address] [address] [phone] TAX ID #[id number] Thank you!! /nasrin/ LAVERNE GARCIA NP NURSE PRACTITIONER Signed: 05/23/2024 11:28 Receipt Acknowledged By: 05/26/2024 09:53 /nasrin/ ELEAZAR NEGRETE 05/26/2024 ADDENDUM STATUS: COMPLETED PENELOPE SPOKE WITH THE UROLOGY OFFICE AT [facility] AND A RECENT URO FAX OF IS BEING SENT. /elvin NEGRETE Signed: 05/26/2024 10:01 LAVERNE GARCIA [place] [facility] [place] [facility] Mar 31, 2024 09:45 AM PHYSICIAN NOTE: [...] Care Provider: DR. Thom Lee, part of [facility] Specialists: clinical pharmacist Community Specialists: ENT- [facility]- for tonsillar CA surveillance urology- Dr. Mayco Roper cardiology- Dr. Moore, [place] for enlarged aorta = HISTORY = PERIOD [...] essential hypertension 8. Erectile dysfunction (SNOMED CT 843053271) 9. Bilateral hearing loss 10. 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 Thoracic aortic aneurysm without rupture being followed by Dr. Moore 5. Elevated PSA possible prostate cancer being followed by urology 6. Hypercholesterolemia 7. Benign essential hypertension- recommend d/c HCTZ as having issues with urination as well as dry mouth 8. Erectile dysfunction (SNOMED CT 153906500) 9. Bilateral hearing loss 10. Obesity (SNOMED CT 747320215) = HEALTH MAINTENANCE = Colonoscopy (due at [...] Please request most recent office visit notes. [facility]-----[facility] [address] [phone] TAX ID #[id number] Thank you!! /elvin GARCIA NP NURSE PRACTITIONER Signed: 05/23/2024 11:27 Receipt Acknowledged By: * AWAITING SIGNATURE * ELEAZAR MAS 05/23/2024 ADDENDUM STATUS: COMPLETED Please request most recent Urology office visit notes. [facility]-----[address] [facility] [address] [phone] TAX ID #[id number] Thank you!! /elvin GARCIA NP NURSE PRACTITIONER Signed: 05/23/2024 11:28 Receipt Acknowledged By: 05/26/2024 09:53 /elvin NEGRETE 05/26/2024 ADDENDUM STATUS: COMPLETED PENELOPE SPOKE WITH THE UROLOGY OFFICE AT [facility] AND A RECENT URO FAX OF IS BEING SENT. /elvin MAS AMSDee Dee Signed: 05/26/2024 10:01 SHALOM ABRAMS [place] [facility] [place] [facility] Mar 31, 2024 [...] his feet. The patient was advised the [place] mandates all patients with diabetes mellitus, end [...] results. per colonoscopy done this past May [facility]. obtaining records. /nasrin/ TENZIN SERRANO LPN License Practical Nurse Signed: 03/31/2024 11:27 TENZIN SERRANO [place] [facility]
== END 2024-12-07 14:05 | disposition home or self-care (01) ==
LOC: HO.HCS 13:20
PROVIDERS: PCP Nurse Practitioner Family; Visit Provider Internal Medicine Cardiovascular Disease
DX: I71.20 Thoracic aortic aneurysm, without rupture, unspecified (principal); I10 Essential (primary) hypertension; I45.10 Unspecified right bundle-branch block
CPT/HCPCS: 93010; 99214

== ENCOUNTER → 2024-12-07 13:19 | Outpatient (BNVA) | payer OTHER, SELFPAY | PROVIDERS: PCP Nurse Practitioner Family; Visit Provider Internal Medicine Cardiovascular Disease | DX: I71.20 Thoracic aortic aneurysm, without rupture, unspecified (principal); I10 Essential (primary) hypertension; I45.10 Unspecified right bundle-branch block | CPT/HCPCS: 93005 ==

== ENCOUNTER 2025-02-25 07:24 | Outpatient (REF) | payer MEDICARE, SELFPAY ==
--- OUTSIDE RECORDS SUMMARY | 2025-02-25 07:26 | XMS_ITS ---
Author Name [facility] [place] Organization [facility] [place] [facility] [place] Address [address] [place] [address] Care Team Providers Care Brand Marketing Coordinator Name Role Phone SHALOM ABRAMS Primary Care [...] MEDICARE SUPPLEMEN SEN Jun 23, 2017 PLAN [id number] YOUSUF VILLAGRAN PATIENT AARP MED SUPP MEDICARE SUPPLEMEN SEN Jun 23, 2017 PLAN [id number] [phone] YOUSUF VILLAGRAN PATIENT AARP MED SUPP MEDICARE SUPPLEMEN SEN PLANM Y Jun 23, 2017 PLAN [id number] [phone] YOUSUF VILLAGRAN PATIENT MEDICARE (WNR) MEDICARE (M) PART B Feb 22, 2016 PART B [id number] [phone] YOUSUF VILLAGRAN PATIENT MEDICARE (WNR) MEDICARE (M) PART B Feb 22, 2016 PART B [id number] [phone] YOUSUF VILLAGRAN PATIENT MEDICARE (WNR) MEDICARE (M) PART A Dec 22, 2013 PART A [id number] YOUSUF VILLAGRAN PATIENT MEDICARE (WNR) MEDICARE (M) PART A Dec 22, 2013 PART A [id number] YOUSUF VILLAGRAN PATIENT Selected Encounter This section includes the information on record at [place] for the Encounter. Date/Time Encounter Type Encounter Description Reason Provider Source Mar 31, 2024 08:30 AM MTMS BY PHARM EST 15 MIN CLINICAL PHARMACY ICD-10-CM E11.9 Type 2 diabetes mellitus without complications KANDICE BURGESS Patricio Encounter Template Text not used by [place] Assessments - Encounter Diagnoses This section includes the primary and secondary diagnoses documented for the Encounter. Date/Time Primary/Secondary Diagnosis Diagnosis Name Provider Source Mar 31, 2024 12:23 PM PRIMARY Type 2 diabetes mellitus without complications KANDICE BURGESS [facility] Plan of Treatment: Future Appointments (+ 6 months) and Future Tests (+/- 45 days) The Plan of Treatment section includes future care activities for the patient from all [place] treatmentfacilities. This section includes future appointments and future orders which are active, pending or scheduled. Future Appointments This section includes appointments that were scheduled to occur 6 months from the date of the Encounter, up to a maximum of 20 appointments. The data comes from all [place] treatment facilities. Appointment Date/Time Appointment Type Appointme nt Facility Name May 28, 2024 09:00 AM AMBULATORY - MEDICINE [facility] Aug 12, 2024 01:00 PM AMBULATORY MEDICINE [facility] Lab Results: +/- 30 days of the encounter This section includes the Chemistry and Hematology Lab Results on record with [place] for the patient. Radiology Reports and Pathology Reports are provided separately, in subsequent sections. Lab Results This section contains the Chemistry/Hematology Results that were resulted 30 days before or 30 daysafter the date of the Encounter. Date/Time Source Result Type Result - Unit Interpretation Reference Range Specimen Type Comment Mar 27, 2024 09:54 AM [facility] HEMOGLOBIN A1C PANEL BLOOD Specimen Type: BLOOD Comment: Values obtained from A1C measurements can vary. For atypical A1C assays, a reported value of 7.0 could actually be between 6.72 and 7.28 if measured by a reference method. A reported value of 9.0 could actually be between 8.73 and 9.27. Ref: http://www.ngsp .org/CAPdata.as p Ordering Provider: SHALOM ABRAMS Report Released Date/Time: Mar 18, 2024 08:44 AM Reporting Lab: [facility] [address] [facility] [address] Performing Lab: [facility] [address] [facility] [address] HEMOGLOBIN A1C 6.4 H 4.0-5.6 Mar 27, 2024 09:54 AM [facility] LIPID PANEL, NON FASTING SERUM Specimen Type: SERUM No comment entered. Ordering Provider: SHALOM ABRAMS Report Released Date/Time: Mar 18, 2024 08:44 AM Reporting Lab: [facility] [address] [address] Performing Lab: [facility] [address] [address] CHOLESTEROL 133 mg/dL TRIGLYCERIDE 60 mg/dL 0-150 LDL calculated 75 mg/dL 0-129 CHOL/HDL 2.9 HDL CHOLESTEROL 46 mg/dL 40-60 Mar 27, 2024 09:54 AM [facility] BASIC METABOLIC PANEL (non-fasting) SERUM Spe cimen Type: SERUM No comment entered. Ordering Provider: SHALOM ABRAMS Report Released Date/Time: Mar 18, 2024 08:44 AM Reporting Lab: [facility] [address] [facility] [address] Performing Lab: [address] [address] UREA NITROGEN 13 mg/dL 7-25 GLUCOSE 148 mg/dL H 65-100 SODIUM 139 mmol/L 135-145 POTASSIUM 4.2 mmol/L 3.5-5.0 CHLORIDE 106 mmol/L 100-110 CO2 25 meq/L 20-30 CREATININE, Serum 0.96 mg/dL 0.50-1.40 eGFR(CKD-EPI 2020) 82 mL/min >60 Mar 27, 2024 09:54 AM [facility] PSA SERUM Specimen Type: SERUM No comment entered. Ordering Provider: SHALOM ABRAMS Report Released Date/Time: Mar 20, 2024 11:35 AM Reporting Lab: [place] [facility] [place] [facility] [address] [facility] [address] Performing Lab: [place] [facility] [place] [facility] [address] [facility] [address] PSA 1.47 ng/mL 0.00-4.00 Vital Signs: All taken on the encounter date This section contains inpatient and outpatient Vital Signs collected on the date of the Encounter. Date/Time Temperature Pulse Blood Pressure Respiratory Rate SP02 Pain Height Weight Body Mass Index Source Mar 31, 2024 09:30 AM 98 62 138/80 16 95 0 238 34 [place] [facility] Social History: Smoking Status (Most current) and Tobacco Use (All prior to encounter date) This section includes the most current, and the historical, smoking and tobacco- related health factors from the [place] facility where the Encounter took place. Current Smoking Status This section includes the most current smoking, or tobacco-related health factor, from the [place] facility where the Encounter took place. Date/Time Current Smoking Status Comment Steven slaughter May 23, 2023 03:00 PM VA-TOBACCO NEVER USED [place] [facility] [place] [facility] Tobacco Use History This section includes a history of the smoking, or tobacco-related health factors, that were collected on or before the date of the Encounter. The data comes from the [place] facility where the Encounter took place. Date/Time Smoking Status/Tobacco Use Comment F acility Jun 14, 2022 09:00 AM VA-TOBACCO FORMER USER [facility] [place] [facility] Jun 14, 2022 09:00 AM VA-TOBACCO QUIT 15 YRS OR MORE [facility] [place] [facility] Jun 01, 2021 08:00 AM VA-TOBACCO NEVER USED [facility] [place] [facility] Jun 28, 2020 10:00 AM VA-TOBACCO NEVER USED [facility] [place] [facility] May 21, 2019 02:59 PM VA-TOBACCO NEVER USED [facility] [place] [facility] Mar 31, 2018 03:24 PM LIFETIME NON-TOBACCO USER [facility] [place] [facility] Apr 19, 2017 08:30 AM LIFETIME NON-TOBACCO USER [facility] [place] [facility] Apr 19, 2016 10:17 AM LIFETIME NON-TOBACCO USER . 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 Goals, per [place]/[facility] clinical practice guidelines: For patients 60 years and over, recommend a goal of <150/90, with added benefit of reducing SBP closer to 130 HTN: Current BP is 138/80 (11/27/2023 09:10) ASCVD: On rosuvastatin; LDL reduced from previous. History of Preventive Care: Most recent visit to warehouse supervisor: denies issues; usually gets checked at pcp appointment Most recent visit to diversified crops farmworker/opthalmologist: 11/27/23 Type II diabetes without retinopathy or [...] PHARMACIST PRACTITIONER Signed: 03/31/2024 12:23 KANDICE BURGESS [facility] Mar 31, 2024 07:58 AM PHARMACY OUTPATIENT NOTE: LOCAL TITLE: PHARMACY CLINIC NOTE STANDARD TITLE: PHARMACY OUTPATIENT NOTE DATE OF NOTE: MAR 31, 2024@07:58 ENTRY DATE: MAR 31, 2024@07:58:08 AUTHOR: KANDICE BURGESS EXP COSIGNER: URGENCY: STATUS: COMPLETED PHARMACY CLINIC NOTE Has ADDENDA LIMA VILLAGRAN, 73 yo WHITE MALE, presents for ovkq-da-kxzo follow-up for diabetes management. 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 Goals, per [facility] clinical practice guidelines: For patients 60 years and over, recommend a goal of <150/90, with added benefit of reducing SBP closer to 130 HTN: Current BP is 138/80 (11/27/2023 09:10) ASCVD: On rosuvastatin; LDL reduced from previous. History of Preventive Care: Most recent visit to warehouse supervisor: denies issues; usually gets checked at pcp appointment Most recent visit to diversified crops farmworker/opthalmologist: 11/27/23 Type II diabetes without retinopathy or [...] , clinician, and any caregivers present. The [facility] was provided the opportunity express questions or concerns, and the plan was adjusted as needed to address these concerns. -Reviewed with [facility] any new medications, changes to the medication [...] @0900 (tele) Thank you! /elvin BURGESS PHARMD, BCPLeslie CLINICAL PHARMACIST PRACTITIONER Signed: 03/31/2024 12:24 Receipt Acknowledged By: * AWAITING SIGNATURE * CONSTANTINE REDDY [facility]
[2025-02-25 09:26] LABS: Anion Gap 11 (12-20); Blood Urea Nitrogen 18 mg/dL (9-16); Calcium 9.5 mg/dL (8.4-10.2); Carbon Dioxide 27 mmol/L (22-29); Chloride 108 mmol/L (96-108); Estimated Glomerular Filt Rate > 60; Glucose Random 152 mg/dL (60-115); Potassium 4.2 mmol/L (3.3-5.1); Sodium 142 mmol/L (135-145)
== END 2025-02-25 07:25 | disposition home or self-care (01) ==
LOC: HO.CT 07:24
PROVIDERS: PCP Nurse Practitioner Family; Visit Provider Internal Medicine Cardiovascular Disease
DX: I71.21 Aneurysm of the ascending aorta, without rupture (principal)
CPT/HCPCS: 36415; 80048

== ENCOUNTER 2025-03-04 07:35 | Outpatient (REF) | payer MEDICARE, SELFPAY ==
--- NOTE | ~2025-03-04 | CT_ITS ---
CLINICAL HISTORY: I71.2 - Thoracic aortic aneurysm, without rupture CT angiography chest with contrast. 3D Postprocessing. Comparison: None Findings: The heart is normal size. RV/LV ratio is normal. Calcification of the coronary vasculature. The thoracic aorta is normal caliber. No acute pulmonary embolus. The visualized thyroid and mediastinum are unremarkable. No consolidation or effusion. The visualized upper abdomen is unremarkable. The bones are intact. IMPRESSION: 1. No evidence of thoracic aortic aneurysm. 2. Coronary artery disease. This document has been electronically signed by: Alicia Pak MD on 03/04/2025 13:24:57
[2025-03-04] MEDS: iohexoL 350 MG/ML 100 ML INFUS..BTL IV (08:28)
== END 2025-03-04 07:36 | disposition home or self-care (01) ==
LOC: HO.CT 07:35
PROVIDERS: PCP Nurse Practitioner Family; Visit Provider Internal Medicine Cardiovascular Disease
DX: I71.21 Aneurysm of the ascending aorta, without rupture (principal)
CPT/HCPCS: 71275; Q9967

== ENCOUNTER → 2025-03-04 07:37 | Outpatient (BNV) | payer MEDICARE, SELFPAY | PROVIDERS: PCP Nurse Practitioner Family; Visit Provider Radiology Diagnostic Radiology | DX: I25.84 Coronary atherosclerosis due to calcified coronary lesion (principal) | CPT/HCPCS: 71275 ==

== ENCOUNTER 2025-06-22 13:52 | Outpatient (AMB) | payer MEDICARE, SELFPAY ==
[2025-06-22 13:53] VITALS: BP 148/90; PULSE 81; TEMP 36.7; O2SAT 97; BMI 34.7
--- NOTE | 2025-06-22 13:53 | MHC.OFFWIV ---
Intake Vital Signs 06/22/25 13:53 Height 5 ft 10 in Weight 242 lb BMI 34.7 BP 148/90 H Blood Pressure Location Lt brachial Position Sitting Pulse 81 Pulse Source Pulse Oximeter Temp 98.0 F Temp Source Oral Pulse Oximetry (%) 97 Oxygen Delivery Method Room Air Intake Visit Reasons: ep pain lower back left side Allergies No Known Allergies Allergy (Verified 06/22/25 13:55) Do you need a note to return to daycare/school/sports/work: No HPI HPI Comments History of Present Illness Details History of Present Illness - The patient is a 74-year-old male presenting with left flank pain. - The pain began today and is described as intense and radiates around the left side of his abdomen. - He denies any blood in his urine, previous kidney stones, fevers, burning with urination or trouble with urination increased frequency of urination. - He endorses some mild abdominal uncomfortableness thought he did eat a lot of kielbasa at 10am and he thinks his belly discomfort is from that. - The patient is currently taking Jardiance for his DM2. Physical Exam General: Cooperative, healthy appearing, comfortable, no acute distress and well developed Orientation: Patient oriented x3 Limitations: No limitations Head: Normal to inspection Ears: Hearing grossly normal bilaterally Nose: Normal External nose present Face and sinus: Normal facial exam Eyes: Appearance normal, both eyes and all related structures Neck: Normal visual inspection and Yes full ROM Respiratory: Normal respiratory effort and able to speak in complete sentences. Skin: No rashes or lesions noted Neuro: Patient oriented x3 Extremities: Normal to inspection BAck: negative CVA bilaterally Review of Systems - Genitourinary: Reports left flank pain and hematuria. Denies dysuria or difficulty urinating. - Gastrointestinal: Reports mild abdominal discomfort. Denies significant abdominal pain. All systems reviewed and are unremarkable except as noted in HPI [facility] Medical History Ectopic atrial rhythm HTN (hypertension) Medial meniscus tear Osteoarthritis Surgical History History of throat surgery History of hip surgery History of elbow surgery Family History Father No problems noted. Mother Cancer Physical Exam Vital Signs: Last Vital Signs Temp 98.0 F 06/22/25 13:53 Pulse 81 06/22/25 13:53 BP 148/90 H 06/22/25 13:53 Pulse Ox 97 06/22/25 13:53 Oxygen Delivery Method Room Air 06/22/25 13:53 BMI result Body Mass Index 34.7 Assessment & Plan Assessment & Plan (1) Acute left flank pain: Code(s): R10.9 - Unspecified abdominal pain Plan: Plan Patient was informed and verbally consented to the use of an ambient scribe for clinic note documentation during this visit. Possible Nephrolithiasis - UA negative for leuks, neg nitrites, positive blood, 3+ glucose - Increase fluid intake to aid in the passage of the stone. - Monitor for severe symptoms such as fever, intense pain, or urinary retention, which would require emergency intervention. - Plan for an outpatient ultrasound to evaluate the stone if symptoms do not resolve, as per PCP cristóbal. - Glucosuria Due To Medication (Jardiance) (2) Hematuria: Code(s): R31.9 - Hematuria, unspecified Qualifiers: Hematuria type: other microscopic Qualified Code(s): R31.29 - Other microscopic hematuria Plan: as above Orders: Orders US retroperitoneal comp Today R10.9 - Unspecified abdominal pain, R31.29 - Other microscopic hematuria Coding Level of Care Code Est Pt Level 4 (58229) Diagnoses Acute left flank pain R10.9 Other microscopic hematuria R31.29 Hematuria type: other microscopic
--- OUTSIDE RECORDS SUMMARY | 2025-06-22 15:10 | XMS_ITS | Clinical Summary ---
Author Organization [facility] Address [address] [address] Phone Care Team Providers Care Project Facilitator Name Role Phone Sean Chow MD Primary Care Provider [phone] Kvng Monterroso MD, PhD Unavailable [phone] Allergies No known active allergies Medications metoprolol succinate (TOPROL-XL) 25 MG 24 hr tablet Take 1 tablet (25 mg total) by mouth 2 (two) times a day. 60 tablet 1 06/28/2017 Active metoprolol succinate (TOPROL-XL) 25 MG 24 hr tablet Take 1 tablet (25 mg total) by mouth 2 (two) times a day. 60 tablet 3 06/28/2017 Active pravastatin (PRAVACHOL) 20 MG tablet Take 1 tablet (20 mg total) by mouth daily. 90 tablet 3 07/19/2017 Active hydroCHLOROthiaz karie (HYDRODIURIL) 25 MG tablet Take 25 mg by mouth daily. Active lisinopril (PRINIVIL,ZESTRI L) 5 MG tablet Take 5 mg by mouth daily. Active aspirin 81 MG EC tablet Take 81 mg by mouth daily. Active amLODIPine (NORVASC) 10 MG tablet Take 50 mg by mouth daily. Active rosuvastatin (CRESTOR) 20 MG tablet Take 20 mg by mouth daily. Active tamsulosin (FLOMAX) 0.4 mg Cap Take 0.4 mg by mouth daily. Active finasteride (PROSCAR) 5 mg tablet Take 5 mg by mouth daily. 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 Not on karina e 01/18/2023 Are you concerned about learning? Not on file 01/18/2023 No 01/18/2023 No 01/18/2023 Digital Access Answer Date Recorded No 02/18/2023 No 02/18/2023 No 02/18/2023 Reliable internet access at home? Not on file 02/18/2023 Device with a working camera? Not on file Sex and Gender Information Value Date Recorded Sex Assigned at Not on file Legal Sex Male 12:49 AM EDT Gender Identity Not on file Sexual Orientation Not on file Occupation Industry Job Start Date Job End Date Retired Not on file Not on file Not on file Last Filed Vital Signs Vital Sign Reading Time Taken Comments Blood Pressure 168/96 07/19/2017 8:53 AM EDT Pulse 74 07/19/2017 8:53 AM EDT Temperature 36.3 C (97.3 F) 07/19/2017 8:53 AM EDT Respiratory Rate 16 07/19/2017 8:53 AM EDT Oxygen Saturation 98% 07/19/2017 8:53 AM EDT Inhaled Oxygen Concentration 28% 06/27/2017 5 :12 AM EDT Weight 117.9 kg (260 lb) 10/22/2022 10:12 AM EST Height 177.8 cm (5' 10 ) 10/22/2022 10:12 AM EST Body Mass Index 37.31 10/22/2022 10:12 AM EST Plan of Treatment Health Maintenance Due Date Last Done Comments LIPID PANEL 1948 POTASSIUM LEVEL 1948 DEPRESSION SCREENING 1960 HEPATITIS C SCREENING 1966 CREATININE LEVEL 11/20/2022 11/20/2021, , 11/23/2019, Additional history exists RSV VACCINE (1 - 1-dose 75+ series) 12/29/2023 INFLUENZA VACCINE (#1) 2025 2, 06/01/2021, 06/28/2020, Additional history exists COVID-19 VACCINE (2024- season) 2025 09/30/2021, 12/20/2020, 11/29/2020 Adult Td,Tdap Booster 06/28/2030 06/28/2020, 016 PNEUMOCOCCAL VACCINES (50+ years) Completed 07/17/2022, 08/21/2017, 10/22/2016, Additional history exists ZOSTER VACCINES Completed 10/16/2022, 06/24, 04/13/2013 SMOKING STATUS SCREENING (Once After 26 Yrs) Completed 10/22/2022 HEPATITIS A VACCINES Aged Out No long er eligible based on patient's age to complete this topic HIB VACCINES Aged Out No longer eligi ble based on patient's age to complete this topic MENINGOCOCCAL VACCINES (ACWY) Aged Out No longer eligible based on patient's age to complete this topic MENINGOCOCCAL VACCINES (B) Aged Out N o longer eligible based on patient's age to complete this topic Medical Devices Implanted Type Area Replacer Device Identifier Shelf Expiration Date Model / Serial / Lot Dental Implant Procedures Procedure Name Priority Date/Time Associated Diagnosis Comments POCT CREATININE/EGFR Routine 11/20/2021 8:43 AM EST from Last 3 Months or Most Recently Relevant to Health Maintenance Results * POCT Creatinine/eGFR (11/20/2021 8:43 AM EST) Creatinine 0.80 0.60 - 1.50 mg/dl [facility] EGFR 94 >59 mL/min/1.7 3m2 [facility] Comment:Estimated glomerular filtration rate calculated using the CKD-EPI refit equation. 11/20/2021 8:43 AM EST 11/20/2021 6:37 PM EST us Koffi Maldonado MD, FACS POINT OF CARE TEST ORDERA BLES Final Result [facility] [address] [address], [facility] from Last 3 Months or Most Recently Relevant to Health Maintenance Insurance MEDICARE PART A & B [facility] MEDICARE SUPPLEMENT MEDICARE PART A & B [facility] MEDICARE SUPPLEMENT MEDICARE PART A & B MEDICARE SUPPLEMENT MEDICARE PART A & B [facility] MEDICARE SUPPLEMENT MEDICARE PART A & B [facility] MEDICARE SUPPLEMENT MEDICARE PART A & B [id number] [place] [address] MEDICARE SUPPLEMENT MEDICARE PART A & B [facility] MEDICARE SUPPLEMENT MEDICARE PART A & B MEDICARE SUPPLEMENT MEDICARE PART A & B MEDICARE SUPPLEMENT Advance Directives For more information, please contact: [phone] (9AM - 5PM Shanae/[facility], Saturday-Saturday) Documents on File Type Date Recorded Patient 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 Expl anation Healthcare Proxy 06/14/2017 11:21 AM * Full Code (Presumed) (Latest Code Status on File) Date Activated Date Inactivated Comments 06/26/2017 4:38 PM 06/28/2017 12:40 PM Care Teams Project Facilitator Relationship Specialty Start Date End Date Sean Chow MD PCP - General Internal Medicine 05/15/17 Kvng Monterroso MD, PhD [address] [place] [address] [email or web address] Radiation Oncology 01/21/19 Additional Source Comments The information contained in this document represents components of the legal health record. It is not the complete legal health record.[facility]
--- OUTSIDE RECORDS SUMMARY | 2025-06-22 15:10 | XMS_ITS | Encounter Summary ---
Author Organization [facility] Address [address] [address] Phone Care Team Providers Care Miner Placer Name Role Phone Sean Chow MD Primary Care Provider [phone] Kvng Monterroso MD, PhD Unavailable [phone] Encounter Details Date Type Department Care Team (Late st Contact Info) Description 11/14/2020 Procedure Pass [facility] - [facility] [address] [place] [address] Social History Tobacco Use Types Packs/Day Years Used Date Smoking Tobacco: Never Smokeless Tobacco: Never Alcohol Use Standard Drinks/Week Comments No 0 (1 standard drink = 0.6 oz pur e alcohol) quit 30 years ago Sex and Gender Information Value Date Recorded Sex Assigned at Not on file Legal Sex Male 12:49 AM EDT Gender Identity Not on file Sexual Orientation Not on file Occupation Industry Job Start Date Job End Date Retired Not on file Not on file Not on file documented as of this encounter Plan of Treatment Not on file documented as of this encounter Visit Diagnoses Not on filedocumented in this encounter Care Teams Miner Placer Relationship Specialty Start Date End Date Sean Chow MD PCP - General Internal Medicine 05/15/17 Kvng Monterroso MD, PhD [address] [place] [address] [email or web address] Radiation Oncology 01/21/19 documented as of this encounter Additional Source Comments The information contained in this document represents components of the legal health record. It is not the complete legal health record.[facility]
--- OUTSIDE RECORDS SUMMARY | 2025-06-22 15:10 | XMS_ITS | Encounter Summary ---
Author Organization [facility] Address [address] [facility] [address] [address] Phone Care Team Providers Care Head Mva Reactor Operator Name Role Phone Sean Chow MD Primary Care Provider +1- [phone] Kvng Monterroso MD, PhD Unavailable Encounter Details Date Type Department Care Team (Late st Contact Info) Description 03/17/2018 Ancillary Orders [facility] [place] Imaging - Ultrasound, Main [place] [address] [place] [address] Koffi Maldonado MD, FACS [address] [place] [address] 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 FOLLOWING CONCLUSION OF THIS PROCEDURE, SPECIMENS WERE HAND- DELIVERED TO THE CYTOPATHOLOGY LABORATORY AT [facility]. Narrative 03/18/2018 10:53 PM EDT * Report * Reason for Exam: EXAMINATION: Ultrasound-guided FNA of right parotid lesion. 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 Recent CT showed a right parotid nodule. TECHNIQUE: Real-time grayscale and Doppler ultrasound of the right parotid was performed in a targeted fashion. Written informed consent was obtained. The patient was prepped and draped in the usual sterile fashion. 1% local lidocaine was administered to the right infraauricular region. Three passes using 25-gauge needles were made through a right parotid tail nodule. Specimens were plated onto slides and prepared as washings. The patient tolerated the procedure well with no immediate complications. COMPARISON: CT dated 02/21/2018. FINDINGS: In the right parotid tail superficially, there is a hypoechoic nodule measuring 5 x 6 x 4 mm. This was sampled. Procedure Note Yenny Mcconnell MD - 03/18/2018 * Report * Reason for Exam: EXAMINATION: Ultrasound-guided FNA of right parotid lesion. 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 Recent CT showed a right parotid nodule. TECHNIQUE: Real-time grayscale and Doppler ultrasound of the right parotid was performed in a targeted fashion. Written informed consent was obtained. The patient was prepped and draped in the usual sterile fashion. 1% local lidocaine was administered to the right infraauricular region. Three passes using 25-gauge needles were made through a right parotid tail nodule. Specimens were plated onto slides and prepared as washings. The patient tolerated the procedure well with no immediate complications. COMPARISON: CT dated 02/21/2018. FINDINGS: In the right parotid tail superficially, there is a hypoechoic nodule measuring 5 x 6 x 4 mm. This was sampled. IMPRESSION: * Impression * ULTRASOUND-GUIDED FINE NEEDLE ASPIRATION OF RIGHT PAROTID TAIL NODULE. FOLLOWING CONCLUSION OF THIS PROCEDURE, SPECIMENS WEREHAND- DELIVERED TO THE CYTOPATHOLOGY LABORATORY AT [facility]. 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 It is not the complete legal health record.[facility]
--- OUTSIDE RECORDS SUMMARY | 2025-06-22 15:10 | XMS_ITS | Encounter Summary ---
Author Organization [facility] Address [address] [address] Phone Care Team Providers Care Handle Rounder Operator Name Role Phone Sean Chow MD Primary Care Provider [phone]- [phone] Kvng Monterroso MD, PhD Unavailable [phone] Encounter Details Date Type Department Care Team (Late st Contact Info) Description 11/14/2020 Procedure Pass [facility] - [facility] Main [place] [address] [place] [address] Social History Tobacco Use Types Packs/Day Years [...] on filedocumented in this encounter Care Teams Handle Rounder Operator Relationship Specialty Start Date End Date Sean Chow MD PCP - General Internal Medicine 05/15/17 Kvng Monterroso MD, PhD [address] [place] [address] [email or web address] Radiation Oncology 01/21/19 documented as of this encounter Additional Source Comments The information contained in this document represents components of the legal health record. It is not the complete legal health record.[facility]
--- OUTSIDE RECORDS SUMMARY | 2025-06-22 15:10 | XMS_ITS | Encounter Summary ---
Author Organization [facility] Address [address] [facility] [address] [place] [address] Phone Care Team Providers Care Medical Device Name Role Phone Sean Chow MD Primary Care Provider [phone]- [phone] Kvng Monterroso MD, PhD Unavailable [phone] Encounter Details Date Type Department Care Team (Late st Contact Info) Description 06/26/2017 Procedure Pass [facility] [address] [place] [id number] Social History Tobacco Use Types Packs/Day Years [...] on filedocumented in this encounter Care Teams Medical Device Relationship Specialty Start Date End Date Sean Chow MD [email or web address] PCP - General Internal Medicine 05/15/17 Kvng Monterroso MD, PhD [address] [address] [email or web address] Radiation Oncology 01/21/19 documented as of this encounter Additional Source Comments The information contained in this document represents components of the legal health record. It is not the complete legal health record.[facility]
--- OUTSIDE RECORDS SUMMARY | 2025-06-22 15:10 | XMS_ITS | Encounter Summary ---
Author Organization [facility] Address [address] [place] [address] [place] [address] Phone Care Team Providers Care Warehouse Shipping Receiving Clerk Name Role Phone Sean Chow MD Primary Care Provider [phone]- [phone] Kvng Monterroso MD, PhD Unavailable [phone] Encounter Details Date Type Department Care Team (Late st Contact Info) Description 11/18/2017 Procedure Pass [facility] - [facility], [facility] [address] [place] [address] Social History Tobacco Use Types Packs/Day Years [...] on filedocumented in this encounter Care Teams Warehouse Shipping Receiving Clerk Relationship Specialty Start Date End Date Sean Chow MD PCP - General Internal Medicine 05/15/17 Kvng Monterroso MD, PhD [address] [address] [email or web address] Radiation Oncology 01/21/19 documented as of this encounter Additional Source Comments The information contained in this document represents components of the legal health record. It is not the complete legal health record.[facility]
--- OUTSIDE RECORDS SUMMARY | 2025-06-22 15:10 | XMS_ITS | Encounter Summary ---
Author Organization [facility] Address [address] [address] Phone Care Team Providers Care Systems Requirements Planner Name Role Phone Sean Chow MD Primary Care Provider [phone]- [phone] Kvng Monterroso MD, PhD Unavailable [phone] Encounter Details Date Type Department Care Team (Late st Contact Info) Description 03/18/2018 Ancillary Orders [facility] [place] [facility] and [facility] Cancer Division [address] [place] [address] Koffi Maldonado MD, FACS [address] [place] [address] 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 FOLLOWING CONCLUSION OF THIS PROCEDURE, SPECIMENS WERE HAND- DELIVERED TO THE CYTOPATHOLOGY LABORATORY AT [facility]. Narrative 03/18/2018 10:53 PM EDT * [...] WEREHAND- DELIVERED TO THE CYTOPATHOLOGY LABORATORY AT [facility]. 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 It is not the complete legal health record.[facility]
--- OUTSIDE RECORDS SUMMARY | 2025-06-22 15:10 | XMS_ITS | Clinical Summary ---
Author Organization [facility] Address [address] [place] [address] Care Team Providers Care Edge Sander Name Role Phone Unavailable Primary Care Provider Unavailabl e Social History Tobacco Use Types Packs/Day Years Used Date Smoking Tobacco: Never Assessed Sex and Gender Information Value Date Recorded Sex Assigned at Not on file Legal Sex Male 2:06 PM EST Gender Identity Not on file Sexual Orientation Not on file Plan of Treatment Health Maintenance Due Date Last Done Comments Diabetes: Annual GFR (Glomerular Filtration Rate) 1948 Diabetes: Annual Foot Exam 1958 Diabetes: Annual Retina Eye Exam 1958 Cholesterol Screening (Lipid Panel) 08/22/2022 Falls Risk Assessment 08/22/2022 Hepatitis C Screening 08/22/2022 Social Influencers of Health Screening 08/22/2022 RSV Immunization Adult Patients (1 - 1-dose 75+ series) 12/29/2023 Depression Screening 09/23/2024 Diabetes: Annual Urine Albumin-Creatinine Ratio (uACR) 05/13/2025 Diabetes: Blood Sugar Control Test (HGBA1C) 05/13/2025 Hypertension/CHF/CAD Annual BMP Blood Test 05/13/2025 COVID-19 Vaccine ( season) 2025 09/30/2021, 12/20/2020, 11/29/2020 Influenza Vaccine (#1) 2025 , 06/01/2021, 06/28/2020, Additional history exists DTaP,Tdap,and Td Vaccines (3 - Td or Tdap) 06/28/2030 06/28/2020, 09/23/2010 Pneumococcal Vaccine: 50+ Years Completed 07/17/2022, 10/22/2016, 08/04/2015 Zoster Vaccines Completed 10/16/2022, 06/24, 04/13/2013 HIB Vaccines Aged Out No longer eligi [...] age to complete this topic Meningococcal B Vaccine Aged Out No l onger eligible based on patient's age to complete this topic RSV Immunization Patients Under 20 months Aged Out No longer eligible based on patient's age to complete this topic Varicella Vaccines Aged Out No longer eligible based on patient's age to complete this topic
--- OUTSIDE RECORDS SUMMARY | 2025-06-22 15:10 | XMS_ITS | Encounter Summary ---
Author Organization [facility] Address [address] [place] [address] [place] [address] Phone Care Team Providers Care Putty Mixer And Applier Name Role Phone Sean Chow MD Primary Care Provider [phone]- [phone] Kvng Monterroso MD, PhD Unavailable [phone] Encounter Details Date Type Department Care Team (Late st Contact Info) Description 11/18/2017 Procedure Pass [facility] - [facility], [facility] [address] [place] [address] Social History Tobacco Use Types Packs/Day Years [...] on filedocumented in this encounter Care Teams Putty Mixer And Applier Relationship Specialty Start Date End Date Sean Chow MD PCP - General Internal Medicine 05/15/17 Kvng Monterroso MD, PhD [address] [address] [email or web address] Radiation Oncology 01/21/19 documented as of this encounter Additional Source Comments The information contained in this document represents components of the legal health record. It is not the complete legal health record.[facility]
--- OUTSIDE RECORDS SUMMARY | 2025-06-22 15:10 | XMS_ITS | Encounter Summary ---
Author Organization [facility] Address [address] [address] Phone Care Team Providers Care Supervisor Respiratory Name Role Phone Sean Chow MD Primary Care Provider [phone]- [phone] Kvng Monterroso MD, PhD Unavailable [phone] Encounter Details Date Type Department Care Team (Late st Contact Info) Description 11/14/2020 Procedure Pass [facility] - CT Main [place] [address] [place] [address] Social History Tobacco Use Types Packs/Day Years [...] on filedocumented in this encounter Care Teams Supervisor Respiratory Relationship Specialty Start Date End Date Sean Chow MD PCP - General Internal Medicine 05/15/17 Kvng Monterroso MD, PhD [address] [place] [address] [email or web address] Radiation Oncology 01/21/19 documented as of this encounter Additional Source Comments The information contained in this document represents components of the legal health record. It is not the complete legal health record.[facility]
--- OUTSIDE RECORDS SUMMARY | 2025-06-22 15:10 | XMS_ITS | Encounter Summary ---
Author Organization [facility] Address [address] [address] Phone Care Team Providers Care Career Based Intervention Coordinator Name Role Phone Sean Chow MD Primary Care Provider [phone]- [phone] Kvng Monterroso MD, PhD Unavailable [phone] Encounter Details Date Type Department Care Team (Late st Contact Info) Description 11/14/2020 Procedure Pass [facility] - CT Main [place] [address] [place] [address] Social History Tobacco Use Types Packs/Day Years [...] on filedocumented in this encounter Care Teams Career Based Intervention Coordinator Relationship Specialty Start Date End Date Sean Chow MD PCP - General Internal Medicine 05/15/17 Kvng Monterroso MD, PhD [address] [place] [address] [email or web address] Radiation Oncology 01/21/19 documented as of this encounter Additional Source Comments The information contained in this document represents components of the legal health record. It is not the complete legal health record.[facility]
--- OUTSIDE RECORDS SUMMARY | 2025-06-22 15:10 | XMS_ITS | Encounter Summary ---
Author Organization [facility] Address [address] [facility] [address] [place] [address] Phone Care Team Providers Care Binder And Wrapper Packer Name Role Phone Sean Chow MD Primary Care Provider +1- [phone] Kvng Monterroso MD, PhD Unavailable [phone] Encounter Details Date Type Department Care Team (Late st Contact Info) Description 06/13/2017 Procedure Pass [facility] PERIOP DEPT [address] [place] [phone] Social History Tobacco Use Types Packs/Day Years [...] on filedocumented in this encounter Care Teams Binder And Wrapper Packer Relationship Specialty Start Date End Date Sean Chow MD PCP - General Internal Medicine 05/15/17 Kvng Monterroso MD, PhD [address] [address] [email or web address] Radiation Oncology 01/21/19 documented as of this encounter Additional Source Comments The information contained in this document represents components of the legal health record. It is not the complete legal health record.[facility]
== END 2025-06-22 14:41 | disposition home or self-care (01) ==
PROVIDERS: PCP Nurse Practitioner Family; Visit Provider Physician Assistant
DX: R10.9 Unspecified abdominal pain (principal); R31.29 Other microscopic hematuria; Z13.9 Encounter for screening, unspecified

== ENCOUNTER → 2025-06-22 13:52 | Outpatient (BNVA) | payer MEDICARE, SELFPAY | PROVIDERS: PCP Nurse Practitioner Family; Visit Provider Physician Assistant | DX: I10 Essential (primary) hypertension (principal); R31.29 Other microscopic hematuria; R10.9 Unspecified abdominal pain | CPT/HCPCS: 81003; 99212 ==